=== PATIENT | male | born 1960 | race Caucasian/White ===

== ENCOUNTER 2024-09-26 12:11 | Inpatient (IN) | payer MEDICARE, MEDICAID ==
--- NOTE | 2024-09-26 12:29 | ED.PDOC ---
SOB-HPI HPI Comments 64 y.o male with PMH of HTN, hyperlipidemia, CVA, COPD, and enlarged prostate, presents to the ED for a chief complaint of ongoing SOB, intermittent chest pain and diarrhea for about 4-6 months. Patient was seen by his PCP Dr. Jose garcia for a general check up, was diagnosed with newly AFIB and CHF and was sent to the ED for further evaluation. Patient reports SOB worsens when laying flat and/or when getting up from sitting position. He denies any chest pain at this time, but when he comes onset, it is localized across his chest and is described as an aching sensation. He denies any nausea, vomiting, diarrhea, fever or chills. Time Seen by MD: 12:17 Reviewed notes: Nurses Notes, Medications, Allergies Information Source: Patient, Friend Mode of Arrival: Wheelchair Severity: Moderate Timing: Months (6) Duration: Since onset Context: At Rest PE Risk Factors: None History of: COPD Modifying Factors: Nothing Associated Signs and Symptoms: Chest Pain, Leg Swelling Quality: Aching Radiation: No Radiation Location: Substernal Past Medical History PAST MEDICAL HISTORY: COPD, CVA, High Lipids, HTN Past Medical History (Other): enlarged prostate Surgical History: Denies all surgeries Family History Family History: Family hx of DM Social History Smoker: Non-Smoker Alcohol: Denies ETOH Use Drugs: Denies Drug Use Lives In: Home Constitutional: denies: chills, diaphoresis, fatigue, fever, malaise, sweats, weakness, others EENTM: denies: blurred vision, double vision, ear bleeding, ear discharge, ear drainage, ear pain, ear ringing, eye pain, eye redness, hearing loss, mouth pain, mouth swelling, nasal discharge, nose bleeding, nose congestion, nose pain, photophobia, tearing, throat pain, throat swelling, voice changes, others Respiratory: reports: SOB at rest, shortness of breath, SOB with excertion; denies: cough, hemoptysis, orthopnea, stridor, wheezing, others Cardiovascular: reports: chest pain; denies: dizzy spells, diaphoresis, Dyspnea on exertion, edema, irregular heart beat, left arm pain, lightheadedness, palpitations, PND, syncope, others Gastrointestinal: reports: diarrhea; denies: abdomen distended, abdominal pain, blood streaked bowels, constipated, dysphagia, difficulty swallowing, hematemesis, melena, nausea, poor appetite, poor fluid intake, rectal bleeding, rectal pain, vomiting, others Genitourinary: denies: burning, dysuria, flank pain, frequency, hematuria, incontinence, penile discharge, penile sore, pain, testicle pain, testicle swelling, urgency, others Neurological: denies: dizziness, fainting, headache, left sided numbness, left sided weakness, numbness, paresthesia, pre-existing deficit, right sided numbness, right sided weakness, seizure, speech problems, tingling, tremors, weakness, others Musculoskeletal: reports: others (leg swelling ); denies: back pain, gout, shauna nt pain, joint swelling, muscle pain, muscle stiffness, neck pain Integumetry: denies: bruises, change in color, change in hair/nails, dryness, laceration, lesions, lumps, rash, wounds, others Allergic/Immunocompromised: denies: Difficulty Healing, Frequent Infections, Hives, Itching, others Hematologic/Lymphatic: denies: anemia, blood clots, easy bleeding, easy bruising, swollen glands, others Endocrine: denies: excessive hunger, excessive sweating, excessive thirst, excessive urination, flushing, intolerance to cold, intolerance to heat, unexpl ained weight gain, unexplained weight loss, others Psychiatric: denies: anxiety, bipolar disorder, depression, hopeless, panic disorder, schizophrenia, sleepless, suicidal, others All Other Systems: Reviewed and Negative Physical Exam General Appearance: Moderate Distress HEENT: Normal ENT Inspection, Pharynx Normal, TMs Normal Neck: Full Range of Motion, Non-Tender, Normal, Normal Inspection Respiratory: Chest Non-Tender, Rales, Respiratory Distress Cardiovascular: No Edema, No JVD, No Murmur, No Gallop, Normal Peripheral Pulses, Regular Rate/Rhythm Breast Exam: Deferred Gastrointestinal: No Organomegaly, Non Tender, No Pulsatile Mass, Normal Bowel Sounds, Soft Genitalia: Deferred Pelvic: Deferred Rectal: Deferred Extremities: No calf tenderness, Normal capillary refill, Normal inspection, Normal range of motion, Non-tender, No pedal edema Musculoskeletal : Apperance: Normal Neurologic: Alert, roast master II-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 Was a procedure done?: No Differential Dx Differential Diagnosis: Asthma, Bronchitis, CHF, COPD, Pneumonia, Pulmonary Embolism, Respiratory Distress, URI X-Ray, Labs, Meds, VS Vital Signs Date Time Temp Pulse Resp B/P (MAP) Pulse Ox O2 Delivery O2 Flow Rate FiO2 09/26/24 13:44 115/76 09/26/24 13:04 97.6 67 18 132/71 (91) 92 97.6 09/26/24 13:04 67 18 92 Room Air 09/26/24 12:23 97.6 88 20 133/101 (112) 93 Lab Test 09/26/24 13:39 09/26/24 12:49 Range/Units Troponin I High Sensitivity Pending 9 </=54 ng/L White Blood Count 12.7 H 4.4-10.8 10^3/uL Red Blood Count 4.36 L 4.5-5.90 10^6/uL Hemoglobin 14.0 13.5-17.5 g/dL Hematocrit 41.2 41.0-53.0 % Mean Corpuscular Volume 94.4 80.0-100.0 fL Mean Corpuscular Hemoglobin 32.2 H 28.0-32.0 pg Mean Corpuscular Hemoglobin Concent 34.1 32.0-36.0 g/dL Red Cell Distribution Width 13.6 11.8-14.3 % Platelet Count 257 140-450 10^3/uL Mean Platelet Volume 8.1 6.9-10.8 fL Neutrophils (%) (Auto) 78.1 37.0-80.0 % Lymphocytes (%) (Auto) 5.3 L 10.0-50.0 % Monocytes (%) (Auto) 16.1 H 0.0-12.0 % Eosinophils (%) (Auto) 0.2 0.0-7.0 % Basophils (%) (Auto) 0.3 0.0-2.0 % Neutrophils # (Auto) 9.9 H 1.6-8.6 10 ^3/uL Lymphocytes # (Auto) 0.7 0.4-5.4 10 ^3/uL Monocytes # (Auto) 2.0 H 0-1.3 10 ^3/uL Eosinophils # (Auto) 0 0-0.8 10 ^3/uL Basophils # (Auto) 0 0-0.2 10 ^3/uL Nucleated Red Blood Cells 0.1 % Sodium Level 134 L 136-145 mmol/L Potassium Level 4.2 3.5-5.1 mmol/L Chloride Level 97 L 98-107 mmol/L Carbon Dioxide Level 31 20-31 mmol/L Anion Gap 6 5-15 Blood Urea Nitrogen 9 9-23 mg/dL Creatinine 0.71 0.700-1.30 mg/dL Glomerular Filtration Rate Calc 102 >90 mL/min BUN/Creatinine Ratio 12.7 10.0-20.0 Serum Glucose 120 H 74-106 mg/dL Calcium Level 9.2 8.7-10.4 mg/dL B-Type Natriuretic Peptide 498.43 0-100 pg/mL Current Medications Medications (Trade) Dose Ordered Sig/Audrey Route Start Time Stop Time Status Last Admin Furosemide (Lasix Injection) 40 mg ONCE ONCE IV 09/26/24 12:30 09/26/24 12:31 DC 09/26/24 13:44 IV Hep-Lock was established The patient was given Lasix 40 mg IV push The patient's white blood cell count is elevated at 12.7 The rest of the CBC is within normal limits. The chemistry panel is within normal limits The patient has a BNP of 498.43 The patient was slightly hyperglycemic at 120 At this time, the patient is being admitted to the hospitalist. Images Reviewed?: Images reviewed and evaluated by me Time of 1ST Reevaluation: 12:21 Reevaluation 1ST: Unchanged Patient Education/Counseling: Diagnosis, Treatment, Prognosis Family Education/Counseling: Diagnosis, Treatment, Prognosis Departure 1 Departure Time of Disposition: 14:05 Impression: Primary Impression: Acute on chronic diastolic heart failure Disposition: ADMITTED INPATIENT Admit to: Tele Condition: Fair Critical Care Note Critical Care Time?: Yes (35 min-critical care time only) Stability Stability form required: Yes Unstable for transfer: Telemetry monitoring (Telemetry monitoring required), ED Physician Assesment (Clinical assesment) Heart Score Heart Score: Heart Score Response (Comments) Value History Slightly Suspicious 0 EKG Normal 0 Age >65 2 Risk Factors 1 or 2 risk factors 1 Troponin Normal limit 0 Total 3 I personally scribed for MARQUES OVERTON MD ([email or web address]) on 09/26/24 at 12:29. Electronically submitted by Jaqui Manuel ([facility]). MARQUES OVERTON MD Sep 26, 2024 12:29
--- NOTE | 2024-09-26 12:53 | DVH ---
EXAM: XY CHEST PORTABLE Indication:sob Technique: Single frontal view of the chest was obtained Comparison: None FINDINGS: Lines and Tubes: None Lungs: No focal consolidation. Pleura: No effusion. No pneumothorax. Cardiomediastinal contours: Cardiomegaly. Atherosclerotic vascular calcifications of the thoracic ao rta are noted. Bones: No acute osseous abnormality. IMPRESSION: No acute cardiopulmonary disease.
[2024-09-26 13:04] VITALS: BP 132/71; PULSE 67; RESP 18; TEMP 97.6; O2SAT 92
[2024-09-26 13:14] LABS: Chloride 97 mmol/L (98-107); Potassium 4.2 mmol/L (3.5-5.1); Sodium 134 mmol/L (136-145)
[2024-09-26 13:15] LABS: Anion Gap 6 (5-15); Carbon Dioxide 31 mmol/L (20-31)
[2024-09-26 13:16] LABS: Basophils # (auto) 0 10 ^3/uL (0-0.2); Basophils % (auto) 0.3 % (0.0-2.0); Calcium 9.2 mg/dL (8.7-10.4); Eosinophils # (auto) 0 10 ^3/uL (0-0.8); Eosinophils % (auto) 0.2 % (0.0-7.0); Hematocrit 41.2 % (41.0-53.0); Lymphocytes # (auto) 0.7 10 ^3/uL (0.4-5.4); Lymphocytes % (auto) 5.3 % (10.0-50.0); Mean Corpuscular Hemoglobin 32.2 pg (28.0-32.0); Mean Corpuscular Hgb Conc. 34.1 g/dL (32.0-36.0); Mean Corpuscular Volume 94.4 fL (80.0-100.0); Monocytes % (auto) 16.1 % (0.0-12.0); Neutrophils # (auto) 9.9 10 ^3/uL (1.6-8.6); Neutrophils % (auto) 78.1 % (37.0-80.0); Nucleated Red Blood Cells % 0.1 %; Platelet Count (auto) 257 10^3/uL (140-450); Red Blood Cells 4.36 10^6/uL (4.5-5.90); Red Cell Distribution Width 13.6 % (11.8-14.3); White Blood Cell 12.7 10^3/uL (4.4-10.8)
[2024-09-26 13:20] LABS: BUN/Creatinine Ratio 12.7 (10.0-20.0); Blood Urea Nitrogen 9 mg/dL (9-23); Glucose 120 mg/dL (74-106)
[2024-09-26] MEDS: FUROSEMIDE 40 MG/4 ML VIAL IV ONE (13:44)
[2024-09-26] MEDS ORDERED: MAALOX PLUS or MAALOX 30 ML PO ONE (17:45)
[2024-09-26] MEDS ORDERED: LORazepam 0.5 MG TAB PO PRN (17:45)
[2024-09-26] MEDS ORDERED: ACETAMINOPHEN 325 MG TAB PO PRN (17:45)
[2024-09-26] MEDS ORDERED: ZOLPIDEM TARTRATE 5 MG TAB PO PRN (17:45)
[2024-09-26] MEDS ORDERED: MORPHINE SULFATE INJ 2 MG/ml SYRG IV PRN (17:45)
[2024-09-26] MEDS ORDERED: DEXTROSE (50%) 50ML SYRG IV PRN (17:45)
[2024-09-26] MEDS ORDERED: ONDANSETRON HCL 4 MG/2 ML VIAL IV PRN (17:45)
[2024-09-26] MEDS ORDERED: NITROGLYCERIN 0.4 MG SL TAB SL PRN (17:45)
[2024-09-26] MEDS ORDERED: IPRATROPIUM BROM 0.5 MG/2.5ML INH SOL NEB PRN ×2 (18:00→22:00)
[2024-09-26] MEDS ORDERED: ALBUTEROL SULF 2.5 MG/0.5ML(0.5%) NEB SOLN NEB PRN ×2 (18:00→22:00)
--- NOTE | 2024-09-26 18:35 | DVHHP2 ---
History of Present Illness Reason for Visit: Shortness of Breath History of Present Illness 64 yo with a PMH HTN CVA HLD COPD and stated by PCP to have a suspected new onset of CHF and Possible Afib was recommended to come to the ed for admission and evaluation for management of suspected worsening CHF vs acute COPD exacerbation Cardiovascular: HTN, hyperipidemia Pulmonary: COPD MEDICAL OBSERVER: CVA Review of Systems Constitutional: Yes: Weakness; No: Fever, Chills, Sweats, Malaise, Other Eyes: No: Pain, Vision change, Conjunctivae inflammation, Eyelid inflammation, Other, Redness ENT: No: Ear pain, Ear discharge, Nose pain, Nose discharge, Nose congestion, Mouth pain, Mouth swelling, Throat pain, Throat swelling, Other Respiratory: Shortness of breath, SOB with excertion; No: Cough, Dry, Wheezing, Hemoptysis, Pleuritic Pain, Sputum, Wheezing, Other Cardiovascular: Chest Pain; No: Palpitations, Orthopnea, Paroxysmal Noc. Dyspnea, Edema, Lt Headedness, Other Gastrointestinal: No: Nausea, Vomiting, Abdominal Pain, Diarrhea, Constipation, Melena, Hematochezia, Other Genitourinary: No Dysuria, No Frequency, No Incontinence, No Hematuria, No Retention, No Other Musculoskeletal: No: other, neck pain, shoulder pain, arm pain, back pain, hand pain, leg pain, foot pain Skin: No: Rash, Lesions, Jaundice, Bruising, Other Neurological: No: Weakness, Numbness, Incoordination, Change in speech, Conf usion, Seizures, Other Allergies: Coded Allergies: NO KNOWN ALLERGIES (Unverified , 09/26/24) Medications Current Medications Medications Dose Ordered Sig/Audrey Route Start Time Stop Time Status Last Admin Dose Admin Diagnostic Test (Pha) 1 strip ACHS 09/26/24 22:00 Insulin Human Regular ACHS SC 09/26/24 22:00 Dextrose 50 ml UD PRN IV 09/26/24 17:45 Aspirin 81 mg DAILY PO 09/27/24 10:00 Clopidogrel Bisulfate 75 mg DAILY PO 09/27/24 10:00 Atorvastatin Calcium 40 mg HS PO 09/26/24 22:00 Carvedilol 6.25 mg Q12HR PO 09/26/24 22:00 Acetaminophen 650 mg Q6HP PRN PO 09/26/24 17:45 Zolpidem Tartrate 5 mg QHSP PRN PO 09/26/24 17:45 Lorazepam 0.5 mg Q6HP PRN PO 09/26/24 17:45 Docusate Sodium 100 mg DAILY PO 09/27/24 10:00 Ondansetron HCl 4 mg Q4HP PRN IV 09/26/24 17:45 Lisinopril 10 mg DAILY PO 09/27/24 10:00 Nitroglycerin 0.4 mg Q5MINP PRN SL 09/26/24 17:45 Morphine Sulfate 2 mg Q30M PRN IV 09/26/24 17:45 Furosemide 40 mg BID IV 09/26/24 22:00 Azithromycin 500 mg DAILY PO 09/27/24 10:00 Albuterol 2.5 mg Q4HPRN PRN NEB 09/26/24 22:00 Ipratropium [place] 0.5 mg Q4HPRN PRN NEB 09/26/24 22:00 Exam Vital Signs Vital Signs Date Time Temp Pulse Resp B/P (MAP) Pulse Ox O2 Delivery O2 Flow Rate FiO2 09/26/24 13:44 115/76 09/26/24 13:04 97.6 67 18 92 97.6 09/26/24 13:04 Room Air General Appearance: Alert, Oriented X3 HEENT: Atraumatic, PERRLA Respiratory: Clear to auscultation, Normal air movement Cardiovascular: Regular rate, Normal S1, Normal S2 Abdominal: Normal bowel sounds, Soft Extremities: No clubbing, No cyanosis, No edema Skin: No rashes, No breakdown, No significant lesion Neuro: Normal gait, Normal speech Psych/Mental Status: Mood NL Labs/Xrays Labs Test 09/26/24 13:39 09/26/24 12:49 Range/Units Troponin I High Sensitivity 8 </=54 ng/L White Blood Count 12.7 H 4.4-10.8 10^3/uL Red Blood Count 4.36 L 4.5-5.90 10^6/uL Hemoglobin 14.0 13.5-17.5 g/dL Hematocrit 41.2 41.0-53.0 % Mean Corpuscular Volume 94.4 80.0-100.0 fL Mean Corpuscular Hemoglobin 32.2 H 28.0-32.0 pg Mean Corpuscular Hemoglobin Concent 34.1 32.0-36.0 g/dL Red Cell Distribution Width 13.6 11.8-14.3 % Platelet Count 257 140-450 10^3/uL Mean Platelet Volume 8.1 6.9-10.8 fL Neutrophils (%) (Auto) 78.1 37.0-80.0 % Lymphocytes (%) (Auto) 5.3 L 10.0-50.0 % Monocytes (%) (Auto) 16.1 H 0.0-12.0 % Eosinophils (%) (Auto) 0.2 0.0-7.0 % Basophils (%) (Auto) 0.3 0.0-2.0 % Neutrophils # (Auto) 9.9 H 1.6-8.6 10 ^3/uL Lymphocytes # (Auto) 0.7 0.4-5.4 10 ^3/uL Monocytes # (Auto) 2.0 H 0-1.3 10 ^3/uL Eosinophils # (Auto) 0 0-0.8 10 ^3/uL Basophils # (Auto) 0 0-0.2 10 ^3/uL Nucleated Red Blood Cells 0.1 % Sodium Level 134 L 136-145 mmol/L Potassium Level 4.2 3.5-5.1 mmol/L Chloride Level 97 L 98-107 mmol/L Carbon Dioxide Level 31 20-31 mmol/L Anion Gap 6 5-15 Blood Urea Nitrogen 9 9-23 mg/dL Creatinine 0.71 0.700-1.30 mg/dL Glomerular Filtration Rate Calc 102 >90 mL/min BUN/Creatinine Ratio 12.7 10.0-20.0 Serum Glucose 120 H 74-106 mg/dL Calcium Level 9.2 8.7-10.4 mg/dL B-Type Natriuretic Peptide 498.43 0-100 pg/mL Assessment/Plan Assessment/Plan Admit to Med/Surg Shortness of Breath Suspected acute on chronic COPD exacerbation Possible CHF exacerbation chest pain protocol as stated chest pain BNP elevated possible fluid overload IV lasix bid COPD Exacerbation Prn Breathing treatments Azithromycin for coverage covid and flu evaluation CXR negative for severe disease elevated white count Plan discussed with: Patient My Orders Orders - JAKE POSEY MD Procedure Category Date Status Time Glucose Blood PHA 09/26/24 In Process (Accu-Chek Comfort 22:00 Insulin R (Human) PHA 09/26/24 In Process (Insulin R) 22:00 Dextrose 50% Syringe PHA 09/26/24 In Process 17:45 Admit ADMIT 09/26/24 Transmitted 17:39 Code Status CODE 09/26/24 Transmitted 17:39 Vital Signs TAPAN 09/26/24 In Process 17:39 Aspirin Tablet PHA 09/27/24 In Process 10:00 Clopidogrel Bisulfate PHA 09/27/24 In Process (Plavix) 10:00 Atorvastatin (Lipitor) PHA 09/26/24 In Process 22:00 Carvedilol Tablet PHA 09/26/24 In Process (Coreg Tablet) 22:00 Acetaminophen Tablet PHA 09/26/24 In Process (Tylenol Tablet) 17:45 Zolpidem Tartrate PHA 09/26/24 In Process (Ambien) 17:45 Lorazepam Tablet PHA 09/26/24 In Process (Ativan Tablet) 17:45 Docusate Sodium PHA 09/27/24 In Process Capsule (Colace 10:00 Complete Blood Count LAB 09/27/24 Verified 04:00 Basic Metabolic Panel LAB 09/27/24 Verified 04:00 Ondansetron Hcl PHA 09/26/24 In Process (Zofran) 17:45 Electrocardigram EKG 09/26/24 Logged 17:39 Lisinopril Tablet PHA 09/27/24 In Process (Zestril Tablet) 10:00 Cardiac TAPAN 09/26/24 In Process Rehabilitation - Outpa Nitroglycerin PHA 09/26/24 In Process Sublingual (Ntrostat 17:45 Morphine Sulfate PHA 09/26/24 In Process Injection 17:45 Stat Ekg For Chest TAPAN 09/26/24 In Process Pain 17:39 Notify Of Changes TAPAN 09/26/24 In Process From Base 17:39 Breakfast Manager For TAPAN 09/26/24 In Process 24 Hours 17:39 Emergency Dysrhythmia TAPAN 09/26/24 In Process Protocol 17:39 Rhythm Strips Once TAPAN 09/26/24 In Process Every Shift 17:39 Oxygen By Nasal RT 09/26/24 Transmitted Cannula 17:39 Furosemide Injection PHA 09/26/24 In Process (Lasix Injection) 22:00 Med Neb Initial RT 09/26/24 Logged Treatment 17:47 Azithromycin Tablet PHA 09/27/24 In Process (Zithromax Tablet) 10:00 Albuterol Medneb PHA 09/26/24 In Process (Ventolin Medneb) 22:00 Ipratropium Medneb PHA 09/26/24 In Process (Atrovent Medneb) 22:00 Covid19 Antigen Miriam LAB 09/26/24 Logged Rapid Influenza A&B LAB 09/26/24 Logged 18:15 Problem List: (1) COPD (chronic obstructive pulmonary disease) with acute bronchitis (2) Acute on chronic diastolic heart failure Date of Service: Sep 26, 2024 Billing Provider: JAKE POSEY MD Common Visit Codes: 44953-[id number] INP/OBS CARE (HIGH) JAKE POSEY MD Sep 26, 2024 18:35
[2024-09-26] MEDS ORDERED: FUROSEMIDE 40 MG/4 ML VIAL IV SCH (22:00)
[2024-09-26] MEDS ORDERED: ACCU-CHEK COMFORT CURVE STRIP VI SCH (22:00)
[2024-09-26] MEDS ORDERED: CARVEDILOL 3.125 MG TAB PO SCH (22:00)
[2024-09-26] MEDS ORDERED: ATORVASTATIN 20 MG TAB PO SCH (22:00)
[2024-09-26] MEDS ORDERED: InsuLIN REG 1unit/0.01ml Soln (100units/ml) SC SCH (22:00)
[2024-09-27] MEDS ORDERED: ASPirin 81 mg TAB PO SCH (10:00)
[2024-09-27] MEDS ORDERED: CLOPIDOGREL BISULFATE 75 MG TAB PO SCH (10:00)
[2024-09-27] MEDS ORDERED: LISINOPRIL 5 MG TAB PO SCH (10:00)
[2024-09-27] MEDS ORDERED: DOCUSATE SOD 100 MG CAP PO SCH (10:00)
[2024-09-27] MEDS ORDERED: AZITHROMYCIN 250 MG TAB PO SCH (10:00)
== END 2024-09-26 19:08 | disposition left against medical advice (07) | DRG 291 ==
LOC: ER 12:11 → OVERFLOW 17:39
PROVIDERS: ADMIT Hospitalist; ATTEND Hospitalist
DX: I11.0 Hypertensive heart disease with heart failure (principal); I50.33 Acute on chronic diastolic (congestive) heart failure; J44.1 Chronic obstructive pulmonary disease with (acute) exacerbation; E78.5 Hyperlipidemia, unspecified; N40.0 Benign prostatic hyperplasia without lower urinary tract symptoms; Z86.73 Personal history of transient ischemic attack (TIA), and cerebral infarction without residual deficits; Z83.3 Family history of diabetes mellitus
CPT/HCPCS: 36415; 71045; 80048; 83880; 84484; 85025; 96374; 99291; G0378

== ENCOUNTER 2024-10-27 15:45 | Inpatient (IN) | payer MEDICARE, MEDICAID ==
[~2024-10-27] VITALS: Ht 177.8 cm; Wt 81.0 kg
[2024-10-27] MEDS: cefTRIAXone 1GM/50ML D5W 50 ML IV SCH
[~2024-10-27 15:45] MED LIST: AMLO1TAB23 PO; LISI-283 PO; UMEC1AER IN
--- NOTE | 2024-10-27 15:55 | ED.PDOC ---
SOB-HPI HPI Comments 64 y.o male with PMH of AFIB, COPD, asthma, HTN, HDL, DM, and CVA, presents to the ED via EMS for a chief complaint of SOB that started last night but progressively worsened x 2-3 hours ago. EMS reports administrating 0.5 albuterol and 250-300cc NS in route. Patient reports similar symptoms last month, was seen by PCP on 09/25/24 who referred him to the ED. Patient went to the ED the following day but ended up leaving against medical advice due to wait time. He denies any chest pain, fever, chills, nausea, vomiting, diarrhea, abdominal pain, recent illness or contact exposure. He admits to the use of tobacco, alcohol and marijuana. Chief Complaint: Shortness of Breath Time Seen by MD: 15:43 Reviewed notes: Nurses Notes, Steel Shot Header Operator Notes, Medications, Allergies Information Source: Patient, Emergency Med Personnel Mode of Arrival: EMS Severity: Moderate Timing: Hours Duration: Since onset Context: At Rest History of: Asthma, COPD Prehospital treatment: 12 Lead EKG, Breathing Tx, Cable Television Technician, IVF Modifying Factors: Nothing Associated Signs and Symptoms: None Past Medical History PAST MEDICAL HISTORY: COPD, CVA, High Lipids, HTN Surgical History: Denies all surgeries Family History Family History: Family hx of DM Social History Smoker: Cigarettes Alcohol: Occasionally Drugs: Marijuana Lives In: Home Constitutional: denies: chills, diaphoresis, fatigue, fever, malaise, sweats, weakness, others EENTM: denies: blurred vision, double vision, ear bleeding, ear discharge, ear drainage, ear pain, ear ringing, eye pain, eye redness, hearing loss, mouth pain, mouth swelling, nasal discharge, nose bleeding, nose congestion, nose pain, photophobia, tearing, throat pain, throat swelling, voice changes, others Respiratory: reports: SOB at rest, shortness of breath, SOB with excertion; denies: cough, hemoptysis, orthopnea, stridor, wheezing, others Cardiovascular: denies: chest pain, dizzy spells, diaphoresis, Dyspnea on exertion, edema, irregular heart beat, left arm pain, lightheadedness, palpitations, PND, syncope, others Gastrointestinal: denies: abdomen distended, abdominal pain, blood streaked bowels, constipated, diarrhea, dysphagia, difficulty swallowing, hematemesis, melena, nausea, poor appetite, poor fluid intake, rectal bleeding, rectal pain, vomiting, others Genitourinary: denies: burning, dysuria, flank pain, frequency, hematuria, incontinence, penile discharge, penile sore, pain, testicle pain, testicle swelling, urgency, others Neurological: denies: dizziness, fainting, headache, left sided numbness, left sided weakness, numbness, paresthesia, pre-existing deficit, right sided numbness, right sided weakness, seizure, speech problems, tingling, tremors, weakness, others Musculoskeletal: denies: back pain, gout, joint pain, joint swelling, muscle pain, muscle stiffness, neck pain, others Integumetry: denies: bruises, change in color, change in hair/nails, dryness, laceration, lesions, lumps, rash, wounds, others Allergic/Immunocompromised: denies: Difficulty Healing, Frequent Infections, Hives, Itching, others Hematologic/Lymphatic: denies: anemia, blood clots, easy bleeding, easy bruising, swollen glands, others Endocrine: denies: excessive hunger, excessive sweating, excessive thirst, excessive urination, flushing, intolerance to cold, intolerance to heat, unexplained weight gain, unexplained weight loss, others Psychiatric: denies: anxiety, bipolar disorder, depression, hopeless, panic disorder, schizophrenia, sleepless, suicidal, others All Other Systems: Reviewed and Negative Physical Exam General Appearance: Moderate Distress HEENT: Normal ENT Inspection, Pharynx Normal, TMs Normal Neck: Full Range of Motion, Non-Tender, Normal, Normal Inspection Respiratory: Chest Non-Tender, No Accessory Muscle Use, Rales, Respiratory Distress Cardiovascular: No Edema, No JVD, No Murmur, No Gallop, Normal Peripheral Pulses, Tachycardia Breast Exam: Deferred Gastrointestinal: No Organomegaly, Non Tender, No Pulsatile Mass, Normal Bowel Sounds, Soft Genitalia: Deferred Pelvic: Deferred Rectal: Deferred Extremities: No calf tenderness, Normal capillary refill, Normal inspection, Normal range of motion, Non-tender, No pedal edema Musculoskeletal : Apperance: Normal Neurologic: Alert, 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 Was a procedure done?: No Differential Dx Differential Diagnosis: Asthma, Bronchitis, CHF, COPD, Pneumonia, Respiratory Distress, URI X-Ray, Labs, Meds, VS Vital Signs Date Time Temp Pulse Resp B/P (MAP) Pulse Ox O2 Delivery O2 Flow Rate FiO2 10/27/24 15:55 133 10/27/24 15:51 133 10/27/24 15:47 98.9 129 16 159/88 (111) 98 Lab Test 10/27/24 18:24 10/27/24 16:55 10/27/24 16:35 Range/Units Troponin I High Sensitivity Pending White Blood Count 8.9 4.4-10.8 10^3/uL Red Blood Count 4.71 4.5-5.90 10^6/uL Hemoglobin 14.7 13.5-17.5 g/dL Hematocrit 45.2 41.0-53.0 % Mean Corpuscular Volume 96.1 80.0-100.0 fL Mean Corpuscular Hemoglobin 31.2 28.0-32.0 pg Mean Corpuscular Hemoglobin Concent 32.4 32.0-36.0 g/dL Red Cell Distribution Width 15.7 H 11.8-14.3 % Platelet Count 234 140-450 10^3/uL Mean Platelet Volume 8.8 6.9-10.8 fL Neutrophils (%) (Auto) 78.1 37.0-80.0 % Lymphocytes (%) (Auto) 6.2 L 10.0-50.0 % Monocytes (%) (Auto) 15.2 H 0.0-12.0 % Eosinophils (%) (Auto) 0.2 0.0-7.0 % Basophils (%) (Auto) 0.3 0.0-2.0 % Neutrophils # (Auto) 6.9 1.6-8.6 10 ^3/uL Lymphocytes # (Auto) 0.6 0.4-5.4 10 ^3/uL Monocytes # (Auto) 1.4 H 0-1.3 10 ^3/uL Eosinophils # (Auto) 0 0-0.8 10 ^3/uL Basophils # (Auto) 0 0-0.2 10 ^3/uL Nucleated Red Blood Cells 0.2 % Sodium Level 129 L 136-145 mmol/L Potassium Level 3.6 3.5-5.1 mmol/L Chloride Level 97 L 98-107 mmol/L Carbon Dioxide Level 23 20-31 mmol/L Anion Gap 9 5-15 Blood Urea Nitrogen 7 L 9-23 mg/dL Creatinine 0.71 0.700-1.30 mg/dL Glomerular Filtration Rate Calc 102 >90 mL/min BUN/Creatinine Ratio 9.9 L 10.0-20.0 Serum Glucose 120 H 74-106 mg/dL Calcium Level 9.3 8.7-10.4 mg/dL B-Type Natriuretic Peptide 297.59 0-100 pg/mL Lactic Acid Level Pending Current Medications Medications (Trade) Dose Ordered Sig/Audrey Route Start Time Stop Time Status Last Admin Methylprednisolone Sodium Succinate (Solu Medrol) 125 mg ONCE ONCE IV 10/27/24 16:00 10/27/24 16:01 DC 10/27/24 16:39 CHEST RADIOGRAPH IMPRESSION: 1. Cardiomegaly with probable pulmonary vascular congestion. IIV heplock The patient was given Lasix 40 mg IV push The lactic acid level is pending The CBC and chemistry panel is within normal limits. The troponin level is pending At this time, the patient was being admitted to the hospitalist with a diagnosis of acute on chronic diastolic heart failure Images Reviewed?: Images reviewed and evaluated by me Time of 1ST Reevaluation: 15:54 Reevaluation 1ST: Unchanged Patient Education/Counseling: Diagnosis, Treatment, Prognosis Family Education/Counseling: No Family Present Departure 1 Departure Time of Disposition: 18:45 Impression: Primary Impression: Acute on chronic diastolic heart failure Disposition: 09 ADMITTED INPATIENT Admit to: Tele Condition: Fair Critical Care Note Critical Care Time?: Yes (35 min-critical care time only) Stability Stability form required: Yes Unstable for transfer: Telemetry monitoring (Telemetry monitoring required), ED Physician Assesment (Clinical assesment) I personally scribed for MARQUES OVERTON MD ([email or web address]) on 10/27/24 at 15:54. Electronically submitted by Jaqui Manuel ([facility] [facility]). I personally scribed for MARQUES OVERTON MD ([email or web address]) on 10/27/24 at 18:33. Electronically submitted by Jaqui Manuel ([facility] MARQUES OVERTON MD Oct 27, 2024 15:54
[2024-10-27] MEDS: dilTIAZem 25 MG/5 ML VIAL IV ONE ×2 (16:00→23:45)
--- NOTE | 2024-10-27 16:00 | ECG ---
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
[2024-10-27] MEDS: methylPREDNISolone SOD SUCC 125 MG/2 ML VL IV ONE (16:39)
--- NOTE | 2024-10-27 16:59 | DVH ---
CHEST RADIOGRAPH Indication: Palpitations and shortness a breath Technique: Single frontal view of the chest was obtained Comparison: XY CHEST PORTABLE on DOS: 09/26/24 FINDINGS: Lines and Tubes: None Lungs: Bilateral lower lung zone hazy opacities. Diffuse bilateral interstitial prominence. Pleura: Blunted right costophrenic angle. No pneumothorax. Cardiomediastinal contours: Cardiomegaly. Bones: No acute osseous abnormality. IMPRESSION: 1. Cardiomegaly with probable pulmonary vascular congestion. HS:Y
[2024-10-27 17:24] LABS: Basophils # (auto) 0 10 ^3/uL (0-0.2); Basophils % (auto) 0.3 % (0.0-2.0); Eosinophils # (auto) 0 10 ^3/uL (0-0.8); Eosinophils % (auto) 0.2 % (0.0-7.0); Hematocrit 45.2 % (41.0-53.0); Hemoglobin 14.7 g/dL (13.5-17.5); Lymphocytes # (auto) 0.6 10 ^3/uL (0.4-5.4); Lymphocytes % (auto) 6.2 % (10.0-50.0); Mean Corpuscular Hemoglobin 31.2 pg (28.0-32.0); Mean Corpuscular Hgb Conc. 32.4 g/dL (32.0-36.0); Mean Corpuscular Volume 96.1 fL (80.0-100.0); Monocytes # (auto) 1.4 10 ^3/uL (0-1.3); Monocytes % (auto) 15.2 % (0.0-12.0); Neutrophils # (auto) 6.9 10 ^3/uL (1.6-8.6); Neutrophils % (auto) 78.1 % (37.0-80.0); Nucleated Red Blood Cells % 0.2 %; Platelet Count (auto) 234 10^3/uL (140-450); Red Blood Cells 4.71 10^6/uL (4.5-5.90); Red Cell Distribution Width 15.7 % (11.8-14.3); White Blood Cell 8.9 10^3/uL (4.4-10.8)
[2024-10-27 17:43] LABS: Calcium 9.3 mg/dL (8.7-10.4); Carbon Dioxide 23 mmol/L (20-31)
[2024-10-27 17:44] LABS: Potassium 3.6 mmol/L (3.5-5.1)
[2024-10-27] MEDS: FUROSEMIDE 40 MG/4 ML VIAL IV ONE (17:45)
[2024-10-27 17:48] LABS: BUN/Creatinine Ratio 9.9 (10.0-20.0)
[2024-10-27 18:25] LABS: Anion Gap 9 (5-15); Blood Urea Nitrogen 7 mg/dL (9-23); Chloride 97 mmol/L (98-107); Glucose 120 mg/dL (74-106); Sodium 129 mmol/L (136-145)
[2024-10-27] MEDS ORDERED: TEMAZEPAM 15 MG CAP PO PRN (20:15)
[2024-10-27] MEDS ORDERED: AZITHROMYCIN 500MG/ 250ML 250 ML IV ONE (20:15)
[2024-10-27] MEDS ORDERED: NITROGLYCERIN 0.4 MG SL TAB SL PRN (20:15)
[2024-10-27] MEDS ORDERED: ONDANSETRON HCL 4 MG/2 ML VIAL IV PRN (20:15)
[2024-10-27] MEDS ORDERED: MORPHINE SULFATE INJ 2 MG/ml SYRG IV PRN (20:15)
[2024-10-27] MEDS ORDERED: cefTRIAXone 1GM/50ML D5W 50 ML IV SCH (20:35)
[2024-10-27 22:00] VITALS: BP 159/88; PULSE 133; RESP 16; TEMP 98.9; O2SAT 98
[2024-10-27] MEDS ORDERED: DOXYCYCLINE 100MG/250ML 250 ML IV SCH (22:00)
[2024-10-27 22:45] VITALS: PULSE 103; RESP 20; O2SAT 99
[2024-10-27] MEDS: ATORVASTATIN 20 MG TAB PO SCH (23:43)
[2024-10-27 23:50] LABS: COVID19 ANTIGEN SOFIA FIA NEGATIVE (NEGATIVE); Rapid Influenza A Negative (Negative); Rapid Influenza B Negative (Negative)
[2024-10-28] VITALS (20 sets, daily range): BP systolic 101–128; BP diastolic 67–90; PULSE 70–114; RESP 18–26; TEMP 97.6–98.6; O2SAT 93–100
[2024-10-28] MEDS: DOXYCYCLINE 100MG/250ML 250 ML IV SCH (00:13)
[2024-10-28] MEDS ORDERED: CITA-77 PO (02:32)
[2024-10-28] MEDS ORDERED: TAMS0.4C39 PO (02:32)
[2024-10-28] MEDS ORDERED: SIMV20TA20 PO (02:32)
[2024-10-28] MEDS ORDERED: DUTA1CAP29 PO (02:32)
--- NOTE | 2024-10-28 02:47 | ECG ---
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
--- NOTE | 2024-10-28 05:05 | DVHHP2 ---
History of Present Illness Reason for Visit: Shortness for breath History of Present Illness 64-year-old male presents for evaluation of shortness for breath. Patient reports a two day history of worsening shortness for breath. Patient reports using his albuterol without relief of the symptoms. Reports wheezing and a nonproductive cough. Patient reports smoking one pack of cigarettes a day. Denies chest pain at the moment. No other acute complaints reported. Past Medical History COPD, dyslipidemia, CVA, hypertension and? CHF Past Surgical History Denies Family History Diabetes mellitus Smoke: <1 pack per day ALCOHOL: occassional Drugs: Marijuana Review of Systems Review of Systems Review of systems are currently negative otherwise addressed in HPI. Allergies: Coded Allergies: NO KNOWN ALLERGIES (Unverified , 09/26/24) Medications Current Medications Medications Dose Ordered Sig/Audrey Route Start Time Stop Time Status Last Admin Dose Admin Atorvastatin Calcium 20 mg HS PO 10/27/24 22:00 10/27/24 23:43 20 MG Lisinopril 20 mg DAILY PO 10/28/24 10:00 Hydrochlorothiazide 25 mg DAILY PO 10/28/24 10:00 Tamsulosin HCl 0.4 mg QPM PO 10/28/24 18:00 Metoprolol Succinate 25 mg DAILY PO 10/28/24 10:00 Furosemide 40 mg DAILY PO 10/28/24 10:00 Azithromycin 250 ml @ 125 mls/hr DAILY IV 10/28/24 10:00 UNV Albuterol 2.5 mg Q6HPRN PRN NEB 10/27/24 20:15 Temazepam 15 mg QHSP PRN PO 10/27/24 20:15 Ondansetron HCl 4 mg Q4HP PRN IV 10/27/24 20:15 Enoxaparin Sodium 40 mg DAILY SC 10/28/24 10:00 Acetaminophen 650 mg Q6HP PRN PO 10/27/24 20:15 Nitroglycerin 0.4 mg Q5MINP PRN SL 10/27/24 20:15 Morphine Sulfate 2 mg Q30M PRN IV 10/27/24 20:15 Ceftriaxone Sodium 50 ml @ 100 mls/hr Q24H IV 10/27/24 00:00 10/27/24 23:30 100 MLS/HR Doxycycline Hyclate 250 ml @ 125 mls/hr Q12H IV 10/28/24 00:30 10/28/24 00:13 125 MLS/HR Exam Vital Signs Vital Signs Date Time Temp Pulse Resp B/P (MAP) Pulse Ox O2 Delivery O2 Flow Rate FiO2 10/28/24 02:26 98.1 105 20 128/80 (96) 93 98.1 10/28/24 02:19 Nasal Cannula* 2 28 Exam Gen: 64-year-old male Skin: Warm, dry, normal color and texture, no rash. HEENT: Normocephalic atraumatic, mucous membranes moist and pink. Neck: Cervical and supraclavicular nodes normal without enlargement, trachea is midline, thyroid gland is normal without masses. Pulmonary: Diminished breath sounds bilaterally Cardiac: Regular rate and rhythm. No murmur Abdomen: Soft, nontender, nondistended, bowel sounds present all 4 quadrants, no guarding, no rigidity, no organomegaly. Extremities: No cyanosis, clubbing, no edema Neuro: Cranial nerves II through XII grossly intact, normal affect and speech, no focal motor deficits. Labs/Xrays ORDERING PHYSICIAN: MARQUES OVERTON MD PROCEDURE(s): CXRP - CHEST PORTABLE REASON: Palpitations and shortness a breath ORDER NUMBER(s): [id number], ACCESSION NUMBER(s): [id number] CHEST RADIOGRAPH Indication: Palpitations and shortness a breath Technique: Single frontal view of the chest was obtained Comparison: XY CHEST PORTABLE on DOS: 09/26/24 FINDINGS: Lines and Tubes: None Lungs: Bilateral lower lung zone hazy opacities. Diffuse bilateral interstitial prominence. Pleura: Blunted right costophrenic angle. No pneumothorax. Cardiomediastinal contours: Cardiomegaly. Bones: No acute osseous abnormality. IMPRESSION: 1. Cardiomegaly with probable pulmonary vascular congestion. HS:Y Labs Test 10/27/24 23:00 10/27/24 19:55 10/27/24 16:55 10/27/24 16:35 Range/Units Influenza Type A Antigen Negative Negative Influenza Type B Antigen Negative Negative SARS-CoV-2 Antigen (Rapid) Negative NEGATIVE Troponin I High Sensitivity 14 </=54 ng/L White Blood Count 8.9 4.4-10.8 10^3/uL Red Blood Count 4.71 4.5-5.90 10^6/uL Hemoglobin 14.7 13.5-17.5 g/dL Hematocrit 45.2 41.0-53.0 % Mean Corpuscular Volume 96.1 80.0-100.0 fL Mean Corpuscular Hemoglobin 31.2 28.0-32.0 pg Mean Corpuscular Hemoglobin Concent 32.4 32.0-36.0 g/dL Red Cell Distribution Width 15.7 H 11.8-14.3 % Platelet Count 234 140-450 10^3/uL Mean Platelet Volume 8.8 6.9-10.8 fL Neutrophils (%) (Auto) 78.1 37.0-80.0 % Lymphocytes (%) (Auto) 6.2 L 10.0-50.0 % Monocytes (%) (Auto) 15.2 H 0.0-12.0 % Eosinophils (%) (Auto) 0.2 0.0-7.0 % Basophils (%) (Auto) 0.3 0.0-2.0 % Neutrophils # (Auto) 6.9 1.6-8.6 10 ^3/uL Lymphocytes # (Auto) 0.6 0.4-5.4 10 ^3/uL Monocytes # (Auto) 1.4 H 0-1.3 10 ^3/uL Eosinophils # (Auto) 0 0-0.8 10 ^3/uL Basophils # (Auto) 0 0-0.2 10 ^3/uL Nucleated Red Blood Cells 0.2 % Sodium Level 129 L 136-145 mmol/L Potassium Level 3.6 3.5-5.1 mmol/L Chloride Level 97 L 98-107 mmol/L Carbon Dioxide Level 23 20-31 mmol/L Anion Gap 9 5-15 Blood Urea Nitrogen 7 L 9-23 mg/dL Creatinine 0.71 0.700-1.30 mg/dL Glomerular Filtration Rate Calc 102 >90 mL/min BUN/Creatinine Ratio 9.9 L 10.0-20.0 Serum Glucose 120 H 74-106 mg/dL Calcium Level 9.3 8.7-10.4 mg/dL B-Type Natriuretic Peptide 297.59 0-100 pg/mL Lactic Acid Level 1.9 0.4-2.0 mmol/L Assessment/Plan Assessment/Plan Assessment Acute on chronic respiratory failure COPD exacerbation Possible CHF exacerbation ? Pneumonia Hypertension Noncompliant Plan Admit the patient to telemetry to the hospitalist Rocephin/azithromycin Resume home medications Continue treatment per orders. Plan discussed with: Patient My Orders Orders - NEGRA ASHBY Procedure Category Date Status Time Atorvastatin (Lipitor) PHA 10/27/24 In Process 22:00 Lisinopril Tablet PHA 10/28/24 In Process (Zestril Tablet) 10:00 Hydrochlorothiazide PHA 10/28/24 In Process Tablet (Hydrochlorot 10:00 Tamsulosin PHA 10/28/24 In Process Hydrochloride (Flomax) 18:00 Metoprolol Xl PHA 10/28/24 In Process Succinate (Toprol Xl) 10:00 Furosemide Tablet PHA 10/28/24 In Process (Lasix Tablet) 10:00 Albuterol Medneb PHA 10/27/24 In Process (Ventolin Medneb) 20:15 Basic Metabolic Panel LAB 10/28/24 Logged 04:00 Admit ADMIT 10/27/24 Transmitted 20:02 Temazepam (Restoril) PHA 10/27/24 In Process 20:15 Ondansetron Hcl PHA 10/27/24 In Process (Zofran) 20:15 Enoxaparin Sodium PHA 10/28/24 In Process (Lovenox) 10:00 Complete Blood Count LAB 10/28/24 Logged 04:00 Cardiac DIET 10/28/24 Transmitted Diet-2gna,Lofat,Lochol Breakfast Echo 2d Mode Cardiac US 10/27/24 Logged DOP 20:02 Condition: Stable TAPAN 10/27/24 In Process 20:02 Acetaminophen Tablet PHA 10/27/24 In Process (Tylenol Tablet) 20:15 Bedrest With Bathroom TAPAN 10/27/24 In Process Privileg 20:02 Nitroglycerin PHA 10/27/24 In Process Sublingual (Ntrostat 20:15 Morphine Sulfate PHA 10/27/24 In Process Injection 20:15 Stat Ekg For Chest TAPAN 10/27/24 In Process Pain 20:02 Notify Of Changes TAPAN 10/27/24 In Process From Base 20:02 Heading And Priming Operator For [facility] 10/27/24 In Process 24 Hours 20:02 Emergency Dysrhythmia TAPAN 10/27/24 In Process Protocol 20:02 Rhythm Strips Once TAPAN 10/27/24 In Process Every Shift 20:02 Oxygen By Nasal RT 10/27/24 Transmitted Cannula 20:02 Clarification Of ORDERS 10/27/24 Transmitted Order: 20:40 Pharmacy [facility] 10/27/24 In Process Clarification: 21:07 Ceftriaxone 1gm/50ml PHA 10/27/24 In Process D5w (Rocephin) 00:00 Doxycycline PHA 10/28/24 In Process 100mg/250ml 00:30 Education - Smoking TAPAN 10/28/24 In Process Cessation 03:27 Date of Service: Oct 27, 2024 Billing Provider: NEGRA ASHBY Common Visit Codes: [id number] INP/OBS CARE (HIGH) NEGRA ASHBY Oct 28, 2024 05:05
[2024-10-28 06:59] LABS: Anion Gap 7 (5-15); Carbon Dioxide 28 mmol/L (20-31)
[2024-10-28 07:00] LABS: Calcium 9.1 mg/dL (8.7-10.4)
[2024-10-28 07:01] LABS: Chloride 95 mmol/L (98-107); Sodium 130 mmol/L (136-145)
[2024-10-28 07:05] LABS: BUN/Creatinine Ratio 12.3 (10.0-20.0); Basophils # (auto) 0 10 ^3/uL (0-0.2); Basophils % (auto) 0.1 % (0.0-2.0); Blood Urea Nitrogen 10 mg/dL (9-23); Eosinophils # (auto) 0 10 ^3/uL (0-0.8); Hematocrit 45.5 % (41.0-53.0); Lymphocytes # (auto) 0.3 10 ^3/uL (0.4-5.4); Lymphocytes % (auto) 4.1 % (10.0-50.0); Mean Corpuscular Hgb Conc. 33.1 g/dL (32.0-36.0); Mean Corpuscular Volume 93.7 fL (80.0-100.0); Monocytes # (auto) 0.6 10 ^3/uL (0-1.3); Monocytes % (auto) 8.8 % (0.0-12.0); Neutrophils # (auto) 5.8 10 ^3/uL (1.6-8.6); Platelet Count (auto) 188 10^3/uL (140-450); Red Blood Cells 4.85 10^6/uL (4.5-5.90); Red Cell Distribution Width 15.1 % (11.8-14.3); White Blood Cell 6.7 10^3/uL (4.4-10.8)
[2024-10-28 07:07] LABS: Glucose 187 mg/dL (74-106)
[2024-10-28] MEDS: ALBUTEROL SULF 2.5 MG/0.5ML(0.5%) NEB SOLN NEB PRN ×2 (08:00→11:08)
[2024-10-28] MEDS: LISINOPRIL 20 MG TAB PO SCH (09:18)
[2024-10-28] MEDS: hydroCHLOROthiazide 25 MG TAB PO SCH (09:19)
[2024-10-28] MEDS: FUROSEMIDE 40 MG TAB PO SCH (09:19)
[2024-10-28] MEDS: METOPROLOL SUCCINATE XL 50 MG TAB PO SCH (09:20)
[2024-10-28] MEDS: ENOXAPARIN SOD 40 MG/0.4 ML SYRINGE SC SCH (09:24)
[2024-10-28] MEDS ORDERED: AZITHROMYCIN 500MG/ 250ML 250 ML IV SCH (10:00)
[2024-10-28] MEDS: ALBUTEROL SULF 2.5 MG/0.5ML(0.5%) NEB SOLN NEB SCH (12:00)
--- NOTE | 2024-10-28 12:51 | CONS ---
Pharmacy Clinical Information: Patient from [facility] HF report (antihyperglycemic drug). There is no Hemoglobin A1c level available at this time to make a proper guideline-based recommendation for an antihyperglycemic drug. ROSITA BAKER PHARMACIST Oct 28, 2024 12:51
[2024-10-28] MEDS ORDERED: IPRATROPIUM BROM 0.5 MG/2.5ML INH SOL NEB PRN (13:15)
[2024-10-28] MEDS ORDERED: ALBUTEROL SULF 2.5 MG/0.5ML(0.5%) NEB SOLN NEB PRN (13:15)
[2024-10-28] MEDS: predniSONE 20 MG TAB PO ONE (13:44)
[2024-10-28] MEDS: NICOTINE 14 MG/24HR TOPICAL PATCH TD ONE (13:47)
[2024-10-28] MEDS: IPRATROPIUM BROM 0.5 MG/2.5ML INH SOL NEB SCH (14:01)
[2024-10-28] MEDS ORDERED: AMLO1TAB22 PO (16:12)
[2024-10-28] MEDS ORDERED: MULTCHW OR (16:17)
[2024-10-28] MEDS ORDERED: NICO1LOZ5 MT (16:17)
[2024-10-28] MEDS ORDERED: ASPI81CH74 PO (16:17)
[2024-10-28] MEDS ORDERED: ERGO1CAP23 PO (16:17)
[2024-10-28] MEDS: TAMSULOSIN HYDROCHLORIDE 0.4 MG CAP PO SCH (17:21)
[2024-10-28 20:13] LABS: Potassium 3.7 mmol/L (3.5-5.1)
--- NOTE | 2024-10-28 20:14 | DVHPNRES ---
Progress Note Date Seen: Oct 28, 2024 Resident Creating Document: YAZMIN FONSECA RESIDENT Medical Necessity Reason Pt with a Central, PICC or Fol: No Subjective Review of Systems 64-year-old male and past medical history of COPD, hyperlipidemia, CVA, hypertension, AFib, CHF here with complaints of shortness of breath associated wheezing and cough last two days. Patient was admitted last time in September possible CHF exacerbation and atrial fibrillation but he left AMA. Patient is mentioning of chest pain that is associated with cough and deep inspiration. ROS Constitutional: No: Fever, Chills, Sweats, Weakness, Malaise, Other Eyes: No: Pain, Vision change, Conjunctivae inflammation, Eyelid inflammation, Other, Redness ENT: No: Ear pain, Ear discharge, Nose pain, Nose discharge, Nose congestion, Mouth pain, Mouth swelling, Throat pain, Throat swelling, Other Respiratory: Cough, sputum, wheezing Cardiovascular: Chest pain, no: Palpitations, Orthopnea, Paroxysmal Noc. Dyspnea, Edema, Lt Headedness, Other Gastrointestinal: No: Nausea, Vomiting, Abdominal Pain, Diarrhea, Constipation, Melena, Hematochezia, Other Musculoskeletal: No: other, neck pain, shoulder pain, arm pain, back pain, hand pain, leg pain, foot pain Neurological:; No: Weakness, Numbness, Incoordination, Change in speech, Confusion, Seizures Objective vital signs Vital Sign Date Time Temp Pulse Resp B/P (MAP) Pulse Ox O2 Delivery O2 Flow Rate FiO2 10/28/24 18:10 111 22 100 10/28/24 17:05 97.6 127/67 (87) 97.6 10/28/24 10:00 Nasal Cannula* 3 32 Total Intake and Output 10/27/24 10/27/24 10/28/24 14:59 22:59 06:59 Intake Total 665 ml Output Total 1 ml Balance 664 ml medications Current Medications Medications Dose Ordered Sig/Audrey Route Start Time Stop Time Status Last Admin Dose Admin Atorvastatin Calcium 20 mg HS PO 10/27/24 22:00 10/27/24 23:43 20 MG Lisinopril 20 mg DAILY PO 10/28/24 10:00 10/28/24 09:18 20 MG Hydrochlorothiazide 25 mg DAILY PO 10/28/24 10:00 10/28/24 09:19 25 MG Tamsulosin HCl 0.4 mg QPM PO 10/28/24 18:00 10/28/24 17:21 0.4 MG Metoprolol Succinate 25 mg DAILY PO 10/28/24 10:00 10/28/24 09:20 25 MG Furosemide 40 mg DAILY PO 10/28/24 10:00 10/28/24 09:19 40 MG Azithromycin 250 ml @ 125 mls/hr DAILY IV 10/28/24 10:00 UNV Enoxaparin Sodium 40 mg DAILY SC 10/28/24 10:00 10/28/24 09:24 40 MG Acetaminophen 650 mg Q6HP PRN PO 10/27/24 20:15 Ceftriaxone Sodium 50 ml @ 100 mls/hr Q24H IV 10/27/24 00:00 10/27/24 23:30 100 MLS/HR Doxycycline Hyclate 250 ml @ 125 mls/hr Q12H IV 10/28/24 00:30 10/28/24 12:42 125 MLS/HR Prednisone 40 mg DAILY PO 10/29/24 10:00 Ipratropium [place] 0.5 mg Q4HR NEB 10/28/24 14:00 10/28/24 18:26 0.5 MG Ipratropium [place] 0.5 mg Q2HPRN PRN NEB 10/28/24 13:15 Nicotine 1 patch DAILY TD 10/29/24 10:00 Levalbuterol HCl 1.25 mg Q4HR NEB 10/28/24 22:00 UNV Ipratropium [place] 0.5 mg Q4HR NEB 10/28/24 22:00 UNV Examination Examination General Appearance: Alert, Oriented X3, Cooperative, No acute distress HEENT: EOMI Respiratory: Bilateral Scattered wheezing Cardiovascular: Regular rate, Normal S1, Normal S2 Abdominal: Normal bowel sounds Extremities: No cyanosis, No edema, Normal pulses, No tenderness/swelling Skin: No rashes, No breakdown Neuro: Speech and tone laboratory and microbiology Laboratory Tests 10/28/24 06:14 Test 10/28/24 06:14 Range/Units Serum Glucose 187 H 74-106 mg/dL Microbiology Date/Time Source Procedure Growth Status 10/27/24 17:04 Blood Blood Culture - Preliminary NO GROWTH AFTER 24 HOURS OF INCUBATION. Resulted Labs and/or images reviewed: Labs reviewed by me, Image(s) reviewed by me Problem List/Assessment/Plan Problem List/Assessment/Plan Assessment/Plan #Acute hypoxic Resp failure due to COPD exacerbation/?CHF exacerbation/?Pneumonia -currently on 3L o2 through nasal canula -Chest Xray revealed Cardiomegaly with probable pulmonary vascular congestion. #COPD exacerbation -neb with ipratropium/levalbuterol -Doxy considering prolonged QTc #?CHF exacerbation -IV Lasix switched to oral Lasix -BNP -echo #?Community acquired pneumonia -IV ceftriaxone plus IV doxycycline -MRSA screen -CT chest without contrast #A-fib, ?persistent ?paroxysmal -pt does not take any medications -echo -mg>2 and potassium>4 -therapeutic Lovenox -metoprolol succinate 25mg daily -CHADS-VASc score 5, HAS-BLED score of 1 #Asymptomatic V-tach prolonged Qtc -echo -avoid amiodarone considering prolonged Qtc -mag ,and potassium ordered -repeat EKG -patient already on metoprolol #history of stroke -currently on therapeutic Lovenox -atorvastatin #HLD -atorvastatin #Hypertension -continue lisinopril -discontinued hydrochlorothiazide #Tobacco use disorder -nicotine patch -counselling for cessation >12 min #Marijuana use disorder -counselling for cessation >12 min Case discussion with Dr Herber Hopkins discussed with: Patient, Other My Orders My Orders Orders - YAZMIN FONSECA RESIDENT Procedure Category Date Status Time Prednisone Tablet PHA 10/29/24 In Process 10:00 Ipratropium Medneb PHA 10/28/24 In Process (Atrovent Medneb) 14:00 Ipratropium Medneb PHA 10/28/24 In Process (Atrovent Medneb) 13:15 Nicotine 14mg/24hr PHA 10/29/24 In Process (Nicoderm 14mg/24hr) 10:00 Date of Service: Oct 28, 2024 Billing Provider: ANNE MARIE CALLES MD Common Visit Codes: [id number] INP/OBS CARE(HIGH) Coding Comment Comment Attending Attestation I saw and evaluated the patient. I reviewed the residents note and agree with findings and plan as documented in the residents note except as documented below. POCUS done today, TDS, poor cardiac window, no diffuse b lines, no PLEF, hepatization RLL acute on chronic hypoxic respiratory failure COPDgroup E with exacerbation chronic systolic heart failure pafib prolonged QT old CVA HTN HLD active smoker cannabis use maintain spo2 >88 empiric ceft and doxy albuterol ipatropium nebs prednisone therapeutic lovenox resume home meds rate control with metop succinate asa lipitor smoking cessation NRT lasix to euvolemia YAZMIN FONSECA RESIDENT Oct 28, 2024 20:14 ANNE MARIE CALLES MD Oct 28, 2024 21:49
[2024-10-28 20:20] LABS: Magnesium 1.6 mg/dL (1.6-2.6)
[2024-10-28] MEDS: ENOXAPARIN SOD 100 MG/1 ML SYRINGE SC SCH (21:52)
[2024-10-28] MEDS: LEVALBUTEROL HCL 1.25 MG/3 ML NEB NEB SCH (22:09)
[2024-10-28] MEDS: POTASSIUM EFFERVESENT TAB 25 MEQ PO ONE (22:44)
[2024-10-28] MEDS: MAGNESIUM SULFATE 1GM/100ML 100 ML IV SCH (22:47)
[2024-10-28 22:56] LABS: INR 1.24 (0.9-1.15); Partial Thromboplastin Time 29.3 SEC (24.5-34.5); Prothrombin Time 12.9 sec (9.3-11.8)
[2024-10-29] VITALS (19 sets, daily range): BP systolic 119–136; BP diastolic 75–95; PULSE 60–111; RESP 16–24; TEMP 96.5–98.3; O2SAT 93–100
[2024-10-29] MEDS: IPRATROPIUM BROM 0.5 MG/2.5ML INH SOL NEB SCH (02:10)
[2024-10-29 04:34] LABS: Urine Bacteria None Seen /hpf (None Seen)
[2024-10-29 04:59] LABS: Urine Blood Negative /uL (Negative); Urine Clarity Clear (Clear); Urine Color Yellow (Yellow); Urine Protein, UAD Negative (Negative); Urine Urobilinogen 4 mg/dL (Negative); Urine WBC 1 /hpf (0 - 3); Urine pH 5.5 (5.0-9.0)
[2024-10-29 05:02] LABS: Amphetamine Screen, Urine Neg (NEGATIVE); Barbiturate Scree,Urine Neg (NEGATIVE); Benzodiazephine Screen, Urine Neg (NEGATIVE); Cannabinoid Screen, Urine Pos (NEGATIVE); Cocaine Screen, Urine Neg (NEGATIVE); Opiate Scree,Urine Neg (NEGATIVE); Phencyclidine Screen, Urine Neg (NEGATIVE)
[2024-10-29 07:01] LABS: Anion Gap 6 (5-15); Carbon Dioxide 31 mmol/L (20-31); Potassium 4.1 mmol/L (3.5-5.1)
[2024-10-29 07:02] LABS: Calcium 9.7 mg/dL (8.7-10.4)
[2024-10-29 07:05] LABS: Basophils # (auto) 0 10 ^3/uL (0-0.2); Chloride 94 mmol/L (98-107); Eosinophils # (auto) 0 10 ^3/uL (0-0.8); Hematocrit 42.9 % (41.0-53.0); Hemoglobin 14.5 g/dL (13.5-17.5); Lymphocytes # (auto) 0.3 10 ^3/uL (0.4-5.4); Lymphocytes % (auto) 3.7 % (10.0-50.0); Mean Corpuscular Hemoglobin 31.5 pg (28.0-32.0); Mean Corpuscular Hgb Conc. 33.7 g/dL (32.0-36.0); Mean Corpuscular Volume 93.5 fL (80.0-100.0); Monocytes # (auto) 1.1 10 ^3/uL (0-1.3); Monocytes % (auto) 11.8 % (0.0-12.0); Neutrophils # (auto) 7.7 10 ^3/uL (1.6-8.6); Neutrophils % (auto) 84.5 % (37.0-80.0); Platelet Count (auto) 174 10^3/uL (140-450); Red Blood Cells 4.59 10^6/uL (4.5-5.90); Sodium 131 mmol/L (136-145); White Blood Cell 9.1 10^3/uL (4.4-10.8)
[2024-10-29 07:07] LABS: Magnesium 2.1 mg/dL (1.6-2.6)
[2024-10-29 07:18] LABS: Glucose 146 mg/dL (74-106)
[2024-10-29 07:32] LABS: BUN/Creatinine Ratio 20.8 (10.0-20.0); Blood Urea Nitrogen 15 mg/dL (9-23)
--- NOTE | 2024-10-29 09:16 | DVH ---
Procedure: CT CHEST WITHOUT CONTRAST Reason for study/Clinical History: SOB Comparison Study: None available at time of dictation. Exam Date: 10/29/2024 08:43 AM TECHNIQUE: Multidetector CT of the chest was performed from the lung apices to the upper abdomen with out the use of intravenous contract. Axial, coronal and sagittal multiplanar reformats were performed . Radiation Dose Information: CT Dose: CTDI volume is 9.83 mGy. Dose-length product is 382.94 mGy*cm The dose indicators for CT are the volume Computed Tomography (CT) Dose Index (CTDIvol) and the Dose Length Product (DLP), and are measured in units of mGy and mGy-cm, respectively. These indicators are not patient dose, but values generated from the CT scanner acquisition factors. The report includes radiation exposure data for exposures received during this examination. FINDINGS: Lower neck: Normal thyroid. Lungs: Bilateral lower lobe subsegmental atelectasis / consolidation. Mild centrilobular emphysema. Heart/Vascular Structures: Cardiomegaly. Coronary artery calcifications. Vascular calcifications of t he aorta. Lymph Nodes: No adenopathy Pleura: Small bilateral pleural effusions, iipkc-wepcbyh-vynn-left. Musculoskeletal: Degenerative changes of the spine. Soft tissues: Normal. Upper abdomen: Limited portions of the upper abdomen are unremarkable. IMPRESSION: Findings are suggestive of CHF. Radiation optimization: All CT scans at this facility use at least one of these dose optimization remigio hniques: automated exposure control mA and/or kV adjustment per patient size (includes targeted exam s where dose is matched to clinical indication) or iterative reconstruction.
[2024-10-29] MEDS: predniSONE 20 MG TAB PO SCH (09:17)
[2024-10-29] MEDS: NICOTINE 14 MG/24HR TOPICAL PATCH TD SCH (09:18)
--- NOTE | 2024-10-29 14:14 | DVHSR ---
APPROVED REPORT EXAM: Two-dimensional and M-mode echocardiogram with Doppler and color Doppler. INDICATION Chest Pain RISK FACTORS Height: 6', Weight: 190 DIMENSIONS LVDd4.4 (3.8-5.7cm)LA (2D)4.8 (1.9-4.0cm)Aortic Root3.0 (2.0-3.7cm) LVDs2.8 (2.5-4.0cm)LA (MM) (1.9-4.0cm)Aortic Cusp Exc1.6 (1.5-2.0cm) EF (%) 65.6 (55-70%)Rt. Atrium5.4 (1.9-4.0cm)Asc. Aorta3.2 cm IVSd1.2 (0.7-1.1cm)RV (D) (1.8-2.4cm) PWd1.0 (0.7-1.1cm) Mitral Valve MitralMitral Stenosis E wave0.94m/sMV Mean GR.mmHg E/A ratio0.02D MVAcm2 Aortic Valve Aortic ValveAortic Stenosis V10.74m/Andre Mean GR.3mmHg V21.12m/Andre Peak GR.5mmHg LVOT Diameter2.2 (1.8-2.4cm)Doppler AVA2.51cm2 Tricuspid Valve TR Velocity2.28m/s [id number] Conclusion Severely reduced left ventricular systolic function estimated ejection fraction of 30%. There is bita bal wall hypokinesia. Could not assess diastolic function due to atrial fibrillation. Severely dilated right ventricle. Severely reduced right ventricular systolic function. Moderately dilated right and left atria. There is mild mitral regurgitation. The aortic valve is mildly thickened and sclerotic there is mild aortic valve regurgitation. There is moderate to severe tricuspid valve regurgitation. The pulmonary valve is grossly normal. No pericardial effusion.
[2024-10-29] MEDS: FUROSEMIDE 40 MG/4 ML VIAL IV SCH (17:32)
--- NOTE | 2024-10-29 18:52 | DVHPNRES ---
Progress Note Date Seen: Oct 29, 2024 Resident Creating Document: YAZMIN FONSECA RESIDENT Medical Necessity Reason Pt with a Central, PICC or Fol: No Subjective Review of Systems Patient seen and examined at bedside. Patient is currently mentioning of no improvement in his symptoms. Patient is currently on 3 L oxygen through nasal cannula, which was later titrated to 2 L. ROS Constitutional: No: Fever, Chills, Sweats, Weakness, Malaise, Other Eyes: No: Pain, Vision change, Conjunctivae inflammation, Eyelid inflammation, Other, Redness ENT: No: Ear pain, Ear discharge, Nose pain, Nose discharge, Nose congestion, Mouth pain, Mouth swelling, Throat pain, Throat swelling, Other Respiratory: Cough, sputum, wheezing Cardiovascular: Chest pain, no: Palpitations, Orthopnea, Paroxysmal Noc. Dyspnea, Edema, Lt Headedness, Other Gastrointestinal: No: Nausea, Vomiting, Abdominal Pain, Diarrhea, Constipation, Melena, Hematochezia, Other Musculoskeletal: No: other, neck pain, shoulder pain, arm pain, back pain, hand pain, leg pain, foot pain Neurological:; No: Weakness, Numbness, Incoordination, Change in speech, Confusion, Seizures Objective vital signs Vital Sign Date Time Temp Pulse Resp B/P (MAP) Pulse Ox O2 Delivery O2 Flow Rate FiO2 10/29/24 17:32 136/94 10/29/24 17:00 98.0 108 18 96 98.0 10/29/24 10:09 Nasal Cannula 2.0 10/29/24 10:09 28 Total Intake and Output 10/28/24 10/28/24 10/29/24 15:00 23:00 07:00 Intake Total 250 ml 975 ml Balance 250 ml 975 ml medications Current Medications Medications Dose Ordered Sig/Audrey Route Start Time Stop Time Status Last Admin Dose Admin Atorvastatin Calcium 20 mg HS PO 10/27/24 22:00 10/28/24 20:43 20 MG Lisinopril 20 mg DAILY PO 10/28/24 10:00 10/29/24 09:17 20 MG Tamsulosin HCl 0.4 mg QPM PO 10/28/24 18:00 10/29/24 17:31 0.4 MG Metoprolol Succinate 25 mg DAILY PO 10/28/24 10:00 10/29/24 09:19 25 MG Azithromycin 250 ml @ 125 mls/hr DAILY IV 10/28/24 10:00 UNV Acetaminophen 650 mg Q6HP PRN PO 10/27/24 20:15 Ceftriaxone Sodium 50 ml @ 100 mls/hr Q24H IV 10/27/24 00:00 10/29/24 00:42 100 MLS/HR Doxycycline Hyclate 250 ml @ 125 mls/hr Q12H IV 10/28/24 00:30 10/29/24 13:03 125 MLS/HR Prednisone 40 mg DAILY PO 10/29/24 10:00 10/29/24 09:17 40 MG Ipratropium [place] 0.5 mg Q2HPRN PRN NEB 10/28/24 13:15 Nicotine 1 patch DAILY TD 10/29/24 10:00 10/29/24 09:18 1 PATCH Levalbuterol HCl 1.25 mg Q4HR NEB 10/28/24 22:00 10/29/24 14:06 1.25 MG Ipratropium [place] 0.5 mg Q4HR NEB 10/28/24 22:00 10/29/24 14:06 0.5 MG Enoxaparin Sodium 90 mg Q12HR SC 10/28/24 22:00 10/29/24 09:19 90 MG Furosemide 40 mg BIDD IV 10/29/24 18:00 10/29/24 17:32 40 MG Examination Examination General Appearance: Alert, Oriented X3, Cooperative, No acute distress HEENT: EOMI Respiratory: Bilateral Scattered wheezing Cardiovascular: Regular rate, Normal S1, Normal S2 Abdominal: Normal bowel sounds Extremities: No cyanosis, No edema, Normal pulses, No tenderness/swelling Skin: No rashes, No breakdown Neuro: Speech and tone laboratory and microbiology Laboratory Tests 10/29/24 05:31 Test 10/29/24 05:31 Range/Units Serum Glucose 146 H 74-106 mg/dL Microbiology Date/Time Source Procedure Growth Status 10/27/24 17:04 Blood Blood Culture - Preliminary NO GROWTH AFTER 48 HOURS OF INCUBATION. Resulted Labs and/or images reviewed: Labs reviewed by me, Image(s) reviewed by me Problem List/Assessment/Plan Problem List/Assessment/Plan Assessment/Plan #Acute hypoxic Resp failure due to COPD exacerbation/?CHF exacerbation/?Pneumonia -currently on 3L o2 through nasal canula -Chest Xray revealed Cardiomegaly with probable pulmonary vascular congestion. #COPD exacerbation -neb with ipratropium/levalbuterol -Doxy considering prolonged QTc -prednisone 40mg daily #Acute exacerbation of HFrEF -IV Lasix 40 mg b.i.d. -BNP -echo reveals Severely reduced left ventricular systolic function estimated ejection fraction of 30%. There is global wall hypokinesia. Could not assess diastolic function due to atrial fibrillation. Severely dilated right ventricle. Severely reduced right ventricular systolic function. Moderately dilated right and left atria. There is mild mitral regurgitation. -Cardiology consulted for need for ischemic workup #?Community acquired pneumonia -IV ceftriaxone plus IV doxycycline -MRSA screen -CT chest without contrast #A-fib, ?persistent ?paroxysmal -pt does not take any medications -echo -mg>2 and potassium>4 -therapeutic Lovenox -metoprolol succinate 25mg daily -CHADS-VASc score 5, HAS-BLED score of 1 -Cardiology consulted #Asymptomatic V-tach non-sustained -echo -avoid amiodarone considering prolonged Qtc -mag ,and potassium ordered -repeat EKG -patient already on metoprolol -cardiology consulted #Small bilateral pleural effusions, [id number]-left likely due to Heart failure -IV Lasix -monitor #prolonged Qtc -avoid amiodarone considering prolonged Qtc #history of stroke -currently on therapeutic Lovenox -atorvastatin #Hyperlipidemia -atorvastatin #Hypertension -continue lisinopril -discontinued hydrochlorothiazide #Tobacco use disorder -nicotine patch -counselling for cessation >12 min #Marijuana use disorder -counselling for cessation >12 min Case discussion with Dr Calles Plan discussed with: Patient, Other My Orders My Orders Orders - YAZMIN FONSECA RESIDENT Procedure Category Date Status Time Enoxaparin Sodium PHA 10/28/24 In Process (Lovenox) 22:00 Electrocardigram EKG 10/28/24 Logged 20:15 Communication Order ORDERS 10/29/24 Transmitted 05:[address] 10/29/24 Resulted 07:00 * Cardiology Consult CONS 10/29/24 Transmitted 16:24 Strict I & O TAPAN 10/29/24 In Process 16:28 Furosemide Injection PHA 10/29/24 In Process (Lasix Injection) 18:00 Date of Service: Oct 29, 2024 Billing Provider: ANNE MARIE CALLES MD Common Visit Codes: [id number] INP/OBS CARE(HIGH) Coding Comment Comment acute on chronic hypoxic respiratory failure COPDgroup E with exacerbation chronic systolic heart failure heart failure with reduced EF pafib prolonged QT old CVA HTN HLD active smoker cannabis use maintain spo2 >88 empiric ceft and doxy albuterol ipatropium nebs prednisone therapeutic lovenox resume home meds rate control with metop succinate asa lipitor smoking cessation NRT lasix to euvolemia cardio for ischemic w/u YAZMIN FONSECA RESIDENT Oct 29, 2024 18:52 ANNE MARIE CALLES MD Oct 30, 2024 08:12
--- NOTE | 2024-10-29 19:19 | DVHCONRES ---
Date Seen: Oct 29, 2024 Resident Creating Document: ROSA MARIA MCDONALD RESIDENT Referring Physician Dr. Rooney History of Present Illness This is a 64-year-old male with a past medical history significant for CVA ( 2013), COPD, hyperlipidemia, hypertension, AFib, newly diagnosed CHF presented to the ED after having experienced chest pain for a week that became worse and associated with shortness of breath in the last couple of days. Pain was centrally located with not radiation. He has 50 pack years and drinks whisky 3-4 shots each day. Currently he denies any chest pain. He is on 1L of oxygen and receives breathing treatment q4hrs. Of note, patient was seen in the ED in September and managed,but left AMA. Cardiology was consulted because patient's equipment monitor phototypesetting showed an non- sustained V-tach yesterday ( 10/28/2024). Initial 12 lead EKG showed Afib with PVCs and minimal ST depression to lateral leads and prolong QTc. Vitals today: HR: 108 RR: 18, BP: SpO2:96. Lab values include: Troponin :15, M.1, : K:4.1,Cr: 0.72, BNP: 297 Heart score: 6 point ( moderate score) CIWA score: 6 Past Medical History Stroke, AFib, COPD, hypertension, newly diagnosed CHF Past Surgical History None Family History: Diabetes mellitus G8 MOTHER G8 BROTHER G8 BROTHER FH: heart disease G8 BROTHER G8 SISTER Prostate problems G8 FATHER Family History Heart attack mother, at the age of 80 Hypertension, prostate cancer in father 95 years old still alive Social History At home with roommates History of stroke since 2013 Disabled Allergies: Coded Allergies: NO KNOWN ALLERGIES (Unverified , 09/26/24) Home Meds Reported Medications Umeclidinium-Vilanterol (Anoro Ellipta 62.5-25 Mcg/INH) 1 Aer Aer, 1 PUFF IN DAILY for 30 Days, #60 10/28/24 Amlodipine Besylate (Amlodipine Besylate) 10 Mg Tab, 1 TAB PO DAILY for 90 Days, #90 10/28/24 Multiple Vitamins W/ Minerals (Centrum Silver) Silver Chw, 1 OR, TAB.CHEW 10/28/24 Nicotine Polacrilex (Nicotine Mini Lozenge) 4 Mg Christi, 4 MG MT, CHRISTI 10/28/24 Ergocalciferol (VITAMIN D 49553 UNIT) 50,000 [place], [address] UNIT PO Weekly, CAP 10/28/24 Aspirin (Aspirin 81 Low Dose) 81 Mg Chw, 81 MG PO 2XW, TAB.CHEW 10/28/24 Citalopram Hydrobromide (Citalopram Hydrobromide) 20 Mg Tab, 1 TAB PO DAILY 10/28/24 Tamsulosin Hcl (Tamsulosin Hcl) 0.4 Mg Cap, 1 CAP PO DAILY 10/28/24 Dutasteride (Dutasteride) 0.5 Mg Cap, 1 CAP PO DAILY 10/28/24 Simvastatin (Simvastatin) 20 Mg Tab, 1 TAB PO DAILY 10/28/24 Lisinopril & Hydrochlorothiazi (Lisinopril/Hydrochlorothi) 1 Tab Tab, 1 TAB PO DAILY for 90 Days [LISINOPRIL/HCTZ 20/25 MG] 10/28/24 Discontinued Reported Medications Amlodipine Besylate (Amlodipine Besylate) 5 Mg Tab, 5 MG PO DAILY for 30 Days, #2 10/28/24 Current Medications Current Medications Medications (Trade) Dose Ordered Sig/Audrey Route PRN Reason Start Time Stop Time Status Last Admin Tamsulosin HCl (Flomax) 0.4 mg QPM PO 10/28/24 18:00 10/29/24 17:31 Prednisone 40 mg DAILY PO 10/29/24 10:00 10/29/24 09:17 Nicotine (Nicoderm 14MG/ 24HR) 1 patch DAILY TD 10/29/24 10:00 10/29/24 09:18 Levalbuterol HCl (Xopenex Medneb) 1.25 mg Q4HR NEB 10/28/24 22:00 10/29/24 14:06 Ipratropium [place] (Atrovent Medneb) 0.5 mg Q4HR NEB 10/28/24 22:00 10/29/24 14:06 Enoxaparin Sodium (Lovenox) 90 mg Q12HR SC 10/28/24 22:00 10/29/24 09:19 Magnesium Sulfate/ Dextrose 100 ml @ 100 mls/hr Q1HR IV 10/28/24 22:00 10/28/24 23:59 DC 10/29/24 01:51 Furosemide (Lasix Injection) 40 mg BIDD IV 10/29/24 18:00 10/29/24 17:32 Review of Systems Constitutional: Denies fever no chills no feeling of malaise HEENT: Denies headache, ear pain, ear discharges, conjunctivitis, nasal discharge throat pain Cardiovascular: chest pain today, but had it yesterday; palpitation, orthopnea, PND, or pedal edema Respiratory: Shortness of breath, cough; No sputum production or hemoptysis, GI: Denies abdominal pain, nausea, vomiting, diarrhea, hematemesis, hematochezia, : No frequency , urgency, hematuria, Endocrine: Denies unintentional weight gain or weight loss, feeling of hot flashes, Dami: bruising; Denies any bleeding disorders, epistaxis Musculoskeletal: Denies joint pains, muscle aches Psych: No evidence of depression, jon, suicidal ideation Vital Signs Vital Signs Date Time Temp Pulse Resp B/P (MAP) Pulse Ox O2 Delivery O2 Flow Rate FiO2 10/29/24 17:32 136/94 10/29/24 17:00 98.0 108 18 96 98.0 10/29/24 10:09 Nasal Cannula 2.0 10/29/24 10:09 28 Physical Exam General examination- In mid respiratory distresss on 1L of oxygen, ? delayed speech or pauses in speech HEENT: Left eye, does not turn fully medial when looking tothe right, PEERLA, no acute nasal discharge Chest: S1-S2 audible, rate and rhythm regular, no murmur Lung: Loud wheezing heard without auscultation Abdomen: distended and tensed, BS+, nontender, ??organomegaly Musculoskeletal: tremors noted all 4 limbs, no acute joint swelling or tenderness Lower extremity: evidence of resolved edema on Left lower extremity, skin scaling, right lower extremity is fine Neurological: cranial nerves intact, no acute dysarthria or dysphagia Psychiatry-- Normal mood and affect Skin- bruising noted in the at the sites on iv lines, Labs/Diagnostic Data Labs Test 10/29/24 05:31 10/29/24 04:20 10/28/24 22:13 10/28/24 19:35 Range/Units White Blood Count 9.1 # 4.4-10.8 10^3/uL Red Blood Count 4.59 4.5-5.90 10^6/uL Hemoglobin 14.5 13.5-17.5 g/dL Hematocrit 42.9 41.0-53.0 % Mean Corpuscular Volume 93.5 80.0-100.0 fL Mean Corpuscular Hemoglobin 31.5 28.0-32.0 pg Mean Corpuscular Hemoglobin Concent 33.7 32.0-36.0 g/dL Red Cell Distribution Width 15.0 H 11.8-14.3 % Platelet Count 174 140-450 10^3/uL Mean Platelet Volume 8.6 6.9-10.8 fL Neutrophils (%) (Auto) 84.5 H 37.0-80.0 % Lymphocytes (%) (Auto) 3.7 L 10.0-50.0 % Monocytes (%) (Auto) 11.8 0.0-12.0 % Eosinophils (%) (Auto) 0.0 0.0-7.0 % Basophils (%) (Auto) 0.0 0.0-2.0 % Neutrophils # (Auto) 7.7 1.6-8.6 10 ^3/uL Lymphocytes # (Auto) 0.3 L 0.4-5.4 10 ^3/uL Monocytes # (Auto) 1.1 0-1.3 10 ^3/uL Eosinophils # (Auto) 0 0-0.8 10 ^3/uL Basophils # (Auto) 0 0-0.2 10 ^3/uL Nucleated Red Blood Cells 0.0 % Sodium Level 131 L 136-145 mmol/L Potassium Level 4.1 3.5-5.1 mmol/L Chloride Level 94 L 98-107 mmol/L Carbon Dioxide Level 31 20-31 mmol/L Anion Gap 6 5-15 Blood Urea Nitrogen 15 9-23 mg/dL Creatinine 0.72 0.700-1.30 mg/dL Glomerular Filtration Rate Calc 101 >90 mL/min BUN/Creatinine Ratio 20.8 H 10.0-20.0 Serum Glucose 146 H 74-106 mg/dL Calcium Level 9.7 8.7-10.4 mg/dL Magnesium Level 2.1 1.6-2.6 mg/dL Urine Color Yellow Yellow Urine Clarity Clear Clear Urine pH 5.5 5.0-9.0 Urine Specific [place] 1.020 1.001-1.035 Urine Protein Negative Negative Urine Ketones Negative Negative Urine Blood Negative Negative /uL Urine Nitrite Negative Negative Urine Bilirubin Negative Negative Urine Urobilinogen 4 H Negative mg/dL Urine Leukocyte Esterase Negative Negative /uL Urine RBC 1 0 - 3 /hpf Urine WBC 1 0 - 3 /hpf Urine Squamous Epithelial Cells Few <5 /hpf Urine Bacteria None seen None Seen /hpf Urine Glucose Normal Normal mg/dL Urine Opiates Screen Neg NEGATIVE Urine Fentanyl Screen Neg NEGATIVE Urine Barbiturates Screen Neg NEGATIVE Urine Phencyclidine Screen Neg NEGATIVE Urine Amphetamines Screen Neg NEGATIVE Urine Benzodiazepines Screen Neg NEGATIVE Urine Cocaine Screen Neg NEGATIVE Urine Cannabinoids Screen Pos NEGATIVE Prothrombin Time 12.9 H 9.3-11.8 sec Prothrombin Time INR 1.24 H 0.9-1.15 Activated Partial Thromboplast Time 29.3 24.5-34.5 SEC Troponin I High Sensitivity 10 </=54 ng/L Test 10/27/24 23:00 10/27/24 16:55 10/27/24 16:35 Range/Units Influenza Type A Antigen Negative Negative Influenza Type B Antigen Negative Negative SARS-CoV-2 Antigen (Rapid) Negative NEGATIVE B-Type Natriuretic Peptide 297.59 0-100 pg/mL Lactic Acid Level 1.9 0.4-2.0 mmol/L Microbiology Date/Time Source Procedure Growth Status 10/27/24 17:04 Blood Blood Culture - Preliminary NO GROWTH AFTER 48 HOURS OF INCUBATION. Resulted Assessment Non-sustained V-tach --> Prolong QTc interval --> Monitor and replete electrolyte ( K: >4, MG> 2) --> Rule out coronary artery disease --> Ischemic workup, plan for [facility] tomorrow Atrial fibrillation, likely persistent --> [id number] Score: 6 --> Continue beta sangeeta for rate control --> Hold anti-arrhythmic agent given unknown time of afib --> lovenox therapeutic, transition to Noac when appropriate Acute on Chronic HFrEF, NYHA class 3 --> Echo EF 30% --> start GDMT --> if fluid overloaded, strict I&O, --> diuresis as tolerated --> add spironolactone tomorrow with stable potassium COPD exacerbation ---> Doxycycline --> Breathing treatment ( neb with ipratropium/levalbuterol) Acute hypoxic Resp failure due to COPD exacerbation --> currently on 1L o2 through nasal canula -Chest Xray: probable pulmonary vascular congestion. history of CVA ( 2013) with left sided hemiparesis --> currently on therapeutic Lovenox ---> atorvastatin Hyperlipidemia --> Continue atorvastatin Hypertension -continue lisinopril -discontinued hydrochlorothiazide Tobacco use disorder --> 50 pack years --> nicotine patch Marijuana use disorder --> positive on UDS Alcohol abuse --> 3-4 shots of whisky daily --> CIWA score: 6 Critical time spent with this patient was more than 40 minutes Thank you for allowing us to participate in the care of this patient. Please call if you have any questions or concerns. Plan discussed with: Patient NYHA Physical activity limitations: Class3(Marked) ordinary Visit Coding Cardiology RES Date of Service: Oct 29, 2024 Billing Provider: RADHA ELAINE MD Cardiology Common Codes: [id number] INP/OBS CARE (High) Cardiology Consultation Codes: [id number] CONSULT <45MIN ROSA MARIA MCDONALD RESIDENT Oct 29, 2024 19:19
[2024-10-30] VITALS (23 sets, daily range): BP systolic 123–144; BP diastolic 79–101; PULSE 86–106; RESP 12–22; TEMP 97.6–99.9; O2SAT 92–100
[2024-10-30 07:18] LABS: BUN/Creatinine Ratio 19.1 (10.0-20.0); Blood Urea Nitrogen 13 mg/dL (9-23); Glucose 94 mg/dL (74-106)
[2024-10-30 07:19] LABS: Magnesium 1.9 mg/dL (1.6-2.6)
[2024-10-30 07:22] LABS: Carbon Dioxide 35 mmol/L (20-31)
[2024-10-30 07:24] LABS: Anion Gap 3 (5-15); Basophils # (auto) 0 10 ^3/uL (0-0.2); Basophils % (auto) 0.1 % (0.0-2.0); Chloride 96 mmol/L (98-107); Eosinophils # (auto) 0 10 ^3/uL (0-0.8); Eosinophils % (auto) 0.1 % (0.0-7.0); Hematocrit 42.7 % (41.0-53.0); Hemoglobin 14.4 g/dL (13.5-17.5); Lymphocytes # (auto) 0.7 10 ^3/uL (0.4-5.4); Lymphocytes % (auto) 8.8 % (10.0-50.0); Mean Corpuscular Hemoglobin 31.7 pg (28.0-32.0); Mean Corpuscular Hgb Conc. 33.8 g/dL (32.0-36.0); Mean Corpuscular Volume 93.9 fL (80.0-100.0); Monocytes % (auto) 13.7 % (0.0-12.0); Neutrophils # (auto) 5.8 10 ^3/uL (1.6-8.6); Neutrophils % (auto) 77.3 % (37.0-80.0); Platelet Count (auto) 174 10^3/uL (140-450); Potassium 3.3 mmol/L (3.5-5.1); Red Blood Cells 4.55 10^6/uL (4.5-5.90); Red Cell Distribution Width 15.1 % (11.8-14.3); Sodium 134 mmol/L (136-145); White Blood Cell 7.6 10^3/uL (4.4-10.8)
[2024-10-30] MEDS ORDERED: POTASSIUM CHL 20MEQ/100ML 100 ML IV ONE (07:30)
[2024-10-30] MEDS: EMPAGLIFLOZIN 10 MG TAB PO SCH (10:00)
[2024-10-30] MEDS: POTASSIUM CHL 20MEQ/100ML 100 ML IV ONE (11:05)
[2024-10-30] MEDS: HEPARIN IN NS 1000Units/500mL 1,500 ML ONE (14:44)
[2024-10-30] MEDS: IODIXANOL 320MG/ML 100ML BTL IV ONE (14:44)
[2024-10-30] MEDS: HEPARIN SODIUM (PORCINE) 5000 UNITS/ML 1ML VIAL ONE (15:28)
[2024-10-30] MEDS: VERAPAMIL 2.5MG/ML INJ 2ML VIAL IV ONE (15:28)
[2024-10-30] MEDS: fentaNYL CITRATE 100 MCG/2 ML VL ONE (15:28)
[2024-10-30] MEDS: ANGIOMAX 250 MG VIAL IV ONE (15:28)
[2024-10-30] MEDS: SODIUM CHL 0.9% 0 ML ONE (15:29)
[2024-10-30] MEDS: MIDAZOLAM HCL 2MG/2ML 2ml VIAL (1mg/ml) ONE (15:29)
[2024-10-30] MEDS: LIDOCAINE 2%HCL (LOCAL ANESTH.) INJ 20ML MDV ONE (15:29)
--- NOTE | 2024-10-30 15:46 | DVHOP2 ---
Operative Report -Cardiology Report Details Date: 10/30/24 Preop Diagnosis: Nonsustained ventricular tachycardia as well as reduced left ventricular systolic function and shortness of breath. To rule out underlying ischemic heart disease. Postop Diagnosis: Nonobstructive mild coronary artery disease Surgeon: Mo Good MD Building Equipment Inspector: Teressa Andujar Anesthesiologist: Conscious sedation using 25 mcg of fentanyl as well as a mg of midazolam. Was given under direct supervision of myself with the proximal attending nurses. Patient was monitored for total of 35 minutes without obvious complication. Anesthesia: Local Consent: The patient was informed of the risks and benefits of the procedure. These include but are not limited to complications of anesthesia, postoperative infection, incomplete relief of symptoms, recurrence of symptoms, damage to blood vessels, nerves and tendons, deep venous thrombosis, pulmonary embolism and possible need for repeat surgery in the future. Indications for Surgery: This is a 64-year-old male with a past medical history significant for CVA ( 2013), COPD, hyperlipidemia, hypertension, AFib, newly diagnosed CHF presented to the ED after having experienced chest pain for a week that became worse and associated with shortness of breath in the last couple of days. Pain was centrally located with not radiation. He has 50 pack years and drinks whisky 3-4 shots each day. Currently he denies any chest pain. He is on 1L of oxygen and receives breathing treatment q4hrs.Of note, patient was seen in the ED in [place] and managed,but left AMA. Cardiology was consulted because patient's certified alcohol and drug counselor showed an non-sustained V-tach yesterday ( 10/28/2024). Initial 12 lead EKG showed Afib with PVCs and minimal ST depression to lateral leads and prolong QTc. Name of Procedure Performed 1. Left heart catheterization with left ventricular end-diastolic pressure measurement. 2. Selective right and left coronary angiography utilizing right transradial approach. 3. Conscious sedation using 25 mcg of fentanyl as well as a mg midazolam. Procedure Details Procedure Details: Procedure note and vascular access: After informed consent was obtained, risks, benefits, complications, and alternatives were discussed in details with the patient who agrees to have the procedure done. At the beginning of the procedure, the right wrist and the right frontal area were prepped and draped in the regular sterile fashion. Patient received conscious sedation using 25 mcg of fentanyl as well as a mg midazolam. Thereafter total of 2 cc of 1% xylocaine were given to the right wrist area before a six Lao sheath was placed using modified Seldinger technique. Valve of five Lao catheter as well as a J-tip wire we used to engage the right and left coronary system, a cocktail of 2.5 mg of verapamil as well as 100 mcg of nitroglycerin were given intra-arterial to prevent vasospasm findings were as follows: 1. Left heart catheterization with left ventricular end-diastolic pressure measurement: With the help of his other valve tricuspid as well as a J-tip wire we were able to cross the aortic valve and measured left ventricular end-diastolic pressure which was elevated at 17 mm of mercury, there was no gradient across the aortic valve on the pullback. 2. Selective right and right coronary angiography utilizing right transradial a pproach: The left main comes off the left coronary cusp it is widely patent bifurcates into large left anterior descending artery as well as a large posterolateral branch, it has no significant disease. 2. The left anterior descending artery is large with transapical course it has moderate calcification gives rise to large 1st diagonal branch, has mild irregularity of the proximal to mid single but no significant stenosis was noted. 3. The circumflex vessel is a codominant system it gives rise to three large obtuse marginal branches, it has mild irregularity but no significant stenosis was noted. 4. The right coronary artery is small in caliber it has mild irregularity of the proximal to mid segment gives rise to small posterior descending artery as well as a small posterolateral branch. Impression and plan: 1. Mild nonobstructive coronary artery disease as noted above. 2. Patient presentation likely due to possible microvascular disease, or myocarditis as a cause of cardiomyopathy. Other possible etiology including alcohol intoxication. 3. Patient would need aggressive medical therapy including goal-directed therapy for reduced ejection fraction, selective beta-blockade given history of COPD, in addition to possible need of ICD, Condition Fair [facility] Clinical Frailty Scale [facility] Clinical Frailty Scale: Moderately Frail Stress Test Stress Test Performed: No Dominance Dominance: Co-dominant Disposition MO GOOD MD Oct 30, 2024 15:46
[2024-10-30] MEDS: ACETAMINOPHEN 325 MG TAB PO PRN (17:58)
--- NOTE | 2024-10-30 18:46 | DVHPNRES ---
Progress Note Date Seen: Oct 30, 2024 Resident Creating Document: YAZMIN FONSECA RESIDENT Medical Necessity Reason Pt with a Central, PICC or Fol: No Subjective Review of Systems Patient seen and examined at bedside. He is mentioning of improvement in his symptoms, NPO after midnight. Patient is scheduled for cardiac catheterization. ROS Constitutional: No: Fever, Chills, Sweats, Weakness, Malaise, Other Eyes: No: Pain, Vision change, Conjunctivae inflammation, Eyelid inflammation, Other, Redness ENT: No: Ear pain, Ear discharge, Nose pain, Nose discharge, Nose congestion, Mouth pain, Mouth swelling, Throat pain, Throat swelling, Other Respiratory: Cough, sputum, wheezing Cardiovascular: Chest pain, no: Palpitations, Orthopnea, Paroxysmal Noc. Dyspnea, Edema, Lt Headedness, Other Gastrointestinal: No: Nausea, Vomiting, Abdominal Pain, Diarrhea, Constipation, Melena, Hematochezia, Other Musculoskeletal: No: other, neck pain, shoulder pain, arm pain, back pain, hand pain, leg pain, foot pain Neurological:; No: Weakness, Numbness, Incoordination, Change in speech, Confusion, Seizures Objective vital signs Vital Sign Date Time Temp Pulse Resp B/P (MAP) Pulse Ox O2 Delivery O2 Flow Rate FiO2 10/30/24 17:26 140/89 10/30/24 17:00 97.6 106 16 93 97.6 10/30/24 10:00 Nasal Cannula* 2 28 Total Intake and Output 10/29/24 10/29/24 10/30/24 15:00 23:00 07:00 Intake Total 950 ml 1125 ml Output Total 600 ml Balance 950 ml 525 ml medications Current Medications Medications Dose Ordered Sig/Audrey Route Start Time Stop Time Status Last Admin Dose Admin Atorvastatin Calcium 20 mg HS PO 10/27/24 22:00 10/29/24 21:07 20 MG Lisinopril 20 mg DAILY PO 10/28/24 10:00 10/29/24 09:17 20 MG Tamsulosin HCl 0.4 mg QPM PO 10/28/24 18:00 10/30/24 17:24 0.4 MG Metoprolol Succinate 25 mg DAILY PO 10/28/24 10:00 10/29/24 09:19 25 MG Azithromycin 250 ml @ 125 mls/hr DAILY IV 10/28/24 10:00 UNV Acetaminophen 650 mg Q6HP PRN PO 10/27/24 20:15 10/30/24 17:58 650 MG Ceftriaxone Sodium 50 ml @ 100 mls/hr Q24H IV 10/27/24 00:00 10/29/24 23:53 100 MLS/HR Doxycycline Hyclate 250 ml @ 125 mls/hr Q12H IV 10/28/24 00:30 10/30/24 01:05 125 MLS/HR Prednisone 40 mg DAILY PO 10/29/24 10:00 10/29/24 09:17 40 MG Ipratropium [place] 0.5 mg Q2HPRN PRN NEB 10/28/24 13:15 Nicotine 1 patch DAILY TD 10/29/24 10:00 10/29/24 09:18 1 PATCH Levalbuterol HCl 1.25 mg Q4HR NEB 10/28/24 22:00 10/30/24 18:28 1.25 MG Ipratropium [place] 0.5 mg Q4HR NEB 10/28/24 22:00 10/30/24 18:28 0.5 MG Enoxaparin Sodium 90 mg Q12HR SC 10/28/24 22:00 10/29/24 21:08 90 MG Furosemide 40 mg BIDD IV 10/29/24 18:00 10/30/24 17:26 40 MG Empaglifozin 10 mg DAILY PO 10/30/24 10:00 Examination Examination General Appearance: Alert, Oriented X3, Cooperative, No acute distress HEENT: EOMI Respiratory: Bilateral Scattered wheezing Cardiovascular: Regular rate, Normal S1, Normal S2 Abdominal: Normal bowel sounds Extremities: No cyanosis, No edema, Normal pulses, No tenderness/swelling Skin: No rashes, No breakdown Neuro: Speech and tone laboratory and microbiology Laboratory Tests 10/30/24 05:55 Test 10/30/24 05:55 Range/Units Serum Glucose 94 74-106 mg/dL Microbiology Date/Time Source Procedure Growth Status 10/27/24 17:04 Blood Blood Culture - Preliminary NO GROWTH AFTER 72 HOURS OF INCUBATION. Resulted Problem List/Assessment/Plan Problem List/Assessment/Plan Assessment/Plan #Acute hypoxic Resp failure due to COPD exacerbation/?CHF exacerbation/?Pneumonia -currently on 3L o2 through nasal canula -Chest Xray revealed Cardiomegaly with probable pulmonary vascular congestion. #COPD exacerbation -neb with ipratropium/levalbuterol -Doxy considering prolonged QTc -prednisone 40mg daily #Acute exacerbation of HFrEF -IV Lasix 40 mg b.i.d. -BNP -echo reveals Severely reduced left ventricular systolic function estimated ejection fraction of 30%. There is global wall hypokinesia. Could not assess diastolic function due to atrial fibrillation. Severely dilated right ventricle. Severely reduced right ventricular systolic function. Moderately dilated right and left atria. There is mild mitral regurgitation. -Cardiology consulted for need for ischemic workup -patient is scheduled for cardiac catheterization today #?Community acquired pneumonia -IV ceftriaxone plus IV doxycycline -MRSA screen -CT chest without contrast #A-fib, ?persistent ?paroxysmal -pt does not take any medications -echo -mg>2 and potassium>4 -therapeutic Lovenox -metoprolol succinate 25mg daily -CHADS-VASc score 5, HAS-BLED score of 1 -Cardiology consulted #Asymptomatic V-tach non-sustained -echo -avoid amiodarone considering prolonged Qtc -mag ,and potassium ordered -repeat EKG -patient already on metoprolol -cardiology consulted #Small bilateral pleural effusions, [id number]-left likely due to Heart failure -IV Lasix -monitor #prolonged Qtc -avoid amiodarone considering prolonged Qtc #history of stroke -currently on therapeutic Lovenox -atorvastatin #Hyperlipidemia -atorvastatin #Hypertension -continue lisinopril -discontinued hydrochlorothiazide #Tobacco use disorder -nicotine patch -counselling for cessation >12 min #Marijuana use disorder -counselling for cessation >12 min Patient is scheduled for cardiac catheterization today Code status discussed with the patient present 21 minutes, full code Case discussion with Dr Calles Plan discussed with: Patient, Other Date of Service: Oct 30, 2024 Billing Provider: ANNE MARIE CALLES MD Common Visit Codes: [id number] INP/OBS CARE(HIGH) Coding Comment Comment Attending Attestation I saw and evaluated the patient. I reviewed the residents note and agree with findings and plan as documented in the residents note except as documented below. acute on chronic hypoxic respiratory failure COPDgroup E with exacerbation chronic systolic heart failure heart failure with reduced EF CAD pafib prolonged QT old CVA HTN HLD active smoker cannabis use maintain spo2 >88 empiric ceft and doxy albuterol ipatropium nebs prednisone therapeutic lovenox resume home meds rate control with metop succinate asa lipitor smoking cessation NRT lasix to euvolemia cardio consult appreciated s/p LHC mild nonobs dz aggressive medical management YAZMIN FONSECA RESIDENT Oct 30, 2024 18:46 ANNE MARIE CALLES MD Oct 31, 2024 08:13
[2024-10-31] VITALS (20 sets, daily range): BP systolic 120–148; BP diastolic 92–98; PULSE 90–146; RESP 16–19; TEMP 97.5–98.9; O2SAT 93–100
[2024-10-31 08:36] LABS: Basophils # (auto) 0 10 ^3/uL (0-0.2); Basophils % (auto) 0.3 % (0.0-2.0); Eosinophils # (auto) 0 10 ^3/uL (0-0.8); Eosinophils % (auto) 0.7 % (0.0-7.0); Hematocrit 43.8 % (41.0-53.0); Hemoglobin 14.4 g/dL (13.5-17.5); Lymphocytes # (auto) 0.6 10 ^3/uL (0.4-5.4); Lymphocytes % (auto) 10.6 % (10.0-50.0); Mean Corpuscular Hgb Conc. 32.8 g/dL (32.0-36.0); Mean Corpuscular Volume 94.4 fL (80.0-100.0); Monocytes # (auto) 0.8 10 ^3/uL (0-1.3); Monocytes % (auto) 12.3 % (0.0-12.0); Neutrophils # (auto) 4.7 10 ^3/uL (1.6-8.6); Neutrophils % (auto) 76.1 % (37.0-80.0); Nucleated Red Blood Cells % 0.1 %; Platelet Count (auto) 189 10^3/uL (140-450); Red Blood Cells 4.64 10^6/uL (4.5-5.90); Red Cell Distribution Width 15.2 % (11.8-14.3); White Blood Cell 6.2 10^3/uL (4.4-10.8)
[2024-10-31 09:31] LABS: Alanine Aminotransferase 21 U/L (7-40); Albumin 3.3 g/dL (3.2-4.8); Alkaline Phosphatase 86 U/L (46-116); Anion Gap 5 (5-15); Aspartate Aminotransferase 20 U/L (13-40); Bilirubin, Total 0.6 mg/dL (0.2-1.0); Blood Urea Nitrogen 12 mg/dL (9-23); Calcium 9.1 mg/dL (8.7-10.4); Potassium 3.8 mmol/L (3.5-5.1); Total Protein 6.1 g/dL (5.7-8.2)
[2024-10-31 09:40] LABS: Carbon Dioxide 33 mmol/L (20-31); Chloride 96 mmol/L (98-107); Glucose 119 mg/dL (74-106); Sodium 134 mmol/L (136-145)
--- NOTE | 2024-10-31 16:31 | DVHPN2 ---
Consult Progress Note Date Seen: Oct 31, 2024 Subjective Other Systems: Patient seen and examined with the nurses present. He has no new compliants. Denies any chest pain shortness of breath palpitation or generalized of malaise. He is s/p LH. The report revealed nonobstructive mild coronary artery disease. Patient has 50 pack years history and many years of cannabinoids and alcohol abuse. I spoke extensively to the patient about the possibility of getting a life vest; however, patient would have to make serious lifestyle modifications such as stopping alcohol and cannabinoids use. Patient responded that he is not sure he could make such promises as he has been doing this for so many years. Objective vital signs Vital Sign Date Time Temp Pulse Resp B/P (MAP) Pulse Ox O2 Delivery O2 Flow Rate FiO2 10/31/24 13:52 103 16 99 10/31/24 13:46 Nasal Cannula 2.0 10/31/24 13:46 28 10/31/24 12:49 97.8 143/95 (111) 97.8 Total Intake and Output 10/30/24 10/30/24 10/31/24 15:00 23:00 07:00 Intake Total 100 ml 0 ml 1400 ml Output Total 1605 ml 900 ml Balance 100 ml -1605 ml 500 ml medications Current Medications Medications Dose Ordered Sig/Audrey Route Start Time Stop Time Status Last Admin Dose Admin Atorvastatin Calcium 20 mg HS PO 10/27/24 22:00 10/30/24 23:10 20 MG Lisinopril 20 mg DAILY PO 10/28/24 10:00 10/31/24 09:28 20 MG Tamsulosin HCl 0.4 mg QPM PO 10/28/24 18:00 10/30/24 17:24 0.4 MG Metoprolol Succinate 25 mg DAILY PO 10/28/24 10:00 10/31/24 09:28 25 MG Azithromycin 250 ml @ 125 mls/hr DAILY IV 10/28/24 10:00 UNV Acetaminophen 650 mg Q6HP PRN PO 10/27/24 20:15 10/30/24 17:58 650 MG Ceftriaxone Sodium 50 ml @ 100 mls/hr Q24H IV 10/27/24 00:00 10/30/24 23:10 100 MLS/HR Doxycycline Hyclate 250 ml @ 125 mls/hr Q12H IV 10/28/24 00:30 10/31/24 11:56 125 MLS/HR Prednisone 40 mg DAILY PO 10/29/24 10:00 10/31/24 09:29 40 MG Ipratropium [place] 0.5 mg Q2HPRN PRN NEB 10/28/24 13:15 Nicotine 1 patch DAILY TD 10/29/24 10:00 10/31/24 09:23 1 PATCH Levalbuterol HCl 1.25 mg Q4HR NEB 10/28/24 22:00 10/31/24 13:46 1.25 MG Ipratropium [place] 0.5 mg Q4HR NEB 10/28/24 22:00 10/31/24 13:46 0.5 MG Enoxaparin Sodium 90 mg Q12HR SC 10/28/24 22:00 10/31/24 09:29 90 MG Furosemide 40 mg BIDD IV 10/29/24 18:00 10/31/24 06:04 40 MG Empaglifozin 10 mg DAILY PO 10/30/24 10:00 10/31/24 09:28 10 MG laboratory and microbiology Laboratory Tests 10/31/24 07:55 Test 10/31/24 07:55 Range/Units Serum Glucose 119 H 74-106 mg/dL Problem List/Assessment/Plan Problem List/Assessment/Plan Non-sustained V-tach --> Prolong QTc interval --> Monitor and replete electrolyte ( K: >4, MG> 2) Alcohol-induced cardiomyopathy -->[facility] report 10/31/2024: Nonobstructive mild coronary artery disease --> Patient not a candidate at this time for a life vest( patient admits that he will be unable to stay away from drugs or alcohol) Atrial fibrillation, likely persistent --> [id number] Score: 6 --> Continue beta sangeeta for rate control --> Hold anti-arrhythmic agent given unknown time of afib --> lovenox therapeutic, transition to Noac when appropriate Acute on Chronic HFrEF, NYHA class 3 --> Echo EF 30% --> start GDMT --> if fluid overloaded, strict I&O, --> diuresis as tolerated --> add spironolactone COPD exacerbation ---> Doxycycline --> Breathing treatment ( neb with ipratropium/levalbuterol) Acute hypoxic Resp failure due to COPD exacerbation --> currently on 1L o2 through nasal canula -Chest Xray: probable pulmonary vascular congestion. history of CVA ( 2013) with left sided hemiparesis --> currently on therapeutic Lovenox ---> atorvastatin Hyperlipidemia --> Continue atorvastatin Hypertension -continue lisinopril -discontinued hydrochlorothiazide Tobacco use disorder --> 50 pack years --> nicotine patch Marijuana use disorder --> positive on UDS Alcohol abuse --> 3-4 shots of whisky daily --> CIWA score: 6 Patient should follow up at the cardiology clinic after 1 or 2 weeks post discharge The patient may be a candidate for ICD placement after 3 months of GDMT therapy if no improvement in EF. Thank you for allowing us to participate in the care of this patient. Will sign off now. Please call if you have any questions or concerns. Plan discussed with: Patient Date of Service: Oct 31, 2024 Billing Provider: ROSA MARIA MCDONALD Cardiology Common Codes: [id number] CARE-EACH +30MIN ROSA MARIA MCDONALD Oct 31, 2024 16:31
--- NOTE | 2024-10-31 16:43 | DVHPNRES ---
Progress Note Date Seen: Oct 31, 2024 Resident Creating Document: YAZMIN FONSECA RESIDENT Medical Necessity Reason Pt with a Central, PICC or Fol: No Subjective Review of Systems Patient seen and examined at bedside. He is mentioning of improvement in his symptoms. pt underwent cardiac cath yesterday. pt is on 2L through nasal canula. ROS Constitutional: No: Fever, Chills, Sweats, Weakness, Malaise, Other Eyes: No: Pain, Vision change, Conjunctivae inflammation, Eyelid inflammation, Other, Redness ENT: No: Ear pain, Ear discharge, Nose pain, Nose discharge, Nose congestion, Mouth pain, Mouth swelling, Throat pain, Throat swelling, Other Respiratory: Cough, sputum, wheezing Cardiovascular: Chest pain, no: Palpitations, Orthopnea, Paroxysmal Noc. Dyspnea, Edema, Lt Headedness, Other Gastrointestinal: No: Nausea, Vomiting, Abdominal Pain, Diarrhea, Constipation, Melena, Hematochezia, Other Musculoskeletal: No: other, neck pain, shoulder pain, arm pain, back pain, hand pain, leg pain, foot pain Neurological:; No: Weakness, Numbness, Incoordination, Change in speech, Confusion, Seizures Objective vital signs Vital Sign Date Time Temp Pulse Resp B/P (MAP) Pulse Ox O2 Delivery O2 Flow Rate FiO2 10/31/24 13:52 103 16 99 10/31/24 13:46 Nasal Cannula 2.0 10/31/24 13:46 28 10/31/24 12:49 97.8 143/95 (111) 97.8 Total Intake and Output 10/30/24 10/30/24 10/31/24 15:00 23:00 07:00 Intake Total 100 ml 0 ml 1400 ml Output Total 1605 ml 900 ml Balance 100 ml -1605 ml 500 ml medications Current Medications Medications Dose Ordered Sig/Audrey Route Start Time Stop Time Status Last Admin Dose Admin Atorvastatin Calcium 20 mg HS PO 10/27/24 22:00 10/30/24 23:10 20 MG Lisinopril 20 mg DAILY PO 10/28/24 10:00 10/31/24 09:28 20 MG Tamsulosin HCl 0.4 mg QPM PO 10/28/24 18:00 10/30/24 17:24 0.4 MG Metoprolol Succinate 25 mg DAILY PO 10/28/24 10:00 10/31/24 09:28 25 MG Azithromycin 250 ml @ 125 mls/hr DAILY IV 10/28/24 10:00 UNV Acetaminophen 650 mg Q6HP PRN PO 10/27/24 20:15 10/30/24 17:58 650 MG Ceftriaxone Sodium 50 ml @ 100 mls/hr Q24H IV 10/27/24 00:00 10/30/24 23:10 100 MLS/HR Doxycycline Hyclate 250 ml @ 125 mls/hr Q12H IV 10/28/24 00:30 10/31/24 11:56 125 MLS/HR Prednisone 40 mg DAILY PO 10/29/24 10:00 10/31/24 09:29 40 MG Ipratropium [place] 0.5 mg Q2HPRN PRN NEB 10/28/24 13:15 Nicotine 1 patch DAILY TD 10/29/24 10:00 10/31/24 09:23 1 PATCH Levalbuterol HCl 1.25 mg Q4HR NEB 10/28/24 22:00 10/31/24 13:46 1.25 MG Ipratropium [place] 0.5 mg Q4HR NEB 10/28/24 22:00 10/31/24 13:46 0.5 MG Enoxaparin Sodium 90 mg Q12HR SC 10/28/24 22:00 10/31/24 09:29 90 MG Furosemide 40 mg BIDD IV 10/29/24 18:00 10/31/24 06:04 40 MG Empaglifozin 10 mg DAILY PO 10/30/24 10:00 10/31/24 09:28 10 MG Examination Examination General Appearance: Alert, Oriented X3, Cooperative, No acute distress HEENT: EOMI Respiratory: Bilateral Scattered wheezing Cardiovascular: Regular rate, Normal S1, Normal S2 Abdominal: Normal bowel sounds Extremities: No cyanosis, No edema, Normal pulses, No tenderness/swelling Skin: No rashes, No breakdown Neuro: Speech and tone laboratory and microbiology Laboratory Tests 10/31/24 07:55 Test 10/31/24 07:55 Range/Units Serum Glucose 119 H 74-106 mg/dL Microbiology Date/Time Source Procedure Growth Status 10/27/24 17:04 Blood Blood Culture - Preliminary NO GROWTH AFTER 72 HOURS OF INCUBATION. Resulted Labs and/or images reviewed: Labs reviewed by me, Image(s) reviewed by me Problem List/Assessment/Plan Problem List/Assessment/Plan Assessment/Plan #Acute hypoxic Resp failure due to COPD exacerbation/?CHF exacerbation/?Pneumonia -currently on 3L o2 through nasal canula -Chest Xray revealed Cardiomegaly with probable pulmonary vascular congestion. #COPD exacerbation -neb with ipratropium/levalbuterol -Doxy considering prolonged QTc -prednisone 40mg daily #Acute exacerbation of HFrEF -IV Lasix 40 mg b.i.d. -BNP -echo reveals Severely reduced left ventricular systolic function estimated ejection fraction of 30%. There is global wall hypokinesia. Could not assess diastolic function due to atrial fibrillation. Severely dilated right ventricle. Severely reduced right ventricular systolic function. Moderately dilated right and left atria. There is mild mitral regurgitation. -Cardiology consulted for need for ischemic workup -patient underwent cardiac cath yesterday with impression/plan: Impression and plan: 1. Mild nonobstructive coronary artery disease as noted above. 2. Patient presentation likely due to possible microvascular disease, or myocarditis as a cause of cardiomyopathy. Other possible etiology including alcohol intoxication. 3. Patient would need aggressive medical therapy including goal-directed therapy for reduced ejection fraction, selective beta-blockade given history of COPD, in addition to possible need of ICD -GDMT : currently on jardiance, metoprolol, and lisinopril. #?Community acquired pneumonia -IV ceftriaxone plus IV doxycycline -MRSA screen -CT chest without contrast #A-fib, ?persistent ?paroxysmal -pt does not take any medications -echo -mg>2 and potassium>4 -therapeutic Lovenox -metoprolol succinate 25mg daily -CHADS-VASc score 5, HAS-BLED score of 1 -Cardiology consulted #Asymptomatic V-tach non-sustained -echo -avoid amiodarone considering prolonged Qtc -mag ,and potassium ordered -repeat EKG -patient already on metoprolol -cardiology consulted #Small bilateral pleural effusions, [id number]-left likely due to Heart failure -IV Lasix -monitor #prolonged Qtc -avoid amiodarone considering prolonged Qtc #history of stroke -currently on therapeutic Lovenox -atorvastatin #Hyperlipidemia -atorvastatin #Hypertension -continue lisinopril -discontinued hydrochlorothiazide #Tobacco use disorder -nicotine patch -counselling for cessation >12 min #Marijuana use disorder -counselling for cessation >12 min Discharge planning within 24-48 hrs Code status discussed with the patient present 21 minutes, full code Case discussion with Dr Calles Plan discussed with: Patient, Other Date of Service: Oct 31, 2024 Billing Provider: ANNE MARIE CALLES MD Common Visit Codes: [id number] INP/OBS CARE(LOW) YAZMIN FONSECA RESIDENT Oct 31, 2024 16:43 ANNE MARIE CALLES MD Nov 01, 2024 17:28
[2024-10-31] MEDS: DOXYCYCLINE 100 MG TAB/CAP PO SCH (21:44)
[2024-11-01] VITALS (22 sets, daily range): BP systolic 101–144; BP diastolic 79–112; PULSE 92–116; RESP 16–20; TEMP 36.7; O2SAT 89–100
[2024-11-01] MEDS: SPIRONOLACTONE 25 MG TAB PO SCH (09:49)
[2024-11-01 11:25] LABS: Sodium 137 mmol/L (136-145)
[2024-11-01 11:26] LABS: Anion Gap 2 (5-15)
[2024-11-01 11:27] LABS: Calcium 9.2 mg/dL (8.7-10.4)
[2024-11-01 11:32] LABS: BUN/Creatinine Ratio 15.3 (10.0-20.0); Blood Urea Nitrogen 11 mg/dL (9-23)
[2024-11-01 11:35] LABS: Carbon Dioxide 38 mmol/L (20-31); Chloride 97 mmol/L (98-107); Glucose 113 mg/dL (74-106); Potassium 3.4 mmol/L (3.5-5.1)
[2024-11-01] MEDS: POTASSIUM EFFERVESENT TAB 25 MEQ PO ONE (15:44)
[2024-11-01] MEDS ORDERED: EMPA1TAB PO (16:16)
[2024-11-01] MEDS ORDERED: LISI20TA56 PO (16:16)
[2024-11-01] MEDS ORDERED: ATOR40TA52 PO (16:16)
[2024-11-01] MEDS ORDERED: PRED20TA2 PO (16:16)
[2024-11-01] MEDS ORDERED: SPIR25TA PO (16:16)
[2024-11-01] MEDS ORDERED: METO-6 PO (16:16)
[2024-11-01] MEDS ORDERED: DOX100T PO (16:16)
[2024-11-01] MEDS ORDERED: FURO20TA3 PO (16:16)
[2024-11-01] MEDS ORDERED: APIX5TAB PO (16:17)
--- NOTE | 2024-11-01 16:20 | DVHDSRES ---
Discharge Summary Date of Admission Resident Creating Document: YAZMIN FONSECA Oct 27, 2024 at 20:02 Date of Discharge: Nov 01, 2024 Labs/Diagnostic Data: Laboratory Results Test 11/01/24 10:42 10/31/24 07:55 10/30/24 05:55 10/29/24 04:20 Sodium Level 137 mmol/L (136-145) Potassium Level 3.4 mmol/L (3.5-5.1) Chloride Level 97 mmol/L (98-107) Carbon Dioxide Level 38 mmol/L (20-31) Anion Gap 2 (5-15) Blood Urea Nitrogen 11 mg/dL (9-23) Creatinine 0.72 mg/dL (0.700-1.30) Glomerular Filtration Rate Calc 101 mL/min (>90) BUN/Creatinine Ratio 15.3 (10.0-20.0) Serum Glucose 113 mg/dL (74-106) Calcium Level 9.2 mg/dL (8.7-10.4) White Blood Count 6.2 10^3/uL (4.4-10.8) Red Blood Count 4.64 10^6/uL (4.5-5.90) Hemoglobin 14.4 g/dL (13.5-17.5) Hematocrit 43.8 % (41.0-53.0) Mean Corpuscular Volume 94.4 fL (80.0-100.0) Mean Corpuscular Hemoglobin 31.0 pg (28.0-32.0) Mean Corpuscular Hemoglobin Concent 32.8 g/dL (32.0-36.0) Red Cell Distribution Width 15.2 % (11.8-14.3) Platelet Count 189 10^3/uL (140-450) Mean Platelet Volume 7.7 fL (6.9-10.8) Neutrophils (%) (Auto) 76.1 % (37.0-80.0) Lymphocytes (%) (Auto) 10.6 % (10.0-50.0) Monocytes (%) (Auto) 12.3 % (0.0-12.0) Eosinophils (%) (Auto) 0.7 % (0.0-7.0) Basophils (%) (Auto) 0.3 % (0.0-2.0) Neutrophils # (Auto) 4.7 10 ^3/uL (1.6-8.6) Lymphocytes # (Auto) 0.6 10 ^3/uL (0.4-5.4) Monocytes # (Auto) 0.8 10 ^3/uL (0-1.3) Eosinophils # (Auto) 0 10 ^3/uL (0-0.8) Basophils # (Auto) 0 10 ^3/uL (0-0.2) Nucleated Red Blood Cells 0.1 % Total Bilirubin 0.6 mg/dL (0.2-1.0) Aspartate Amino Transferase (AST) 20 U/L (13-40) Alanine Aminotransferase (ALT) 21 U/L (7-40) Alkaline Phosphatase 86 U/L (46-116) Total Protein 6.1 g/dL (5.7-8.2) Albumin 3.3 g/dL (3.2-4.8) Magnesium Level 1.9 mg/dL (1.6-2.6) Urine Color Yellow (Yellow) Urine Clarity Clear (Clear) Urine pH 5.5 (5.0-9.0) Urine Specific [place] 1.020 (1.001-1.035) Urine Protein Negative (Negative) Urine Ketones Negative (Negative) Urine Blood Negative /uL (Negative) Urine Nitrite Negative (Negative) Urine Bilirubin Negative (Negative) Urine Urobilinogen 4 mg/dL (Negative) Urine Leukocyte Esterase Negative /uL (Negative) Urine RBC 1 /hpf (0 - 3) Urine WBC 1 /hpf (0 - 3) Urine Squamous Epithelial Cells Few /hpf (<5) Urine Bacteria None seen /hpf (None Seen) Urine Glucose Normal mg/dL (Normal) Urine Opiates Screen Neg (NEGATIVE) Urine Fentanyl Screen Neg (NEGATIVE) Urine Barbiturates Screen Neg (NEGATIVE) Urine Phencyclidine Screen Neg (NEGATIVE) Urine Amphetamines Screen Neg (NEGATIVE) Urine Benzodiazepines Screen Neg (NEGATIVE) Urine Cocaine Screen Neg (NEGATIVE) Urine Cannabinoids Screen Pos (NEGATIVE) Test 10/28/24 22:13 10/28/24 19:35 10/27/24 23:00 10/27/24 16:55 Prothrombin Time 12.9 sec (9.3-11.8) Prothrombin Time INR 1.24 (0.9-1.15) Activated Partial Thromboplast Time 29.3 SEC (24.5-34.5) Troponin I High Sensitivity 10 ng/L (</=54) Influenza Type A Antigen Negative (Negative) Influenza Type B Antigen Negative (Negative) SARS-CoV-2 Antigen (Rapid) Negative (NEGATIVE) B-Type Natriuretic Peptide 297.59 pg/mL (0-100) Test 10/27/24 16:35 Lactic Acid Level 1.9 mmol/L (0.4-2.0) Other Laboratory Tests 11/01/24 10:42 10/31/24 07:55 Condition at Discharge: Fair Final Diagnosis/Problems List Nonobstructive mild coronary artery disease HFrEF exacerbation COPD exacerbation Afib pneumonia Discharge Disposition: Home Discharge Instruct/Medications Diet: Cardiac 2g Na,low cholest Activity: See Comment Follow Up/Referral: f/u with PCP/DC clinic within 1 week 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 Patient was counseled about treatment plan, medications, possible side effects, patientverbalized understanding. All questions were answered to the best of my ability. This discharge took greater then 30 minutes in planning, reviewing documentation, counseling the patient, and discussing with other team members." ASSESSMENT ASSESSMENT Assessment Nonobstructive mild coronary artery disease HFrEF exacerbation COPD exacerbation Afib pneumonia YAZMIN FONSECA RESIDENT Nov 01, 2024 16:20
--- NOTE | 2024-11-01 17:04 | DVHPNRES ---
Progress Note Date Seen: Nov 01, 2024 Resident Creating Document: YAZMIN FONSECA RESIDENT Medical Necessity Reason Pt with a Central, PICC or Fol: No Subjective Review of Systems Patient seen and examined at bedside. Patient was initially not complaining of shortness of breadth, was on 2 L of oxygen. Later in the evening patient had shortness of breaths, was maintaining 88 89% on room air, had had a three second run of nonsustained V-tach, was again started on 1 L of oxygen. Objective vital signs Vital Sign Date Time Temp Pulse Resp B/P (MAP) Pulse Ox O2 Delivery O2 Flow Rate FiO2 11/01/24 16:38 36.7 93 11/01/24 14:07 16 98 11/01/24 13:59 Nasal Cannula* 2 28 11/01/24 13:00 131/95 (107) Total Intake and Output 10/31/24 10/31/24 11/01/24 15:00 23:00 07:00 Intake Total 490 ml 940 ml 1480 ml Output Total 500 ml 2450 ml Balance 490 ml 440 ml -970 ml medications Current Medications Medications Dose Ordered Sig/Audrey Route Start Time Stop Time Status Last Admin Dose Admin Atorvastatin Calcium 20 mg HS PO 10/27/24 22:00 10/31/24 21:45 20 MG Lisinopril 20 mg DAILY PO 10/28/24 10:00 11/01/24 09:49 20 MG Tamsulosin HCl 0.4 mg QPM PO 10/28/24 18:00 10/31/24 18:20 0.4 MG Metoprolol Succinate 25 mg DAILY PO 10/28/24 10:00 11/01/24 09:49 25 MG Azithromycin 250 ml @ 125 mls/hr DAILY IV 10/28/24 10:00 UNV Acetaminophen 650 mg Q6HP PRN PO 10/27/24 20:15 11/01/24 08:41 650 MG Ceftriaxone Sodium 50 ml @ 100 mls/hr Q24H IV 10/27/24 00:00 10/31/24 23:53 100 MLS/HR Prednisone 40 mg DAILY PO 10/29/24 10:00 11/01/24 09:49 40 MG Ipratropium [place] 0.5 mg Q2HPRN PRN NEB 10/28/24 13:15 Nicotine 1 patch DAILY TD 10/29/24 10:00 11/01/24 09:48 1 PATCH Levalbuterol HCl 1.25 mg Q4HR NEB 10/28/24 22:00 11/01/24 13:59 1.25 MG Ipratropium [place] 0.5 mg Q4HR NEB 10/28/24 22:00 11/01/24 13:59 0.5 MG Enoxaparin Sodium 90 mg Q12HR SC 10/28/24 22:00 11/01/24 09:48 90 MG Furosemide 40 mg BIDD IV 10/29/24 18:00 11/01/24 06:02 40 MG Empaglifozin 10 mg DAILY PO 10/30/24 10:00 11/01/24 09:49 10 MG Spironolactone 25 mg DAILY PO 11/01/24 10:00 11/01/24 09:49 25 MG Doxycycline Monohydrate 100 mg Q12HR PO 10/31/24 22:00 11/01/24 09:49 100 MG Examination General Appearance: Alert, Oriented X3, Cooperative, No acute distress HEENT: EOMI Respiratory: Bilateral Scattered wheezing Cardiovascular: Regular rate, Normal S1, Normal S2 Abdominal: Normal bowel sounds Extremities: No cyanosis, No edema, Normal pulses, No tenderness/swelling Skin: No rashes, No breakdown Neuro: Speech and tone laboratory and microbiology Laboratory Tests 11/01/24 10:42 10/31/24 07:55 Test 11/01/24 10:42 Range/Units Serum Glucose 113 H 74-106 mg/dL Microbiology Date/Time Source Procedure Growth Status 10/27/24 17:04 Blood Blood Culture - Preliminary NO GROWTH AFTER 72 HOURS OF INCUBATION. Resulted Problem List/Assessment/Plan Problem List/Assessment/Plan Assessment/Plan #Acute hypoxic Resp failure due to COPD exacerbation/?CHF exacerbation/?Pneumonia -currently on 3L o2 through nasal canula -Chest Xray revealed Cardiomegaly with probable pulmonary vascular congestion. #COPD exacerbation -neb with ipratropium/levalbuterol -Doxy considering prolonged QTc -prednisone 40mg daily #Acute exacerbation of HFrEF -IV Lasix 40 mg b.i.d. -BNP -echo reveals Severely reduced left ventricular systolic function estimated ejection fraction of 30%. There is global wall hypokinesia. Could not assess diastolic function due to atrial fibrillation. Severely dilated right ventricle. Severely reduced right ventricular systolic function. Moderately dilated right and left atria. There is mild mitral regurgitation. -Cardiology consulted for need for ischemic workup -patient underwent cardiac cath yesterday with impression/plan: Impression and plan: 1. Mild nonobstructive coronary artery disease as noted above. 2. Patient presentation likely due to possible microvascular disease, or myocarditis as a cause of cardiomyopathy. Other possible etiology including alcohol intoxication. 3. Patient would need aggressive medical therapy including goal-directed therapy for reduced ejection fraction, selective beta-blockade given history of COPD, in addition to possible need of ICD -GDMT : currently on jardiance, metoprolol, and lisinopril. #?Community acquired pneumonia -IV ceftriaxone plus IV doxycycline -MRSA screen -CT chest without contrast #A-fib, ?persistent ?paroxysmal -pt does not take any medications -echo -mg>2 and potassium>4 -therapeutic Lovenox -metoprolol succinate 25mg daily -CHADS-VASc score 5, HAS-BLED score of 1 -Cardiology consulted #Asymptomatic V-tach non-sustained -echo -avoid amiodarone considering prolonged Qtc -mag ,and potassium ordered -repeat EKG -patient already on metoprolol -cardiology consulted #Small bilateral pleural effusions, [id number]-left likely due to Heart failure -IV Lasix -monitor #prolonged Qtc -avoid amiodarone considering prolonged Qtc #history of stroke -currently on therapeutic Lovenox -atorvastatin #Hyperlipidemia -atorvastatin #Hypertension -continue lisinopril -discontinued hydrochlorothiazide #Tobacco use disorder -nicotine patch -counselling for cessation >12 min #Marijuana use disorder -counselling for cessation >12 min Discharge planning within 24-48 hrs Code status discussed with the patient present 21 minutes, full code Case discussion with Dr Dent Plan discussed with: Patient, Other My Orders My Orders Orders - YAZMIN FONSECA RESIDENT Procedure Category Date Status Time Pt Request For Service PT 11/01/24 Logged 14:53 Discharge DISCHARGE 11/01/24 Transmitted 16:18 Schedule For Dc [facility] 11/01/24 In Process Clinic F/U 16:18 Date of Service: Nov 01, 2024 Billing Provider: JUAN C DENT MD Common Visit Codes: [id number] INP/OBS CARE(HIGH) YAZMIN FONSECA RESIDENT Nov 01, 2024 17:04 JUAN C DENT MD Nov 01, 2024 22:04
[2024-11-02] VITALS (20 sets, daily range): BP systolic 110–132; BP diastolic 67–93; PULSE 90–112; RESP 12–20; TEMP 97.3–98.4; O2SAT 91–100
[2024-11-02 06:51] LABS: Basophils # (auto) 0 10 ^3/uL (0-0.2); Basophils % (auto) 0.4 % (0.0-2.0); Eosinophils # (auto) 0 10 ^3/uL (0-0.8); Eosinophils % (auto) 0.5 % (0.0-7.0); Hematocrit 46.3 % (41.0-53.0); Hemoglobin 15.2 g/dL (13.5-17.5); Lymphocytes # (auto) 0.8 10 ^3/uL (0.4-5.4); Lymphocytes % (auto) 9.6 % (10.0-50.0); Mean Corpuscular Hgb Conc. 32.9 g/dL (32.0-36.0); Mean Corpuscular Volume 94.3 fL (80.0-100.0); Monocytes # (auto) 1.1 10 ^3/uL (0-1.3); Neutrophils # (auto) 6.6 10 ^3/uL (1.6-8.6); Neutrophils % (auto) 76.5 % (37.0-80.0); Platelet Count (auto) 192 10^3/uL (140-450); Red Blood Cells 4.91 10^6/uL (4.5-5.90); White Blood Cell 8.6 10^3/uL (4.4-10.8)
[2024-11-02 07:06] LABS: Potassium 3.8 mmol/L (3.5-5.1); Sodium 138 mmol/L (136-145)
[2024-11-02 07:07] LABS: Anion Gap 5 (5-15); Chloride 96 mmol/L (98-107)
[2024-11-02 07:08] LABS: Calcium 9.3 mg/dL (8.7-10.4); Carbon Dioxide 37 mmol/L (20-31)
[2024-11-02 07:12] LABS: Glucose 104 mg/dL (74-106)
[2024-11-02 07:13] LABS: BUN/Creatinine Ratio 18.6 (10.0-20.0); Blood Urea Nitrogen 11 mg/dL (9-23); Magnesium 2.3 mg/dL (1.6-2.6)
--- NOTE | 2024-11-02 12:41 | DVHPNRES ---
Progress Note Date Seen: Nov 02, 2024 Resident Creating Document: BRANDON HERNANDEZ RESIDENT Medical Necessity Reason Pt with a Central, PICC or Fol: No Subjective Review of Systems 64-year-old male and past medical history of COPD, hyperlipidemia, CVA, hypertension, AFib, CHF here with complaints of shortness of breath associated wheezing and cough last two days. Patient was admitted last time in September possible CHF exacerbation and atrial fibrillation but he left AMA. Patient is mentioning of chest pain that is associated with cough and deep inspiration. Today patient complains of continued but reduced dyspnea, notes that he keeps nodding off despite having slept adequately in the night. Patient was on 2 L, he was weaned off of oxygen and brought down to 0.5 L. ROS Constitutional: No: Fever, Chills, Sweats, Weakness, Malaise, Other Eyes: No: Pain, Vision change, Conjunctivae inflammation, Eyelid inflammation, Other, Redness ENT: No: Ear pain, Ear discharge, Nose pain, Nose discharge, Nose congestion, Mouth pain, Mouth swelling, Throat pain, Throat swelling, Other Respiratory: Cough, wheezing Cardiovascular: Chest pain, no: Palpitations, Orthopnea, Paroxysmal Noc. Dyspnea, Edema, Lt Headedness, Other Gastrointestinal: No: Nausea, Vomiting, Abdominal Pain, Diarrhea, Constipation, Melena, Hematochezia, Other Musculoskeletal: No: other, neck pain, shoulder pain, arm pain, back pain, hand pain, leg pain, foot pain Objective vital signs Vital Sign Date Time Temp Pulse Resp B/P (MAP) Pulse Ox O2 Delivery O2 Flow Rate FiO2 11/02/24 10:56 97.9 103 12 124/80 (95) 91 97.9 11/02/24 10:17 Nasal Cannula 0.5 11/02/24 10:17 40 Total Intake and Output 11/01/24 11/01/24 11/02/24 14:59 22:59 06:59 Intake Total 660 ml 150 ml 800 ml Output Total 500 ml 1375 ml Balance 660 ml -350 ml -575 ml medications Current Medications Medications Dose Ordered Sig/Audrey Route Start Time Stop Time Status Last Admin Dose Admin Atorvastatin Calcium 20 mg HS PO 10/27/24 22:00 11/01/24 21:39 20 MG Lisinopril 20 mg DAILY PO 10/28/24 10:00 11/02/24 10:14 20 MG Tamsulosin HCl 0.4 mg QPM PO 10/28/24 18:00 11/01/24 17:49 0.4 MG Metoprolol Succinate 25 mg DAILY PO 10/28/24 10:00 11/02/24 10:14 25 MG Azithromycin 250 ml @ 125 mls/hr DAILY IV 10/28/24 10:00 UNV Acetaminophen 650 mg Q6HP PRN PO 10/27/24 20:15 11/02/24 10:13 650 MG Ceftriaxone Sodium 50 ml @ 100 mls/hr Q24H IV 10/27/24 00:00 11/01/24 23:49 100 MLS/HR Prednisone 40 mg DAILY PO 10/29/24 10:00 11/02/24 10:14 40 MG Ipratropium [place] 0.5 mg Q2HPRN PRN NEB 10/28/24 13:15 Nicotine 1 patch DAILY TD 10/29/24 10:00 11/02/24 10:15 1 PATCH Levalbuterol HCl 1.25 mg Q4HR NEB 10/28/24 22:00 11/02/24 10:17 1.25 MG Ipratropium [place] 0.5 mg Q4HR NEB 10/28/24 22:00 11/02/24 10:17 0.5 MG Enoxaparin Sodium 90 mg Q12HR SC 10/28/24 22:00 11/02/24 10:13 90 MG Furosemide 40 mg BIDD IV 10/29/24 18:00 11/02/24 05:29 40 MG Empaglifozin 10 mg DAILY PO 10/30/24 10:00 11/02/24 10:14 10 MG Spironolactone 25 mg DAILY PO 11/01/24 10:00 11/02/24 10:14 25 MG Doxycycline Monohydrate 100 mg Q12HR PO 10/31/24 22:00 11/02/24 10:13 100 MG Examination General Appearance: Cooperative. Well developed. Well nourished. NAD Head Exam: Normal inspection Neck Exam: Normal inspection. Non-tender. Normal alignment Pulmonary/Respiratory: Chest non-tender. Clear bilateral breath sounds, no crackles, wheezing L>R Cardiovascular/Chest: Regular rate and rhythm. No murmurs. No JVD. Peripheral Pulses: 2+ Radial (R). 2+ Radial (L). Absent pedal pulses Abdominal Exam: Normal bowel sounds. Soft. normal abdomen, no visible veins, Nontender. No hepatospenomegaly. No masses Ankle Exam: Negative ankle edema Lower extremities: Negative lower extremity edema Neuro/Mental Status: A&O x4. Coherent. Thoughts/Psych: Normal thought pattern. Appropriate mood and affect. Good judgement and insight Skin Exam: Normal inspection. Normal color. Warm. Dry laboratory and microbiology Laboratory Tests 11/02/24 06:02 Test 11/02/24 06:02 Range/Units Serum Glucose 104 74-106 mg/dL Microbiology Date/Time Source Procedure Growth Status 10/27/24 17:04 Blood Blood Culture - Final NO GROWTH AFTER 5 DAYS OF INCUBATION. Complete Labs and/or images reviewed: Labs reviewed by me, Image(s) reviewed by me Problem List/Assessment/Plan Problem List/Assessment/Plan #Acute hypoxic Resp failure due to COPD exacerbation/?CHF exacerbation/?Pneumonia -weaned to 0.5 L O2 via NC -Chest Xray revealed Cardiomegaly with probable pulmonary vascular congestion. #COPD exacerbation -neb with ipratropium/levalbuterol -Doxy considering prolonged QTc -prednisone 40mg daily #Acute exacerbation of HFrEF -IV Lasix 40 mg b.i.d. -BNP -echo reveals Severely reduced left ventricular systolic function estimated ejection fraction of 30%. There is global wall hypokinesia. Could not assess diastolic function due to atrial fibrillation. Severely dilated right ventricle. Severely reduced right ventricular systolic function. Moderately dilated right and left atria. There is mild mitral regurgitation. -Cardiology consulted for need for ischemic workup -patient underwent cardiac cath yesterday with impression/plan: Impression and plan: 1. Mild nonobstructive coronary artery disease as noted above. 2. Patient presentation likely due to possible microvascular disease, or myocarditis as a cause of cardiomyopathy. Other possible etiology including alcohol intoxication. 3. Patient would need aggressive medical therapy including goal-directed therapy for reduced ejection fraction, selective beta-blockade given history of COPD, in addition to possible need of ICD -GDMT : currently on jardiance, metoprolol, and lisinopril. #?Community acquired pneumonia -IV ceftriaxone plus IV doxycycline -MRSA screen -CT chest without contrast #A-fib, ?persistent ?paroxysmal -pt does not take any medications -echo -mg>2 and potassium>4 -therapeutic Lovenox -metoprolol succinate 25mg daily -CHADS-VASc score 5, HAS-BLED score of 1 -Cardiology consulted #Asymptomatic V-tach non-sustained -echo -avoid amiodarone considering prolonged Qtc -mag ,and potassium ordered -repeat EKG -patient already on metoprolol -cardiology consulted #Small bilateral pleural effusions, vagfk-gefkesk-hmil-left likely due to Heart failure -IV Lasix -monitor #prolonged Qtc -avoid amiodarone considering prolonged Qtc #history of stroke -currently on therapeutic Lovenox -atorvastatin #Hyperlipidemia -atorvastatin #Hypertension -continue lisinopril -discontinued hydrochlorothiazide #Tobacco use disorder -nicotine patch -counselling for cessation >12 min #Marijuana use disorder -counselling for cessation >12 min Discharge planning within 24-48 hrs Code status discussed with the patient present 21 minutes, full code Case discussion with Dr Dent Plan discussed with: Patient, Other (RN) Date of Service: Nov 02, 2024 Billing Provider: JUAN C DENT MD Common Visit Codes: [id number] INP/OBS CARE(HIGH) BRANDON HERNANDEZ RESIDENT Nov 02, 2024 12:41 JUAN C DENT MD Nov 02, 2024 21:35
[2024-11-02] MEDS ORDERED: guaiFENesin 200 MG/10 ML UD PO PRN (17:45)
--- NOTE | 2024-11-02 18:51 | DVH ---
EXAM: US BILAT LOW EXT ART DUPLEX HISTORY: cool lower extremities, R>L, weak pulses COMPARISON: None TECHNIQUE: Real-time grayscale and color Doppler images of the bilateral lower extremities were obta ined with spectral waveform analysis. Findings: Arterial peak systolic velocities reported in units of centimeters per second (cm/sec): Right side: Common femoral - not visualized Profunda - 21.5 Proximal SFA - 28.6 Mid SFA - 25.8 Distal SFA - 28.6 Popliteal - 25.8 Posterior tibial - 13.6 Dorsalis pedis - 4.8 Diffuse monophasic waveforms. Left side: Common femoral - 84.0 Profunda - 23.6 Proximal SFA - 56.8 Mid SFA - 44.6 Distal SFA - 42.5 Popliteal - 40.4 Posterior tibial - 45.3 Dorsalis pedis - 53.8 Diffuse biphasic and triphasic waveforms. IMPRESSION: 1. Occlusion of the right common femoral artery. 2. No evidence of hemodynamically significant stenosis throughout the left lower extremity arterial s ystem. Critical Result: Vascular occlusion Findings discussed with Kristine LI at 11/02/2024 06:48 PM, and acknowledged receipt and understanding o f the findings.
[2024-11-03] VITALS (14 sets, daily range): BP systolic 121–147; BP diastolic 58–93; PULSE 83–107; RESP 16–20; TEMP 97.7–98; O2SAT 94–98
[2024-11-03 07:00] LABS: Basophils # (auto) 0 10 ^3/uL (0-0.2); Basophils % (auto) 0.3 % (0.0-2.0); Eosinophils # (auto) 0 10 ^3/uL (0-0.8); Eosinophils % (auto) 0.3 % (0.0-7.0); Hematocrit 46.5 % (41.0-53.0); Hemoglobin 15.2 g/dL (13.5-17.5); Lymphocytes # (auto) 0.8 10 ^3/uL (0.4-5.4); Lymphocytes % (auto) 8.1 % (10.0-50.0); Mean Corpuscular Hemoglobin 30.9 pg (28.0-32.0); Mean Corpuscular Hgb Conc. 32.6 g/dL (32.0-36.0); Mean Corpuscular Volume 94.8 fL (80.0-100.0); Monocytes # (auto) 1.1 10 ^3/uL (0-1.3); Monocytes % (auto) 11.3 % (0.0-12.0); Neutrophils # (auto) 7.6 10 ^3/uL (1.6-8.6); Platelet Count (auto) 206 10^3/uL (140-450); Red Blood Cells 4.91 10^6/uL (4.5-5.90); Red Cell Distribution Width 14.9 % (11.8-14.3); White Blood Cell 9.5 10^3/uL (4.4-10.8)
[2024-11-03 07:10] LABS: Potassium 3.9 mmol/L (3.5-5.1); Sodium 136 mmol/L (136-145)
[2024-11-03 07:11] LABS: Anion Gap 7 (5-15)
[2024-11-03 07:12] LABS: Calcium 9.5 mg/dL (8.7-10.4)
[2024-11-03 07:17] LABS: Blood Urea Nitrogen 17 mg/dL (9-23)
[2024-11-03 07:18] LABS: Carbon Dioxide 32 mmol/L (20-31); Chloride 97 mmol/L (98-107); Glucose 139 mg/dL (74-106)
[2024-11-03 07:27] LABS: BUN/Creatinine Ratio 20.5 (10.0-20.0)
[2024-11-03] MEDS: APIXABAN 5 MG TAB PO SCH (09:41)
[2024-11-03] MEDS: DOXYCYCLINE 100 MG TAB/CAP PO SCH (09:55)
[2024-11-03] MEDS ORDERED: LORazepam 2MG/ML-1ML VIAL IV ONE (14:15)
[2024-11-03] MEDS: LORazepam 2MG/ML-1ML VIAL IV PRN (14:56)
--- NOTE | 2024-11-03 15:04 | DVHPN2 ---
Consult Progress Note Date Seen: Nov 03, 2024 Subjective Other Systems: Cardiology was called today to re-evaluate patient for possible peripheral vascular disesease. Patient seen and examine. He is not in any acute distress, patient denied any pain associated with mobility. Patient mentioned that he walks in the hallway of the hospital without any pains. Maybe some tingling sensation He has no active wounds noted on his feet. Objective vital signs Vital Sign Date Time Temp Pulse Resp B/P (MAP) Pulse Ox O2 Delivery O2 Flow Rate FiO2 11/03/24 14:09 98 16 97 11/03/24 14:03 Nasal Cannula 1.0 11/03/24 14:03 24 11/03/24 12:30 98.0 121/73 (89) 98.0 Total Intake and Output 11/02/24 11/02/24 11/03/24 14:59 22:59 06:59 Intake Total 150 ml 1400 ml Output Total 500 ml 925 ml Balance -350 ml 475 ml medications Current Medications Medications Dose Ordered Sig/Audrey Route Start Time Stop Time Status Last Admin Dose Admin Atorvastatin Calcium 20 mg HS PO 10/27/24 22:00 11/02/24 22:24 20 MG Lisinopril 20 mg DAILY PO 10/28/24 10:00 11/03/24 09:42 20 MG Tamsulosin HCl 0.4 mg QPM PO 10/28/24 18:00 11/02/24 17:54 0.4 MG Metoprolol Succinate 25 mg DAILY PO 10/28/24 10:00 11/03/24 09:41 25 MG Azithromycin 250 ml @ 125 mls/hr DAILY IV 10/28/24 10:00 UNV Acetaminophen 650 mg Q6HP PRN PO 10/27/24 20:15 11/03/24 09:42 650 MG Ipratropium [place] 0.5 mg Q2HPRN PRN NEB 10/28/24 13:15 Nicotine 1 patch DAILY TD 10/29/24 10:00 11/02/24 10:15 1 PATCH Levalbuterol HCl 1.25 mg Q4HR NEB 10/28/24 22:00 11/03/24 14:03 1.25 MG Ipratropium [place] 0.5 mg Q4HR NEB 10/28/24 22:00 11/03/24 14:03 0.5 MG Empaglifozin 10 mg DAILY PO 10/30/24 10:00 11/03/24 09:40 10 MG Spironolactone 25 mg DAILY PO 11/01/24 10:00 11/03/24 09:41 25 MG Doxycycline Monohydrate 100 mg Q12HR PO 10/31/24 22:00 11/03/24 09:41 100 MG Guaifenesin 200 mg Q6HP PRN PO 11/02/24 17:45 Furosemide 20 mg BIDD PO 11/03/24 18:00 Doxycycline Monohydrate 100 mg Q12HR PO 11/03/24 10:00 Lorazepam 0.5 mg ONCE PRN IV 11/03/24 14:15 11/04/24 14:14 Examination: HEENT:Normal, LUNGS:Abnormal (mild wheezing, on Oxygen), SKIN:Abnormal (Right foot cold to touch, blanched on palpation, and no pulse felt Right foot. Left foot is warm, pulse present.) laboratory and microbiology Laboratory Tests 11/03/24 05:40 Test 11/03/24 05:40 Range/Units Serum Glucose 139 H 74-106 mg/dL Problem List/Assessment/Plan Problem List/Assessment/Plan Non-sustained V-tach --> Prolong QTc interval --> Monitor and replete electrolyte ( K: >4, MG> 2) Alcohol-induced cardiomyopathy -->[facility] report 10/31/2024: Nonobstructive mild coronary artery disease --> Patient not a candidate at this time for a life vest( patient admits that he will be unable to stay away from drugs or alcohol) Atrial fibrillation, likely persistent --> [id number] Score: 6 --> Continue beta sangeeta for rate control --> Hold anti-arrhythmic agent given unknown time of afib --> lovenox therapeutic, transition to Noac when appropriate Acute on Chronic HFrEF, NYHA class 3 --> Echo EF 30% --> start GDMT --> if fluid overloaded, strict I&O, --> diuresis as tolerated --> add spironolactone COPD exacerbation ---> Doxycycline --> Breathing treatment ( neb with ipratropium/levalbuterol) Acute hypoxic Resp failure due to COPD exacerbation --> currently on 1L o2 through nasal canula -Chest Xray: probable pulmonary vascular congestion. history of CVA ( 2013) with left sided hemiparesis --> currently on therapeutic Lovenox ---> atorvastatin Hyperlipidemia --> Continue atorvastatin Hypertension -continue lisinopril -discontinued hydrochlorothiazide Tobacco use disorder --> 50 pack years --> nicotine patch Marijuana use disorder --> positive on UDS Alcohol abuse --> 3-4 shots of whisky daily --> CIWA score: 6 Peripheral Artery disease ( New 11/03/2024) --> Negative claudication --> some paresthesia --> Recommend outpatient follow --> outpatient peripheral angiogram Patient should follow up at the cardiology clinic on 11/07/2024 The patient may be a candidate for ICD placement after 3 months of GDMT therapy if no improvement in EF. Thank you for allowing us to participate in the care of this patient. Will sign off now. Please call if you have any questions or concerns. Plan discussed with: Patient Date of Service: Nov 03, 2024 Billing Provider: RADHA ELAINE MD Cardiology Common Codes: [id number] [facility](ROSA MARIA Alcantara RESIDENT Nov 03, 2024 15:03
--- NOTE | 2024-11-03 15:13 | DVHDSRES ---
Discharge Summary Date of Admission Resident Creating Document: YAZMIN FONSECA Oct 27, 2024 at 20:02 Date of Discharge: Nov 03, 2024 Labs/Diagnostic Data: Laboratory Results Test 11/03/24 05:40 11/02/24 06:02 10/31/24 07:55 10/29/24 04:20 White Blood Count 9.5 10^3/uL (4.4-10.8) Red Blood Count 4.91 10^6/uL (4.5-5.90) Hemoglobin 15.2 g/dL (13.5-17.5) Hematocrit 46.5 % (41.0-53.0) Mean Corpuscular Volume 94.8 fL (80.0-100.0) Mean Corpuscular Hemoglobin 30.9 pg (28.0-32.0) Mean Corpuscular Hemoglobin Concent 32.6 g/dL (32.0-36.0) Red Cell Distribution Width 14.9 % (11.8-14.3) Platelet Count 206 10^3/uL (140-450) Mean Platelet Volume 8.0 fL (6.9-10.8) Neutrophils (%) (Auto) 80.0 % (37.0-80.0) Lymphocytes (%) (Auto) 8.1 % (10.0-50.0) Monocytes (%) (Auto) 11.3 % (0.0-12.0) Eosinophils (%) (Auto) 0.3 % (0.0-7.0) Basophils (%) (Auto) 0.3 % (0.0-2.0) Neutrophils # (Auto) 7.6 10 ^3/uL (1.6-8.6) Lymphocytes # (Auto) 0.8 10 ^3/uL (0.4-5.4) Monocytes # (Auto) 1.1 10 ^3/uL (0-1.3) Eosinophils # (Auto) 0 10 ^3/uL (0-0.8) Basophils # (Auto) 0 10 ^3/uL (0-0.2) Nucleated Red Blood Cells 0.0 % Sodium Level 136 mmol/L (136-145) Potassium Level 3.9 mmol/L (3.5-5.1) Chloride Level 97 mmol/L (98-107) Carbon Dioxide Level 32 mmol/L (20-31) Anion Gap 7 (5-15) Blood Urea Nitrogen 17 mg/dL (9-23) Creatinine 0.83 mg/dL (0.700-1.30) Glomerular Filtration Rate Calc 97 mL/min (>90) BUN/Creatinine Ratio 20.5 (10.0-20.0) Serum Glucose 139 mg/dL (74-106) Calcium Level 9.5 mg/dL (8.7-10.4) Magnesium Level 2.3 mg/dL (1.6-2.6) Total Bilirubin 0.6 mg/dL (0.2-1.0) Aspartate Amino Transferase (AST) 20 U/L (13-40) Alanine Aminotransferase (ALT) 21 U/L (7-40) Alkaline Phosphatase 86 U/L (46-116) Total Protein 6.1 g/dL (5.7-8.2) Albumin 3.3 g/dL (3.2-4.8) Urine Color Yellow (Yellow) Urine Clarity Clear (Clear) Urine pH 5.5 (5.0-9.0) Urine Specific [place] 1.020 (1.001-1.035) Urine Protein Negative (Negative) Urine Ketones Negative (Negative) Urine Blood Negative /uL (Negative) Urine Nitrite Negative (Negative) Urine Bilirubin Negative (Negative) Urine Urobilinogen 4 mg/dL (Negative) Urine Leukocyte Esterase Negative /uL (Negative) Urine RBC 1 /hpf (0 - 3) Urine WBC 1 /hpf (0 - 3) Urine Squamous Epithelial Cells Few /hpf (<5) Urine Bacteria None seen /hpf (None Seen) Urine Glucose Normal mg/dL (Normal) Urine Opiates Screen Neg (NEGATIVE) Urine Fentanyl Screen Neg (NEGATIVE) Urine Barbiturates Screen Neg (NEGATIVE) Urine Phencyclidine Screen Neg (NEGATIVE) Urine Amphetamines Screen Neg (NEGATIVE) Urine Benzodiazepines Screen Neg (NEGATIVE) Urine Cocaine Screen Neg (NEGATIVE) Urine Cannabinoids Screen Pos (NEGATIVE) Test 10/28/24 22:13 10/28/24 19:35 10/27/24 23:00 10/27/24 16:55 Prothrombin Time 12.9 sec (9.3-11.8) Prothrombin Time INR 1.24 (0.9-1.15) Activated Partial Thromboplast Time 29.3 SEC (24.5-34.5) Troponin I High Sensitivity 10 ng/L (</=54) Influenza Type A Antigen Negative (Negative) Influenza Type B Antigen Negative (Negative) SARS-CoV-2 Antigen (Rapid) Negative (NEGATIVE) B-Type Natriuretic Peptide 297.59 pg/mL (0-100) Test 10/27/24 16:35 Lactic Acid Level 1.9 mmol/L (0.4-2.0) Other Laboratory Tests 11/03/24 05:40 Brief Hx & Hospital Course: 64-year-old male patient with past medical history of COPD, hyperlipidemia, stroke, hypertension, AFib, CHF presented complaints of shortness of breath associated with wheezing and cough for last two days. Patient was started on oxygen, nebulization with ipratropium and levalbuterol. Patient was started on ceftriaxone plus doxycycline considering possible pneumonia. Patient was also started on prednisone 40 mg daily for COPD exacerbation. Echocardiogram revealed Severely reduced left ventricular systolic function estimated ejection fraction of 30%. There is global wall hypokinesia. Could not assess diastolic function due to atrial fibrillation. Severely dilated right ventricle. Severely reduced right ventricular systolic function. Moderately dilated right and left atria. There is mild mitral regurgitation. For patient's atrial fibrillation, patient was started on therapeutic Lovenox nine metoprolol 25 mg daily. Cardiology was consulted. Patient had episode of nonsustained asymptomatic V- tach. Patient underwent cardiac catheterization which revealed 1. Mild nonobstructive coronary artery disease as noted above. 2. Patient presentation likely due to possible microvascular disease, or myocarditis as a cause of cardiomyopathy. Other possible etiology including alcohol intoxication. 3. Patient would need aggressive medical therapy including goal-directed therapy for reduced ejection fraction, selective beta-blockade given history of COPD, in addition to possible need of ICD Patient was started on medical management for coronary artery disease and GDMT for heart failure. Patient mentioned improvement in his symptoms. patient was on 2 L of oxygen which was later titrated down to room air. He also had complaints of cold right feet and mild bleeding sensation in the right foot. Arterial duplex revealed Occlusion of the right common femoral artery. Breast Surgeon recommended outpatient follow up for outpatient peripheral angiogram. At The time of discharge, patient had stable vitals, no new complaints. Discharge plan was discussed with the patient and patient was advised to follow up with PCP/DC clinic within one week and senior financial analyst within 1-2 weeks. Patient was started on Eliquis, metoprolol, atorvastatin, doxycycline, Jardiance, lisinopril, prednisolone, spironolactone. And was continued on the rest home medications. Operations or Procedures Operative Report -Cardiology Report Details Date: 10/30/24 Preop Diagnosis: Nonsustained ventricular tachycardia as well as reduced left ventricular systolic function and shortness of breath. To rule out underlying ischemic heart disease. Postop Diagnosis: Nonobstructive mild coronary artery disease Surgeon: Mo Good MD Dashboard Developer: Teressa Andujar Anesthesiologist: Conscious sedation using 25 mcg of fentanyl as well as a mg of midazolam. Was given under direct supervision of myself with the proximal attending nurses. Patient was monitored for total of 35 minutes without obvious complication. Anesthesia: Local Consent: The patient was informed of the risks and benefits of the procedure. These include but are not limited to complications of anesthesia, postoperative infection, incomplete relief of symptoms, recurrence of symptoms, damage to blood vessels, nerves and tendons, deep venous thrombosis, pulmonary embolism and possible need for repeat surgery in the future. Indications for Surgery: This is a 64-year-old male with a past medical history significant for CVA ( 2013), COPD, hyperlipidemia, hypertension, AFib, newly diagnosed CHF presented to the ED after having experienced chest pain for a week that became worse and associated with shortness of breath in the last couple of days. Pain was centrally located with not radiation. He has 50 pack years and drinks whisky 3-4 shots each day. Currently he denies any chest pain. He is on 1L of oxygen and receives breathing treatment q4hrs.Of note, patient was seen in the ED in September and managed,but left AMA. Cardiology was consulted because patient's school lunch monitor showed an non-sustained V-tach yesterday ( 10/28/2024). Initial 12 lead EKG showed Afib with PVCs and minimal ST depression to lateral leads and prolong QTc. Name of Procedure Performed 1. Left heart catheterization with left ventricular end-diastolic pressure measurement. 2. Selective right and left coronary angiography utilizing right transradial approach. 3. Conscious sedation using 25 mcg of fentanyl as well as a mg midazolam. Procedure Details Procedure Details: Procedure note and vascular access: After informed consent was obtained, risks, benefits, complications, and alternatives were discussed in details with the patient who agrees to have the procedure done. At the beginning of the procedure, the right wrist and the right frontal area were prepped and draped in the regular sterile fashion. Patient received conscious sedation using 25 mcg of fentanyl as well as a mg midazolam. Thereafter total of 2 cc of 1% xylocaine were given to the right wrist area before a six Turkmen sheath was placed using modified Seldinger technique. Valve of five Turkmen catheter as well as a J-tip wire we used to engage the right and left coronary system, a cocktail of 2.5 mg of verapamil as well as 100 mcg of nitroglycerin were given intra-arterial to prevent vasospasm findings were as follows: 1. Left heart catheterization with left ventricular end-diastolic pressure measurement: With the help of his other valve tricuspid as well as a J-tip wire we were able to cross the aortic valve and measured left ventricular end-diastolic pressure which was elevated at 17 mm of mercury, there was no gradient across the aortic valve on the pullback. 2. Selective right and right coronary angiography utilizing right transradial approach: The left main comes off the left coronary cusp it is widely patent bifurcates into large left anterior descending artery as well as a large posterolateral branch, it has no significant disease. 2. The left anterior descending artery is large with transapical course it has moderate calcification gives rise to large 1st diagonal branch, has mild irregularity of the proximal to mid single but no significant stenosis was noted. 3. The circumflex vessel is a codominant system it gives rise to three large obtuse marginal branches, it has mild irregularity but no significant stenosis was noted. 4. The right coronary artery is small in caliber it has mild irregularity of the proximal to mid segment gives rise to small posterior descending artery as well as a small posterolateral branch. Impression and plan: 1. Mild nonobstructive coronary artery disease as noted above. 2. Patient presentation likely due to possible microvascular disease, or myocarditis as a cause of cardiomyopathy. Other possible etiology including alcohol intoxication. 3. Patient would need aggressive medical therapy including goal-directed therapy for reduced ejection fraction, selective beta-blockade given history of COPD, in addition to possible need of ICD, Condition Fair [facility] Clinical Frailty Scale [facility] Clinical Frailty Scale: Moderately Frail Stress Test Stress Test Performed: No Dominance Dominance: Co-dominant Disposition 2 Condition at Discharge: Stable Final Diagnosis/Problems List Nonobstructive mild coronary artery disease HFrEF exacerbation 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 disease COPD exacerbation Afib pneumonia Discharge Disposition: Home Discharge Instruct/Medications Diet: Cardiac 2g Na,low cholest Activity: See Comment Follow Up/Referral: f/u with PCP/DC clinic within 1 week f/u [facility] senior financial analyst within 1-2 weeks Medications: script sent to pharmacy. Discharge Statement: "Patient was advised to return to the ER or call 911 if any headaches, dizziness, shortness of breath, chest pain, abdominal pain, bleeding, fevers, or worsening of medical condition. Patient was counseled about treatment plan, medications, possible side effects, patientverbalized understanding. All questions were answered to the best of my ability. This discharge took greater then 30 minutes in planning, reviewing documentation, counseling the patient, and discussing with other team members." ASSESSMENT ASSESSMENT Assessment Nonobstructive mild coronary artery disease HFrEF exacerbation COPD exacerbation Afib pneumonia Date of Service: Nov 03, 2024 Billing Provider: ANNE MARIE CALLES MD Common Visit Codes: 63104-HVN/OBS DISCH DAY >30min YAZMIN FONSECA RESIDENT Nov 03, 2024 15:13 ANNE MARIE CALLES MD Nov 04, 2024 12:58
[2024-11-03] MEDS: FUROSEMIDE 20 MG TAB PO SCH (18:00)
== END 2024-11-03 20:05 | disposition home or self-care (01) | DRG 286 ==
LOC: ER 15:45 → EDBD 15:45 → TELE 20:02 → TELE-WESTW 10-28 02:12
PROVIDERS: ADMIT Student in an Organized Health Care Education/Training Program; ATTEND Emergency Medicine
PROC: 4A023N7 Measurement of Cardiac Sampling and Pressure, Left Heart, Percutaneous Approach (ICD-10-PCS; principal; 2024-10-30)
PROC: B211YZZ Fluoroscopy of Multiple Coronary Arteries using Other Contrast (ICD-10-PCS; 2024-10-30)
DX: I25.10 Atherosclerotic heart disease of native coronary artery without angina pectoris (principal); I50.43 Acute on chronic combined systolic (congestive) and diastolic (congestive) heart failure; J96.21 Acute and chronic respiratory failure with hypoxia; J18.9 Pneumonia, unspecified organism; J44.1 Chronic obstructive pulmonary disease with (acute) exacerbation; J44.0 Chronic obstructive pulmonary disease with (acute) lower respiratory infection; I69.354 Hemiplegia and hemiparesis following cerebral infarction affecting left non-dominant side; I47.20 Ventricular tachycardia, unspecified; I11.0 Hypertensive heart disease with heart failure; F17.210 Nicotine dependence, cigarettes, uncomplicated; Z20.822 Contact with and (suspected) exposure to COVID-19; F12.90 Cannabis use, unspecified, uncomplicated; E78.5 Hyperlipidemia, unspecified; F10.10 Alcohol abuse, uncomplicated; I48.0 Paroxysmal atrial fibrillation; Y90.9 Presence of alcohol in blood, level not specified; I73.9 Peripheral vascular disease, unspecified; I42.7 Cardiomyopathy due to drug and external agent; Z83.3 Family history of diabetes mellitus; Z91.199 Patient's noncompliance with other medical treatment and regimen due to unspecified reason; Z79.01 Long term (current) use of anticoagulants
CPT/HCPCS: 36415; 71045; 71250; 80048; 80053; 80307; 81001; 83605; 83735; 83880; 84132; 84484; 85025; 85610; 85730; 87040; 87426; 87804; 93005; 93306; 93458; 93925; 94640; 99152; 99291; G0378; J2250; J3480; J3490; Q9967

== ENCOUNTER 2024-11-10 15:18 | Inpatient (IN) | payer MEDICARE, MEDICAID ==
[~2024-11-10] VITALS: Ht 177.8 cm; Wt 77.5 kg
[~2024-11-10 15:18] MED LIST changes: +APIX5TAB PO; +ASPI81CH74 PO; +ATOR-507 PO; +ATOR40TA52 PO; +CITA-77 PO; +DOX100T PO; +DUTA1CAP29 PO; +EMPA1TAB PO; +ERGO1CAP23 PO; +FURO20TA3 PO; +LISI20TA56 PO; +METO-6 PO; +MULTCHW OR; +NICO1LOZ5 MT; +PRED20TA2 PO; +SIMV20TA20 PO; +SPIR25TA PO; +TAMS0.4C39 PO
--- NOTE | 2024-11-10 17:24 | DVH ---
CHEST RADIOGRAPH Indication: sob Technique: Single frontal view of the chest was obtained COMPARISON: XY CHEST PORTABLE on DOS: 10/27/24, XY CHEST PORTABLE on DOS: 09/26/24 FINDINGS: Lines and Tubes: None Lungs: Nearly resolved CHF. Pleura: No effusion. No pneumothorax. Cardiomediastinal contours: Mild cardiomegaly Bones: Unremarkable IMPRESSION: 1. Nearly resolved CHF.
--- NOTE | 2024-11-10 17:35 | ED.PDOC ---
History of Present Illness HPI Comments This is a 64 y/o M that is a poor historian and returns to [facility] ED for hospital admission after being instructed to by his PCP following RLE DVT Dx, earlier, s/p leaving AMA from hospital admission. He informs on still having shortness of breath that he was admitted for and leaving AMA during previous admission, due to "staff not feeding him" then. He denies any shortness of breath, nausea, vomiting, fever, chills, or other associated symptoms or modifiers at this time. Chief Complaint: Lower Extremity Time Seen by MD: 17:00 Primary Care Provider: NONE Reviewed Notes: Nurses Notes, Medications, Allergies Allergies: Coded Allergies: NO KNOWN ALLERGIES (Unverified , 09/26/24) Home Meds Active Scripts Apixaban Base (ELIQUIS) 5 Mg Tab, 5 MG PO BID for 30 Days, #60 TAB Prov:[facility] 11/01/24 Atorvastatin Calcium (ATORVASTATIN CALCIUM) 40 Mg Tab, 1 TAB PO DAILY, #30 TAB 5 Refills Prov:[facility] 11/01/24 Furosemide (Furosemide) 20 Mg Tab, 1 TAB PO DAILY, #30 TAB 5 Refills Prov:[facility] 11/01/24 Spironolactone (Aldactone) 25 Mg Tab, 25 MG PO DAILY for 30 Days, #30 TAB Prov:[facility] 11/01/24 Prednisone (Prednisone) 20 Mg Tab, 40 MG PO DAILY for 3 Days, #6 TAB Prov:[facility] 11/01/24 Metoprolol Succinate (Toprol Xl) 50 Mg Tab, 25 MG PO DAILY for 30 Days, #15 TAB Prov:[facility] 11/01/24 Lisinopril (Lisinopril) 20 Mg Tab, 20 MG PO DAILY for 30 Days, #30 TAB Prov:[facility] 11/01/24 Empagliflozin (Jardiance) 10 Mg Tab, 10 MG PO DAILY for 30 Days, #30 TAB Prov:[facility] 11/01/24 Doxycycline Monohydrate (Doxycycline Monohydrate) 100 Mg Tab, 100 MG PO Q12HR for 3 Days, #6 TAB Prov:[facility] 11/01/24 Reported Medications Umeclidinium-Vilanterol (Anoro Ellipta 62.5-25 Mcg/INH) 1 Aer Aer, 1 PUFF IN DAILY for 30 Days, #60 10/28/24 Amlodipine Besylate (Amlodipine Besylate) 10 Mg Tab, 1 TAB PO DAILY for 90 Days, #90 10/28/24 Multiple Vitamins W/ Minerals (Centrum Silver) Silver Chw, 1 OR, TAB.CHEW 10/28/24 Nicotine Polacrilex (Nicotine Mini Lozenge) 4 Mg Christi, 4 MG MT, CHRISTI 10/28/24 Ergocalciferol (VITAMIN D 54780 UNIT) 50,000 [place], 10096 UNIT PO Weekly, CAP 10/28/24 Aspirin (Aspirin 81 Low Dose) 81 Mg Chw, 81 MG PO 2XW, TAB.CHEW 10/28/24 Citalopram Hydrobromide (Citalopram Hydrobromide) 20 Mg Tab, 1 TAB PO DAILY 10/28/24 Tamsulosin Hcl (Tamsulosin Hcl) 0.4 Mg Cap, 1 CAP PO DAILY 10/28/24 Dutasteride (Dutasteride) 0.5 Mg Cap, 1 CAP PO DAILY 10/28/24 Simvastatin (Simvastatin) 20 Mg Tab, 1 TAB PO DAILY 10/28/24 Lisinopril & Hydrochlorothiazi (Lisinopril/Hydrochlorothi) 1 Tab Tab, 1 TAB PO DAILY for 90 Days [LISINOPRIL/HCTZ 20/25 MG] 10/28/24 Information Source: Patient Mode of Arrival: Wheelchair Severity: Moderate Timing: Hours Duration: Since onset Prehospital treatment: None Past Medical History PAST MEDICAL HISTORY: COPD, CVA, High Lipids, HTN Past Medical History (Other): RLE DVT Surgical History: Denies all surgeries Family History Family History: Family hx of DM Social History Smoker: Cigarettes Alcohol: Occasionally Drugs: Marijuana Lives In: Home Respiratory: reports: shortness of breath All Other Systems: Reviewed and Negative (negative unless otherwise stated above or in HPI) Physical Exam General Appearance: Moderate Distress HEENT: Normal ENT Inspection, Pharynx Normal, TMs Normal Neck: Full Range of Motion, Non-Tender, Normal, Normal Inspection Respiratory: Respiratory Distress, Other (Coarse breath sounds) Cardiovascular: Irregular Breast Exam: Deferred Gastrointestinal: No Organomegaly, Non Tender, No Pulsatile Mass, Normal Bowel Sounds, Soft Genitalia: Deferred Pelvic: Deferred Rectal: Deferred Extremities: No calf tenderness, Normal capillary refill, Normal inspection, Normal range of motion, Non-tender, No pedal edema Musculoskeletal : Apperance: Normal Neurologic: Alert, office manager II-XII nml as Tested, No Motor Deficits, Normal Affect, Normal Mood, No Sensory Deficits Cerebellar Function: NOT DONE Reflexes: NOT DONE Skin: Dry, Normal Color, Warm Peripheral Pulses: 3+ Radial (R), 3+ Radial (L) Lymphatic: No Adenopathy Was a procedure done? Was a procedure done?: No EKG EKG : Pulse Rate (adult): 102 [place]: Normal Cardiac Rhythm: Afib Block: None Hypertrophy: None ST: Normal Differential Dx Considerations may include: RLE DVT, PE, PNA X-Ray, Labs, Meds, VS Vital Signs Date Time Temp Pulse Resp B/P (MAP) Pulse Ox O2 Delivery O2 Flow Rate FiO2 11/10/24 17:35 102 11/10/24 16:21 98.0 111 18 133/85 (101) 90 11/10/24 16:12 [address] [address] Ph: [phone] DIAGNOSTIC IMAGING Diagnostic Imaging Report : [id number] Signed PATIENT: THAIS BRAVO ACCT: [id number] UNIT: [id number] : 1960 LOC: ER ROOM / BED: / AGE / SEX: 64 / M ADM STATUS: REG ER SERVICE 1702 ORDERING PHYSICIAN: DYLAN NEAL MD PROCEDURE(s): CXRP - CHEST PORTABLE REASON: sob ORDER NUMBER(s): [id number], ACCESSION NUMBER(s): [id number] CHEST RADIOGRAPH Indication: sob Technique: Single frontal view of the chest was obtained COMPARISON: XY CHEST PORTABLE on DOS: 10/27/24, XY CHEST PORTABLE on DOS: 09/26/24 FINDINGS: Lines and Tubes: None Lungs: Nearly resolved CHF. Pleura: No effusion. No pneumothorax. Cardiomediastinal contours: Mild cardiomegaly Bones: Unremarkable IMPRESSION: 1. Nearly resolved CHF. ATED BY: WALLACE MILLER MD DICTATED DATE/TIME: 11/10/241720 SIGNED BY: WALLACE MILLER MD SIGNED DATE/TIME: 11/10/241720 CC: Patient alert. Complaining of shortness a breath. History of blood clot. Vitals stable. Answering all questions. Unable to get a good history from the patient. Recently discharged from this hospital. Reviewed his previous visit. Was given Lasix. Ultrasound. He is not taking blood thinner. Possibly will need placement. Chest x-ray reviewed does show CHF. Explained to the patient. Continue cardiac monitoring. Time of 1ST Reevaluation: 17:30 Reevaluation 1ST: Unchanged Patient Education/Counseling: Diagnosis, Treatment Family Education/Counseling: No Family Present Departure 1 Departure Time of Disposition: 17:40 Impression: Primary Impression: Acute on chronic diastolic heart failure Additional Impressions: COPD (chronic obstructive pulmonary disease) with acute bronchitis Atrial fibrillation Qualified Codes: I48.0 - Paroxysmal atrial fibrillation Disposition: ADMITTED INPATIENT Admit to: Med Surg Condition: Guarded Critical Care Note Critical Care Time?: Yes (45 min-critical care time only) Stability Stability form required: No Heart Score Heart Score: Heart Score Response (Comments) Value History Highly Suspicious 2 EKG Repolarization Disturb 1 Age >65 2 Risk Factors >3 or Hx ASHD 2 Troponin N/A 0 Total 7 I personally scribed for DYLAN NEAL MD ([email or web address]) on 11/10/24 at 17:35. Electronically submitted by William Rivera [email or web address]). DYLAN NEAL MD Nov 10, 2024 17:35
--- NOTE | 2024-11-10 17:46 | DVH ---
Bilateral lower extremity venous duplex Clinical History: dvt Comparison: None Technique: Duplex Doppler evaluation of the deep venous systems of both lower extremities from the common femora l veins to the popliteal veins including color Doppler and spectral/pulsed waveform analysis was perf ormed. Findings: RIGHT SIDE: The common femoral vein demonstrates appropriate compressibility and waveform variability. There is compressibility/patency of the great saphenous vein at the proximal thigh. The femoral vein demonstrates appropriate compressibility and waveform variability. The deep femoral vein demonstrates appropriate compressibility and waveform variability. The popliteal vein demonstrates appropriate compressibility and waveform variability. There is normal compressibility at the tibioperoneal trunk. LEFT SIDE: The common femoral vein demonstrates appropriate compressibility and waveform variability. There is compressibility/patency of the great saphenous vein at the proximal thigh. The femoral vein demonstrates appropriate compressibility and waveform variability. The deep femoral vein demonstrates appropriate compressibility and waveform variability. The popliteal vein demonstrates appropriate compressibility and waveform variability. There is normal compressibility at the tibioperoneal trunk. Impression: 1. No right or left femoropopliteal venous thrombosis.
[2024-11-10 18:33] LABS: Basophils # (auto) 0 10 ^3/uL (0-0.2); Basophils % (auto) 0.6 % (0.0-2.0); Eosinophils # (auto) 0 10 ^3/uL (0-0.8); Eosinophils % (auto) 0.2 % (0.0-7.0); Hematocrit 46.2 % (41.0-53.0); Hemoglobin 15.1 g/dL (13.5-17.5); Lymphocytes # (auto) 0.5 10 ^3/uL (0.4-5.4); Lymphocytes % (auto) 10.9 % (10.0-50.0); Mean Corpuscular Hemoglobin 30.8 pg (28.0-32.0); Mean Corpuscular Hgb Conc. 32.7 g/dL (32.0-36.0); Mean Corpuscular Volume 94.5 fL (80.0-100.0); Monocytes # (auto) 0.8 10 ^3/uL (0-1.3); Monocytes % (auto) 15.4 % (0.0-12.0); Neutrophils # (auto) 3.6 10 ^3/uL (1.6-8.6); Neutrophils % (auto) 72.9 % (37.0-80.0); Nucleated Red Blood Cells % 0.2 %; Platelet Count (auto) 183 10^3/uL (140-450); Red Blood Cells 4.89 10^6/uL (4.5-5.90); Red Cell Distribution Width 15.2 % (11.8-14.3)
[2024-11-10 18:42] LABS: Chloride 102 mmol/L (98-107); Sodium 138 mmol/L (136-145)
[2024-11-10 18:43] LABS: Calcium 9.1 mg/dL (8.7-10.4)
[2024-11-10 18:48] LABS: BUN/Creatinine Ratio 16.1 (10.0-20.0); Blood Urea Nitrogen 10 mg/dL (9-23); Glucose 93 mg/dL (74-106)
[2024-11-10 18:59] LABS: Anion Gap 6 (5-15); Carbon Dioxide 30 mmol/L (20-31)
[2024-11-10] MEDS ORDERED: IPRATROPIUM BROM 0.5 MG/2.5ML INH SOL NEB PRN (22:45)
--- NOTE | 2024-11-10 22:54 | DVHHPRES ---
History of Present Illness Resident Creating Document: ANGELITO JIMENEZ RESIDENT History of Present Illness This is a 64-year-old male with past medical history hypertension, hyperlipidemia, COPD on home oxygen 1-2 L, AFib, CHF, CVA presented to the ED with a chief complaint of shortness of breath and bilateral leg swelling for 2 days prior to this admission. The patient states that shortness of breath started 2 days ago, aggravated with exertion and associated with bilateral leg swelling and occasional chest pain. The patient denies dizziness, diaphoresis, abdominal pain, nausea vomiting, dysuria hematuria, sick contact any change in bowel and bladder movement. Past Medical History Hypertension, hyperlipidemia, COPD on home oxygen, AFib, CHF, CVA Past Surgical History None Family History Hypertension and type 2 diabetes mellitus runs in the family Smoke: Quit Lives: Friends Past Social History Lives with friends Quit Smoking and drinking few months ago, never tried any drugs before. Review of Systems Constitutional: No: Fever, Chills, Sweats, Weakness, Malaise, Other Eyes: No: Pain, Vision change, Conjunctivae inflammation, Eyelid inflammation, Other, Redness ENT: No: Ear pain, Ear discharge, Nose pain, Nose discharge, Nose congestion, Mouth pain, Mouth swelling, Throat pain, Throat swelling, Other Respiratory: Shortness of breath, SOB with excertion; No: Cough, Dry, Wheezing, Hemoptysis, Pleuritic Pain, Sputum, Wheezing, Other Cardiovascular: Chest Pain; No: Palpitations, Orthopnea, Paroxysmal Noc. Dyspnea, Edema, Lt Headedness, Other Gastrointestinal: No: Nausea, Vomiting, Abdominal Pain, Diarrhea, Constipation, Melena, Hematochezia, Other Genitourinary: No Dysuria, No Frequency, No Incontinence, No Hematuria, No Retention, No Other Musculoskeletal: No: other, neck pain, shoulder pain, arm pain, back pain, hand pain, leg pain, foot pain Skin: No: Rash, Lesions, Jaundice, Bruising, Other Neurological: No: Weakness, Numbness, Incoordination, Change in speech, Confusion, Seizures, Other Allergies: Coded Allergies: NO KNOWN ALLERGIES (Unverified , 09/26/24) Medications Current Medications Medications Dose Ordered Sig/Audrey Route Start Time Stop Time Status Last Admin Dose Admin Albuterol 2.5 mg Q4HPRN PRN NEB 11/10/24 22:45 Ipratropium [place] 0.5 mg Q4HPRN PRN NEB 11/10/24 22:45 Ipratropium [place] 0.5 mg Q6HPRN NEB 11/11/24 00:00 UNV Levalbuterol HCl 1.25 mg Q6HPRN NEB 11/11/24 00:00 UNV Furosemide 40 mg BIDD IV 11/11/24 06:00 UNV Aspirin 81 mg DAILY PO 11/11/24 10:00 UNV Atorvastatin Calcium 40 mg HS PO 11/11/24 22:00 UNV Exam Vital Signs Vital Signs Date Time Temp Pulse Resp B/P (MAP) Pulse Ox O2 Delivery O2 Flow Rate FiO2 11/10/24 17:35 102 11/10/24 16:21 98.0 18 133/85 (101) 90 Exam Physical examination: General Appearance: Alert, Oriented X3, Cooperative, mild distress HEENT: Atraumatic, PERRLA, EOMI, Mucous membrane moist/pink Respiratory: Vesicular Breath sounds, scattered crackles in bilateral basal lung field Cardiovascular: Regular rate, Normal S1, Normal S2, No murmurs, no chest wall tenderness Abdominal: Normal bowel sounds, Soft, No tenderness, No hepatospenomegaly, No masses Extremities: Edema +, No clubbing, No cyanosis, Normal pulses, No tenderness/swelling Skin: No rashes, No breakdown, No significant lesion Neuro: Normal speech, Strength at 5/5 X4 ext, Normal tone, Sensation intact, grossly intact cranial nerves. Psych/Mental Status: Mental status NL, Mood NL Labs/Xrays Labs Test 11/10/24 18:01 Range/Units White Blood Count 5.0 4.4-10.8 10^3/uL Red Blood Count 4.89 4.5-5.90 10^6/uL Hemoglobin 15.1 13.5-17.5 g/dL Hematocrit 46.2 41.0-53.0 % Mean Corpuscular Volume 94.5 80.0-100.0 fL Mean Corpuscular Hemoglobin 30.8 28.0-32.0 pg Mean Corpuscular Hemoglobin Concent 32.7 32.0-36.0 g/dL Red Cell Distribution Width 15.2 H 11.8-14.3 % Platelet Count 183 140-450 10^3/uL Mean Platelet Volume 7.9 6.9-10.8 fL Neutrophils (%) (Auto) 72.9 37.0-80.0 % Lymphocytes (%) (Auto) 10.9 10.0-50.0 % Monocytes (%) (Auto) 15.4 H 0.0-12.0 % Eosinophils (%) (Auto) 0.2 0.0-7.0 % Basophils (%) (Auto) 0.6 0.0-2.0 % Neutrophils # (Auto) 3.6 1.6-8.6 10 ^3/uL Lymphocytes # (Auto) 0.5 0.4-5.4 10 ^3/uL Monocytes # (Auto) 0.8 0-1.3 10 ^3/uL Eosinophils # (Auto) 0 0-0.8 10 ^3/uL Basophils # (Auto) 0 0-0.2 10 ^3/uL Nucleated Red Blood Cells 0.2 % Sodium Level 138 136-145 mmol/L Potassium Level 4.0 3.5-5.1 mmol/L Chloride Level 102 98-107 mmol/L Carbon Dioxide Level 30 20-31 mmol/L Anion Gap 6 5-15 Blood Urea Nitrogen 10 9-23 mg/dL Creatinine 0.62 L 0.700-1.30 mg/dL Glomerular Filtration Rate Calc 106 >90 mL/min BUN/Creatinine Ratio 16.1 10.0-20.0 Serum Glucose 93 74-106 mg/dL Calcium Level 9.1 8.7-10.4 mg/dL Troponin I High Sensitivity 10 </=54 ng/L B-Type Natriuretic Peptide 329.86 0-100 pg/mL Assessment/Plan Assessment/Plan Assessment and plan: # Acute on chronic respiratory failure likely secondary to acute exacerbation of CHF - Patient is on 3L oxygen with saturation 98% # Acute exacerbation of chronic systolic heart failure due to cardiomyopathy - Chest xray revealed nearly resolved CHF - Echo on 10/28/24 EF 30% with severely reduced right ventricular systolic function - Coronary angiogram on 10/30/2024 revealed mild nonobstructive coronary artery disease. - Elevated BNP - Lasix 40 mg b.i.d. - Continue metoprolol succinate 25 mg p.o. daily, lisinopril 40 mg daily and spironolactone 25 mg daily. # Chronic COPD on home oxygen 1-2 L - Duoneb with levalbuterol and ipratropium q.6 p.r.n. # History of peripheral arterial disease - Duplex scan of the lower extremity artery on 11/02/24 revealed Occlusion of the right common femoral artery. - Atorvastatin 40 mg at HS - Outpatient follow up with vascular surgery # Chronic Atrial fibrillation with secondary hypercoagulable state [id number] score is 6 - Continue Eliquis 5 mg b.i.d. # Prediabetic, hemoglobin A1c 6.1 - Counseled patient regarding follows low carb diet, lifestyle modification and physical exercise # PUD prophylaxis - Pepcid 20 mg p.o. daily # DVT prophylaxis - Patient is on Eliquis Goal of Care discussed with the patient for more than 20 minutes full code Discussed with Dr. Nick Plan discussed with: Patient, Other My Orders Orders - ANGELITO JIMENEZ Procedure Category Date Status Time Admit ADMIT 11/10/24 Transmitted 21:42 Ipratropium Med[place] PHA 11/11/24 Logged (Atrovent Medneb) 00:00 Levalbuterol Hcl PHA 11/11/24 Logged (Xopenex Medneb) 00:00 Furosemide Injection PHA 11/11/24 Logged (Lasix Injection) 06:00 Aspirin Enteric PHA 11/11/24 Logged Coated Tablet 10:00 Atorvastatin (Lipitor) PHA 11/11/24 Logged 22:00 Apixaban (Eliquis) PHA 11/11/24 Verified 10:00 Citalopram Tablet PHA 11/11/24 Verified (Celexa Tablet) 10:00 Lisinopril Tablet PHA 11/11/24 Verified (Zestril Tablet) 10:00 Metoprolol Xl PHA 11/11/24 Verified Succinate (Toprol Xl) 10:00 Tamsulosin PHA 11/11/24 Verified Hydrochloride (Flomax) 10:00 Date of Service: Nov 10, 2024 Billing Provider: BERT NICK MD Common Visit Codes: [id number] INP/OBS CARE (HIGH) Secondary Visit Codes: [id number] CARE PLAN 30 MINUTES ANGELITO JIMENEZ Nov 10, 2024 22:53 BERT NICK MD Nov 11, 2024 11:20
[2024-11-10 23:10] VITALS: O2SAT 96
[2024-11-10] MEDS: ALBUTEROL SULF 2.5 MG/0.5ML(0.5%) NEB SOLN NEB ONE (23:10)
[2024-11-10] MEDS: IPRATROPIUM BROM 0.5 MG/2.5ML INH SOL NEB ONE (23:10)
[2024-11-10 23:21] VITALS: BP 133/85; PULSE 102; RESP 18; TEMP 98; O2SAT 96
[2024-11-11] MEDS: FUROSEMIDE 40 MG/4 ML VIAL IV SCH (05:35)
[2024-11-11 09:38] VITALS: PULSE 112; RESP 18; O2SAT 98
[2024-11-11] MEDS: IPRATROPIUM BROM 0.5 MG/2.5ML INH SOL NEB PRN (09:38)
[2024-11-11] MEDS: LEVALBUTEROL HCL 1.25 MG/3 ML NEB NEB PRN (09:38)
[2024-11-11 09:44] VITALS: PULSE 107; RESP 20; O2SAT 100
[2024-11-11] MEDS: ASPirin-EC 81 mg tab PO SCH (10:05)
[2024-11-11] MEDS: APIXABAN 5 MG TAB PO SCH (10:05)
[2024-11-11] MEDS: SPIRONOLACTONE 25 MG TAB PO SCH (10:05)
[2024-11-11] MEDS: METOPROLOL SUCCINATE XL 50 MG TAB PO SCH (10:10)
[2024-11-11] MEDS: CITALOPRAM HYDROBR 20 MG TAB PO SCH (10:11)
[2024-11-11] MEDS: LISINOPRIL 20 MG TAB PO SCH (10:11)
[2024-11-11 11:28] LABS: COVID19 ANTIGEN SOFIA FIA NEGATIVE (NEGATIVE); Rapid Influenza A Positive (Negative); Rapid Influenza B Negative (Negative)
--- NOTE | 2024-11-11 13:09 | DVHPN2 ---
Subjective Patient reports that his breathing has improved. Reviewed: Care Plan, H&P, Labs, Medications Changes from previous H/P or p: No Changes General: Per HPI Eyes: No Pain, No Vision change, No Conjunctivae inflammation, No Eyelid inflammation, No Other, No Redness ENT: No Ear pain, No Ear discharge, No Nose pain, No Nose discharge, No Nose congestion, No Mouth pain, No Mouth swelling, No Throat pain, No Throat swelling, No Other Cardiovascular: Chest Pain; No Palpitations, No Orthopnea, No Paroxysmal Noc. Dyspnea, No Edema, No Lt Headedness, No Other Respiratory: No Cough, No Dry; Shortness of breath, SOB with excertion; No Wheezing, No Hemoptysis, No Pleuritic Pain, No Sputum, No Other Gastrointestinal: No Nausea, No Vomiting, No Abdominal Pain, No Diarrhea, No Constipation, No Melena, No Hematochezia, No Other Genitourinary: No Dysuria, No Frequency, No Incontinence, No Hematuria, No Retention, No Other Musculoskeletal: No other, No neck pain, No shoulder pain, No arm pain, No back pain, No hand pain, No leg pain, No foot pain Skin: No Rash, No Lesions, No Jaundice, No Bruising, No Other Objective Vitals Vital Signs Date Time Temp Pulse Resp B/P (MAP) Pulse Ox O2 Delivery O2 Flow Rate FiO2 11/11/24 10:11 128/74 11/11/24 10:10 100 11/11/24 09:44 20 100 11/11/24 09:38 Nasal Cannula* 2 28 11/11/24 06:42 98.5 98.5 General Appearance: Alert, Oriented X3, Cooperative, No acute distress HEENT: Atraumatic, PERRLA Cardiovascular: Normal S1, Normal S2 Musculoskeletal: Normal motor function Psych/Mental Status: Mental status NL, Mood NL Medications Current Medications Medications Dose Ordered Sig/Audrey Route Start Time Stop Time Status Last Admin Dose Admin Albuterol 2.5 mg Q4HPRN PRN NEB 11/10/24 22:45 Ipratropium [place] 0.5 mg Q6HPRN PRN NEB 11/11/24 00:00 11/11/24 09:38 0.5 MG Levalbuterol HCl 1.25 mg Q6HPRN PRN NEB 11/11/24 00:00 11/11/24 09:38 1.25 MG Furosemide 40 mg BIDD IV 11/11/24 06:00 11/11/24 07:11 40 MG Aspirin 81 mg DAILY PO 11/11/24 10:00 11/11/24 10:05 81 MG Atorvastatin Calcium 40 mg HS PO 11/11/24 22:00 Apixaban 5 mg BID PO 11/11/24 10:00 11/11/24 10:05 5 MG Citalopram Hydrobromide 20 mg DAILY PO 11/11/24 10:00 11/11/24 10:11 20 MG Lisinopril 20 mg DAILY PO 11/11/24 10:00 11/11/24 10:11 20 MG Metoprolol Succinate 25 mg DAILY PO 11/11/24 10:00 11/11/24 10:10 25 MG Tamsulosin HCl 0.4 mg DAILY@2200 PO 11/11/24 22:00 Spironolactone 25 mg DAILY PO 11/11/24 10:00 11/11/24 10:05 25 MG Alprazolam 0.25 mg Q8HP PRN PO 11/11/24 12:45 UNV Oseltamivir Phosphate 75 mg Q12HR PO 11/11/24 22:00 11/16/24 21:59 UNV Laboratory Results Laboratory Tests 11/10/24 18:01 Chemistry Test 11/10/24 18:01 Calcium Level 9.1 mg/dL (8.7-10.4) Cardiac Markers Test 11/10/24 18:01 B-Type Natriuretic Peptide 329.86 pg/mL (0-100) HgA1c, TSH Test 11/10/24 18:01 Hemoglobin A1c 6.2 % A1C (<5.7) H Thyroid Stimulating Hormone (TSH) 2.00 uIU/mL (0.55-4.78) Labs and/or images reviewed: Labs reviewed by me, Image(s) reviewed by me Assessment/Plan Assessment/Plan Impression: -Acute hypoxic respiratory failure secondary to CHF and influenza -acute on chronic decompensated systolic heart failure -influenza A -peripheral arterial disease -anxiety disorder -history of CVA -atrial fibrillation Plan: -O2 supplementation to keep saturation greater 92% -continue IV diuresis -anticoagulation with Eliquis -consultation with Dr. Meier for peripheral arterial disease -continue home antianxiety medications -start Xanax -start Tamiflu -repeat labs in a.m. Total time spent with patient discussing and formulating plan of care: 35 minutes. This medical document was created using an electronic medical record system with [employer] dictation system. Although this document has been carefully reviewed, there may still be some phonetic and typographical errors. These areas are purely typographical due to imperfections of the software programs, and do not reflect any compromise in the patient's medical care. Plan discussed with: Patient, Other (RN) My Orders Orders - BELKIS ANTONY NP Procedure Category Date Status Time Alprazolam Tablet PHA 11/11/24 Logged (Xanax Tablet) 12:45 Oseltamivir 75mg PHA 11/11/24 Logged Capsule (Tamiflu 75mg 22:00 * Cardiology Consult CONS 11/11/24 Transmitted 12:56 Date of Service: Nov 11, 2024 Billing Provider: BELKIS ANTONY NP Common Visit Codes: [id number] INP/OBS CARE(HIGH) BELKIS ANTONY NP Nov 11, 2024 13:09
[2024-11-11 14:00] VITALS: PULSE 102; RESP 16; O2SAT 97
[2024-11-11] MEDS: ALPRAZolam 0.25 MG TAB PO PRN (15:38)
[2024-11-11 18:32] VITALS: BP 144/104; PULSE 70; RESP 20; TEMP 98; O2SAT 99
[2024-11-11 18:40] LABS: Urine Bacteria None Seen /hpf (None Seen)
[2024-11-11 18:53] LABS: Urine Blood Negative /uL (Negative); Urine Clarity Clear (Clear); Urine Color Yellow (Yellow); Urine Hyaline Cast FEW /lpf (0 - 2); Urine Mucus FEW (None Seen); Urine Protein, UAD 1+ (Negative); Urine Specific Gravity 1.022 (1.001-1.035); Urine Squamous Epithelial Cell FEW /hpf (<5); Urine Urobilinogen 6 mg/dL (Negative); Urine WBC 5 /hpf (0 - 3)
[2024-11-11 20:11] VITALS: O2SAT 95
[2024-11-11 21:00] VITALS: BP 108/50; PULSE 106; RESP 20; TEMP 98.4; O2SAT 96
[2024-11-11] MEDS: ATORVASTATIN 20 MG TAB PO SCH (21:16)
[2024-11-11] MEDS: OSELTAMIVIR 75 MG CAP PO SCH (21:17)
[2024-11-11] MEDS: TAMSULOSIN HYDROCHLORIDE 0.4 MG CAP PO SCH (21:17)
[2024-11-12] VITALS (12 sets, daily range): BP systolic 123–151; BP diastolic 80–100; PULSE 94–104; RESP 16–20; TEMP 97–98; O2SAT 95–99
[2024-11-12] MEDS: ACETAMINOPHEN 325 MG TAB PO ONE (00:53)
[2024-11-12] MEDS: ALBUTEROL SULF 2.5 MG/0.5ML(0.5%) NEB SOLN NEB PRN (07:28)
--- NOTE | 2024-11-12 14:57 | DVHPN2 ---
Subjective Patient is somewhat delusional today. Denies any new symptoms other than increase urination. Reviewed: Care Plan, H&P, Labs, Medications Changes from previous H/P or p: Changes General: Per HPI Eyes: No Pain, No Vision change, No Conjunctivae inflammation, No Eyelid inflammation, No Other, No Redness ENT: No Ear pain, No Ear discharge, No Nose pain, No Nose discharge, No Nose congestion, No Mouth pain, No Mouth swelling, No Throat pain, No Throat swelling, No Other Cardiovascular: Chest Pain; No Palpitations, No Orthopnea, No Paroxysmal Noc. Dyspnea, No Edema, No Lt Headedness, No Other Respiratory: No Cough, No Dry; Shortness of breath, SOB with excertion; No Wheezing, No Hemoptysis, No Pleuritic Pain, No Sputum, No Other Gastrointestinal: No Nausea, No Vomiting, No Abdominal Pain, No Diarrhea, No Constipation, No Melena, No Hematochezia, No Other Genitourinary: No Dysuria, No Frequency, No Incontinence, No Hematuria, No Retention, No Other Musculoskeletal: No other, No neck pain, No shoulder pain, No arm pain, No back pain, No hand pain, No leg pain, No foot pain Skin: No Rash, No Lesions, No Jaundice, No Bruising, No Other Objective Vitals Vital Signs Date Time Temp Pulse Resp B/P (MAP) Pulse Ox O2 Delivery O2 Flow Rate FiO2 11/12/24 10:30 Nasal Cannula 3.0 11/12/24 10:30 32 11/12/24 10:00 104 134/92 11/12/24 09:00 97.9 20 95 97.9 Intake/Output Intake and Output 11/12/24 07:00 Intake Total 800 ml Output Total 2 ml Balance 798 ml Intake Oral 800 ml Output Stool Total 2 ml # Voids 20 General Appearance: Alert, Oriented X3, Cooperative, No acute distress HEENT: Atraumatic, PERRLA Cardiovascular: Normal S1, Normal S2 Musculoskeletal: Normal motor function Psych/Mental Status: Mental status NL, Mood NL Medications Current Medications Medications Dose Ordered Sig/Audrey Route Start Time Stop Time Status Last Admin Dose Admin Albuterol 2.5 mg Q4HPRN PRN NEB 11/10/24 22:45 11/12/24 07:28 2.5 MG Ipratropium [place] 0.5 mg Q6HPRN PRN NEB 11/11/24 00:00 11/12/24 07:28 0.5 MG Levalbuterol HCl 1.25 mg Q6HPRN PRN NEB 11/11/24 00:00 11/11/24 09:38 1.25 MG Furosemide 40 mg BIDD IV 11/11/24 06:00 11/12/24 05:43 40 MG Aspirin 81 mg DAILY PO 11/11/24 10:00 11/11/24 10:05 81 MG Atorvastatin Calcium 40 mg HS PO 11/11/24 22:00 11/11/24 21:16 40 MG Apixaban 5 mg BID PO 11/11/24 10:00 11/11/24 21:17 5 MG Citalopram Hydrobromide 20 mg DAILY PO 11/11/24 10:00 11/11/24 10:11 20 MG Lisinopril 20 mg DAILY PO 11/11/24 10:00 11/11/24 10:11 20 MG Metoprolol Succinate 25 mg DAILY PO 11/11/24 10:00 11/11/24 10:10 25 MG Tamsulosin HCl 0.4 mg DAILY@2200 PO 11/11/24 22:00 11/11/24 21:17 0.4 MG Spironolactone 25 mg DAILY PO 11/11/24 10:00 11/11/24 10:05 25 MG Alprazolam 0.25 mg Q8HP PRN PO 11/11/24 12:45 11/12/24 12:36 0.25 MG Oseltamivir Phosphate 75 mg Q12HR PO 11/11/24 22:00 11/16/24 21:59 11/11/24 21:17 75 MG Laboratory Results Laboratory Tests 11/10/24 18:01 Urinalysis Test 11/11/24 18:34 Urine Color Yellow (Yellow) Urine Clarity Clear (Clear) Urine pH 6.0 (5.0-9.0) Urine Specific [place] 1.022 (1.001-1.035) Urine Protein 1+ (Negative) H Urine Ketones Negative (Negative) Urine Blood Negative /uL (Negative) Urine Nitrite Negative (Negative) Urine Bilirubin Negative (Negative) Urine Urobilinogen 6 mg/dL (Negative) Urine Leukocyte Esterase Negative /uL (Negative) Urine RBC 8 /hpf (0 - 3) Urine WBC 5 /hpf (0 - 3) Urine Squamous Epithelial Cells Few /hpf (<5) Urine Bacteria None seen /hpf (None Seen) Urine Hyaline Casts Few /lpf (0 - 2) Urine Mucus Few (None Seen) Urine Glucose 2+ mg/dL (Normal) H Microbiology Microbiology Date/Time Source Procedure Growth Status 11/11/24 23:35 Nose MRSA Screen - Final Complete Labs and/or images reviewed: Labs reviewed by me, Image(s) reviewed by me Assessment/Plan Assessment/Plan Impression: -Acute hypoxic respiratory failure secondary to CHF and influenza -acute on chronic decompensated systolic heart failure -influenza A -peripheral arterial disease -anxiety disorder -history of CVA -atrial fibrillation -acute delirium, rule out CVA Plan: Events: Acute confusion. Discussed case with patient's son. We will order CT scan to rule out CVA. Discontinue all hypnotics. -O2 supplementation to keep saturation greater 92% -start Jardiance, p.o. Lasix. -stop Eliquis, Lovenox 40 mg subQ daily until patient was seen by Dr. Mayorga today for possible peripheral angiogram -consultation with Dr. Meier for peripheral arterial disease -continue home antianxiety medications -start Tamiflu -repeat labs in a.m. Total time spent with patient discussing and formulating plan of care: 35 minutes. This medical document was created using an electronic medical record system with [employer] dictation system. Although this document has been carefully reviewed, there may still be some phonetic and typographical errors. These areas are purely typographical due to imperfections of the software programs, and do not reflect any compromise in the patient's medical care. Plan discussed with: Patient, Son, Other (RN) My Orders Orders - BELKIS ANTONY NP Procedure Category Date Status Time * Wound Consult CONS 11/11/24 Transmitted Mrsa Screen SWETHA 11/11/24 Logged 23:[address] 11/12/24 Verified 14:51 Enoxaparin Sodium PHA 11/13/24 Verified (Lovenox) 10:00 Chest Xray 1 View XY 11/12/24 Verified 14:51 Empagliflozin PHA 11/13/24 Verified (Jardiance) 10:00 Date of Service: Nov 12, 2024 Billing Provider: SALBINO,TAMAYO [employer] INSPECTOR Common Visit Codes: [id number] INP/OBS CARE(HIGH) BELKIS ANTONY [employer] INSPECTOR Nov 12, 2024 14:57
--- NOTE | 2024-11-12 15:33 | DVH ---
EXAM: XY CHEST XRAY 1 VIEW TECHNIQUE: Single frontal chest radiograph CLINICAL HISTORY: chf COMPARISON: XY CHEST PORTABLE on DOS: 11/10/24, XY CHEST PORTABLE on DOS: 10/27/24, XY CHEST PORTABLE on DOS: 09/26/24 Findings/Impression: Frontal chest radiograph demonstrates no acute osseous or superficial soft tissue abnormalities. The trachea is midline. Cardiomegaly with pulmonary vascular congestion, slightly worse from prior. No pneumothorax, pleural effusions, or consolidations.
--- NOTE | 2024-11-12 15:41 | DVH ---
Exam: CT HEAD WITHOUT CONTRAST History: altered mental status, cva Technique: [address] images through the posterior fossa and the supratentorial compart ment were acquired without contrast and imaged using soft tissue and bone algorithms. RADIATION DOSE: DLP 1192.76 mGy.cm; CTDI vol 54.06 mGy. Comparison: CT CHEST WITHOUT CONTRAST on DOS: 10/29/24 Findings: There is no evidence of an intracranial hemorrhage, acute large vessel infarct, mass effect, or midli ne shift. Hypodense foci in the bilateral basal ganglia. There is mild cerebral atrophy. Moderate calcification of the carotid siphons. Partial opacification of the right maxillary sinus. The calvarium, orbits, remaining paranasal sinuse s, sella, middle ears, and mastoids are unremarkable. The superficial soft tissues are within normal limits. Impression: 1. No acute intracranial abnormality. 2. Hypodense foci in the bilateral basal ganglia may reflect infarcts versus prominent CSF spaces. Co nsider MRI for further evaluation if an acute stroke is suspected.
[2024-11-13] VITALS (11 sets, daily range): BP systolic 130–156; BP diastolic 93–120; PULSE 71–107; RESP 19–20; TEMP 97.3–98.3; O2SAT 96–99
[2024-11-13] MEDS: ENOXAPARIN SOD 40 MG/0.4 ML SYRINGE SC SCH (10:09)
[2024-11-13] MEDS: EMPAGLIFLOZIN 10 MG TAB PO SCH (10:13)
--- NOTE | 2024-11-13 14:16 | DVHINCON2 ---
Date Seen: Nov 13, 2024 Referring Physician Maria Guadalupe Dave Reason for Consultation Peripheral vascular disease evaluation History of Present Illness 64-year-old gentleman with a history of hypertension hyperlipidemia COPD and peripheral vascular disease concurrent atrial fibrillation with congestive heart failure and previous cerebrovascular disorder had an ultrasound of the lower extremities that revealed an occlusion of the right superficial femoral artery/ femoral artery. Patient states he has been seeing another physician and was told that a procedure was going to be required but he did not elaborate. He has not followed up with that physician but is pending further evaluation and treatment. He does get claudication but he states he is stable and can walk around without any significant problems. He has a certain degree of what appears to be cognitive dysfunction. It appears he may be historically unreliable in his clinical interrogation. Past Medical History Based on the information obtained from the chart he does have history of COPD hypertension peripheral vascular disease. Atrial fibrillation. Congestive heart failure previous history of strokes. Past Surgical History No past surgical history of significance. Family History: Diabetes mellitus G8 MOTHER G8 BROTHER G8 BROTHER FH: heart disease G8 BROTHER G8 SISTER Prostate problems G8 FATHER Allergies: Coded Allergies: NO KNOWN ALLERGIES (Unverified , 09/26/24) Home Meds Active Scripts Apixaban Base (ELIQUIS) 5 Mg Tab, 5 MG PO BID for 30 Days, #60 TAB Prov:YAZMIN FONSECA [facility] 11/01/24 Furosemide (Furosemide) 20 Mg Tab, 1 TAB PO DAILY, #30 TAB 5 [facility] 11/01/24 Spironolactone (Aldactone) 25 Mg Tab, 25 MG PO DAILY for 30 Days, #30 TAB [facility] 11/01/24 Prednisone (Prednisone) 20 Mg Tab, 40 MG PO DAILY for 3 Days, #6 TAB [facility] 11/01/24 Metoprolol Succinate (Toprol Xl) 50 Mg Tab, 25 MG PO DAILY for 30 Days, #15 TAB Prov:[facility] 11/01/24 Lisinopril (Lisinopril) 20 Mg Tab, 20 MG PO DAILY for 30 Days, #30 TAB Prov:RAYMUNDOYAZMIN [facility] 11/01/24 Empagliflozin (Jardiance) 10 Mg Tab, 10 MG PO DAILY for 30 Days, #30 TAB Prov:YAZMIN FONSECA [facility] 11/01/24 Doxycycline Monohydrate (Doxycycline Monohydrate) 100 Mg Tab, 100 MG PO Q12HR for 3 Days, #6 TAB Prov:YAZMIN FONSECA [facility] 11/01/24 Reported Medications Atorvastatin Calcium (Lipitor) 40 Mg Tab, 1 TAB PO DAILY for 30 Days, #30 11/11/24 Umeclidinium-Vilanterol (Anoro Ellipta 62.5-25 Mcg/INH) 1 Aer Aer, 1 PUFF IN DAILY for 30 Days, #60 10/28/24 Amlodipine Besylate (Amlodipine Besylate) 10 Mg Tab, 1 TAB PO DAILY for 90 Days, #90 10/28/24 Multiple Vitamins W/ Minerals (Centrum Silver) Silver Chw, 1 OR, TAB.CHEW 10/28/24 Nicotine Polacrilex (Nicotine Mini Lozenge) 4 Mg Christi, 4 MG MT, CHRISTI 10/28/24 Ergocalciferol (VITAMIN D 80576 UNIT) 50,000 [place], [address] UNIT PO Weekly, CAP 10/28/24 Aspirin (Aspirin 81 Low Dose) 81 Mg Chw, 81 MG PO 2XW, TAB.CHEW 10/28/24 Citalopram Hydrobromide (Citalopram Hydrobromide) 20 Mg Tab, 1 TAB PO DAILY 10/28/24 Tamsulosin Hcl (Tamsulosin Hcl) 0.4 Mg Cap, 1 CAP PO DAILY 10/28/24 Dutasteride (Dutasteride) 0.5 Mg Cap, 1 CAP PO DAILY for 90 Days, #90 10/28/24 Simvastatin (Simvastatin) 20 Mg Tab, 1 TAB PO DAILY for 90 Days, #90 10/28/24 Current Medications Current Medications Medications (Trade) Dose Ordered Sig/Audrey Route PRN Reason Start Time Stop Time Status Last Admin Enoxaparin Sodium (Lovenox) 40 mg DAILY SC 11/13/24 10:00 11/13/24 10:09 Empaglifozin (Jardiance) 10 mg DAILY PO 11/13/24 10:00 11/13/24 10:13 Review of Systems Not reliably obtainable at this time Vital Signs Vital Signs Date Time Temp Pulse Resp B/P (MAP) Pulse Ox O2 Delivery O2 Flow Rate FiO2 1/2/25 10:12 150/93 11/13/24 10:11 80 11/13/24 10:00 97 Nasal Cannula 3.0 11/13/24 10:00 32 11/13/24 09:00 97.9 20 97.9 Physical Exam He is alert but does not appear to be oriented. HEENT examination is otherwise unremarkable orally well hydrated. No jugular distention no bruits. Lungs reveal good air entry. Heart exam reveals regular S1-S2 soft S4. abdominal examination is unremarkable. Extremities reveal adequate perfusion without clubbing or cyanosis no edema. Neurologically intact. Integumentary is normal. Mild hyperemia and evidence of resolving edema in the left lower extremity. Diminished pulses in the pedals and popliteals bilaterally more on the right Labs/Diagnostic Data Labs Test 11/11/24 18:34 11/11/24 09:40 11/10/24 18:01 Range/Units Urine Color Yellow Yellow Urine Clarity Clear Clear Urine pH 6.0 5.0-9.0 Urine Specific [place] 1.022 1.001-1.035 Urine Protein 1+ H Negative Urine Ketones Negative Negative Urine Blood Negative Negative /uL Urine Nitrite Negative Negative Urine Bilirubin Negative Negative Urine Urobilinogen 6 Negative mg/dL Urine Leukocyte Esterase Negative Negative /uL Urine RBC 8 0 - 3 /hpf Urine WBC 5 0 - 3 /hpf Urine Squamous Epithelial Cells Few <5 /hpf Urine Bacteria None seen None Seen /hpf Urine Hyaline Casts Few 0 - 2 /lpf Urine Mucus Few None Seen Urine Glucose 2+ H Normal mg/dL Influenza Type A Antigen Positive Negative Influenza Type B Antigen Negative Negative SARS-CoV-2 Antigen (Rapid) Negative NEGATIVE White Blood Count 5.0 4.4-10.8 10^3/uL Red Blood Count 4.89 4.5-5.90 10^6/uL Hemoglobin 15.1 13.5-17.5 g/dL Hematocrit 46.2 41.0-53.0 % Mean Corpuscular Volume 94.5 80.0-100.0 fL Mean Corpuscular Hemoglobin 30.8 28.0-32.0 pg Mean Corpuscular Hemoglobin Concent 32.7 32.0-36.0 g/dL Red Cell Distribution Width 15.2 H 11.8-14.3 % Platelet Count 183 140-450 10^3/uL Mean Platelet Volume 7.9 6.9-10.8 fL Neutrophils (%) (Auto) 72.9 37.0-80.0 % Lymphocytes (%) (Auto) 10.9 10.0-50.0 % Monocytes (%) (Auto) 15.4 H 0.0-12.0 % Eosinophils (%) (Auto) 0.2 0.0-7.0 % Basophils (%) (Auto) 0.6 0.0-2.0 % Neutrophils # (Auto) 3.6 1.6-8.6 10 ^3/uL Lymphocytes # (Auto) 0.5 0.4-5.4 10 ^3/uL Monocytes # (Auto) 0.8 0-1.3 10 ^3/uL Eosinophils # (Auto) 0 0-0.8 10 ^3/uL Basophils # (Auto) 0 0-0.2 10 ^3/uL Nucleated Red Blood Cells 0.2 % Sodium Level 138 136-145 mmol/L Potassium Level 4.0 3.5-5.1 mmol/L Chloride Level 102 98-107 mmol/L Carbon Dioxide Level 30 20-31 mmol/L Anion Gap 6 5-15 Blood Urea Nitrogen 10 9-23 mg/dL Creatinine 0.62 L 0.700-1.30 mg/dL Glomerular Filtration Rate Calc 106 >90 mL/min BUN/Creatinine Ratio 16.1 10.0-20.0 Serum Glucose 93 74-106 mg/dL Hemoglobin A1c 6.2 H <5.7 % A1C Calcium Level 9.1 8.7-10.4 mg/dL Troponin I High Sensitivity 10 </=54 ng/L B-Type Natriuretic Peptide 329.86 0-100 pg/mL Thyroid Stimulating Hormone (TSH) 2.00 0.55-4.78 uIU/mL Plasma/Serum Blood Alcohol < 3.0 <10 mg/dL Microbiology Date/Time Source Procedure Growth Status 11/11/24 23:35 Nose MRSA Screen - Final Complete Assessment Peripheral vascular disease. Diminished circulation based on previous ultrasound to the right lower extremity showing an occlusion of the right femoral artery. Likely with adequate collateralization preventing severe limb ischemia. COPD. Congestive heart failure. CVA. Atrial fibrillation. Plan/Recommendation as previously discussed the patient states he has an outpatient follow up however we will schedule him for follow up in our clinic as an outpatient. We will offer him an angiographic evaluation and possible percutaneous procedure to address right femoral arterial occlusion. Plan discussed with: Patient Date of Service: Nov 13, 2024 Billing Provider: SCOOBY AMARAL Sr., MD Cardiology Common Codes: [id number] INP/OBS CARE (High) SCOOBY AMARAL Sr., MD Nov 13, 2024 14:16
--- NOTE | 2024-11-13 16:39 | DVHPN2 ---
Subjective Patient is somewhat delusional today. Denies any new symptoms other than increase urination. Reviewed: Care Plan, H&P, Labs, Medications Changes from previous H/P or p: No Changes General: Per HPI Eyes: No Pain, No Vision change, No Conjunctivae inflammation, No Eyelid inflammation, No Other, No Redness ENT: No Ear pain, No Ear discharge, No Nose pain, No Nose discharge, No Nose congestion, No Mouth pain, No Mouth swelling, No Throat pain, No Throat swelling, No Other Cardiovascular: Chest Pain; No Palpitations, No Orthopnea, No Paroxysmal Noc. Dyspnea, No Edema, No Lt Headedness, No Other Respiratory: No Cough, No Dry; Shortness of breath, SOB with excertion; No Wheezing, No Hemoptysis, No Pleuritic Pain, No Sputum, No Other Gastrointestinal: No Nausea, No Vomiting, No Abdominal Pain, No Diarrhea, No Constipation, No Melena, No Hematochezia, No Other Genitourinary: No Dysuria, No Frequency, No Incontinence, No Hematuria, No Retention, No Other Musculoskeletal: No other, No neck pain, No shoulder pain, No arm pain, No back pain, No hand pain, No leg pain, No foot pain Skin: No Rash, No Lesions, No Jaundice, No Bruising, No Other Objective Vitals Vital Signs Date Time Temp Pulse Resp B/P (MAP) Pulse Ox O2 Delivery O2 Flow Rate FiO2 11/13/24 10:12 150/93 11/13/24 10:11 80 11/13/24 10:00 97 Nasal Cannula 3.0 11/13/24 10:00 32 11/13/24 09:00 97.9 20 97.9 Intake/Output Intake and Output 11/13/24 07:00 Intake Total 1487 ml Output Total 2000 ml Balance -513 ml Intake Oral 1487 ml Output Urine Total 2000 ml # Voids 1 General Appearance: Alert, Oriented X3, Cooperative, No acute distress HEENT: Atraumatic, PERRLA Cardiovascular: Normal S1, Normal S2 Musculoskeletal: Normal motor function Psych/Mental Status: Mental status NL, Mood NL Medications Current Medications Medications Dose Ordered Sig/Audrey Route Start Time Stop Time Status Last Admin Dose Admin Albuterol 2.5 mg Q4HPRN PRN NEB 11/10/24 22:45 11/12/24 07:28 2.5 MG Ipratropium [place] 0.5 mg Q6HPRN PRN NEB 11/11/24 00:00 11/12/24 07:28 0.5 MG Levalbuterol HCl 1.25 mg Q6HPRN PRN NEB 11/11/24 00:00 11/11/24 09:38 1.25 MG Aspirin 81 mg DAILY PO 11/11/24 10:00 11/13/24 10:09 81 MG Atorvastatin Calcium 40 mg HS PO 11/11/24 22:00 11/12/24 22:08 40 MG Citalopram Hydrobromide 20 mg DAILY PO 11/11/24 10:00 11/13/24 10:12 20 MG Lisinopril 20 mg DAILY PO 11/11/24 10:00 11/13/24 10:12 20 MG Metoprolol Succinate 25 mg DAILY PO 11/11/24 10:00 11/13/24 10:11 25 MG Tamsulosin HCl 0.4 mg DAILY@2200 PO 11/11/24 22:00 11/12/24 22:08 0.4 MG Spironolactone 25 mg DAILY PO 11/11/24 10:00 11/13/24 10:12 25 MG Oseltamivir Phosphate 75 mg Q12HR PO 11/11/24 22:00 11/16/24 21:59 11/13/24 10:12 75 MG Enoxaparin Sodium 40 mg DAILY SC 11/13/24 10:00 11/13/24 10:09 40 MG Empaglifozin 10 mg DAILY PO 11/13/24 10:00 11/13/24 10:13 10 MG Chlordiazepoxide HCl 10 mg QID PO 11/13/24 18:00 Thiamine HCl 100 mg DAILY IV 11/13/24 14:15 Multivitamins 1 tab DAILY PO 11/13/24 14:15 Laboratory Results Laboratory Tests 11/10/24 18:01 Urinalysis Test 11/11/24 18:34 Urine Color Yellow (Yellow) Urine Clarity Clear (Clear) Urine pH 6.0 (5.0-9.0) Urine Specific [place] 1.022 (1.001-1.035) Urine Protein 1+ (Negative) H Urine Ketones Negative (Negative) Urine Blood Negative /uL (Negative) Urine Nitrite Negative (Negative) Urine Bilirubin Negative (Negative) Urine Urobilinogen 6 mg/dL (Negative) Urine Leukocyte Esterase Negative /uL (Negative) Urine RBC 8 /hpf (0 - 3) Urine WBC 5 /hpf (0 - 3) Urine Squamous Epithelial Cells Few /hpf (<5) Urine Bacteria None seen /hpf (None Seen) Urine Hyaline Casts Few /lpf (0 - 2) Urine Mucus Few (None Seen) Urine Glucose 2+ mg/dL (Normal) H Microbiology Microbiology Date/Time Source Procedure Growth Status 11/11/24 23:35 Nose MRSA Screen - Final Complete Labs and/or images reviewed: Labs reviewed by me, Image(s) reviewed by me Assessment/Plan Assessment/Plan Impression: -Acute hypoxic respiratory failure secondary to CHF and influenza -acute on chronic decompensated systolic heart failure -influenza A -peripheral arterial disease -anxiety disorder -history of CVA -atrial fibrillation -acute delirium, rule out CVA -acute alcohol withdrawal Plan: Events: CT scan of the head negative for any acute pathology. Further discussion with the patient reveals that the patient does have a significant ETOH history. -start Librium, thiamine, MVI -check vitamin-D, B12, thiamine level -O2 supplementation to keep saturation greater 92% -start Jardiance, p.o. Lasix. -restart Eliquis -consultation with Dr. Meier for peripheral arterial disease angiogram at this time. Given patient's neurological status, we will hold peripheral -continue -repeat labs in a.m. Total time spent with patient discussing and formulating plan of care: 35 minutes. This medical document was created using an electronic medical record system with [employer] dictation system. Although this document has been carefully reviewed, there may still be some phonetic and typographical errors. These areas are purely typographical due to imperfections of the software programs, and do not reflect any compromise in the patient's medical care. Plan discussed with: Patient, Other (RN) My Orders Orders - BELKIS ANTONY NP Procedure Category Date Status Time Chlordiazepoxide Hcl PHA 11/13/24 In Process Capsule (Librium Ca 18:00 Thiamine Inj PHA 11/13/24 In Process 14:15 Multiple Vitamin PHA 11/13/24 In Process Tablet (Mvi Tab) 14:15 Comprehensive LAB 11/14/24 Verified Metabolic Panel 04:00 Vitamin B1 (Thiamine) LAB 11/14/24 Verified 04:00 Vitamin B12 LAB 11/14/24 Verified 04:00 Vitamin D 25-Hydroxy LAB 11/14/24 Verified D2 + D3 04:00 Ammonia LAB 11/14/24 Verified 04:00 Drug Screen LAB 11/13/24 Transmitted 16:37 Date of Service: Nov 13, 2024 Billing Provider: BELKIS ANTONY NP Common Visit Codes: [id number] INP/OBS CARE(HIGH) BELKIS ANTONY NP Nov 13, 2024 16:39
[2024-11-13] MEDS: chlordiazePOXIDE HCL 5 MG CAP PO SCH (17:28)
[2024-11-13] MEDS: MULTIPLE VITAMIN TAB PO SCH (17:28)
[2024-11-13] MEDS: THIAMINE 100mg/ml INJ (200mg/2ml VIAL) IV SCH (17:29)
[2024-11-13] MEDS: LORazepam 2MG/ML-1ML VIAL IV PRN (20:56)
[2024-11-13] MEDS: APIXABAN 5 MG TAB PO SCH (21:03)
[2024-11-14] VITALS (10 sets, daily range): BP systolic 113–145; BP diastolic 87–116; PULSE 72–103; RESP 17–19; TEMP 97.5–98.6; O2SAT 94–98
[2024-11-14 07:50] LABS: Alanine Aminotransferase 23 U/L (7-40); Albumin 3.3 g/dL (3.2-4.8); Alkaline Phosphatase 101 U/L (46-116); Anion Gap 3 (5-15); Aspartate Aminotransferase 17 U/L (13-40); BUN/Creatinine Ratio 18.8 (10.0-20.0); Bilirubin, Total 0.9 mg/dL (0.2-1.0); Blood Urea Nitrogen 12 mg/dL (9-23); Calcium 9.1 mg/dL (8.7-10.4); Chloride 98 mmol/L (98-107); Potassium 4.3 mmol/L (3.5-5.1)
[2024-11-14 07:55] LABS: Carbon Dioxide 35 mmol/L (20-31); Glucose 111 mg/dL (74-106); Sodium 136 mmol/L (136-145); Total Protein 5.7 g/dL (5.7-8.2)
--- NOTE | 2024-11-14 09:47 | DVHPN2 ---
Subjective Patient less agitated today. Able to follow some commands. Reviewed: Care Plan, H&P, Labs, Medications Changes from previous H/P or p: Changes General: Per HPI Eyes: No Pain, No Vision change, No Conjunctivae inflammation, No Eyelid inflammation, No Other, No Redness ENT: No Ear pain, No Ear discharge, No Nose pain, No Nose discharge, No Nose congestion, No Mouth pain, No Mouth swelling, No Throat pain, No Throat swelling, No Other Cardiovascular: Chest Pain; No Palpitations, No Orthopnea, No Paroxysmal Noc. Dyspnea, No Edema, No Lt Headedness, No Other Respiratory: No Cough, No Dry; Shortness of breath, SOB with excertion; No Wheezing, No Hemoptysis, No Pleuritic Pain, No Sputum, No Other Gastrointestinal: No Nausea, No Vomiting, No Abdominal Pain, No Diarrhea, No Constipation, No Melena, No Hematochezia, No Other Genitourinary: No Dysuria, No Frequency, No Incontinence, No Hematuria, No Retention, No Other Musculoskeletal: No other, No neck pain, No shoulder pain, No arm pain, No back pain, No hand pain, No leg pain, No foot pain Skin: No Rash, No Lesions, No Jaundice, No Bruising, No Other Objective Vitals Vital Signs Date Time Temp Pulse Resp B/P (MAP) Pulse Ox O2 Delivery O2 Flow Rate FiO2 11/14/24 05:00 98.6 103 18 145/108 (120) 96 98.6 11/13/24 23:20 3.0 32 11/13/24 20:00 Nasal Cannula* Intake/Output Intake and Output 11/14/24 07:00 Intake Total 890 ml Output Total 500 ml Balance 390 ml Intake Oral 890 ml Output Urine Total 500 ml # Voids 1 General Appearance: Alert, Oriented X3, Cooperative, No acute distress HEENT: Atraumatic, PERRLA Cardiovascular: Normal S1, Normal S2 Musculoskeletal: Normal motor function Psych/Mental Status: Mental status NL, Mood NL Medications Current Medications Medications Dose Ordered Sig/Audrey Route Start Time Stop Time Status Last Admin Dose Admin Albuterol 2.5 mg Q4HPRN PRN NEB 11/10/24 22:45 11/12/24 07:28 2.5 MG Ipratropium [place] 0.5 mg Q6HPRN PRN NEB 11/11/24 00:00 11/12/24 07:28 0.5 MG Levalbuterol HCl 1.25 mg Q6HPRN PRN NEB 11/11/24 00:00 11/11/24 09:38 1.25 MG Aspirin 81 mg DAILY PO 11/11/24 10:00 11/13/24 10:09 81 MG Atorvastatin Calcium 40 mg HS PO 11/11/24 22:00 11/13/24 21:00 40 MG Citalopram Hydrobromide 20 mg DAILY PO 11/11/24 10:00 11/13/24 10:12 20 MG Lisinopril 20 mg DAILY PO 11/11/24 10:00 11/13/24 10:12 20 MG Metoprolol Succinate 25 mg DAILY PO 11/11/24 10:00 11/13/24 10:11 25 MG Tamsulosin HCl 0.4 mg DAILY@2200 PO 11/11/24 22:00 11/13/24 21:03 0.4 MG Spironolactone 25 mg DAILY PO 11/11/24 10:00 11/13/24 10:12 25 MG Oseltamivir Phosphate 75 mg Q12HR PO 11/11/24 22:00 11/16/24 21:59 11/13/24 21:03 75 MG Empaglifozin 10 mg DAILY PO 11/13/24 10:00 11/13/24 10:13 10 MG Chlordiazepoxide HCl 10 mg QID PO 11/13/24 18:00 11/14/24 05:11 10 MG Thiamine HCl 100 mg DAILY IV 11/13/24 14:15 11/13/24 17:29 100 MG Multivitamins 1 tab DAILY PO 11/13/24 14:15 11/13/24 17:28 1 TAB Apixaban 5 mg BID PO 11/13/24 22:00 11/13/24 21:03 5 MG Lorazepam 1 mg Q4HPRN PRN IV 11/13/24 20:45 11/13/24 20:56 1 MG Laboratory Results Laboratory Tests 11/10/24 18:01 11/14/24 07:07 Chemistry Test 11/14/24 07:07 Albumin 3.3 g/dL (3.2-4.8) Calcium Level 9.1 mg/dL (8.7-10.4) Total Protein 5.7 g/dL (5.7-8.2) LFT Test 11/14/24 07:07 Alanine Aminotransferase (ALT) 23 U/L (7-40) Alkaline Phosphatase 101 U/L (46-116) Aspartate Amino Transferase (AST) 17 U/L (13-40) Total Bilirubin 0.9 mg/dL (0.2-1.0) Urinalysis Test 11/11/24 18:34 Urine Color Yellow (Yellow) Urine Clarity Clear (Clear) Urine pH 6.0 (5.0-9.0) Urine Specific [place] 1.022 (1.001-1.035) Urine Protein 1+ (Negative) H Urine Ketones Negative (Negative) Urine Blood Negative /uL (Negative) Urine Nitrite Negative (Negative) Urine Bilirubin Negative (Negative) Urine Urobilinogen 6 mg/dL (Negative) Urine Leukocyte Esterase Negative /uL (Negative) Urine RBC 8 /hpf (0 - 3) Urine WBC 5 /hpf (0 - 3) Urine Squamous Epithelial Cells Few /hpf (<5) Urine Bacteria None seen /hpf (None Seen) Urine Hyaline Casts Few /lpf (0 - 2) Urine Mucus Few (None Seen) Urine Glucose 2+ mg/dL (Normal) H Microbiology Microbiology Date/Time Source Procedure Growth Status 11/11/24 23:35 Nose MRSA Screen - Final Complete Labs and/or images reviewed: Labs reviewed by me, Image(s) reviewed by me Assessment/Plan Assessment/Plan Impression: -Acute hypoxic respiratory failure secondary to CHF and influenza -acute on chronic decompensated systolic heart failure -influenza A -peripheral arterial disease -anxiety disorder -history of CVA -atrial fibrillation -acute delirium, rule out CVA -acute alcohol withdrawal Plan: Events: Patient had worsening agitation yesterday despite being on p.o. Librium. Patient was assessed today and is more appropriate, continues to be confused, less agitated. -start Librium, thiamine, MVI -check vitamin-D, B12, thiamine level -O2 supplementation to keep saturation greater 92% -start Jardiance, p.o. Lasix. -continue Eliquis -consultation with Dr. Meier for peripheral arterial disease angiogram at this time. Given patient's neurological status, we will hold peripheral Total time spent with patient discussing and formulating plan of care: 35 minutes. This medical document was created using an electronic medical record system with [employer] dictation system. Although this document has been carefully reviewed, there may still be some phonetic and typographical errors. These areas are purely typographical due to imperfections of the software programs, and do not reflect any compromise in the patient's medical care. Plan discussed with: Patient, Other (RN) My Orders Orders - BELKIS ANTONY NP Procedure Category Date Status Time Chlordiazepoxide Hcl PHA 11/13/24 In Process Capsule (Librium Ca 18:00 Thiamine Inj PHA 11/13/24 In Process 14:15 Multiple Vitamin PHA 11/13/24 In Process Tablet (Mvi Tab) 14:15 Vitamin B1 (Thiamine) LAB 11/14/24 In Process 04:00 Vitamin D 25-Hydroxy LAB 11/14/24 In Process D2 + D3 04:00 Drug Screen LAB 11/13/24 Logged 16:37 Apixaban (Eliquis) PHA 11/13/24 In Process 22:00 Date of Service: Nov 14, 2024 Billing Provider: BELKIS ANTONY NP Common Visit Codes: [id number] INP/OBS CARE(HIGH) BELKIS ANTONY NP Nov 14, 2024 09:47
[2024-11-14] MEDS: chlordiazePOXIDE HCL 25 MG CAP PO SCH (12:02)
[2024-11-14] MEDS: ACETAMINOPHEN 325 MG TAB PO PRN (22:11)
[2024-11-15] VITALS (12 sets, daily range): BP systolic 99–156; BP diastolic 79–100; PULSE 71–102; RESP 16–20; TEMP 97.3–98.6; O2SAT 93–98
[2024-11-15] MEDS: NICOTINE 21MG/24 HR TOPICAL PATCH TD SCH (16:40)
--- NOTE | 2024-11-15 18:35 | DVHPN2 ---
Subjective Feels okay. No change Reviewed: Care Plan, H&P, Labs, Medications, Previous Orders, Radiology Changes from previous H/P or p: No Changes General: Per HPI Objective Vitals Vital Signs Date Time Temp Pulse Resp B/P (MAP) Pulse Ox O2 Delivery O2 Flow Rate FiO2 11/15/24 16:58 98.6 96 16 99/79 (86) 95 98.6 11/15/24 07:15 Nasal Cannula 2.0 11/15/24 07:15 28 Intake/Output Intake and Output 11/15/24 07:00 Intake Total 2738 ml Balance 2738 ml Intake Oral 2738 ml # Voids 8 # Bowel Movements 3 General Appearance: Alert, Oriented X3, Cooperative, No acute distress HEENT: Atraumatic Lungs: Other (Few crackles bilateral lungs with good air entry) Cardiovascular: Other (Irregular borderline tachycardia) Abdomen: Normal bowel sounds, Soft, No tenderness Psych/Mental Status: Mental status NL, Mood NL Medications Current Medications Medications Dose Ordered Sig/Audrey Route Start Time Stop Time Status Last Admin Dose Admin Albuterol 2.5 mg Q4HPRN PRN NEB 11/10/24 22:45 11/12/24 07:28 2.5 MG Ipratropium [place] 0.5 mg Q6HPRN PRN NEB 11/11/24 00:00 11/12/24 07:28 0.5 MG Levalbuterol HCl 1.25 mg Q6HPRN PRN NEB 11/11/24 00:00 11/11/24 09:38 1.25 MG Aspirin 81 mg DAILY PO 11/11/24 10:00 11/15/24 09:57 81 MG Atorvastatin Calcium 40 mg HS PO 11/11/24 22:00 11/14/24 21:09 40 MG Citalopram Hydrobromide 20 mg DAILY PO 11/11/24 10:00 11/15/24 09:57 20 MG Lisinopril 20 mg DAILY PO 11/11/24 10:00 11/15/24 10:07 20 MG Metoprolol Succinate 25 mg DAILY PO 11/11/24 10:00 11/15/24 10:07 25 MG Tamsulosin HCl 0.4 mg DAILY@2200 PO 11/11/24 22:00 11/14/24 21:10 0.4 MG Spironolactone 25 mg DAILY PO 11/11/24 10:00 11/15/24 09:58 25 MG Oseltamivir Phosphate 75 mg Q12HR PO 11/11/24 22:00 11/16/24 21:59 11/15/24 09:57 75 MG Empaglifozin 10 mg DAILY PO 11/13/24 10:00 11/15/24 10:15 10 MG Thiamine HCl 100 mg DAILY IV 11/13/24 14:15 11/15/24 09:57 100 MG Multivitamins 1 tab DAILY PO 11/13/24 14:15 11/15/24 09:57 1 TAB Apixaban 5 mg BID PO 11/13/24 22:00 11/15/24 09:57 5 MG Lorazepam 1 mg Q4HPRN PRN IV 11/13/24 20:45 11/13/24 20:56 1 MG Acetaminophen 650 mg Q6HP PRN PO 11/14/24 21:30 11/15/24 09:47 650 MG Nicotine 1 patch DAILY TD 11/15/24 15:15 11/15/24 16:40 1 PATCH Laboratory Results Laboratory Tests 11/10/24 18:01 11/14/24 07:07 Urinalysis Test 11/11/24 18:34 Urine Color Yellow (Yellow) Urine Clarity Clear (Clear) Urine pH 6.0 (5.0-9.0) Urine Specific [place] 1.022 (1.001-1.035) Urine Protein 1+ (Negative) H Urine Ketones Negative (Negative) Urine Blood Negative /uL (Negative) Urine Nitrite Negative (Negative) Urine Bilirubin Negative (Negative) Urine Urobilinogen 6 mg/dL (Negative) Urine Leukocyte Esterase Negative /uL (Negative) Urine RBC 8 /hpf (0 - 3) Urine WBC 5 /hpf (0 - 3) Urine Squamous Epithelial Cells Few /hpf (<5) Urine Bacteria None seen /hpf (None Seen) Urine Hyaline Casts Few /lpf (0 - 2) Urine Mucus Few (None Seen) Urine Glucose 2+ mg/dL (Normal) H Microbiology Microbiology Date/Time Source Procedure Growth Status 11/11/24 23:35 Nose MRSA Screen - Final Complete Assessment/Plan Assessment/Plan Influenza A Acute on chronic heart failure AFib with RVR Peripheral artery disease History of CVA Alcohol withdrawal Anxiety COPD Hypertension Dyslipidemia Plan: Continue current plan of care Plan discussed with: Patient My Orders Orders - SANA OLIVAS MD Procedure Category Date Status Time Nicotine 21mg/24hr PHA 11/15/24 In Process (Nicoderm 21mg/24hr) 15:15 Date of Service: Nov 15, 2024 Billing Provider: SANA OLIVAS MD Common Visit Codes: [id number] INP/OBS CARE(HIGH) SANA OLIVAS MD Nov 15, 2024 18:35
[2024-11-16] VITALS (12 sets, daily range): BP systolic 116–150; BP diastolic 75–102; PULSE 86–116; RESP 17–20; TEMP 97.5–97.8; O2SAT 94–100
[2024-11-16] MEDS ORDERED: NICOTINE 21MG/24 HR TOPICAL PATCH TD SCH (10:00)
--- NOTE | 2024-11-16 15:38 | DVHPN2 ---
Subjective Same Reviewed: Care Plan, H&P, Labs, Medications, Previous Orders, Radiology Changes from previous H/P or p: No Changes General: Per HPI Objective Vitals Vital Signs Date Time Temp Pulse Resp B/P (MAP) Pulse Ox O2 Delivery O2 Flow Rate FiO2 11/16/24 13:00 97.6 86 17 135/90 (105) 100 97.6 11/15/24 22:23 Nasal Cannula* 6 44 Intake/Output Intake and Output 11/16/24 07:00 Intake Total 2516 ml Output Total 800 ml Balance 1716 ml Intake Oral 2516 ml Output Urine Total 800 ml # Voids 3 # Bowel Movements 1 General Appearance: Alert, Oriented X3, Cooperative, No acute distress HEENT: Atraumatic Lungs: Other (Increase crackles in the left lung with few rhonchi) Cardiovascular: Other (Irregular borderline tachycardia) Abdomen: Normal bowel sounds, Soft, No tenderness Extremities: Other (Trace edema of the left lower extremity. No edema right lower extremity) Psych/Mental Status: Mental status NL, Mood NL Medications Current Medications Medications Dose Ordered Sig/Audrey Route Start Time Stop Time Status Last Admin Dose Admin Albuterol 2.5 mg Q4HPRN PRN NEB 11/10/24 22:45 11/16/24 01:51 2.5 MG Ipratropium [place] 0.5 mg Q6HPRN PRN NEB 11/11/24 00:00 11/16/24 01:51 0.5 MG Levalbuterol HCl 1.25 mg Q6HPRN PRN NEB 11/11/24 00:00 11/11/24 09:38 1.25 MG Aspirin 81 mg DAILY PO 11/11/24 10:00 11/16/24 09:39 81 MG Atorvastatin Calcium 40 mg HS PO 11/11/24 22:00 11/15/24 23:19 40 MG Citalopram Hydrobromide 20 mg DAILY PO 11/11/24 10:00 11/16/24 09:38 20 MG Lisinopril 20 mg DAILY PO 11/11/24 10:00 11/16/24 09:51 20 MG Metoprolol Succinate 25 mg DAILY PO 11/11/24 10:00 11/16/24 09:50 25 MG Tamsulosin HCl 0.4 mg DAILY@2200 PO 11/11/24 22:00 11/15/24 23:20 0.4 MG Spironolactone 25 mg DAILY PO 11/11/24 10:00 11/16/24 09:38 25 MG Oseltamivir Phosphate 75 mg Q12HR PO 11/11/24 22:00 11/16/24 21:59 11/16/24 09:38 75 MG Empaglifozin 10 mg DAILY PO 11/13/24 10:00 11/16/24 09:39 10 MG Thiamine HCl 100 mg DAILY IV 11/13/24 14:15 11/16/24 09:40 100 MG Multivitamins 1 tab DAILY PO 11/13/24 14:15 11/16/24 09:37 1 TAB Apixaban 5 mg BID PO 11/13/24 22:00 11/16/24 09:39 5 MG Lorazepam 1 mg Q4HPRN PRN IV 11/13/24 20:45 11/13/24 20:56 1 MG Acetaminophen 650 mg Q6HP PRN PO 11/14/24 21:30 11/16/24 09:47 650 MG Nicotine 1 patch DAILY TD 11/15/24 15:15 11/15/24 16:40 1 PATCH Laboratory Results Laboratory Tests 11/10/24 18:01 11/14/24 07:07 Urinalysis Test 11/11/24 18:34 Urine Color Yellow (Yellow) Urine Clarity Clear (Clear) Urine pH 6.0 (5.0-9.0) Urine Specific [place] 1.022 (1.001-1.035) Urine Protein 1+ (Negative) H Urine Ketones Negative (Negative) Urine Blood Negative /uL (Negative) Urine Nitrite Negative (Negative) Urine Bilirubin Negative (Negative) Urine Urobilinogen 6 mg/dL (Negative) Urine Leukocyte Esterase Negative /uL (Negative) Urine RBC 8 /hpf (0 - 3) Urine WBC 5 /hpf (0 - 3) Urine Squamous Epithelial Cells Few /hpf (<5) Urine Bacteria None seen /hpf (None Seen) Urine Hyaline Casts Few /lpf (0 - 2) Urine Mucus Few (None Seen) Urine Glucose 2+ mg/dL (Normal) H Microbiology Microbiology Date/Time Source Procedure Growth Status 11/11/24 23:35 Nose MRSA Screen - Final Complete Assessment/Plan Assessment/Plan Influenza A Acute on chronic heart failure AFib with RVR Peripheral artery disease History of CVA Alcohol withdrawal Anxiety COPD Hypertension Dyslipidemia Plan: Chest x-ray. BNP. Plan discussed with: Patient Date of Service: Nov 16, 2024 Billing Provider: SANA OLIVAS MD Common Visit Codes: [id number] INP/OBS CARE(HIGH) SANA OLIVAS MD Nov 16, 2024 15:38
[2024-11-17] VITALS (12 sets, daily range): BP systolic 123–155; BP diastolic 77–111; PULSE 60–101; RESP 17–21; TEMP 97.6–98.8; O2SAT 92–99
--- NOTE | 2024-11-17 07:04 | DVH ---
CLINICAL INFORMATION: 64 years old, Male; follow-up. No other clinical information provided. Indicat ion on prior chest radiograph was congestive heart failure. TECHNIQUE: Single AP portable chest radiograph was obtained. COMPARISON: XY CHEST XRAY 1 VIEW on DOS: 11/12/24, XY CHEST PORTABLE on DOS: 11/10/24, XY CHEST PORTABL E on DOS: 10/27/24 FINDINGS: Unchanged cardiomegaly. Prominence of the pulmonary vasculature, increased compared to the prior exa m. Atelectasis in the lung bases. No focal consolidation. No pneumothorax or pleural effusion visuali zed. No other significant interval change. IMPRESSION: Cardiomegaly and prominence of the pulmonary vasculature suggesting a degree of pulmonary vascular co ngestion, with increased prominence of the pulmonary vasculature compared to the prior exam.
[2024-11-17] MEDS: FUROSEMIDE 40 MG/4 ML VIAL IV ONE (13:51)
--- NOTE | 2024-11-17 14:33 | DVHPN2 ---
Subjective Patient less agitated today. Able to follow some commands. Reviewed: Care Plan, H&P, Labs, Medications, Previous Orders, Radiology Changes from previous H/P or p: No Changes General: Per HPI Objective Vitals Vital Signs Date Time Temp Pulse Resp B/P (MAP) Pulse Ox O2 Delivery O2 Flow Rate FiO2 11/17/24 13:51 144/98 11/17/24 12:53 98.0 79 19 99 98.0 11/17/24 08:40 Nasal Cannula 5.0 11/17/24 08:40 40 Intake/Output Intake and Output 11/17/24 07:00 Intake Total 1020 ml Output Total 500 ml Balance 520 ml Intake Oral 1020 ml Output Urine Total 500 ml # Voids 4 # Bowel Movements 1 General Appearance: Alert, Oriented X3, Cooperative, No acute distress HEENT: Atraumatic Lungs: Other (Increase crackles in the left lung with few rhonchi) Cardiovascular: Other (Irregular borderline tachycardia) Abdomen: Normal bowel sounds, Soft, No tenderness Extremities: Other (Trace edema of the left lower extremity. No edema right lower extremity) Psych/Mental Status: Mental status NL, Mood NL Medications Current Medications Medications Dose Ordered Sig/Audrey Route Start Time Stop Time Status Last Admin Dose Admin Albuterol 2.5 mg Q4HPRN PRN NEB 11/10/24 22:45 11/16/24 01:51 2.5 MG Ipratropium [place] 0.5 mg Q6HPRN PRN NEB 11/11/24 00:00 11/16/24 01:51 0.5 MG Levalbuterol HCl 1.25 mg Q6HPRN PRN NEB 11/11/24 00:00 11/11/24 09:38 1.25 MG Aspirin 81 mg DAILY PO 11/11/24 10:00 11/17/24 10:07 81 MG Atorvastatin Calcium 40 mg HS PO 11/11/24 22:00 11/16/24 22:29 40 MG Citalopram Hydrobromide 20 mg DAILY PO 11/11/24 10:00 11/17/24 10:00 20 MG Lisinopril 20 mg DAILY PO 11/11/24 10:00 11/17/24 10:09 20 MG Metoprolol Succinate 25 mg DAILY PO 11/11/24 10:00 11/17/24 10:08 25 MG Tamsulosin HCl 0.4 mg DAILY@2200 PO 11/11/24 22:00 11/16/24 22:29 0.4 MG Spironolactone 25 mg DAILY PO 11/11/24 10:00 11/17/24 10:07 25 MG Empaglifozin 10 mg DAILY PO 11/13/24 10:00 11/17/24 10:06 10 MG Thiamine HCl 100 mg DAILY IV 11/13/24 14:15 11/17/24 10:09 100 MG Multivitamins 1 tab DAILY PO 11/13/24 14:15 11/17/24 10:06 1 TAB Apixaban 5 mg BID PO 11/13/24 22:00 11/17/24 10:08 5 MG Lorazepam 1 mg Q4HPRN PRN IV 11/13/24 20:45 11/17/24 03:09 1 MG Acetaminophen 650 mg Q6HP PRN PO 11/14/24 21:30 11/16/24 17:32 650 MG Nicotine 1 patch DAILY TD 11/15/24 15:15 11/17/24 10:16 1 PATCH Laboratory Results Laboratory Tests 11/10/24 18:01 11/14/24 07:07 Cardiac Markers Test 11/17/24 09:36 B-Type Natriuretic Peptide 422.33 pg/mL (0-100) Urinalysis Test 11/11/24 18:34 Urine Color Yellow (Yellow) Urine Clarity Clear (Clear) Urine pH 6.0 (5.0-9.0) Urine Specific [place] 1.022 (1.001-1.035) Urine Protein 1+ (Negative) H Urine Ketones Negative (Negative) Urine Blood Negative /uL (Negative) Urine Nitrite Negative (Negative) Urine Bilirubin Negative (Negative) Urine Urobilinogen 6 mg/dL (Negative) Urine Leukocyte Esterase Negative /uL (Negative) Urine RBC 8 /hpf (0 - 3) Urine WBC 5 /hpf (0 - 3) Urine Squamous Epithelial Cells Few /hpf (<5) Urine Bacteria None seen /hpf (None Seen) Urine Hyaline Casts Few /lpf (0 - 2) Urine Mucus Few (None Seen) Urine Glucose 2+ mg/dL (Normal) H Microbiology Microbiology Date/Time Source Procedure Growth Status 11/11/24 23:35 Nose MRSA Screen - Final Complete Labs and/or images reviewed: Labs reviewed by me, Image(s) reviewed by me Assessment/Plan Assessment/Plan Impression: -Acute hypoxic respiratory failure secondary to CHF and influenza -acute on chronic decompensated systolic heart failure -influenza A -peripheral arterial disease -anxiety disorder -history of CVA -atrial fibrillation -acute delirium, rule out CVA -acute alcohol withdrawal Plan: Events: Patient was alert and oriented x4. Continues to be slow to respond. Reports that he does want to be re-evaluated for possible angiogram of his leg. Reconsult Dr. Meier -continue thiamine and MVI. Stop Ativan. -O2 supplementation to keep saturation greater 92% -continue Jardiance and Lasix -continue Eliquis -repeat labs in a.m. Total time spent with patient discussing and formulating plan of care: 35 minutes. This medical document was created using an electronic medical record system with [employer] dictation system. Although this document has been carefully reviewed, there may still be some phonetic and typographical errors. These areas are purely typographical due to imperfections of the software programs, and do not reflect any compromise in the patient's medical care. Plan discussed with: Patient, Other (RN) My Orders Orders - BELKIS ANTONY NP Procedure Category Date Status Time Basic Metabolic Panel LAB 11/18/24 Verified 04:00 Date of Service: Nov 17, 2024 Billing Provider: BELKIS ANTONY NP Common Visit Codes: [id number] INP/OBS CARE(HIGH) BELKIS ANTONY NP Nov 17, 2024 14:33
[2024-11-18] VITALS (10 sets, daily range): BP systolic 127–145; BP diastolic 83–101; PULSE 59–98; RESP 17–20; TEMP 97.4–98.3; O2SAT 95–98
[2024-11-18 07:06] LABS: Vitamin B1, Whole Blood 206.1 nmol/L (66.5-200.0)
[2024-11-18 08:21] LABS: Anion Gap 6 (5-15); Potassium 4.7 mmol/L (3.5-5.1); Sodium 136 mmol/L (136-145)
[2024-11-18 08:22] LABS: Calcium 9.5 mg/dL (8.7-10.4)
[2024-11-18 08:27] LABS: BUN/Creatinine Ratio 17.6 (10.0-20.0); Blood Urea Nitrogen 13 mg/dL (9-23); Glucose 105 mg/dL (74-106)
[2024-11-18 08:32] LABS: Carbon Dioxide 32 mmol/L (20-31); Chloride 98 mmol/L (98-107)
--- NOTE | 2024-11-18 09:54 | DVHPN2 ---
Subjective Patient was alert and oriented x4. Reviewed: Care Plan, H&P, Labs, Medications, Previous Orders, Radiology Changes from previous H/P or p: No Changes General: Per HPI Objective Vitals Vital Signs Date Time Temp Pulse Resp B/P (MAP) Pulse Ox O2 Delivery O2 Flow Rate FiO2 11/18/24 07:59 98 Nasal Cannula 5.0 11/18/24 07:59 40 11/18/24 05:00 98.0 84 18 145/101 (116) 98.0 Intake/Output Intake and Output 11/18/24 07:00 Intake Total 650 ml Output Total 900 ml Balance -250 ml Intake Oral 650 ml Output Urine Total 900 ml # Voids 5 # Bowel Movements 1 General Appearance: Alert, Oriented X3, Cooperative, No acute distress HEENT: Atraumatic Lungs: Other (Increase crackles in the left lung with few rhonchi) Cardiovascular: Other (Irregular borderline tachycardia) Abdomen: Normal bowel sounds, Soft, No tenderness Extremities: Other (Trace edema of the left lower extremity. No edema right lower extremity) Skin: Dry, Intact Psych/Mental Status: Mental status NL, Mood NL Medications Current Medications Medications Dose Ordered Sig/Audrey Route Start Time Stop Time Status Last Admin Dose Admin Albuterol 2.5 mg Q4HPRN PRN NEB 11/10/24 22:45 11/16/24 01:51 2.5 MG Ipratropium [place] 0.5 mg Q6HPRN PRN NEB 11/11/24 00:00 11/16/24 01:51 0.5 MG Levalbuterol HCl 1.25 mg Q6HPRN PRN NEB 11/11/24 00:00 11/11/24 09:38 1.25 MG Aspirin 81 mg DAILY PO 11/11/24 10:00 11/18/24 09:08 81 MG Atorvastatin Calcium 40 mg HS PO 11/11/24 22:00 11/17/24 21:10 40 MG Citalopram Hydrobromide 20 mg DAILY PO 11/11/24 10:00 11/18/24 09:07 20 MG Lisinopril 20 mg DAILY PO 11/11/24 10:00 11/17/24 10:09 20 MG Metoprolol Succinate 25 mg DAILY PO 11/11/24 10:00 11/17/24 10:08 25 MG Tamsulosin HCl 0.4 mg DAILY@2200 PO 11/11/24 22:00 11/17/24 21:10 0.4 MG Spironolactone 25 mg DAILY PO 11/11/24 10:00 11/18/24 09:07 25 MG Empaglifozin 10 mg DAILY PO 11/13/24 10:00 11/18/24 09:08 10 MG Thiamine HCl 100 mg DAILY IV 11/13/24 14:15 11/18/24 09:07 100 MG Multivitamins 1 tab DAILY PO 11/13/24 14:15 11/18/24 09:07 1 TAB Apixaban 5 mg BID PO 11/13/24 22:00 11/18/24 09:07 5 MG Acetaminophen 650 mg Q6HP PRN PO 11/14/24 21:30 11/16/24 17:32 650 MG Nicotine 1 patch DAILY TD 11/15/24 15:15 11/18/24 09:08 1 PATCH Laboratory Results Laboratory Tests 11/10/24 18:01 11/18/24 07:37 Chemistry Test 11/18/24 07:37 Calcium Level 9.5 mg/dL (8.7-10.4) Urinalysis Test 11/11/24 18:34 Urine Color Yellow (Yellow) Urine Clarity Clear (Clear) Urine pH 6.0 (5.0-9.0) Urine Specific [place] 1.022 (1.001-1.035) Urine Protein 1+ (Negative) H Urine Ketones Negative (Negative) Urine Blood Negative /uL (Negative) Urine Nitrite Negative (Negative) Urine Bilirubin Negative (Negative) Urine Urobilinogen 6 mg/dL (Negative) Urine Leukocyte Esterase Negative /uL (Negative) Urine RBC 8 /hpf (0 - 3) Urine WBC 5 /hpf (0 - 3) Urine Squamous Epithelial Cells Few /hpf (<5) Urine Bacteria None seen /hpf (None Seen) Urine Hyaline Casts Few /lpf (0 - 2) Urine Mucus Few (None Seen) Urine Glucose 2+ mg/dL (Normal) H Microbiology Microbiology Date/Time Source Procedure Growth Status 11/11/24 23:35 Nose MRSA Screen - Final Complete Labs and/or images reviewed: Labs reviewed by me, Image(s) reviewed by me Assessment/Plan Assessment/Plan Impression: -Acute hypoxic respiratory failure secondary to CHF and influenza -acute on chronic decompensated systolic heart failure -influenza A -peripheral arterial disease -anxiety disorder -history of CVA -atrial fibrillation -acute delirium, rule out CVA -acute alcohol withdrawal Plan: Events: Continues to be alert and oriented x4. No deficits noted. Patient states that he does feel extremely anxious. -continue thiamine and MVI. -O2 supplementation to keep saturation greater 92% -continue Jardiance and Lasix -continue Eliquis -psychiatry consultation -repeat labs in a.m. Total time spent with patient discussing and formulating plan of care: 35 minutes. This medical document was created using an electronic medical record system with [employer] dictation system. Although this document has been carefully reviewed, there may still be some phonetic and typographical errors. These areas are purely typographical due to imperfections of the software programs, and do not reflect any compromise in the patient's medical care. Plan discussed with: Patient, Other (RN) My Orders Orders - BELKIS ANTONY NP Procedure Category Date Status Time Pt Request For Service PT 11/18/24 Logged 07:55 Date of Service: Nov 18, 2024 Billing Provider: BELKIS ANTONY NP Common Visit Codes: [id number] INP/OBS CARE(HIGH) BELKIS ANTONY NP Nov 18, 2024 09:54
--- NOTE | 2024-11-18 15:55 | DVH ---
CHEST RADIOGRAPH Indication: chf Technique: Single frontal view of the chest was obtained Comparison: XY CHEST PORTABLE on DOS: 11/17/24, XY CHEST XRAY 1 VIEW on DOS: 11/12/24, XY CHEST PORTABLE on DOS: 11/10/24 FINDINGS: Lines and Tubes: None Lungs: No focal consolidation. Minimal interstitial prominence. Pleura: No effusion. No pneumothorax. Cardiomediastinal contours: Moderate cardiomegaly with mild atherosclerotic calcification and uncoili ng of the aorta. Bones: No acute osseous abnormality. IMPRESSION: Moderate cardiomegaly with possible mild pulmonary vascular congestion.
--- NOTE | 2024-11-18 20:15 | DVHINCON2 ---
Date of Service if different f: Nov 18, 2024 Time of Service: 19:45 Consultation ([facility]) Consulting Physician: VERO COTTO MD Labs Laboratory Tests Test 11/10/24 18:01 11/11/24 09:40 11/11/24 18:34 11/14/24 07:07 White Blood Count 5.0 10^3/uL (4.4-10.8) Red Blood Count 4.89 10^6/uL (4.5-5.90) Hemoglobin 15.1 g/dL (13.5-17.5) Hematocrit 46.2 % (41.0-53.0) Mean Corpuscular Volume 94.5 fL (80.0-100.0) Mean Corpuscular Hemoglobin 30.8 pg (28.0-32.0) Mean Corpuscular Hemoglobin Concent 32.7 g/dL (32.0-36.0) Red Cell Distribution Width 15.2 % (11.8-14.3) Platelet Count 183 10^3/uL (140-450) Mean Platelet Volume 7.9 fL (6.9-10.8) Neutrophils (%) (Auto) 72.9 % (37.0-80.0) Lymphocytes (%) (Auto) 10.9 % (10.0-50.0) Monocytes (%) (Auto) 15.4 % (0.0-12.0) Eosinophils (%) (Auto) 0.2 % (0.0-7.0) Basophils (%) (Auto) 0.6 % (0.0-2.0) Neutrophils # (Auto) 3.6 10 ^3/uL (1.6-8.6) Lymphocytes # (Auto) 0.5 10 ^3/uL (0.4-5.4) Monocytes # (Auto) 0.8 10 ^3/uL (0-1.3) Eosinophils # (Auto) 0 10 ^3/uL (0-0.8) Basophils # (Auto) 0 10 ^3/uL (0-0.2) Nucleated Red Blood Cells 0.2 % Hemoglobin A1c 6.2 % A1C (<5.7) Troponin I High Sensitivity 10 ng/L (</=54) Thyroid Stimulating Hormone (TSH) 2.00 uIU/mL (0.55-4.78) Plasma/Serum Blood Alcohol < 3.0 mg/dL (<10) Influenza Type A Antigen Positive (Negative) Influenza Type B Antigen Negative (Negative) SARS-CoV-2 Antigen (Rapid) Negative (NEGATIVE) Urine Color Yellow (Yellow) Urine Clarity Clear (Clear) Urine pH 6.0 (5.0-9.0) Urine Specific [place] 1.022 (1.001-1.035) Urine Protein 1+ (Negative) Urine Ketones Negative (Negative) Urine Blood Negative /uL (Negative) Urine Nitrite Negative (Negative) Urine Bilirubin Negative (Negative) Urine Urobilinogen 6 mg/dL (Negative) Urine Leukocyte Esterase Negative /uL (Negative) Urine RBC 8 /hpf (0 - 3) Urine WBC 5 /hpf (0 - 3) Urine Squamous Epithelial Cells Few /hpf (<5) Urine Bacteria None seen /hpf (None Seen) Urine Hyaline Casts Few /lpf (0 - 2) Urine Mucus Few (None Seen) Urine Glucose 2+ mg/dL (Normal) Total Bilirubin 0.9 mg/dL (0.2-1.0) Aspartate Amino Transf (AST/SGOT) 17 U/L (13-40) Alanine Aminotransferase (ALT/SGPT) 23 U/L (7-40) Alkaline Phosphatase 101 U/L (46-116) Ammonia < 10 umol/L (11-32) Total Protein 5.7 g/dL (5.7-8.2) Albumin 3.3 g/dL (3.2-4.8) Vitamin B1 Level 206.1 nmol/L (66.5-200.0) Vitamin B12 Level 665 pg/mL (211-911) Test 11/17/24 09:36 11/18/24 07:37 B-Type Natriuretic Peptide 422.33 pg/mL (0-100) Sodium Level 136 mmol/L (136-145) Potassium Level 4.7 mmol/L (3.5-5.1) Chloride Level 98 mmol/L (98-107) Carbon Dioxide Level 32 mmol/L (20-31) Anion Gap 6 (5-15) Blood Urea Nitrogen 13 mg/dL (9-23) Creatinine 0.74 mg/dL (0.700-1.30) Glomerular Filtration Rate Calc 101 mL/min (>90) BUN/Creatinine Ratio 17.6 (10.0-20.0) Serum Glucose 105 mg/dL (74-106) Calcium Level 9.5 mg/dL (8.7-10.4) Microbiology Date/Time Source Procedure Growth Status 11/11/24 23:35 Nose MRSA Screen - Final Complete Appearance: Stated age Psychomotor activity: WNL, Calm Behavioral: Cooperative Eye contact: Appropriate Speech: Slowed, Clear Affect: Appropriate, Mood Congruent Mood: Anxious Thought processes: Linear/Goal-directed Thought content: WNL Suicidal ideations: Absent Homicidal ideations: Absent Orientation: Person, Place, Time, Situation Memory intact: Recent Intellect: Average Abstractability: WNL Concentration: Adequate Attention: Adequate Insight: Good Vitals Vital Signs Date Time Temp Pulse Resp B/P (MAP) Pulse Ox O2 Delivery O2 Flow Rate FiO2 11/18/24 17:00 97.4 94 20 127/83 (98) 98 97.4 11/18/24 10:00 Nasal Cannula 5.0 11/18/24 10:00 40 Current medications Current Medications Medications Dose Ordered Sig/Audrey Route Start Time Stop Time Status Last Admin Dose Admin Albuterol 2.5 mg Q4HPRN PRN NEB 11/10/24 22:45 11/16/24 01:51 2.5 MG Ipratropium [place] 0.5 mg Q6HPRN PRN NEB 11/11/24 00:00 11/16/24 01:51 0.5 MG Levalbuterol HCl 1.25 mg Q6HPRN PRN NEB 11/11/24 00:00 11/11/24 09:38 1.25 MG Aspirin 81 mg DAILY PO 11/11/24 10:00 11/18/24 09:08 81 MG Atorvastatin Calcium 40 mg HS PO 11/11/24 22:00 11/17/24 21:10 40 MG Citalopram Hydrobromide 20 mg DAILY PO 11/11/24 10:00 11/18/24 09:07 20 MG Lisinopril 20 mg DAILY PO 11/11/24 10:00 11/18/24 10:39 20 MG Metoprolol Succinate 25 mg DAILY PO 11/11/24 10:00 11/18/24 10:39 25 MG Tamsulosin HCl 0.4 mg DAILY@2200 PO 11/11/24 22:00 11/17/24 21:10 0.4 MG Spironolactone 25 mg DAILY PO 11/11/24 10:00 11/18/24 09:07 25 MG Empaglifozin 10 mg DAILY PO 11/13/24 10:00 11/18/24 09:08 10 MG Thiamine HCl 100 mg DAILY IV 11/13/24 14:15 11/18/24 09:07 100 MG Multivitamins 1 tab DAILY PO 11/13/24 14:15 11/18/24 09:07 1 TAB Apixaban 5 mg BID PO 11/13/24 22:00 11/18/24 09:07 5 MG Acetaminophen 650 mg Q6HP PRN PO 11/14/24 21:30 11/16/24 17:32 650 MG Nicotine 1 patch DAILY TD 11/15/24 15:15 11/18/24 09:08 1 PATCH Treatment plan discussed: With staff Medication adjusted: Yes Labs ordered: No Psychotherapy provided: No Type: Voluntary History of Present Illness Reason for Consult :psychiatric evaluation for anxiety PER H&P:This is a 64-year-old male with past medical history hypertension, hyperlipidemia, COPD on home oxygen 1-2 L, AFib, CHF, CVA presented to the ED with a chief complaint of shortness of breath and bilateral leg swelling for 2 days prior to this admission. The patient states that shortness of breath started 2 days ago, aggravated with exertion and associated with bilateral leg swelling and occasional chest pain. The patient denies dizziness, diaphoresis, abdominal pain, nausea vomiting, dysuria hematuria, sick contact any change in bowel and bladder movement. PSYCHIATRIST HPI: The patient was seen and evaluated at [facility] ED via telepsychiatry platform. 64yr old male was admitted 11/10 for bilateral leg swelling and shortness of breath. He had a stroke ten years ago which left him with left sided weakness and he also stated that his anxiety was first treated after he had the stroke. He reported he has had anxiety all his life. He said his anxiety is higher at the hospital. He stated he wakes up at night frequently and sometimes has difficulty falling asleep. He noted he worries about his health and that he wants to get back more strength in his left leg. He denied having SI/HI/AVH. Past Psychiatric History : No past hospitalizations or suicide attempts. Diagnosed with anxiety. Had been on Xanax and prozac in the past. Current Psychotropic medications: celexa 20mg qam Past Medical History : cardiac, Stroke in 2013 with left sided paralysis. Substance Use: Reported infrequent alcohol use. MJ-infrequent use. Denied other drug use. He reported past abuse of benadryl Social History : Lives in [place] with two roommates who live in his home. His roommates care for him and cook. for 38 yrs. lives in the [place]. He has 2 children who live locally. 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 DIAGNOSIS: UNSPECIFIED ANXIETY DISORDER Formulation: This 64 yr old male appears to suffer from anxiety and poor sleep. He may benefit from starting a hypnotic such as trazodone 50mg qhs for sleep and increasing his celexa to further help reduce anxiety. Plan: 1. Safety. The patient is a low risk for suicide and may be managed as an outpatient. 2. Legal-voluntary. 3. Medications: Recommend starting Trazodone 50mg qhs for sleep and increase celexa to 30mg qam for anxiety. 4. Case discussed with GUILLERMO Amaya. 5. Please recontact psychiatry for further follow up or reevaluation. Assessment/Diagnosis/Plan Reviewed: Labs, Medications, Previous Orders VERO COTTO MD Nov 18, 2024 20:06
[2024-11-19] VITALS (11 sets, daily range): BP systolic 108–150; BP diastolic 54–85; PULSE 73–98; RESP 16–20; TEMP 97.2–97.8; O2SAT 90–99
--- NOTE | 2024-11-19 09:17 | ECG ---
[facility] Test Date: 2024-11-10 Test Time: 16:11:54 Pat Name: THAIS BRAVO Department: ER Room: 0202 A Gender: M Jury Consultant: SUZAN : 1960 Requested By: DYLAN NEAL Order Number: [id number] Reading MD: Viraj Meier Measurements Intervals Noti Rate: 111 P: 0 SC: 0 QRS: 152 QRSD: 94 T: 102 QT: 403 QTc: 548 Interpretive Statements Right and left arm electrode reversal, interpretation assumes no reversal Atrial fibrillation Left posterior fascicular block Low voltage, precordial leads Consider anterior infarct Borderline repolarization abnormality Prolonged QT interval Electronically Signed On 11-20-2024 9:35:02 PST by Viraj Meier Please click the below link to view image of tracing.
--- NOTE | 2024-11-19 10:17 | DVHPN2 ---
Subjective Patient is alert and oriented x4. Reviewed: Care Plan, H&P, Labs, Medications, Previous Orders, Radiology Changes from previous H/P or p: No Changes General: Per HPI Objective Vitals Vital Signs Date Time Temp Pulse Resp B/P (MAP) Pulse Ox O2 Delivery O2 Flow Rate FiO2 11/19/24 09:46 90 114/82 11/19/24 09:00 97.6 18 90 97.6 11/19/24 07:52 Nasal Cannula* 5 40 Intake/Output Intake and Output 11/19/24 07:00 Intake Total 1950 ml Output Total 775 ml Balance 1175 ml Intake Oral 1950 ml Output Urine Total 775 ml # Voids 4 General Appearance: Alert, Oriented X3, Cooperative, No acute distress HEENT: Atraumatic, PERRLA Lungs: Other (Increase crackles in the left lung with few rhonchi) Cardiovascular: Other (Irregular borderline tachycardia) Abdomen: Normal bowel sounds, Soft, No tenderness Musculoskeletal: Normal sensory function, Normal motor function Extremities: Other (Trace edema of the left lower extremity. No edema right lower extremity) Skin: Dry, Intact Psych/Mental Status: Mental status NL, Mood NL Medications Current Medications Medications Dose Ordered Sig/Audrey Route Start Time Stop Time Status Last Admin Dose Admin Albuterol 2.5 mg Q4HPRN PRN NEB 11/10/24 22:45 11/16/24 01:51 2.5 MG Ipratropium [place] 0.5 mg Q6HPRN PRN NEB 11/11/24 00:00 11/16/24 01:51 0.5 MG Levalbuterol HCl 1.25 mg Q6HPRN PRN NEB 11/11/24 00:00 11/11/24 09:38 1.25 MG Aspirin 81 mg DAILY PO 11/11/24 10:00 11/19/24 09:45 81 MG Atorvastatin Calcium 40 mg HS PO 11/11/24 22:00 11/18/24 22:31 40 MG Citalopram Hydrobromide 20 mg DAILY PO 11/11/24 10:00 11/19/24 09:45 20 MG Lisinopril 20 mg DAILY PO 11/11/24 10:00 11/19/24 09:46 20 MG Metoprolol Succinate 25 mg DAILY PO 11/11/24 10:00 11/19/24 09:46 25 MG Tamsulosin HCl 0.4 mg DAILY@2200 PO 11/11/24 22:00 11/18/24 22:30 0.4 MG Spironolactone 25 mg DAILY PO 11/11/24 10:00 11/19/24 09:45 25 MG Empaglifozin 10 mg DAILY PO 11/13/24 10:00 11/19/24 09:45 10 MG Thiamine HCl 100 mg DAILY IV 11/13/24 14:15 11/19/24 09:43 100 MG Multivitamins 1 tab DAILY PO 11/13/24 14:15 11/19/24 09:45 1 TAB Apixaban 5 mg BID PO 11/13/24 22:00 11/19/24 09:45 5 MG Acetaminophen 650 mg Q6HP PRN PO 11/14/24 21:30 11/16/24 17:32 650 MG Nicotine 1 patch DAILY TD 11/15/24 15:15 11/19/24 09:47 1 PATCH Laboratory Results Laboratory Tests 11/10/24 18:01 11/18/24 07:37 Urinalysis Test 11/11/24 18:34 Urine Color Yellow (Yellow) Urine Clarity Clear (Clear) Urine pH 6.0 (5.0-9.0) Urine Specific [place] 1.022 (1.001-1.035) Urine Protein 1+ (Negative) H Urine Ketones Negative (Negative) Urine Blood Negative /uL (Negative) Urine Nitrite Negative (Negative) Urine Bilirubin Negative (Negative) Urine Urobilinogen 6 mg/dL (Negative) Urine Leukocyte Esterase Negative /uL (Negative) Urine RBC 8 /hpf (0 - 3) Urine WBC 5 /hpf (0 - 3) Urine Squamous Epithelial Cells Few /hpf (<5) Urine Bacteria None seen /hpf (None Seen) Urine Hyaline Casts Few /lpf (0 - 2) Urine Mucus Few (None Seen) Urine Glucose 2+ mg/dL (Normal) H Microbiology Microbiology Date/Time Source Procedure Growth Status 11/11/24 23:35 Nose MRSA Screen - Final Complete Labs and/or images reviewed: Labs reviewed by me, Image(s) reviewed by me Assessment/Plan Assessment/Plan Impression: -Acute hypoxic respiratory failure secondary to CHF and influenza -acute on chronic decompensated systolic heart failure -influenza A -peripheral arterial disease -anxiety disorder -history of CVA -atrial fibrillation -acute delirium, rule out CVA -acute alcohol withdrawal Plan: Events: Psychiatry consultation obtained. Long discussion made with the patient regarding plan of care for right PAD. He continues to complain of pain. Discussed patient's concerns with Dr. Meier. Patient will undergo right lower extremity angiogram this afternoon. Verbal consent was witnessed by myself with Dr. Mayorga in the room. -continue thiamine and MVI. -O2 supplementation to keep saturation greater 92% -continue Jardiance and Lasix -stop Eliquis -psychiatry consultation: Recommendations appreciated -repeat labs in a.m. Total time spent with patient discussing and formulating plan of care: 35 minutes. This medical document was created using an electronic medical record system with [employer] dictation system. Although this document has been carefully reviewed, there may still be some phonetic and typographical errors. These areas are purely typographical due to imperfections of the software programs, and do not reflect any compromise in the patient's medical care. Plan discussed with: Patient, Other (RN) Date of Service: Nov 19, 2024 Billing Provider: BELKIS ANTONY NP Common Visit Codes: [id number] INP/OBS CARE(HIGH) BELKIS ANTONY NP Nov 19, 2024 10:17
[2024-11-19 11:12] LABS: Basophils # (auto) 0 10 ^3/uL (0-0.2); Basophils % (auto) 0.6 % (0.0-2.0); Eosinophils # (auto) 0.1 10 ^3/uL (0-0.8); Eosinophils % (auto) 1.4 % (0.0-7.0); Hemoglobin 14.4 g/dL (13.5-17.5); Lymphocytes # (auto) 0.6 10 ^3/uL (0.4-5.4); Lymphocytes % (auto) 8.8 % (10.0-50.0); Mean Corpuscular Hgb Conc. 33.4 g/dL (32.0-36.0); Mean Corpuscular Volume 92.8 fL (80.0-100.0); Monocytes % (auto) 14.9 % (0.0-12.0); Neutrophils # (auto) 4.9 10 ^3/uL (1.6-8.6); Neutrophils % (auto) 74.3 % (37.0-80.0); Nucleated Red Blood Cells % 0.1 %; Platelet Count (auto) 217 10^3/uL (140-450); Red Blood Cells 4.64 10^6/uL (4.5-5.90); White Blood Cell 6.6 10^3/uL (4.4-10.8)
[2024-11-19] MEDS: traZODone HCL 50 MG TAB PO SCH (21:49)
[2024-11-20] VITALS (9 sets, daily range): BP systolic 97–132; BP diastolic 68–79; PULSE 72–95; RESP 17–19; TEMP 97.3–97.8; O2SAT 89–100
[2024-11-20 08:07] LABS: Anion Gap 3 (5-15); Chloride 100 mmol/L (98-107); Potassium 4.8 mmol/L (3.5-5.1)
[2024-11-20 08:09] LABS: Calcium 9.4 mg/dL (8.7-10.4)
[2024-11-20 08:12] LABS: Carbon Dioxide 32 mmol/L (20-31); Sodium 135 mmol/L (136-145)
[2024-11-20 08:13] LABS: Glucose 91 mg/dL (74-106)
[2024-11-20 08:14] LABS: BUN/Creatinine Ratio 13.7 (10.0-20.0); Blood Urea Nitrogen 10 mg/dL (9-23)
[2024-11-20 09:06] LABS: Vitamin D-2 25-Hydroxy 5.3 ng/mL (.); Vitamin D-3 25-Hydroxy 7.9 ng/mL (.)
[2024-11-20] MEDS: CITALOPRAM HYDROBR 20 MG TAB PO SCH (11:08)
--- NOTE | 2024-11-20 11:59 | DVHPN2 ---
Subjective Patient is alert and oriented x4. Reviewed: Care Plan, H&P, Labs, Medications, Previous Orders, Radiology Changes from previous H/P or p: No Changes General: Per HPI Objective Vitals Vital Signs Date Time Temp Pulse Resp B/P (MAP) Pulse Ox O2 Delivery O2 Flow Rate FiO2 11/20/24 11:08 92 116/79 11/20/24 09:00 97.5 17 99 97.5 11/20/24 07:45 Nasal Cannula* 2 28 Intake/Output Intake and Output 11/20/24 07:00 Intake Total 580 ml Output Total 900 ml Balance -320 ml Intake Oral 580 ml Output Urine Total 900 ml # Voids 4 # Bowel Movements 1 General Appearance: Alert, Oriented X3, Cooperative, No acute distress HEENT: Atraumatic, PERRLA Lungs: Other (Increase crackles in the left lung with few rhonchi) Cardiovascular: Normal S1, Normal S2, Other (Irregular borderline tachycardia) Abdomen: Normal bowel sounds, Soft, No tenderness Musculoskeletal: Normal sensory function, Normal motor function Extremities: Other (Trace edema of the left lower extremity. No edema right lower extremity) Skin: Dry, Intact Psych/Mental Status: Mental status NL, Mood NL Medications Current Medications Medications Dose Ordered Sig/Audrey Route Start Time Stop Time Status Last Admin Dose Admin Aspirin 81 mg DAILY PO 11/11/24 10:00 11/20/24 11:07 81 MG Atorvastatin Calcium 40 mg HS PO 11/11/24 22:00 11/19/24 21:49 40 MG Lisinopril 20 mg DAILY PO 11/11/24 10:00 11/20/24 11:07 20 MG Metoprolol Succinate 25 mg DAILY PO 11/11/24 10:00 11/20/24 11:08 25 MG Tamsulosin HCl 0.4 mg DAILY@2200 PO 11/11/24 22:00 11/19/24 21:49 0.4 MG Spironolactone 25 mg DAILY PO 11/11/24 10:00 11/20/24 11:07 25 MG Empaglifozin 10 mg DAILY PO 11/13/24 10:00 11/20/24 11:07 10 MG Thiamine HCl 100 mg DAILY IV 11/13/24 14:15 11/20/24 11:06 100 MG Multivitamins 1 tab DAILY PO 11/13/24 14:15 11/20/24 11:06 1 TAB Acetaminophen 650 mg Q6HP PRN PO 11/14/24 21:30 11/16/24 17:32 650 MG Nicotine 1 patch DAILY TD 11/15/24 15:15 11/20/24 11:19 1 PATCH Citalopram Hydrobromide 30 mg DAILY PO 11/20/24 10:00 11/20/24 11:08 30 MG Trazodone HCl 50 mg HS PO 11/19/24 22:00 11/19/24 21:49 50 MG Laboratory Results Laboratory Tests 11/19/24 10:44 11/20/24 07:02 Chemistry Test 11/20/24 07:02 Calcium Level 9.4 mg/dL (8.7-10.4) Urinalysis Test 11/11/24 18:34 Urine Color Yellow (Yellow) Urine Clarity Clear (Clear) Urine pH 6.0 (5.0-9.0) Urine Specific [place] 1.022 (1.001-1.035) Urine Protein 1+ (Negative) H Urine Ketones Negative (Negative) Urine Blood Negative /uL (Negative) Urine Nitrite Negative (Negative) Urine Bilirubin Negative (Negative) Urine Urobilinogen 6 mg/dL (Negative) Urine Leukocyte Esterase Negative /uL (Negative) Urine RBC 8 /hpf (0 - 3) Urine WBC 5 /hpf (0 - 3) Urine Squamous Epithelial Cells Few /hpf (<5) Urine Bacteria None seen /hpf (None Seen) Urine Hyaline Casts Few /lpf (0 - 2) Urine Mucus Few (None Seen) Urine Glucose 2+ mg/dL (Normal) H Microbiology Microbiology Date/Time Source Procedure Growth Status 11/11/24 23:35 Nose MRSA Screen - Final Complete Labs and/or images reviewed: Labs reviewed by me Assessment/Plan Assessment/Plan Impression: -Acute hypoxic respiratory failure secondary to CHF and influenza -acute on chronic decompensated systolic heart failure -influenza A -peripheral arterial disease -anxiety disorder -history of CVA -atrial fibrillation -acute delirium, rule out CVA -acute alcohol withdrawal Plan: Events: Neurologically more alert and oriented. Agitation has resolved. Plans for peripheral arterial angiogram tomorrow. 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 Eliquis has been held. NPO after midnight. -continue thiamine and MVI. -O2 supplementation to keep saturation greater 92% -continue Jardiance and Lasix -psychiatry consultation: Recommendations reviewed. Celexa increased as well as initiation of trazodone -repeat labs in a.m. Total time spent with patient discussing and formulating plan of care: 35 minutes. This medical document was created using an electronic medical record system with [employer] dictation system. Although this document has been carefully reviewed, there may still be some phonetic and typographical errors. These areas are purely typographical due to imperfections of the software programs, and do not reflect any compromise in the patient's medical care. Plan discussed with: Patient, Other (RN) Date of Service: Nov 20, 2024 Billing Provider: BELKIS ANTONY NP Common Visit Codes: [id number] INP/OBS CARE(HIGH) BELKIS ANTONY NP Nov 20, 2024 11:59
[2024-11-20] MEDS: CARBAMIDE PEROXIDE 6.5% OTIC(EAR) SOLN 15ML EACH EAR SCH (22:00)
[2024-11-21] VITALS (12 sets, daily range): BP systolic 115–162; BP diastolic 82–102; PULSE 49–108; RESP 16–20; TEMP 97.6–98.9; O2SAT 92–96
[2024-11-21 07:43] LABS: Anion Gap 5 (5-15); Carbon Dioxide 30 mmol/L (20-31); Chloride 100 mmol/L (98-107); Potassium 4.5 mmol/L (3.5-5.1)
[2024-11-21 07:44] LABS: Calcium 9.3 mg/dL (8.7-10.4)
[2024-11-21 07:49] LABS: BUN/Creatinine Ratio 16.4 (10.0-20.0); Blood Urea Nitrogen 11 mg/dL (9-23); Glucose 89 mg/dL (74-106); Sodium 135 mmol/L (136-145)
[2024-11-21] MEDS: HEPARIN IN NS 1000Units/500mL 1,500 ML ONE ×2 (07:56→13:00)
[2024-11-21] MEDS: IODIXANOL 320MG/ML 100ML BTL IV ONE (07:57)
[2024-11-21 08:03] LABS: Basophils # (auto) 0 10 ^3/uL (0-0.2); Basophils % (auto) 0.5 % (0.0-2.0); Eosinophils # (auto) 0.1 10 ^3/uL (0-0.8); Hematocrit 42.2 % (41.0-53.0); Lymphocytes # (auto) 0.6 10 ^3/uL (0.4-5.4); Mean Corpuscular Hemoglobin 30.6 pg (28.0-32.0); Mean Corpuscular Hgb Conc. 33.1 g/dL (32.0-36.0); Mean Corpuscular Volume 92.3 fL (80.0-100.0); Monocytes # (auto) 1.1 10 ^3/uL (0-1.3); Monocytes % (auto) 14.1 % (0.0-12.0); Neutrophils # (auto) 6.2 10 ^3/uL (1.6-8.6); Neutrophils % (auto) 76.4 % (37.0-80.0); Platelet Count (auto) 227 10^3/uL (140-450); Red Blood Cells 4.57 10^6/uL (4.5-5.90); Red Cell Distribution Width 15.2 % (11.8-14.3); White Blood Cell 8.1 10^3/uL (4.4-10.8)
[2024-11-21] MEDS: fentaNYL CITRATE 100 MCG/2 ML VL ONE (13:30)
[2024-11-21] MEDS: ANGIOMAX 250 MG VIAL IV ONE (13:30)
[2024-11-21] MEDS: LIDOCAINE 2%HCL (LOCAL ANESTH.) INJ 20ML MDV ONE (13:30)
[2024-11-21] MEDS: MIDAZOLAM HCL 2MG/2ML 2ml VIAL (1mg/ml) ONE (13:30)
[2024-11-21] MEDS: SODIUM CHL 0.9% 50 ML ONE (13:31)
[2024-11-21] MEDS: CLOPIDOGREL BISULFATE 75 MG TAB ONE (14:42)
--- NOTE | 2024-11-21 15:18 | DVHPN2 ---
Subjective Patient is alert and oriented x4. Reviewed: Care Plan, H&P, Labs, Medications, Previous Orders, Radiology Changes from previous H/P or p: No Changes General: Per HPI Objective Vitals Vital Signs Date Time Temp Pulse Resp B/P (MAP) Pulse Ox O2 Delivery O2 Flow Rate FiO2 11/21/24 13:00 98.0 74 16 125/82 (96) 92 98.0 11/21/24 10:00 Nasal Cannula 2.0 11/21/24 10:00 28 Intake/Output Intake and Output 11/21/24 07:00 Intake Total 300 ml Output Total 950 ml Balance -650 ml Intake Oral 300 ml Output Urine Total 950 ml General Appearance: Alert, Oriented X3, Cooperative, No acute distress HEENT: Atraumatic, PERRLA Lungs: Other (Increase crackles in the left lung with few rhonchi) Cardiovascular: Normal S1, Normal S2, Other (Irregular borderline tachycardia) Abdomen: Normal bowel sounds, Soft, No tenderness Musculoskeletal: Normal sensory function, Normal motor function Extremities: Other (Trace edema of the left lower extremity. No edema right lower extremity) Skin: Dry, Intact Psych/Mental Status: Mental status NL, Mood NL Medications Current Medications Medications Dose Ordered Sig/Audrey Route Start Time Stop Time Status Last Admin Dose Admin Aspirin 81 mg DAILY PO 11/11/24 10:00 11/21/24 09:58 81 MG Atorvastatin Calcium 40 mg HS PO 11/11/24 22:00 11/21/24 00:14 40 MG Lisinopril 20 mg DAILY PO 11/11/24 10:00 11/21/24 09:58 20 MG Metoprolol Succinate 25 mg DAILY PO 11/11/24 10:00 11/21/24 09:59 25 MG Tamsulosin HCl 0.4 mg DAILY@2200 PO 11/11/24 22:00 11/21/24 00:14 0.4 MG Spironolactone 25 mg DAILY PO 11/11/24 10:00 11/21/24 09:59 25 MG Empaglifozin 10 mg DAILY PO 11/13/24 10:00 11/21/24 09:58 10 MG Thiamine HCl 100 mg DAILY IV 11/13/24 14:15 11/21/24 09:58 100 MG Multivitamins 1 tab DAILY PO 11/13/24 14:15 11/21/24 09:58 1 TAB Acetaminophen 650 mg Q6HP PRN PO 11/14/24 21:30 11/16/24 17:32 650 MG Nicotine 1 patch DAILY TD 11/15/24 15:15 11/21/24 09:57 1 PATCH Citalopram Hydrobromide 30 mg DAILY PO 11/20/24 10:00 11/21/24 09:57 30 MG Trazodone HCl 50 mg HS PO 11/19/24 22:00 11/21/24 00:14 50 MG Carbamide Peroxide 5 drop Q12HR EACH EAR 11/20/24 22:00 Laboratory Results Laboratory Tests 11/21/24 05:50 Chemistry Test 11/21/24 05:50 Calcium Level 9.3 mg/dL (8.7-10.4) Urinalysis Test 11/11/24 18:34 Urine Color Yellow (Yellow) Urine Clarity Clear (Clear) Urine pH 6.0 (5.0-9.0) Urine Specific [place] 1.022 (1.001-1.035) Urine Protein 1+ (Negative) H Urine Ketones Negative (Negative) Urine Blood Negative /uL (Negative) Urine Nitrite Negative (Negative) Urine Bilirubin Negative (Negative) Urine Urobilinogen 6 mg/dL (Negative) Urine Leukocyte Esterase Negative /uL (Negative) Urine RBC 8 /hpf (0 - 3) Urine WBC 5 /hpf (0 - 3) Urine Squamous Epithelial Cells Few /hpf (<5) Urine Bacteria None seen /hpf (None Seen) Urine Hyaline Casts Few /lpf (0 - 2) Urine Mucus Few (None Seen) Urine Glucose 2+ mg/dL (Normal) H Microbiology Microbiology Date/Time Source Procedure Growth Status 11/11/24 23:35 Nose MRSA Screen - Final Complete Labs and/or images reviewed: Labs reviewed by me, Image(s) reviewed by me Assessment/Plan Assessment/Plan Impression: -Acute hypoxic respiratory failure secondary to CHF and influenza -acute on chronic decompensated systolic heart failure -influenza A -peripheral arterial disease -anxiety disorder -history of CVA -atrial fibrillation -acute delirium, rule out CVA -acute alcohol withdrawal Plan: Events: 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 Patient had stent placed to common femoral artery. Patient's right leg benign. -restart Eliquis -continue thiamine and MVI. -O2 supplementation to keep saturation greater 92% -continue Jardiance and Lasix -psychiatry consultation: Recommendations reviewed. Celexa increased as well as initiation of trazodone -repeat labs in a.m. -reassess for discharge in a.m. Total time spent with patient discussing and formulating plan of care: 35 minutes. This medical document was created using an electronic medical record system with [employer] dictation system. Although this document has been carefully reviewed, there may still be some phonetic and typographical errors. These areas are purely typographical due to imperfections of the software programs, and do not reflect any compromise in the patient's medical care. Plan discussed with: Patient, Other (RN) Date of Service: Nov 21, 2024 Billing Provider: BELKIS ANTONY NP Common Visit Codes: [id number] INP/OBS CARE(HIGH) BELKIS ANTONY NP Nov 21, 2024 15:18
--- NOTE | 2024-11-21 16:11 | DVHOP2 ---
Operative Report - 2 Report Details Date: 11/21/24 Preop Diagnosis: PVD Postop Diagnosis: DVD Surgeon: Scooby Meier MD Anesthesiologist: conscious sedation Anesthesia: Local Consent: The patient was informed of the risks and benefits of the procedure. These include but are not limited to complications of anesthesia, postoperative infection, incomplete relief of symptoms, recurrence of symptoms, damage to blood vessels, nerves and tendons, deep venous thrombosis, pulmonary embolism and possible need for repeat surgery in the future. Complications: none Estimated Blood Loss: 5 cc Findings: RT. Femoral artery occlusion. Indications for Surgery: Claudication Name of Procedure Performed Peripheral angiographic evaluation, CHIEF PROGRAM OFFICER and stenting of Right femoral artery Procedure Details Procedure Details: Prior full informed consent obtained, Patient was prepped and draped in the usual fashion and conscious sedation given. A 6 Fr sheath placed in the Lt femoral artery and a runnoff perfored of Lt lower extremity. We then placed a Rim catheter to the right Iliac and femoral arteries contralaterally. A runoff was then performed of Rt. lower extremity. CHIEF PROGRAM OFFICER done as delineated below. Anatomy: Lt Iliac and left femoral, SFA, Profunda, Popliteal, TB trunk, Anterior and Posterior tibial arteries patent to the ankle. Right Iliac is normal. Right Femoral artery is occluded at the acetabulum. SFA is normal as is the popliteal, TB trunk and 3 vessel runoff to right ankle A Destination catheter 7 fr. placed over the horn. An 0.35 Terumo, Alexx-cross catheter used to cross the ENDBAND SIZER, in the femoral artery followed by a 6X40 mm balloon used to predilate. We then placed a 8 mm X 37 mm Balloon expandible stent into the Femoral artery with excellent antegrade flow . No complications 'Will continue with antiplatelet therapy Condition Guarded Disposition Still a Patient Date of Service: Nov 21, 2024 Billing Provider: SCOOBY MEIER Sr., MD Cardiology Common Codes: [id number] INP/OBS CARE (High) Peripheral Procedures Codes: [id number] W/TRANS ANGPLASTY, [id number] PLACMNT W/ANGIOPLASTY, [id number] RAD SUP/INTERP SCOOBY MEIER Sr., MD Nov 21, 2024 16:11
[2024-11-21] MEDS: APIXABAN 5 MG TAB PO SCH (22:57)
[2024-11-22] VITALS (7 sets, daily range): BP systolic 118–154; BP diastolic 76–91; PULSE 83–109; RESP 16–23; TEMP 97.5–98.1; O2SAT 93–98
[2024-11-22 07:44] LABS: Hematocrit 41.7 % (41.0-53.0)
[2024-11-22] MEDS: CLOPIDOGREL BISULFATE 75 MG TAB PO SCH (11:01)
[2024-11-22] MEDS ORDERED: CLOP75TA28 PO (16:00)
[2024-11-22] MEDS ORDERED: TRAZ-227 PO (16:00)
[2024-11-22] MEDS ORDERED: CITA10TA8 PO (16:00)
--- NOTE | 2024-11-22 17:00 | DVHDS2 ---
Discharge Summary Date of Admission Nov 10, 2024 at 21:42 Date of Discharge: Nov 22, 2024 Admitting Diagnosis Acute on chronic hypoxic respiratory failure Labs/Diagnostic Data: Laboratory Results Test 11/22/24 06:52 11/21/24 05:50 11/17/24 09:36 11/14/24 10:55 Hemoglobin 14.0 g/dL (13.5-17.5) Hematocrit 41.7 % (41.0-53.0) White Blood Count 8.1 10^3/uL (4.4-10.8) Red Blood Count 4.57 10^6/uL (4.5-5.90) Mean Corpuscular Volume 92.3 fL (80.0-100.0) Mean Corpuscular Hemoglobin 30.6 pg (28.0-32.0) Mean Corpuscular Hemoglobin Concent 33.1 g/dL (32.0-36.0) Red Cell Distribution Width 15.2 % (11.8-14.3) Platelet Count 227 10^3/uL (140-450) Mean Platelet Volume 8.0 fL (6.9-10.8) Neutrophils (%) (Auto) 76.4 % (37.0-80.0) Lymphocytes (%) (Auto) 8.0 % (10.0-50.0) Monocytes (%) (Auto) 14.1 % (0.0-12.0) Eosinophils (%) (Auto) 1.0 % (0.0-7.0) Basophils (%) (Auto) 0.5 % (0.0-2.0) Neutrophils # (Auto) 6.2 10 ^3/uL (1.6-8.6) Lymphocytes # (Auto) 0.6 10 ^3/uL (0.4-5.4) Monocytes # (Auto) 1.1 10 ^3/uL (0-1.3) Eosinophils # (Auto) 0.1 10 ^3/uL (0-0.8) Basophils # (Auto) 0 10 ^3/uL (0-0.2) Nucleated Red Blood Cells 0.0 % Sodium Level 135 mmol/L (136-145) Potassium Level 4.5 mmol/L (3.5-5.1) Chloride Level 100 mmol/L (98-107) Carbon Dioxide Level 30 mmol/L (20-31) Anion Gap 5 (5-15) Blood Urea Nitrogen 11 mg/dL (9-23) Creatinine 0.67 mg/dL (0.700-1.30) Glomerular Filtration Rate Calc 104 mL/min (>90) BUN/Creatinine Ratio 16.4 (10.0-20.0) Serum Glucose 89 mg/dL (74-106) Calcium Level 9.3 mg/dL (8.7-10.4) B-Type Natriuretic Peptide 422.33 pg/mL (0-100) POC Glucose 141 mg/dl (70-106) Test 11/14/24 07:07 11/11/24 18:34 11/11/24 09:40 11/10/24 18:01 Total Bilirubin 0.9 mg/dL (0.2-1.0) Aspartate Amino Transferase (AST) 17 U/L (13-40) Alanine Aminotransferase (ALT) 23 U/L (7-40) Alkaline Phosphatase 101 U/L (46-116) Ammonia < 10 umol/L (11-32) Total Protein 5.7 g/dL (5.7-8.2) Albumin 3.3 g/dL (3.2-4.8) Vitamin B1 Level 206.1 nmol/L (66.5-200.0) Vitamin B12 Level 665 pg/mL (211-911) Vitamin D 25-Hydroxy 13 ng/mL (.) 25-Hydroxy Vitamin D2 5.3 ng/mL (.) 25-Hydroxy Vitamin D3 7.9 ng/mL (.) Urine Color Yellow (Yellow) Urine Clarity Clear (Clear) Urine pH 6.0 (5.0-9.0) Urine Specific [place] 1.022 (1.001-1.035) Urine Protein 1+ (Negative) Urine Ketones Negative (Negative) Urine Blood Negative /uL (Negative) Urine Nitrite Negative (Negative) Urine Bilirubin Negative (Negative) Urine Urobilinogen 6 mg/dL (Negative) Urine Leukocyte Esterase Negative /uL (Negative) Urine RBC 8 /hpf (0 - 3) Urine WBC 5 /hpf (0 - 3) Urine Squamous Epithelial Cells Few /hpf (<5) Urine Bacteria None seen /hpf (None Seen) Urine Hyaline Casts Few /lpf (0 - 2) Urine Mucus Few (None Seen) Urine Glucose 2+ mg/dL (Normal) Influenza Type A Antigen Positive (Negative) Influenza Type B Antigen Negative (Negative) SARS-CoV-2 Antigen (Rapid) Negative (NEGATIVE) Hemoglobin A1c 6.2 % A1C (<5.7) Troponin I High Sensitivity 10 ng/L (</=54) Thyroid Stimulating Hormone (TSH) 2.00 uIU/mL (0.55-4.78) Plasma/Serum Blood Alcohol < 3.0 mg/dL (<10) Other Laboratory Tests 11/22/24 06:52 11/21/24 05:50 Brief Hx & Hospital Course: History of Present Illness This is a 64-year-old male with past medical history hypertension, hyperlipidemia, COPD on home oxygen 1-2 L, AFib, CHF, CVA presented to the ED with a chief complaint of shortness of breath and bilateral leg swelling for 2 days prior to this admission. The patient states that shortness of breath started 2 days ago, aggravated with exertion and associated with bilateral leg swelling and occasional chest pain. The patient denies dizziness, diaphoresis, abdominal pain, nausea vomiting, dysuria hematuria, sick contact any change in bowel and bladder movement. Course of hospitalization: Patient was found to have positive influenza A. Patient was treated with full course of Tamiflu. While in the hospital the patient went into acute alcohol withdrawals. Patient was treated with thiamine, folic acid, Librium. Patient's DTs improved, with the patient continued to have anxiety, that may be baseline. Patient had psychiatry consultation who increased his Celexa to 30 mg p.o. daily as well as initiating trazodone 50 mg q.h.s.. Patient's mentation improved. He became more open to clinical treatment as he stated he will not leave the hospital until his occluded artery to his right lower extremity has been addressed, despite the fact that he refused angiogram several days after being admitted in the hospital. Re-consultation was placed with Dr. Meier, who took the patient to the catheterization lab and placed a stent to his right femoral artery. Patient was restarted on Eliquis as well as being placed on Plavix. The patient has been ambulating. He states that both lower extremities have improvement with pain and neuropathy. Patient was agreeable to be discharged home and continue current plan of care including antianxiety medications as previously described, antidepressants, as well as anticoagulation with Eliquis and Plavix. He will continue all medications for goal-directed medical therapy for CHF. Patient has oxygen at home. All questions answered. Physical examination General: Alert and Oriented x3. No acute distress. Well-nourished. Eyes: EOMI. Anicteric. HENT: Moist mucous membranes. Lungs: Clear to auscultation bilaterally. No accessory muscle use. Cardiovascular: Regular rate and rhythm. No murmur. No JVD. Abdomen: Soft, non-tender and non-distended. No palpable masses. Extremities: No edema. Non-tender. Skin: No rashes or lesions. Warm. Neurologic: No focal neurological deficits. CN II-XII grossly intact, but not individually tested. Psychiatric: Cooperative. Appropriate mood and affect. Total time spent with patient discussing and formulating plan of care: 35 minutes. This medical document was created using an electronic medical record system with [employer] dictation system. Although this document has been carefully reviewed, there may still be some phonetic and typographical errors. These areas are purely typographical due to imperfections of the software programs, and do not reflect any compromise in the patient's medical care. Consults/Reason for consult Psychiatry: Agitation, anxiety Cardiology: 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 disease Operations or Procedures 11/21/2024: Peripheral angiogram with stent placement to right femoral artery Condition at Discharge: Guarded Final Diagnosis/Problems List PAD with occluded RCFA Acute on Chronic hypoxic respiratory failure Secondary Diagnosis: -Acute hypoxic respiratory failure secondary to CHF and influenza -acute on chronic decompensated systolic heart failure -influenza A -peripheral arterial disease -anxiety disorder -history of CVA -atrial fibrillation -acute delirium, rule out CVA -acute alcohol withdrawal Discharge Disposition: Home Discharge Instruct/Medications Diet: Cardiac 2g Na,low cholest Activity: No Restrictions, As Tolerated Follow Up/Referral: Dr. Meier in 2-3 weeks [place] [facility] in 1-2 weeks Medications: Continue eliquis 5mg po bid Plavix 75mg po daily Celexa 30mg po daily Trazadone 50mg po QHS 36 Discharge Statement: "Patient was advised to return to the ER or call 911 if any headaches, dizziness, shortness of breath, chest pain, abdominal pain, bleeding, fevers, or worsening of medical condition. Patient was counseled about treatment plan, medications, possible side effects, patientverbalized understanding. All questions were answered to the best of my ability. This discharge took greater then 30 minutes in planning, reviewing documentation, counseling the patient, and discussing with other team members." ASSESSMENT ASSESSMENT Assessment PAD with occluded RCFA Acute on Chronic hypoxic respiratory failure Date of Service: Nov 22, 2024 Billing Provider: BELKIS ANTONY NP Common Visit Codes: [id number]-GMQ/OBS DISCH DAY >30min BELKIS ANTONY NP Nov 22, 2024 17:00
== END 2024-11-22 18:50 | disposition home or self-care (01) | DRG 252 ==
LOC: ER 15:18 → OVERFLOW 21:42 → EAST 11-11 18:24 → CENTRAL 11-17 17:46 → WEST WING 11-20 21:19 → TELE-CENTR 11-20 21:22 → WEST WING 11-20 21:23
PROVIDERS: ADMIT Nurse Practitioner Acute Care; ATTEND Nurse Practitioner Acute Care
PROC: 047K3DZ Dilation of Right Femoral Artery with Intraluminal Device, Percutaneous Approach (ICD-10-PCS; principal; 2024-11-21)
PROC: B41G1ZZ Fluoroscopy of Left Lower Extremity Arteries using Low Osmolar Contrast (ICD-10-PCS; 2024-11-21)
PROC: B41F1ZZ Fluoroscopy of Right Lower Extremity Arteries using Low Osmolar Contrast (ICD-10-PCS; 2024-11-21)
DX: I70.291 Other atherosclerosis of native arteries of extremities, right leg (principal); I50.23 Acute on chronic systolic (congestive) heart failure; J96.21 Acute and chronic respiratory failure with hypoxia; F10.939 Alcohol use, unspecified with withdrawal, unspecified; I69.354 Hemiplegia and hemiparesis following cerebral infarction affecting left non-dominant side; J44.0 Chronic obstructive pulmonary disease with (acute) lower respiratory infection; J10.1 Influenza due to other identified influenza virus with other respiratory manifestations; I11.0 Hypertensive heart disease with heart failure; J20.9 Acute bronchitis, unspecified; F17.210 Nicotine dependence, cigarettes, uncomplicated; I48.0 Paroxysmal atrial fibrillation; F41.9 Anxiety disorder, unspecified; E78.5 Hyperlipidemia, unspecified; G62.9 Polyneuropathy, unspecified; Z79.899 Other long term (current) drug therapy; Z83.3 Family history of diabetes mellitus; Z99.81 Dependence on supplemental oxygen; Y90.0 Blood alcohol level of less than 20 mg/100 ml
CPT/HCPCS: 36415; 37226; 70450; 71045; 75716; 80048; 80053; 80320; 81001; 82140; 82306; 82607; 82962; 83036; 83880; 84425; 84443; 84484; 85014; 85018; 85025; 87081; 87426; 87804; 93005; 93970; 94640; 97110; 97116; 97163; 97530; 99152; 99291; C1769; G0378; J2250; Q9967

== ENCOUNTER 2024-11-24 15:37 | Inpatient (IN) | payer MEDICAID, MEDICARE ==
[~2024-11-24] VITALS: Ht 175.3 cm; Wt 69.5 kg
[~2024-11-24 15:37] MED LIST changes: -ASPI81CH74 PO; -ATOR40TA52 PO; -CITA-77 PO; +CITA10TA8 PO; +CLOP75TA28 PO; -DOX100T PO; -DUTA1CAP29 PO; -LISI-283 PO; -PRED20TA2 PO; -SIMV20TA20 PO; +TRAZ-227 PO
--- NOTE | 2024-11-24 18:34 | ED.PDOC ---
Altered Mental Status HPI Comments 64Y M with PMHx COPD, CHF, HTN, HLD, and CVA presents to ED via EMS for chief complaint ALOC. Per EMS, pt's son states the pt has become more confused and has dark, foul-smelling urine. Pt is alert but confused per EMS. No other symptoms reported. Chief Complaint: ALOC Time Seen by MD: 18:24 Primary Care Provider: NONE Reviewed Notes: Nurses Notes, Real Estate Analyst Notes, Medications, Allergies Allergies: Coded Allergies: NO KNOWN ALLERGIES (Unverified , 09/26/24) Home Meds Active Scripts Trazodone Hcl (Trazodone Hcl) 50 Mg Tab, 50 MG PO HS for 30 Days, #30 TAB 1 Refill Prov:BELKIS ANTONY SCREEN MAKING SUPERVISOR 11/22/24 Citalopram Hydrobromide (Celexa) 10 Mg Tab, 3 TAB PO DAILY for 60 Days, #180 TAB 2 Refills Prov:BELKIS ANTONY SCREEN MAKING SUPERVISOR 11/22/24 Clopidogrel Bisulfate (Plavix) 75 Mg Tab, 1 TAB PO DAILY for 30 Days, #30 TAB 1 Refill Prov:BELKIS ANTONY SCREEN MAKING SUPERVISOR 11/22/24 Apixaban Base (ELIQUIS) 5 Mg Tab, 5 MG PO BID for 30 Days, #60 TAB Prov[facility]/24 Furosemide (Furosemide) 20 Mg Tab, 1 TAB PO DAILY, #30 TAB 5 Refills Prov[facility] 11/01/24 Spironolactone (Aldactone) 25 Mg Tab, 25 MG PO DAILY for 30 Days, #30 TAB Prov[facility] 11/01/24 Metoprolol Succinate (Toprol Xl) 50 Mg Tab, 25 MG PO DAILY for 30 Days, #15 TAB Prov[facility] 11/01/24 Lisinopril (Lisinopril) 20 Mg Tab, 20 MG PO DAILY for 30 Days, #30 TAB Prov[facility] 11/01/24 Empagliflozin (Jardiance) 10 Mg Tab, 10 MG PO DAILY for 30 Days, #30 TAB Prov[facility] 11/01/24 Reported Medications Atorvastatin Calcium (Lipitor) 40 Mg Tab, 1 TAB PO DAILY for 30 Days, #30 11/11/24 Umeclidinium-Vilanterol (Anoro Ellipta 62.5-25 Mcg/INH) 1 Aer Aer, 1 PUFF IN DAILY for 30 Days, #60 10/28/24 Amlodipine Besylate (Amlodipine Besylate) 10 Mg Tab, 1 TAB PO DAILY for 90 Days, #90 10/28/24 Multiple Vitamins W/ Minerals (Centrum Silver) Silver Chw, 1 OR, TAB.CHEW 10/28/24 Nicotine Polacrilex (Nicotine Mini Lozenge) 4 Mg Laurie, 4 MG MT, LAURIE 10/28/24 Ergocalciferol (VITAMIN D 20568 UNIT) 50,000 [place], [address] UNIT PO Weekly, CAP 10/28/24 Tamsulosin Hcl (Tamsulosin Hcl) 0.4 Mg Cap, 1 CAP PO DAILY 10/28/24 Discontinued Reported Medications Aspirin (Aspirin 81 Low Dose) 81 Mg Chw, 81 MG PO 2XW, TAB.CHEW 10/28/24 Citalopram Hydrobromide (Citalopram Hydrobromide) 20 Mg Tab, 1 TAB PO DAILY 10/28/24 Dutasteride (Dutasteride) 0.5 Mg Cap, 1 CAP PO DAILY for 90 Days, #90 10/28/24 Simvastatin (Simvastatin) 20 Mg Tab, 1 TAB PO DAILY for 90 Days, #90 10/28/24 Discontinued Scripts Prednisone (Prednisone) 20 Mg Tab, 40 MG PO DAILY for 3 Days, #6 TAB Prov:YAZMIN FONSECA RESIDENT 11/01/24 Doxycycline Monohydrate (Doxycycline Monohydrate) 100 Mg Tab, 100 MG PO Q12HR for 3 Days, #6 TAB Prov:YAZMIN FONSECA RESIDENT 11/01/24 Information Source: Patient, Emergency Med Personnel Mode of Arrival: EMS Brought in by: EMS Severity: Moderate Timing: Hours Duration: Since onset Prehospital treatment: Accucheck Quality: Confusion Recent: Urinary Symptoms History of: CVA Associated Signs and Symptoms: None Past Medical History PAST MEDICAL HISTORY: CHF (30% ejection fraction), COPD, CVA, High Lipids, HTN Past Medical History (Other): AFib Surgical History (Other): Right lower extremity vascular stent Family History Family History: Family hx of DM Social History Smoker: Cigarettes Alcohol: Occasionally Drugs: Marijuana Lives In: Home Unable to Obtain due to: Altered Mental Status Physical Exam General Appearance: No Apparent Distress HEENT: Other (Dry mucous membranes. Pupils symmetric. No facial asymmetry.) Neck: Full Range of Motion, Normal Inspection Respiratory: Lungs Clear, No Accessory Muscle Use, No Respiratory Distress, Normal Breath Sounds Cardiovascular: No Edema, No JVD, Regular Rate/Rhythm Breast Exam: Deferred Gastrointestinal: Non Tender, Soft Genitalia: Deferred Pelvic: Deferred Rectal: Deferred Extremities: Normal inspection, Normal range of motion, Non-tender, No pedal edema Musculoskeletal : Apperance: Normal Neurologic: Alert (Oriented x3), Normal Affect, Normal Mood, Other (Moves all extremities. No gross focal deficit.) Cerebellar Function: Normal Reflexes: Normal Skin: Dry, Normal Color, Warm Lymphatic: No Adenopathy EKG EKG : Comments AFib, rate 121, normal QRS interval, QTC 480, right axis deviation, nonspecific T changes. Was a procedure done? Was a procedure done?: No Differential Diagnosis (ALOC) Differential Diagnosis: Dehydration, Hypoglycemia, Encephalopathy, Sepsis, CVA, Mass Lesion, SAH, Drug Overdose, ETOH Intoxication, Other (UTI) Other Differential Diagnosis TIA, among others X-Ray, Labs, Meds, VS Vital Signs Date Time Temp Pulse Resp B/P (MAP) Pulse Ox O2 Delivery O2 Flow Rate FiO2 11/24/24 16:18 98.1 122 14 120/79 (93) 92 11/24/24 15:48 121 Lab Test 11/24/24 19:58 11/24/24 18:46 Range/Units Magnesium Level 1.8 1.6-2.6 mg/dL Troponin I High Sensitivity 8 8 </=54 ng/L White Blood Count 7.7 4.4-10.8 10^3/uL Red Blood Count 4.73 4.5-5.90 10^6/uL Hemoglobin 14.6 13.5-17.5 g/dL Hematocrit 43.4 41.0-53.0 % Mean Corpuscular Volume 91.7 80.0-100.0 fL Mean Corpuscular Hemoglobin 30.9 28.0-32.0 pg Mean Corpuscular Hemoglobin Concent 33.7 32.0-36.0 g/dL Red Cell Distribution Width 15.3 H 11.8-14.3 % Platelet Count 251 140-450 10^3/uL Mean Platelet Volume 7.6 6.9-10.8 fL Neutrophils (%) (Auto) 69.6 37.0-80.0 % Lymphocytes (%) (Auto) 12.1 10.0-50.0 % Monocytes (%) (Auto) 15.3 H 0.0-12.0 % Eosinophils (%) (Auto) 2.3 0.0-7.0 % Basophils (%) (Auto) 0.7 0.0-2.0 % Neutrophils # (Auto) 5.4 1.6-8.6 10 ^3/uL Lymphocytes # (Auto) 0.9 0.4-5.4 10 ^3/uL Monocytes # (Auto) 1.2 0-1.3 10 ^3/uL Eosinophils # (Auto) 0.2 0-0.8 10 ^3/uL Basophils # (Auto) 0.1 0-0.2 10 ^3/uL Nucleated Red Blood Cells 0.1 % Sodium Level 138 136-145 mmol/L Potassium Level 4.6 3.5-5.1 mmol/L Chloride Level 103 98-107 mmol/L Carbon Dioxide Level 29 20-31 mmol/L Anion Gap 6 5-15 Blood Urea Nitrogen 17 9-23 mg/dL Creatinine 0.66 L 0.700-1.30 mg/dL Glomerular Filtration Rate Calc 104 >90 mL/min BUN/Creatinine Ratio 25.8 H 10.0-20.0 Serum Glucose 115 H 74-106 mg/dL Lactic Acid Level 0.8 0.4-2.0 mmol/L Calcium Level 8.9 8.7-10.4 mg/dL Total Bilirubin 0.6 0.2-1.0 mg/dL Aspartate Amino Transferase (AST) 21 13-40 U/L Alanine Aminotransferase (ALT) 19 7-40 U/L Alkaline Phosphatase 139 H 46-116 U/L Ammonia 13 11-32 umol/L B-Type Natriuretic Peptide 307.24 0-100 pg/mL Total Protein 6.2 5.7-8.2 g/dL Albumin 3.5 3.2-4.8 g/dL Plasma/Serum Blood Alcohol 5.7 <10 mg/dL PROCEDURE(s): HWOCT - HEAD WITHOUT CONTRAST REASON: al ORDER NUMBER(s): [id number], ACCESSION NUMBER(s): [id number] EXAM: CT HEAD WITHOUT CONTRAST INDICATION: aloc TECHNIQUE: CT of the head without intravenous contrast. Radiation Dose : 1. Head: CT Dose: CTDI volume is 53.99 mGy. Dose-length product is 2051.75 mGy*cm The dose indicators for CT are the volume Computed Tomography (CT) Dose Index (CTDIvol) and the Dose Length Product (DLP), and are measured in units of mGy and mGy-cm, respectively. These indicators are not patient dose, but values generated from the CT scanner acquisition factors. The report includes radiation exposure data for exposures received during this examination. COMPARISON: CT HEAD WITHOUT CONTRAST on DOS: 11/12/24, CT CHEST WITHOUT CONTRAST on DOS: 10/29/24 FINDINGS: There is no evidence of acute intracranial hemorrhage, extra-axial collection, mass effect, midline shift, herniation or hydrocephalus. The ventricles, sulci and cisterns are age appropriate. The diaz-white differentiation is intact. Patchy periventricular and subcortical white matter hypoattenuation is nonspecific but may be related to small vessel ischemic disease. Moderate mucosal opacification of the right maxillary sinus. The surrounding soft tissues and osseous structures are unremarkable. IMPRESSION: Limited examination secondary to extensive patient motion artifact. The posterior fossa and bilateral temporal lobes are suboptimally visualized. Otherwise, no acute intracranial abnormality. Radiation optimization: All CT scans at this facility use at least one of these dose optimization techniques: automated exposure control mA and/or kV adjustment per patient size (includes targeted exams where dose is matched to clinical indication) or iterative reconstruction. EDURE(s): CXRP - CHEST PORTABLE REASON: aloc ORDER NUMBER(s): [id number], ACCESSION NUMBER(s): [id number] CHEST RADIOGRAPH Indication: aloc Technique: Single frontal view of the chest was obtained COMPARISON: XY CHEST XRAY 1 VIEW on DOS: 11/18/24, XY CHEST PORTABLE on DOS: 11/17/24, XY CHEST XRAY 1 VIEW on DOS: 11/12/24, XY CHEST PORTABLE on DOS: 11/10/24, XY CHEST PORTABLE on DOS: 10/27/24 FINDINGS: Lines and Tubes: None Lungs: Mild congestion Pleura: No effusion. No pneumothorax. Cardiomediastinal contours: Cardiomegaly Bones: Unremarkable IMPRESSION: Mild congestion X-Ray, Labs, Meds, VS Comment 64-year-old male with a history of CHF, COPD, hypertension, hyperlipidemia and CVA presenting with altered mental status Vitals remarkable for heart rate 122, oxygen saturation 92% on room air Rhythm strip independently interpreted by me: AFib with RVR, rate 121, no PVCs. CT head IMPRESSION: Limited examination secondary to extensive patient motion artifact. The posterior fossa and bilateral temporal lobes are suboptimally visualized. Otherwise, no acute intracranial abnormality. Chest x-ray IMPRESSION: Mild congestion CBC unremarkable, metabolic panel unremarkable, 2 serial troponins negative, lactate normal, BNP 307.24, UA pending Patient treated with the following in the ED: Metoprolol 5 mg IV and Lasix 20 mg IV were ordered for the patient, however there was no available monitored bed, so as of 2218, the medication had not been administered. Plan is to admit the patient for rate control, Cardiology and Neurology evalu ation. Time of 1ST Reevaluation: 18:54 Reevaluation 1ST: Unchanged Patient Education/Counseling: Diagnosis, Treatment Family Education/Counseling: No Family Present Departure 1 Departure Time of Disposition: 22:19 Impression: Primary Impression: Metabolic encephalopathy Additional Impressions: Rapid atrial fibrillation CHF exacerbation Qualified Codes: I50.9 - Heart failure, unspecified Disposition: 09 ADMITTED INPATIENT Admit to: [facility] Condition: Guarded Critical Care Note Critical Care Time?: Yes (45 min-critical care time only) Critical care comment: Critical care time including multiple bedside re-evaluations, review of lab and imaging studies, and discussion of the case with the admitting provider. Patient is high risk for hemodynamic and/or neurologic decompensation. Stability Stability form required: No Heart Score Heart Score: Heart Score Response (Comments) Value History N/A 0 EKG N/A 0 Age N/A 0 Risk Factors N/A 0 Troponin N/A 0 Total 0 I personally scribed for LAKESHA NAPOLES MD ([email or web address]) on 11/24/24 at 18:34. Electronically submitted by Cheyanne Chauhan ([email or web address]). LAKESHA NAPOLES MD Nov 24, 2024 18:34
[2024-11-24 19:00] LABS: Basophils # (auto) 0.1 10 ^3/uL (0-0.2); Basophils % (auto) 0.7 % (0.0-2.0); Eosinophils # (auto) 0.2 10 ^3/uL (0-0.8); Eosinophils % (auto) 2.3 % (0.0-7.0); Hematocrit 43.4 % (41.0-53.0); Hemoglobin 14.6 g/dL (13.5-17.5); Lymphocytes # (auto) 0.9 10 ^3/uL (0.4-5.4); Lymphocytes % (auto) 12.1 % (10.0-50.0); Mean Corpuscular Hemoglobin 30.9 pg (28.0-32.0); Mean Corpuscular Hgb Conc. 33.7 g/dL (32.0-36.0); Mean Corpuscular Volume 91.7 fL (80.0-100.0); Monocytes # (auto) 1.2 10 ^3/uL (0-1.3); Monocytes % (auto) 15.3 % (0.0-12.0); Neutrophils # (auto) 5.4 10 ^3/uL (1.6-8.6); Neutrophils % (auto) 69.6 % (37.0-80.0); Nucleated Red Blood Cells % 0.1 %; Platelet Count (auto) 251 10^3/uL (140-450); Red Blood Cells 4.73 10^6/uL (4.5-5.90); Red Cell Distribution Width 15.3 % (11.8-14.3); White Blood Cell 7.7 10^3/uL (4.4-10.8)
[2024-11-24 19:17] LABS: Alanine Aminotransferase 19 U/L (7-40); Albumin 3.5 g/dL (3.2-4.8); Anion Gap 6 (5-15); Aspartate Aminotransferase 21 U/L (13-40); BUN/Creatinine Ratio 25.8 (10.0-20.0); Blood Alcohol 5.7 mg/dL (<10); Blood Urea Nitrogen 17 mg/dL (9-23); Calcium 8.9 mg/dL (8.7-10.4); Carbon Dioxide 29 mmol/L (20-31); Chloride 103 mmol/L (98-107); Potassium 4.6 mmol/L (3.5-5.1); Sodium 138 mmol/L (136-145)
[2024-11-24 19:18] LABS: Bilirubin, Total 0.6 mg/dL (0.2-1.0); Total Protein 6.2 g/dL (5.7-8.2)
[2024-11-24 19:58] LABS: Alkaline Phosphatase 139 U/L (46-116); Glucose 115 mg/dL (74-106)
--- NOTE | 2024-11-24 20:32 | DVH ---
CHEST RADIOGRAPH Indication: aloc Technique: Single frontal view of the chest was obtained COMPARISON: XY CHEST XRAY 1 VIEW on DOS: 11/18/24, XY CHEST PORTABLE on DOS: 11/17/24, XY CHEST XRAY 1 EW on DOS: 11/12/24, XY CHEST PORTABLE on DOS: 11/10/24, XY CHEST PORTABLE on DOS: 10/27/24 FINDINGS: Lines and Tubes: None Lungs: Mild congestion Pleura: No effusion. No pneumothorax. Cardiomediastinal contours: Cardiomegaly Bones: Unremarkable IMPRESSION: Mild congestion
--- NOTE | 2024-11-24 20:37 | DVH ---
EXAM: CT HEAD WITHOUT CONTRAST INDICATION: aloc TECHNIQUE: CT of the head without intravenous contrast. Radiation Dose : 1. Head: CT Dose: CTDI volume is 53.99 mGy. Dose-length product is 2051.75 mGy*cm The dose indicators for CT are the volume Computed Tomography (CT) Dose Index (CTDIvol) and the Dose Length Product (DLP), and are measured in units of mGy and mGy-cm, respectively. These indicators are not patient dose, but values generated from the CT scanner acquisition factors. The report includes radiation exposure data for exposures received during this examination. COMPARISON: CT HEAD WITHOUT CONTRAST on DOS: 11/12/24, CT CHEST WITHOUT CONTRAST on DOS: 10/29/24 FINDINGS: There is no evidence of acute intracranial hemorrhage, extra-axial collection, mass effect, midline s hift, herniation or hydrocephalus. The ventricles, sulci and cisterns are age appropriate. The diaz-white differentiation is intact. Patchy periventricular and subcortical white matter hypoattenuation is nonspecific but may be related to small vessel ischemic disease. Moderate mucosal opacification of the right maxillary sinus. The surrounding soft tissues and osseous structures are unremarkable. IMPRESSION: Limited examination secondary to extensive patient motion artifact. The posterior fossa and bilateral temporal lobes are suboptimally visualized. Otherwise, no acute intracranial abnormality. Radiation optimization: All CT scans at this facility use at least one of these dose optimization remigio hniques: automated exposure control mA and/or kV adjustment per patient size (includes targeted exam s where dose is matched to clinical indication) or iterative reconstruction.
[2024-11-24] MEDS ORDERED: dilTIAZem 25 MG/5 ML VIAL IV ONE (22:15)
[2024-11-24] MEDS: FUROSEMIDE 20 MG/2 ML VIAL IV ONE (22:30)
[2024-11-24] MEDS: FUROSEMIDE 20 MG/2 ML VIAL ONE (23:56)
[2024-11-24 23:59] LABS: Cannabinoid Screen, Urine Pos (NEGATIVE)
[2024-11-25] VITALS (7 sets, daily range): BP systolic 150; BP diastolic 87; PULSE 79–127; RESP 15–24; TEMP 98.8; O2SAT 92–97
[2024-11-25 00:01] LABS: Amphetamine Screen, Urine Neg (NEGATIVE); Barbiturate Scree,Urine Neg (NEGATIVE); Benzodiazephine Screen, Urine Pos (NEGATIVE); Cocaine Screen, Urine Neg (NEGATIVE); Opiate Scree,Urine Neg (NEGATIVE); Phencyclidine Screen, Urine Neg (NEGATIVE)
[2024-11-25] MEDS: METOPROLOL TARTRATE 1MG/1ML-5ML VIAL IV ONE (00:05)
--- NOTE | 2024-11-25 00:23 | DVHHPRES ---
History of Present Illness Resident Creating Document: BRANDON HERNANDEZ RESIDENT History of Present Illness Patient is a 64-year-old male with past medical history of COPD, CHF, hypertension, dyslipidemia, CVA, atrial fibrillation, peripheral arterial disease who was brought in due to increasing confusion and a foul-smelling urine. Patient is a poor historian with episodes of confusion and agitation, however, patient is alert and oriented to place, person but not to time. Patient is unaware why he is in the hospital, per patient he was brought in by his son who thinks patient is mentally impaired. Past Medical History COPD, systolic congestive heart failure, hypertension, dyslipidemia, CVA, atrial fibrillation, peripheral arterial disease, cataracts, anxiety, history of alcohol withdrawal Past Surgical History Right leg angioplasty, PCI Past Social History Smoking, patient states he quit 3 weeks ago, prior to that was smoking 10 cigarettes per day for 50 years Alcohol: patient notes he quit in October Drugs: Uses marijuana once in a while Review of Systems Constitutional: Yes: Malaise; No: Fever, Chills, Sweats, Weakness, Other Eyes: No: Pain, Vision change, Conjunctivae inflammation, Eyelid inflammation, Other, Redness ENT: Nose discharge, Nose congestion, Throat pain; No: Ear pain, Ear discharge, Nose pain, Mouth pain, Mouth swelling, Throat swelling, Other Respiratory: Cough, Shortness of breath, SOB with excertion, Wheezing; No: Dry, Hemoptysis, Pleuritic Pain, Sputum, Wheezing, Other Cardiovascular: Palpitations, Paroxysmal Noc. Dyspnea; No: Chest Pain, Orthopnea, Edema, Lt Headedness, Other Gastrointestinal: No: Nausea, Vomiting, Abdominal Pain, Diarrhea, Constipation, Melena, Hematochezia, Other Genitourinary: Dysuria, Frequency; No Incontinence, No Hematuria, No Retention, No Other Musculoskeletal: No: other, neck pain, shoulder pain, arm pain, back pain, hand pain, leg pain, foot pain Skin: No: Rash, Lesions, Jaundice, Bruising, Other Neurological: Confusion; No: Weakness, Numbness, Incoordination, Change in speech, Seizures, Other Allergies: Coded Allergies: NO KNOWN ALLERGIES (Unverified , 09/26/24) Exam Vital Signs Vital Signs Date Time Temp Pulse Resp B/P (MAP) Pulse Ox O2 Delivery O2 Flow Rate FiO2 11/25/24 00:15 150/87 11/25/24 00:15 127 11/24/24 23:03 98.8 24 92 98.8 General Appearance: Alert, Oriented X3 (Uncooperative), No acute distress HEENT: Atraumatic, PERRLA, EOMI Respiratory: Other (Bilateral wheezing heard) Cardiovascular: Other (Tachycardia, irregular rhythm) Abdominal: Normal bowel sounds, Soft, No tenderness Extremities: No edema, Normal pulses, Other (Dry scales noted on left anterior leg) Labs/Xrays Labs Test 11/24/24 23:30 11/24/24 19:58 11/24/24 18:46 Range/Units Urine Opiates Screen Neg NEGATIVE Urine Fentanyl Screen Neg NEGATIVE Urine Barbiturates Screen Neg NEGATIVE Urine Phencyclidine Screen Neg NEGATIVE Urine Amphetamines Screen Neg NEGATIVE Urine Benzodiazepines Screen Pos NEGATIVE Urine Cocaine Screen Neg NEGATIVE Urine Cannabinoids Screen Pos NEGATIVE Magnesium Level 1.8 1.6-2.6 mg/dL Troponin I High Sensitivity 8 </=54 ng/L White Blood Count 7.7 4.4-10.8 10^3/uL Red Blood Count 4.73 4.5-5.90 10^6/uL Hemoglobin 14.6 13.5-17.5 g/dL Hematocrit 43.4 41.0-53.0 % Mean Corpuscular Volume 91.7 80.0-100.0 fL Mean Corpuscular Hemoglobin 30.9 28.0-32.0 pg Mean Corpuscular Hemoglobin Concent 33.7 32.0-36.0 g/dL Red Cell Distribution Width 15.3 H 11.8-14.3 % Platelet Count 251 140-450 10^3/uL Mean Platelet Volume 7.6 6.9-10.8 fL Neutrophils (%) (Auto) 69.6 37.0-80.0 % Lymphocytes (%) (Auto) 12.1 10.0-50.0 % Monocytes (%) (Auto) 15.3 H 0.0-12.0 % Eosinophils (%) (Auto) 2.3 0.0-7.0 % Basophils (%) (Auto) 0.7 0.0-2.0 % Neutrophils # (Auto) 5.4 1.6-8.6 10 ^3/uL Lymphocytes # (Auto) 0.9 0.4-5.4 10 ^3/uL Monocytes # (Auto) 1.2 0-1.3 10 ^3/uL Eosinophils # (Auto) 0.2 0-0.8 10 ^3/uL Basophils # (Auto) 0.1 0-0.2 10 ^3/uL Nucleated Red Blood Cells 0.1 % Sodium Level 138 136-145 mmol/L Potassium Level 4.6 3.5-5.1 mmol/L Chloride Level 103 98-107 mmol/L Carbon Dioxide Level 29 20-31 mmol/L Anion Gap 6 5-15 Blood Urea Nitrogen 17 9-23 mg/dL Creatinine 0.66 L 0.700-1.30 mg/dL Glomerular Filtration Rate Calc 104 >90 mL/min BUN/Creatinine Ratio 25.8 H 10.0-20.0 Serum Glucose 115 H 74-106 mg/dL Lactic Acid Level 0.8 0.4-2.0 mmol/L Calcium Level 8.9 8.7-10.4 mg/dL Total Bilirubin 0.6 0.2-1.0 mg/dL Aspartate Amino Transferase (AST) 21 13-40 U/L Alanine Aminotransferase (ALT) 19 7-40 U/L Alkaline Phosphatase 139 H 46-116 U/L Ammonia 13 11-32 umol/L B-Type Natriuretic Peptide 307.24 0-100 pg/mL Total Protein 6.2 5.7-8.2 g/dL Albumin 3.5 3.2-4.8 g/dL Plasma/Serum Blood Alcohol 5.7 <10 mg/dL Assessment/Plan Assessment/Plan Fluctuating level of consciousness likely due to acute metabolic encephalopathy COPD exacerbation - ipratropium albuterol med nebs - IV azithromycin Acute on chronic systolic congestive heart failure - ECHO: echo reveals Severely reduced left ventricular systolic function estimated ejection fraction of 30%. There is global wall hypokinesia. Could not assess diastolic function due to atrial fibrillation. Severely dilated right ventricle. Severely reduced right ventricular systolic function. Moderately dilated right and left atria. There is mild mitral regurgitation. - patient recently underwent cardiac catheterization which showed: Mild nonobstructive coronary artery disease. Patient presentation likely due to possible microvascular disease, or myocarditis as a cause of cardiomyopathy. Other possible etiology include alcohol intoxication. Patient would need aggressive medical therapy including goal-directed therapy for reduced ejection fraction, selective beta blockade given history of COPD in addition to possible need of ICD. - CXR: Mild congestion Chronic AFib with RVR; persistent versus paroxysmal? Chads Vasc 6; has bled 4 - resumed home medication Eliquis 5 mg b.i.d. - magnesium greater than 2, potassium greater than 4 Chronic peripheral arterial disease, s/p right leg angioplasty History of CVA - currently on Plavix - atorvastatin 40 mg Hypertension Dyslipidemia - amlodipine 10 mg - lisinopril 20 mg - Plavix 75 mg Tobacco use disorder, per patient he quit in October 2024 Alcohol use disorder, per patient he quit in October 2024 Marijuana use disorder, per patient uses marijuana once in a while - counseled for cessation >15 mins Goals of care: Full code, discussed for >16 minutes on 11/25/2024 Plan discussed with patient Plan discussed with Dr. Nick Plan discussed with: Patient, Other (RN) My Orders Orders - BRANDON HERNANDEZ Procedure Category Date Status Time Admit ADMIT 11/24/24 Transmitted 23:51 Notify Of Changes TAPAN 11/24/24 In Process From [facility] 23:51 Date of Service: Nov 24, 2024 Billing Provider: BERT NICK MD Common Visit Codes: 19081-[id number] INP/OBS CARE (HIGH) Secondary Visit Codes: 21662-[id number] CARE PLAN 30 MINUTES BRANDON HERNANDEZ Nov 25, 2024 00:23 BERT NICK MD Nov 25, 2024 09:42
[2024-11-25 00:29] LABS: Urine Bacteria FEW /hpf (None Seen); Urine Blood Negative /uL (Negative); Urine Clarity Clear (Clear); Urine Color Yellow (Yellow); Urine Mucus FEW (None Seen); Urine Protein, UAD TRACE (Negative); Urine Specific Gravity 1.029 (1.001-1.035); Urine Squamous Epithelial Cell FEW /hpf (<5); Urine Urobilinogen 2 mg/dL (Negative); Urine WBC 2 /hpf (0 - 3); Urine pH 5.5 (5.0-9.0)
[2024-11-25] MEDS: AZITHROMYCIN 500MG/ 250ML 250 ML IV ONE (00:41)
[2024-11-25 01:20] LABS: Erythrocyte Sedimentation Rate 20 mm/hr (0-20)
[2024-11-25] MEDS ORDERED: ALBUTEROL SULF 2.5 MG/0.5ML(0.5%) NEB SOLN NEB PRN (02:30)
[2024-11-25] MEDS ORDERED: IPRATROPIUM BROM 0.5 MG/2.5ML INH SOL NEB PRN (02:30)
[2024-11-25] MEDS: LISINOPRIL 20 MG TAB PO ONE (03:37)
[2024-11-25] MEDS: traZODone HCL 50 MG TAB PO ONE (03:38)
[2024-11-25] MEDS: CLOPIDOGREL BISULFATE 75 MG TAB PO ONE (03:38)
[2024-11-25] MEDS: amLODIPine BESYLATE 5 MG TAB PO ONE (03:39)
[2024-11-25 04:59] LABS: COVID19 ANTIGEN SOFIA FIA NEGATIVE (NEGATIVE); Rapid Influenza A Negative (Negative); Rapid Influenza B Negative (Negative)
[2024-11-25] MEDS: FUROSEMIDE 20 MG/2 ML VIAL IV SCH (07:45)
[2024-11-25] MEDS: APIXABAN 5 MG TAB PO SCH (10:20)
[2024-11-25] MEDS: cefTRIAXone 1GM/50ML D5W 50 ML IV SCH (10:21)
--- NOTE | 2024-11-25 14:12 | DVHPN2 ---
Subjective Patient continues to have altered mental status Reviewed: Care Plan, H&P, Labs, Medications, Previous Orders Changes from previous H/P or p: No Changes General: Per HPI Eyes: No Pain, No Vision change, No Conjunctivae inflammation, No Eyelid inflammation, No Other, No Redness ENT: No Ear pain, No Ear discharge, No Nose pain; Nose discharge, Nose congestion; No Mouth pain, No Mouth swelling; Throat pain; No Throat swelling, No Other Cardiovascular: No Chest Pain; Palpitations; No Orthopnea; Paroxysmal Noc. Dyspnea; No Edema, No Lt Headedness, No Other Respiratory: Cough; No Dry; Shortness of breath, SOB with excertion, Wheezing; No Hemoptysis, No Pleuritic Pain, No Sputum, No Other Gastrointestinal: No Nausea, No Vomiting, No Abdominal Pain, No Diarrhea, No Constipation, No Melena, No Hematochezia, No Other Genitourinary: Dysuria, Frequency; No Incontinence, No Hematuria, No Retention, No Other Musculoskeletal: No other, No neck pain, No shoulder pain, No arm pain, No back pain, No hand pain, No leg pain, No foot pain Skin: No Rash, No Lesions, No Jaundice, No Bruising, No Other Objective Vitals Vital Signs Date Time Temp Pulse Resp B/P (MAP) Pulse Ox O2 Delivery O2 Flow Rate FiO2 11/25/24 08:30 79 17 94 Room Air* 0 21 11/25/24 08:00 97.9 118/87 (97) 97.9 General Appearance: Alert, Other (Oriented x1) HEENT: Atraumatic, PERRLA Lungs: Clear to auscultation, Normal air movement Cardiovascular: Normal S1, Normal S2 Abdomen: Normal bowel sounds, Soft, No tenderness, No hepatospenomegaly, No masses Musculoskeletal: Normal sensory function, Normal motor function Extremities: Normal pulses Skin: Dry, Intact, Warm Psych/Mental Status: Other (Altered mental status) Medications Current Medications Medications Dose Ordered Sig/Audrye Route Start Time Stop Time Status Last Admin Dose Admin Azithromycin 250 ml @ 125 mls/hr DAILY IV 11/26/24 10:00 Amlodipine Besylate 10 mg DAILY PO 11/26/24 10:00 Lisinopril 20 mg DAILY PO 11/26/24 10:00 Clopidogrel Bisulfate 75 mg DAILY PO 11/26/24 10:00 Atorvastatin Calcium 40 mg HS PO 11/25/24 22:00 Trazodone HCl 50 mg HS PO 11/25/24 22:00 Apixaban 5 mg BID PO 11/25/24 10:00 11/25/24 10:20 5 MG Ipratropium [place] 0.5 mg Q4HPRN PRN NEB 11/25/24 02:30 Albuterol 2.5 mg Q4HPRN PRN NEB 11/25/24 02:30 Ceftriaxone Sodium 50 ml @ 100 mls/hr DAILY@09 IV 11/25/24 09:00 11/25/24 10:21 100 MLS/HR Furosemide 20 mg BIDD IV 11/25/24 07:45 11/25/24 07:45 20 MG Laboratory Results Laboratory Tests 11/24/24 18:46 Chemistry Test 11/24/24 18:46 11/24/24 19:58 Albumin 3.5 g/dL (3.2-4.8) Calcium Level 8.9 mg/dL (8.7-10.4) Total Protein 6.2 g/dL (5.7-8.2) Magnesium Level 1.8 mg/dL (1.6-2.6) Cardiac Markers Test 11/24/24 18:46 B-Type Natriuretic Peptide 307.24 pg/mL (0-100) LFT Test 11/24/24 18:46 Alanine Aminotransferase (ALT) 19 U/L (7-40) Alkaline Phosphatase 139 U/L (46-116) H Aspartate Amino Transferase (AST) 21 U/L (13-40) Total Bilirubin 0.6 mg/dL (0.2-1.0) Urinalysis Test 11/24/24 23:30 Urine Color Yellow (Yellow) Urine Clarity Clear (Clear) Urine pH 5.5 (5.0-9.0) Urine Specific [place] 1.029 (1.001-1.035) Urine Protein Trace (Negative) H Urine Ketones Negative (Negative) Urine Blood Negative /uL (Negative) Urine Nitrite Negative (Negative) Urine Bilirubin Negative (Negative) Urine Urobilinogen 2 mg/dL (Negative) H Urine Leukocyte Esterase Negative /uL (Negative) Urine RBC 1 /hpf (0 - 3) Urine WBC 2 /hpf (0 - 3) Urine Squamous Epithelial Cells Few /hpf (<5) Urine Bacteria Few /hpf (None Seen) H Urine Mucus Few (None Seen) Urine Glucose 3+ mg/dL (Normal) H Labs and/or images reviewed: Labs reviewed by me, Image(s) reviewed by me Assessment/Plan Assessment/Plan Impression: -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 Patient recently discharged on Sunday, A&O x4, now with altered mental status in addition to being found with benzos and cannabis in his toxicology in a patient with antidepressants -repeat labs in a.m. Total time spent with patient discussing and formulating plan of care: 35 minutes. This medical document was created using an electronic medical record system with Boutir dictation system. Although this document has been carefully reviewed, there may still be some phonetic and typographical errors. These areas are purely typographical due to imperfections of the software programs, and do not reflect any compromise in the patient's medical care. Plan discussed with: Patient, Other (RN) Date of Service: Nov 25, 2024 Billing Provider: BELKIS ANTONY NP Common Visit Codes: [id number] INP/OBS CARE(HIGH) BELKIS ANTONY NP Nov 25, 2024 14:12
--- NOTE | 2024-11-25 14:57 | DVHINCON2 ---
Date Seen: Nov 25, 2024 Referring Physician MD Jarred resident Reason for Consultation Afib History of Present Illness This is a 64-year-old male patient who presents to emergency room with chief complaint of ALOC. At the time of assessment, the patient remains in the emergency room on a gurney but is alert and oriented x4. When asked why he came to the emergency room, the patient is unsure. Per documentation, the patient was confused and had foul-smelling urine prompting the patient's son to call EMS and bring the patient to the emergency room. Cardiology has now been consulted for atrial fibrillation. Initial twelve lead electrocardiogram reveals atrial fibrillation with nonspecific ST segment changes to inferolateral and anterior leads. The patient denies any cardiac symptoms at this time including chest pain, shortness of breath or palpitations. Initial troponin level of 8ng/L. Significant past medical history includes congestive heart failure, atrial fibrillation, hypertension, hyperlipidemia, CVA in 2013, tobacco use, polysubstance abuse, and anxiety. Of note, the patient has been seen at this facility multiple times. The patient underwent a coronary angiogram on October 30, 2024 in which he was found to have mild nonobstructive coronary artery disease without any catheter based intervention at that time. The patient also underwent a peripheral angiogram on 11/21/24 in which a stent was placed into the femoral artery. The patient denies following up with a athletic gear custodian in the outpatient setting. Past Medical History Past medical history reviewed. No other significant than mentioned above. Past Surgical History Right lower extremity angioplasty 11/21/24 Coronary angiogram left heart catheterization 10/30/24 Family History: Diabetes mellitus G8 MOTHER G8 BROTHER G8 BROTHER FH: heart disease G8 BROTHER G8 SISTER Prostate problems G8 FATHER Family History Family history reviewed. Social History Patient has a 50 pack-year history, states he quit smoking within the last two months Patient admits to marijuana use, denies any other illicit drugs Patient states he quit drinking but used to have issues with alcohol abuse Allergies: Coded Allergies: NO KNOWN ALLERGIES (Unverified , 09/26/24) Home Meds Active Scripts Trazodone Hcl (Trazodone Hcl) 50 Mg Tab, 50 MG PO HS for 30 Days, #30 TAB 1 Refill Prov:BELKIS ANTONY NURSING SUPPORT WORKER 11/22/24 Citalopram Hydrobromide (Celexa) 10 Mg Tab, 3 TAB PO DAILY for 60 Days, #180 TAB 2 Refills Prov:BELKIS ANTONY NURSING SUPPORT WORKER 11/22/24 Clopidogrel Bisulfate (Plavix) 75 Mg Tab, 1 TAB PO DAILY for 30 Days, #30 TAB 1 Refill Prov:EUSEBIA ANTONYPH NURSING SUPPORT WORKER 11/22/24 Apixaban Base (ELIQUIS) 5 Mg Tab, 5 MG PO BID for 30 Days, #60 TAB Prov:[facility] 11/01/24 Furosemide (Furosemide) 20 Mg Tab, 1 TAB PO DAILY, #30 TAB 5 Refills Prov:[facility] 11/01/24 Spironolactone (Aldactone) 25 Mg Tab, 25 MG PO DAILY for 30 Days, #30 TAB Prov:[facility] 11/01/24 Metoprolol Succinate (Toprol Xl) 50 Mg Tab, 25 MG PO DAILY for 30 Days, #15 TAB Prov:[facility] 11/01/24 Lisinopril (Lisinopril) 20 Mg Tab, 20 MG PO DAILY for 30 Days, #30 TAB Prov:[facility] 11/01/24 Empagliflozin (Jardiance) 10 Mg Tab, 10 MG PO DAILY for 30 Days, #30 TAB Prov:[facility] 11/01/24 Reported Medications Atorvastatin Calcium (Lipitor) 40 Mg Tab, 1 TAB PO DAILY for 30 Days, #30 11/11/24 Umeclidinium-Vilanterol (Anoro Ellipta 62.5-25 Mcg/INH) 1 Aer Aer, 1 PUFF IN DAILY for 30 Days, #60 10/28/24 Amlodipine Besylate (Amlodipine Besylate) 10 Mg Tab, 1 TAB PO DAILY for 90 Days, #90 10/28/24 Multiple Vitamins W/ Minerals (Centrum Silver) Silver Chw, 1 OR, TAB.CHEW 10/28/24 Nicotine Polacrilex (Nicotine Mini Lozenge) 4 Mg Christi, 4 MG MT, CHRISTI 10/28/24 Ergocalciferol (VITAMIN D 74792 UNIT) 50,000 [place], [address] UNIT PO Weekly, CAP 10/28/24 Tamsulosin Hcl (Tamsulosin Hcl) 0.4 Mg Cap, 1 CAP PO DAILY 10/28/24 Discontinued Reported Medications Aspirin (Aspirin 81 Low Dose) 81 Mg Chw, 81 MG PO 2XW, TAB.CHEW 10/28/24 Citalopram Hydrobromide (Citalopram Hydrobromide) 20 Mg Tab, 1 TAB PO DAILY 10/28/24 Dutasteride (Dutasteride) 0.5 Mg Cap, 1 CAP PO DAILY for 90 Days, #90 10/28/24 Simvastatin (Simvastatin) 20 Mg Tab, 1 TAB PO DAILY for 90 Days, #90 10/28/24 Discontinued Scripts Prednisone (Prednisone) 20 Mg Tab, 40 MG PO DAILY for 3 Days, #6 TAB Prov:YAZMIN FONSECA RESIDENT 11/01/24 Doxycycline Monohydrate (Doxycycline Monohydrate) 100 Mg Tab, 100 MG PO Q12HR for 3 Days, #6 TAB Prov:YAZMIN FONSECA RESIDENT 11/01/24 Home Meds Home medications reviewed. Current Medications Current Medications Medications (Trade) Dose Ordered Sig/Audrey Route PRN Reason Start Time Stop Time Status Last Admin Azithromycin 250 ml @ 125 mls/hr DAILY IV 11/26/24 10:00 Amlodipine Besylate (Norvasc Tablet) 10 mg DAILY PO 11/26/24 10:00 Lisinopril (Zestril Tablet) 20 mg DAILY PO 11/26/24 10:00 Clopidogrel Bisulfate (Plavix) 75 mg DAILY PO 11/26/24 10:00 Atorvastatin Calcium (Lipitor) 40 mg HS PO 11/25/24 22:00 Trazodone HCl (Desyrel) 50 mg HS PO 11/25/24 22:00 11/25/24 14:08 DC Apixaban (Eliquis) 5 mg BID PO 11/25/24 10:00 11/25/24 10:20 Ipratropium [place] (Atrovent Medneb) 0.5 mg Q4HPRN PRN NEB SHORTNESS OF BREATH 11/25/24 02:30 Albuterol (Ventolin Medneb) 2.5 mg Q4HPRN PRN NEB SHORTNESS OF BREATH 11/25/24 02:30 Ceftriaxone Sodium 50 ml @ 100 mls/hr DAILY@09 IV 11/25/24 09:00 11/25/24 10:21 Furosemide (Lasix Injection) 20 mg BIDD IV 11/25/24 07:45 11/25/24 07:45 Review of Systems Constitutional: No symptom reported Ears, Nose, & Throat: No symptom reported Eyes: No symptom reported Neurological: Altered level of mentation Pulmonary/Respiratory: No symptoms reported Cardiovascular: No symptom reported Gastrointestinal: No symptom reported Genitourinary: No symptom reported Musculoskeletal: No symptom reported Skin: No symptom reported Psychiatric: No symptom reported Endocrine: No symptom reported Hematologic/Lymphatic: No symptom reported Vital Signs Vital Signs Date Time Temp Pulse Resp B/P (MAP) Pulse Ox O2 Delivery O2 Flow Rate FiO2 11/25/24 08:30 79 17 94 Room Air* 0 21 11/25/24 08:00 97.9 118/87 (97) 97.9 Physical Exam General Appearance: Cooperative. Well-developed. Well-nourished. No acute distress. Pulmonary/Respiratory: Clear, bilateral breaths sounds. Cardiovascular/Chest: Irregular rate and rhythm. Peripheral Pulses: 2+ Radial (R). 2+ Radial (L). 2+ Pedal (R). 2+ Pedal (L) Abdominal Exam: Normal bowel sounds. Ankle Exam: Negative ankle edema Lower extremities: Negative lower extremity edema Neuro/Mental Status: A/OX4, coherent. Thoughts/Psych: Normal thought pattern. Appropriate mood and affect. Good judgment and insight. Appearance: No acute distress. Skin Exam: Normal inspection. Normal color. Warm and dry. Labs/Diagnostic Data Labs Test 11/25/24 03:05 11/24/24 23:30 11/24/24 19:58 11/24/24 18:46 Range/Units Influenza Type A Antigen Negative Negative Influenza Type B Antigen Negative Negative SARS-CoV-2 Antigen (Rapid) Negative NEGATIVE Urine Color Yellow Yellow Urine Clarity Clear Clear Urine pH 5.5 5.0-9.0 Urine Specific [place] 1.029 1.001-1.035 Urine Protein Trace H Negative Urine Ketones Negative Negative Urine Blood Negative Negative /uL Urine Nitrite Negative Negative Urine Bilirubin Negative Negative Urine Urobilinogen 2 H Negative mg/dL Urine Leukocyte Esterase Negative Negative /uL Urine RBC 1 0 - 3 /hpf Urine WBC 2 0 - 3 /hpf Urine Squamous Epithelial Cells Few <5 /hpf Urine Bacteria Few H None Seen /hpf Urine Mucus Few None Seen Urine Glucose 3+ H Normal mg/dL Urine Opiates Screen Neg NEGATIVE Urine Fentanyl Screen Neg NEGATIVE Urine Barbiturates Screen Neg NEGATIVE Urine Phencyclidine Screen Neg NEGATIVE Urine Amphetamines Screen Neg NEGATIVE Urine Benzodiazepines Screen Pos NEGATIVE Urine Cocaine Screen Neg NEGATIVE Urine Cannabinoids Screen Pos NEGATIVE Magnesium Level 1.8 1.6-2.6 mg/dL Troponin I High Sensitivity 8 </=54 ng/L White Blood Count 7.7 4.4-10.8 10^3/uL Red Blood Count 4.73 4.5-5.90 10^6/uL Hemoglobin 14.6 13.5-17.5 g/dL Hematocrit 43.4 41.0-53.0 % Mean Corpuscular Volume 91.7 80.0-100.0 fL Mean Corpuscular Hemoglobin 30.9 28.0-32.0 pg Mean Corpuscular Hemoglobin Concent 33.7 32.0-36.0 g/dL Red Cell Distribution Width 15.3 H 11.8-14.3 % Platelet Count 251 140-450 10^3/uL Mean Platelet Volume 7.6 6.9-10.8 fL Neutrophils (%) (Auto) 69.6 37.0-80.0 % Lymphocytes (%) (Auto) 12.1 10.0-50.0 % Monocytes (%) (Auto) 15.3 H 0.0-12.0 % Eosinophils (%) (Auto) 2.3 0.0-7.0 % Basophils (%) (Auto) 0.7 0.0-2.0 % Neutrophils # (Auto) 5.4 1.6-8.6 10 ^3/uL Lymphocytes # (Auto) 0.9 0.4-5.4 10 ^3/uL Monocytes # (Auto) 1.2 0-1.3 10 ^3/uL Eosinophils # (Auto) 0.2 0-0.8 10 ^3/uL Basophils # (Auto) 0.1 0-0.2 10 ^3/uL Nucleated Red Blood Cells 0.1 % Erythrocyte Sedimentation Rate 20 0-20 mm/hr Sodium Level 138 136-145 mmol/L Potassium Level 4.6 3.5-5.1 mmol/L Chloride Level 103 98-107 mmol/L Carbon Dioxide Level 29 20-31 mmol/L Anion Gap 6 5-15 Blood Urea Nitrogen 17 9-23 mg/dL Creatinine 0.66 L 0.700-1.30 mg/dL Glomerular Filtration Rate Calc 104 >90 mL/min BUN/Creatinine Ratio 25.8 H 10.0-20.0 Serum Glucose 115 H 74-106 mg/dL Lactic Acid Level 0.8 0.4-2.0 mmol/L Calcium Level 8.9 8.7-10.4 mg/dL Total Bilirubin 0.6 0.2-1.0 mg/dL Aspartate Amino Transferase (AST) 21 13-40 U/L Alanine Aminotransferase (ALT) 19 7-40 U/L Alkaline Phosphatase 139 H 46-116 U/L Ammonia 13 11-32 umol/L C-Reactive Protein High Sensitivity 2.46 H <1.0 mg/dL B-Type Natriuretic Peptide 307.24 0-100 pg/mL Total Protein 6.2 5.7-8.2 g/dL Albumin 3.5 3.2-4.8 g/dL Plasma/Serum Blood Alcohol 5.7 <10 mg/dL Assessment Atrial fibrillation, likely persistent, Stage 3B (on Eliquis) Peripheral vascular disease status post PTCA x 1 ZAHIDA (on Plavix) Acute on chronic HFrEF, NYHA class III Hypertension Dyslipidemia Moderate to severe tricuspid valve regurgitation COPD History of CVA Tobacco use Plan/Recommendation We will continue with following plan/recommendations (Dr. Gutierrez): * Echocardiogram from 10/29/2024 reveals EF 30% * Initiate GDMT for CHF as tolerated * Consider spironolactone with stable potassium * [id number] score: 6 points HAS-BLED: 3 points * Beta-sangeeta for rate control * Continue NOAC therapy, Eliquis * Do not recommend antiarrhythmic agent at this time given AFib is likely persistent * Continue single antiplatelet therapy Plavix and lipid-lowering agent * Cardiac surveillance: Notify of any ECG changes * Risk factor modifications, counseled * Adherence to medication regimen Patient seen and examined at bedside with . The patient may qualify for ICD implantation if no improvement in EF within 3-6 months of being on guideline directed medical therapy for CHF. There is no further inpatient cardiac workup indicated at this time. Please reconsult if needed. Thank you for allowing us to care for this patient. Please call with any questions or concerns. Critical care time spent: 44 minutes This medical document was created using an electronic medical record system with voice recognition software and computerized dictation system. Although this document has been carefully reviewed, there might still be some phonetic and typographical errors. Occasional wrong-word or ``sound-alike substitutions may have occurred due to the inherent limitations of voice recognition software. These areas are purely typographical due to imperfections of the software programs and do not reflect any compromise in the patient's medical care. Please read the chart carefully and recognize, using context, where these substitutions have occurred. Plan discussed with: Patient NYHA Physical activity limitations: Class3(Marked) ordinary (activity causes symtoms) Date of Service: Nov 25, 2024 Billing Provider: BRUNO GUTIERREZ MD Cardiology Common Codes: [id number] INP/OBS CARE (High) Cardiology Consultation Codes: [id number] CONSULT <45MIN REX RON [employer] T[employer]OR Nov 25, 2024 14:57
[2024-11-25] MEDS: METOPROLOL SUCCINATE XL 50 MG TAB PO ONE (18:55)
[2024-11-25] MEDS ORDERED: traZODone HCL 50 MG TAB PO SCH (22:00)
[2024-11-25] MEDS: ATORVASTATIN 20 MG TAB PO SCH (22:00)
[2024-11-26] VITALS (10 sets, daily range): BP systolic 98–131; BP diastolic 59–84; PULSE 73–96; RESP 16–19; TEMP 97.5–98.2; O2SAT 90–94
[2024-11-26] MEDS: AZITHROMYCIN 500MG/ 250ML 250 ML IV SCH (09:12)
[2024-11-26] MEDS: EMPAGLIFLOZIN 10 MG TAB PO SCH (09:13)
[2024-11-26] MEDS: LISINOPRIL 20 MG TAB PO SCH (09:14)
[2024-11-26] MEDS: CLOPIDOGREL BISULFATE 75 MG TAB PO SCH (09:15)
[2024-11-26] MEDS: amLODIPine BESYLATE 5 MG TAB PO SCH (09:15)
[2024-11-26] MEDS: METOPROLOL SUCCINATE XL 50 MG TAB PO SCH (09:16)
[2024-11-26] MEDS: MULTIPLE VITAMIN TAB PO ONE (13:21)
[2024-11-26] MEDS: THIAMINE HCL 100 MG TAB PO ONE (13:22)
[2024-11-26] MEDS: NITROFURANTOIN 100 mg CAP PO SCH (22:01)
[2024-11-27 01:00] VITALS: BP 106/73; PULSE 82; RESP 18; TEMP 98.4; O2SAT 95
[2024-11-27 05:23] VITALS: BP 126/88; PULSE 74; RESP 17; TEMP 98.1; O2SAT 93
[2024-11-27 07:37] VITALS: O2SAT 98
[2024-11-27 08:40] VITALS: BP 122/83; PULSE 89; RESP 19; TEMP 97.6; O2SAT 93
[2024-11-27] MEDS: THIAMINE HCL 100 MG TAB PO SCH (09:30)
[2024-11-27] MEDS: FUROSEMIDE 20 MG TAB PO SCH (09:31)
[2024-11-27] MEDS: MULTIPLE VITAMIN TAB PO SCH (09:31)
[2024-11-27 12:13] VITALS: BP 105/70; PULSE 85; RESP 17; TEMP 97.8; O2SAT 96
--- NOTE | 2024-11-27 13:14 | DVHDS2 ---
Discharge Summary Date of Admission Nov 24, 2024 at 23:51 Date of Discharge: Nov 27, 2024 Admitting Diagnosis Toxic metabolic encephalopathy Labs/Diagnostic Data: Laboratory Results Test 11/25/24 03:05 11/24/24 23:30 11/24/24 19:58 11/24/24 18:46 Influenza Type A Antigen Negative (Negative) Influenza Type B Antigen Negative (Negative) SARS-CoV-2 Antigen (Rapid) Negative (NEGATIVE) Urine Color Yellow (Yellow) Urine Clarity Clear (Clear) Urine pH 5.5 (5.0-9.0) Urine Specific [place] 1.029 (1.001-1.035) Urine Protein Trace (Negative) Urine Ketones Negative (Negative) Urine Blood Negative /uL (Negative) Urine Nitrite Negative (Negative) Urine Bilirubin Negative (Negative) Urine Urobilinogen 2 mg/dL (Negative) Urine Leukocyte Esterase Negative /uL (Negative) Urine RBC 1 /hpf (0 - 3) Urine WBC 2 /hpf (0 - 3) Urine Squamous Epithelial Cells Few /hpf (<5) Urine Bacteria Few /hpf (None Seen) Urine Mucus Few (None Seen) Urine Glucose 3+ mg/dL (Normal) Urine Opiates Screen Neg (NEGATIVE) Urine Fentanyl Screen Neg (NEGATIVE) Urine Barbiturates Screen Neg (NEGATIVE) Urine Phencyclidine Screen Neg (NEGATIVE) Urine Amphetamines Screen Neg (NEGATIVE) Urine Benzodiazepines Screen Pos (NEGATIVE) Urine Cocaine Screen Neg (NEGATIVE) Urine Cannabinoids Screen Pos (NEGATIVE) Magnesium Level 1.8 mg/dL (1.6-2.6) Troponin I High Sensitivity 8 ng/L (</=54) White Blood Count 7.7 10^3/uL (4.4-10.8) Red Blood Count 4.73 10^6/uL (4.5-5.90) Hemoglobin 14.6 g/dL (13.5-17.5) Hematocrit 43.4 % (41.0-53.0) Mean Corpuscular Volume 91.7 fL (80.0-100.0) Mean Corpuscular Hemoglobin 30.9 pg (28.0-32.0) Mean Corpuscular Hemoglobin Concent 33.7 g/dL (32.0-36.0) Red Cell Distribution Width 15.3 % (11.8-14.3) Platelet Count 251 10^3/uL (140-450) Mean Platelet Volume 7.6 fL (6.9-10.8) Neutrophils (%) (Auto) 69.6 % (37.0-80.0) Lymphocytes (%) (Auto) 12.1 % (10.0-50.0) Monocytes (%) (Auto) 15.3 % (0.0-12.0) Eosinophils (%) (Auto) 2.3 % (0.0-7.0) Basophils (%) (Auto) 0.7 % (0.0-2.0) Neutrophils # (Auto) 5.4 10 ^3/uL (1.6-8.6) Lymphocytes # (Auto) 0.9 10 ^3/uL (0.4-5.4) Monocytes # (Auto) 1.2 10 ^3/uL (0-1.3) Eosinophils # (Auto) 0.2 10 ^3/uL (0-0.8) Basophils # (Auto) 0.1 10 ^3/uL (0-0.2) Nucleated Red Blood Cells 0.1 % Erythrocyte Sedimentation Rate 20 mm/hr (0-20) Sodium Level 138 mmol/L (136-145) Potassium Level 4.6 mmol/L (3.5-5.1) Chloride Level 103 mmol/L (98-107) Carbon Dioxide Level 29 mmol/L (20-31) Anion Gap 6 (5-15) Blood Urea Nitrogen 17 mg/dL (9-23) Creatinine 0.66 mg/dL (0.700-1.30) Glomerular Filtration Rate Calc 104 mL/min (>90) BUN/Creatinine Ratio 25.8 (10.0-20.0) Serum Glucose 115 mg/dL (74-106) Lactic Acid Level 0.8 mmol/L (0.4-2.0) Calcium Level 8.9 mg/dL (8.7-10.4) Total Bilirubin 0.6 mg/dL (0.2-1.0) Aspartate Amino Transferase (AST) 21 U/L (13-40) Alanine Aminotransferase (ALT) 19 U/L (7-40) Alkaline Phosphatase 139 U/L (46-116) Ammonia 13 umol/L (11-32) C-Reactive Protein High Sensitivity 2.46 mg/dL (<1.0) B-Type Natriuretic Peptide 307.24 pg/mL (0-100) Total Protein 6.2 g/dL (5.7-8.2) Albumin 3.5 g/dL (3.2-4.8) Plasma/Serum Blood Alcohol 5.7 mg/dL (<10) Other Laboratory Tests 11/24/24 18:46 Brief Hx & Hospital Course: History of Present Illness Patient is a 64-year-old male with past medical history of COPD, CHF, hypertension, dyslipidemia, CVA, atrial fibrillation, peripheral arterial disease who was brought in due to increasing confusion and a foul-smelling urine. Patient is a poor historian with episodes of confusion and agitation, however, patient is alert and oriented to place, person but not to time. Patient is unaware why he is in the hospital, per patient he was brought in by his son who thinks patient is mentally impaired. Course of Hospitalization: Patient was recently discharged after being found with acute alcohol withdrawal as well as being treated for his chronic peripheral arterial disease to his right lower extremity. Patient was found to be positive for benzodiazepines as well as cannabinoids on this admission. All hypnotics were held with the patient. Patient now is alert and oriented x4. Social service consultation was placed for discharge planning given his recent admission after being discharged. Patient originally was open to the idea of being placed in his [facility] facility for further treatment of the UTI as well as getting physical therapy. Today, the patient states that he was ambulating well and does not want to go to a [facility] facility. Patient will be discharged home with continuation of his previously prescribed medications including antiplatelet and Eliquis as previously ordered. Patient was instructed to stop drinking alcohol, smoking marijuana and tobacco, for which she states that he will attempt to once being discharged home. Given that both individuals that he states he lives with including Katelyn and Juanito, smoking use marijuana, this is highly unlikely. [employer] has been consulted to provide the patient with resources for addiction. Physical examination General: Alert and Oriented x3. No acute distress. Well-nourished. Eyes: EOMI. Anicteric. HENT: Moist mucous membranes. Lungs: Clear to auscultation bilaterally. No accessory muscle use. Cardiovascular: Regular rate and rhythm. No murmur. No JVD. Abdomen: Soft, non-tender and non-distended. No palpable masses. Extremities: No edema. Non-tender. Skin: No rashes or lesions. Warm. Neurologic: No focal neurological deficits. CN II-XII grossly intact, but not individually tested. Psychiatric: Cooperative. Appropriate mood and affect. Total time spent with patient discussing and formulating plan of care: 35 minutes. This medical document was created using an electronic medical record system with [employer] system. Although this document has been carefully reviewed, there may still be some phonetic and typographical errors. These areas are purely typographical due to imperfections of the software programs, and do not reflect any compromise in the patient's medical care. Condition at Discharge: Poor Final Diagnosis/Problems List Toxic metabolic encephalopathy secondary to cannabinoids and benzodiazepine Secondary Diagnosis: -peripheral arterial disease with recent stent placement to right femoral artery -acute on chronic decompensated systolic heart failure -peripheral arterial disease -anxiety disorder -history of CVA -atrial fibrillation Discharge Disposition: Home Discharge Instruct/Medications Diet: Cardiac 2g Na,low cholest Activity: No Restrictions, As Tolerated Follow Up/Referral: Follow up with Cardiology, Dr. Meier in 1-2 weeks Medications: Continue all previous home medications 36 Discharge Statement: "Patient was advised to return to the ER or call 911 if any headaches, dizziness, shortness of breath, chest pain, abdominal pain, bleeding, fevers, or worsening of medical condition. Patient was counseled about treatment plan, medications, possible side effects, patientverbalized understanding. All questions were answered to the best of my ability. This discharge took greater then 30 minutes in planning, reviewing documentation, counseling the patient, and discussing with other team members." ASSESSMENT ASSESSMENT Assessment Toxic metabolic encephalopathy secondary to cannabinoids and benzodiazepine Date of Service: Nov 27, 2024 Billing Provider: BELKIS ANTONY NP Common Visit Codes: 43241-FNC/OBS DISCH DAY >30min BELKIS ANTONY NP Nov 27, 2024 13:14
[2024-11-27 14:43] VITALS: BP 122/83; PULSE 89; TEMP 36.6
== END 2024-11-27 18:48 | disposition home or self-care (01) | DRG 91 ==
LOC: EDBD 15:37 → ER 15:45 → OVERFLOW 23:51 → CENTRAL 11-26 03:00
PROVIDERS: ADMIT Nurse Practitioner Acute Care; ATTEND Nurse Practitioner Acute Care
DX: G92.8 Other toxic encephalopathy (principal); I50.23 Acute on chronic systolic (congestive) heart failure; N39.0 Urinary tract infection, site not specified; I48.20 Chronic atrial fibrillation, unspecified; Z20.822 Contact with and (suspected) exposure to COVID-19; F17.210 Nicotine dependence, cigarettes, uncomplicated; I11.0 Hypertensive heart disease with heart failure; J44.9 Chronic obstructive pulmonary disease, unspecified; E78.5 Hyperlipidemia, unspecified; F19.90 Other psychoactive substance use, unspecified, uncomplicated; F41.9 Anxiety disorder, unspecified; I07.1 Rheumatic tricuspid insufficiency; I25.10 Atherosclerotic heart disease of native coronary artery without angina pectoris; I73.9 Peripheral vascular disease, unspecified; T42.4X5A Adverse effect of benzodiazepines, initial encounter; T40.715A Adverse effect of cannabis, initial encounter; Z86.73 Personal history of transient ischemic attack (TIA), and cerebral infarction without residual deficits; Z83.3 Family history of diabetes mellitus; Z98.61 Coronary angioplasty status; Y92.89 Other specified places as the place of occurrence of the external cause
CPT/HCPCS: 36415; 70450; 71045; 80053; 80307; 80320; 81001; 82140; 83605; 83735; 83880; 84484; 85025; 85652; 86141; 87040; 87081; 87086; 87088; 87186; 87426; 87804; 99291; G0378

== ENCOUNTER 2025-06-06 01:23 | Inpatient (IN) | payer MEDICARE ==
[~2025-06-06] VITALS: Ht 177.8 cm; Wt 73.3 kg
[2025-06-06] VITALS (14 sets, daily range): BP systolic 117–142; BP diastolic 70–88; PULSE 82–118; RESP 15–26; TEMP 98.1–98.9; O2SAT 89–98
[~2025-06-06 01:23] MED LIST changes: -APIX5TAB PO
--- NOTE | 2025-06-06 01:44 | ED.PDOC ---
SOB-HPI HPI Comments 64 year old male with a Hx of COPD, DVT, Stents, and A-FIB was BIBA for the c/c of SOB, w/ associated Vertigo. Pt states that his symptoms started at around 0600 yesterday morning, with progressively worsening symptoms. Pt notes of a worsening factors of laying flat, but an alleviating factor of sitting up straight. EMS states that pt was SAT at 89% on 4L O2 on site, but was given 6L O2 and has improved to 97%. No other associated symptoms, modifiers, recent injuries or sick contacts present at this time. Time Seen by MD: 01:38 Primary Care Provider: NONE Reviewed notes: Nurses Notes, Heel Painter Notes, Medications, Allergies Information Source: Patient, Emergency Med Personnel Mode of Arrival: EMS Severity: Moderate Timing: Hours Duration: Since onset, Hours Context: At Rest, Spontaneous Onset PE Risk Factors: None History of: COPD, DVT/PE Prehospital treatment: 12 Lead EKG, Ore Trimmer, Oxygen Modifying Factors: Exertion, Laying flat Associated Signs and Symptoms: None If cough with SOB: Productive Past Medical History PAST MEDICAL HISTORY: CHF, COPD, CVA, High Lipids, HTN Family History Family History: Family hx of DM Social History Smoker: Cigarettes Alcohol: Occasionally Drugs: Marijuana Lives In: Home Constitutional: denies: chills, diaphoresis, fatigue, fever, malaise, sweats, weakness, others EENTM: denies: blurred vision, double vision, ear bleeding, ear discharge, ear drainage, ear pain, ear ringing, eye pain, eye redness, hearing loss, mouth pain, mouth swelling, nasal discharge, nose bleeding, nose congestion, nose pain, photophobia, tearing, throat pain, throat swelling, voice changes, others Respiratory: reports: SOB at rest, shortness of breath; denies: cough, hemoptysis, orthopnea, SOB with excertion, stridor, wheezing, others Cardiovascular: denies: chest pain, dizzy spells, diaphoresis, Dyspnea on exertion, edema, irregular heart beat, left arm pain, lightheadedness, palpitations, PND, syncope, others Gastrointestinal: denies: abdomen distended, abdominal pain, blood streaked bowels, constipated, diarrhea, dysphagia, difficulty swallowing, hematemesis, melena, nausea, poor appetite, poor fluid intake, rectal bleeding, rectal pain, vomiting, others Genitourinary: denies: burning, dysuria, flank pain, frequency, hematuria, incontinence, penile discharge, penile sore, pain, testicle pain, testicle swelling, urgency, others Neurological: reports: dizziness; denies: fainting, headache, left sided numbness, left sided weakness, numbness, paresthesia, pre-existing deficit, right sided numbness, right sided weakness, seizure, speech problems, tingling, tremors, weakness, others Musculoskeletal: denies: back pain, gout, joint pain, joint swelling, muscle pain, muscle stiffness, neck pain, others Integumetry: denies: bruises, change in color, change in hair/nails, dryness, laceration, lesions, lumps, rash, wounds, others Allergic/Immunocompromised: denies: Difficulty Healing, Frequent Infections, Hives, Itching, others Hematologic/Lymphatic: denies: anemia, blood clots, easy bleeding, easy bruising, swollen glands, others Endocrine: denies: excessive hunger, excessive sweating, excessive thirst, excessive urination, flushing, intolerance to cold, intolerance to heat, unexplained weight gain, unexplained weight loss, others Psychiatric: denies: anxiety, bipolar disorder, depression, hopeless, panic disorder, schizophrenia, sleepless, suicidal, others All Other Systems: Reviewed and Negative Physical Exam General Appearance: Moderate Distress, Normal, Other (chronic ill appearing) HEENT: Normal ENT Inspection, Pharynx Normal, TMs Normal Neck: Full Range of Motion, Non-Tender, Normal, Normal Inspection Respiratory: Accessory Muscle Use, Chest Non-Tender, Lungs Clear, No Respiratory Distress, Other (Tachypnic) Cardiovascular: No Edema, No JVD, No Murmur, Normal Peripheral Pulses, Regular Rate/Rhythm Breast Exam: Deferred Gastrointestinal: Non Tender, No Pulsatile Mass, Normal Bowel Sounds, Soft Genitalia: Deferred Pelvic: Deferred Rectal: Deferred Extremities: No calf tenderness, Normal capillary refill, Normal range of motion, Non-tender Musculoskeletal : Apperance: Normal Neurologic: Alert, Disoriented, Dizziness, No Motor Deficits, Normal Affect, Normal Mood, No Sensory Deficits Cerebellar Function: Normal Reflexes: Normal Skin: Dry, Normal Color, Warm Lymphatic: No Adenopathy Was a procedure done? Was a procedure done?: No Differential Dx Differential Diagnosis: Anxiety, Asthma, Bronchitis, Cardiogenic Shock, CHF, COPD, Dysrhythmia, Hypertension, Hyponatremia, Myocardial infarction, Panic Attack, Pneumonia, Pneumothorax, PSVT, Pulmonary Embolism, Respiratory Distress, Pharyngitis X-Ray, Labs, Meds, VS Vital Signs Date Time Temp Pulse Resp B/P (MAP) Pulse Ox O2 Delivery O2 Flow Rate FiO2 06/06/25 02:17 94 15 134/81 (98) 98 06/06/25 02:10 118 26 95 Nasal Cannula* 6 44 06/06/25 02:10 95 Nasal Cannula* 5 40 06/06/25 02:08 98.2 117 26 173/112 (132) 93 98.2 06/06/25 01:25 97 Nasal Cannula* 6 44 06/06/25 01:25 98.9 120 22 136/74 (94) 97 98.9 06/06/25 01:24 103 Lab Test 06/06/25 02:21 06/06/25 02:07 06/06/25 02:00 Range/Units B-Type Natriuretic Peptide Pending White Blood Count 5.9 4.4-10.8 10^3/uL Red Blood Count 5.44 4.5-5.90 10^6/uL Hemoglobin 17.9 H 13.5-17.5 g/dL Hematocrit 51.2 41.0-53.0 % Mean Corpuscular Volume 94.2 80.0-100.0 fL Mean Corpuscular Hemoglobin 32.9 H 28.0-32.0 pg Mean Corpuscular Hemoglobin Concent 34.9 32.0-36.0 g/dL Red Cell Distribution Width 14.3 11.8-14.3 % Platelet Count 144 140-450 10^3/uL Mean Platelet Volume 8.0 6.9-10.8 fL Neutrophils (%) (Auto) 85.2 H 37.0-80.0 % Lymphocytes (%) (Auto) 6.8 L 10.0-50.0 % Monocytes (%) (Auto) 7.6 0.0-12.0 % Eosinophils (%) (Auto) 0.1 0.0-7.0 % Basophils (%) (Auto) 0.3 0.0-2.0 % Neutrophils # (Auto) 5.0 1.6-8.6 10 ^3/uL Lymphocytes # (Auto) 0.4 0.4-5.4 10 ^3/uL Monocytes # (Auto) 0.5 0-1.3 10 ^3/uL Eosinophils # (Auto) 0 0-0.8 10 ^3/uL Basophils # (Auto) 0 0-0.2 10 ^3/uL Nucleated Red Blood Cells 0.3 % Sodium Level 133 L 136-145 mmol/L Potassium Level 3.6 3.5-5.1 mmol/L Chloride Level 93 L 98-107 mmol/L Carbon Dioxide Level 24 20-31 mmol/L Anion Gap 16 H 5-15 Blood Urea Nitrogen 10 9-23 mg/dL Creatinine 0.61 L 0.700-1.30 mg/dL Glomerular Filtration Rate Calc 107 >90 mL/min BUN/Creatinine Ratio 16.4 10.0-20.0 Serum Glucose 182 H 74-106 mg/dL Lactic Acid Level 3.1 *H 0.4-2.0 mmol/L Calcium Level 9.1 8.7-10.4 mg/dL Magnesium Level 1.8 1.6-2.6 mg/dL Total Bilirubin 2.1 H 0.2-1.0 mg/dL Aspartate Amino Transferase (AST) 80 H 13-40 U/L Alanine Aminotransferase (ALT) 57 H 7-40 U/L Alkaline Phosphatase 188 H 46-116 U/L Troponin I High Sensitivity 7 </=54 ng/L Total Protein 7.7 5.7-8.2 g/dL Albumin 4.6 3.2-4.8 g/dL Blood Gas Specimen Type Venous Blood Gas Sample Site Vbg - n/a Blood Gas Patient Temperature 37.0 Arterial Blood Date Drawn [id number] Darshan Test N/a Venous Blood pH 7.433 H 7.320-7.430 Venous Blood pCO2 at Patient Temp 39.5 38.0-54.0 mmHg Venous Blood pO2 at Patient Temp 52.0 H 23.0-48.0 mmHg Venous Blood HCO3 25.8 22.0-29.0 mmol/L Venous Blood Base Excess 1.6 -2.0-3.0 mmol/L Blood Gas Liter Flow 5.00 Blood Gas Modality Nasal cannula FiO2 % 40.0 Blood Gas Critical Value Read Back yes Blood Gas Notified Whom Guillermo dillard md Blood Gas Notified Time [id number] Blood Gas Notified By Taffy Puller celeste cody Current Medications Medications (Trade) Dose Ordered Sig/Audrey Route Start Time Stop Time Status Last Admin Albuterol (Ventolin Medneb) 5 mg ONCE ONCE [facility] 06/06/25 01:45 06/06/25 01:46 DC 06/06/25 02:10 Ipratropium Claude (Atrovent Medneb) 0.5 mg ONCE ONCE [facility] 06/06/25 01:45 06/06/25 01:46 DC 06/06/25 02:10 Piperacillin Sod/ Tazobactam Sod 100 ml @ 100 mls/hr ONCE ONCE IV 06/06/25 02:30 06/06/25 03:29 06/06/25 02:35 Sodium Chloride 1,000 ml @ 1,000 mls/hr Q1H ONCE IV 06/06/25 02:30 06/06/25 03:29 06/06/25 02:35 PATIENT: THAIS BRAVO ACCT: [id number] UNIT: [id number] : 1960 LOC: ER ROOM / BED: / AGE / SEX: 64 / M ADM STATUS: REG ER SERVICE [id number] ORDERING PHYSICIAN: AYESHA PAPPAS MD PROCEDURE(s): CXRP - CHEST PORTABLE REASON: SOB ORDER NUMBER(s): [id number], ACCESSION NUMBER(s): [id number] CHEST RADIOGRAPH Indication: SOB Technique: Single frontal view of the chest was obtained COMPARISON: XY CHEST PORTABLE on DOS: 11/24/24, XY CHEST XRAY 1 VIEW on DOS: 11/18/24, XY CHEST PORTABLE on DOS: 11/17/24, XY CHEST XRAY 1 VIEW on DOS: 11/12/24, XY CHEST PORTABLE on DOS: 11/10/24 FINDINGS: Lines and Tubes: None Lungs: Clear Pleura: No effusion. No pneumothorax. Cardiomediastinal contours: Cardiomegaly. Bones: Unremarkable IMPRESSION: 1. Cardiomegaly. Time of 1ST Reevaluation: 02:09 Reevaluation 1ST: Unchanged Patient Education/Counseling: Diagnosis, Treatment, Need For Follow Up Family Education/Counseling: No Family Present Sepsis focused exam: focus exam completed, time: (0200) SEPSIS Sepsis Screen Recent Procedure: No On Antibiotic Therapy: No Respiratory Rate >20: Yes Heart Rate >90: No Temp<36 C (96.8 F) or >38.3 C: No SBP <90 or MAP <65 mmHG: No Is the patient on CPAP, BIPAP,: No IV fluid challenge completed?: Yes Physician Orders Electrocardigram (06/06/25 01:28) B-Type Natriuretic Peptide (06/06/25 01:35) Med Neb Initial Treatment (06/06/25 01:35) Chest Portable (06/06/25 01:35) Blood Culture (06/06/25 01:35) Troponin-I Hs (06/06/25 02:35) Troponin-I Hs (06/06/25 04:35) Venous Blood Gas (06/06/25 01:35) Piperacillin-Tazob 3.375gm (Zosyn 3.375g (06/06/25 02:30) Sodium Chloride 0.9% (06/06/25 02:30) Ondansetron Hcl (Zofran) (06/06/25 03:00) Vital Signs Date Time Temp Pulse Resp B/P (MAP) Pulse Ox O2 Delivery O2 Flow Rate FiO2 06/06/25 02:17 94 15 134/81 (98) 98 06/06/25 02:10 118 26 95 Nasal Cannula* 6 44 06/06/25 02:10 95 Nasal Cannula* 5 40 06/06/25 02:08 98.2 117 26 173/112 (132) 93 98.2 06/06/25 01:25 97 Nasal Cannula* 6 44 06/06/25 01:25 98.9 120 22 136/74 (94) 97 98.9 06/06/25 01:24 103 Laboratory Tests Test 06/06/25 02:07 Lactic Acid Level 3.1 mmol/L (0.4-2.0) *H White Blood Count 5.9 10^3/uL (4.4-10.8) Medications Medications Dose Ordered Sig/Audrey Route Start Time Stop Time Status Last Admin Dose Admin Albuterol 5 mg ONCE ONCE N 06/06/25 01:45 06/06/25 01:46 DC 06/06/25 02:10 Ipratropium Claude 0.5 mg ONCE ONCE [facility] 06/06/25 01:45 06/06/25 01:46 DC 06/06/25 02:10 Piperacillin Sod/ Tazobactam Sod 100 ml @ 100 mls/hr ONCE ONCE IV 06/06/25 02:30 06/06/25 03:29 06/06/25 02:35 Sodium Chloride 1,000 ml @ 1,000 mls/hr Q1H ONCE IV 06/06/25 02:30 06/06/25 03:29 06/06/25 02:35 Departure 1 Departure Time of Disposition: 03:04 Impression: Primary Impression: Acute on chronic diastolic heart failure Additional Impressions: COPD (chronic obstructive pulmonary disease) with acute bronchitis Respiratory failure with hypoxia Pneumonitis Disposition: ADMITTED INPATIENT Admit to: Tele Condition: Guarded Comments Shortness of Breath and Dizziness in 64-year-old Male with COPD Chief Complaint: Shortness of breath and dizziness History of Present Illness: Patient is a 64-year-old male with a significant history of COPD, cardiac stents, and atrial fibrillation who presents to the emergency department via ambulance with complaints of shortness of breath and dizziness. Symptoms began yesterday morning, approximately 12 hours prior to arrival. The patient reports progressive worsening of his respiratory status. He appears to be in mild respiratory distress on presentation. Given his cardiac history and current symptoms, there is concern for both a COPD exacerbation and possible pneumonia with respiratory compromise. Review of Systems: Respiratory: Positive for shortness of breath and wheezing. Cardiovascular: Positive for dizziness. Constitutional: Mild respiratory distress noted. All other systems: Unable to obtain due to patient's acute presentation. Allergies: No known allergies documented in [facility]. Past Medical History: 1. Chronic Obstructive Pulmonary Disease (COPD) 2. Atrial Fibrillation 3. Coronary Artery Disease s/p cardiac stents Past Surgical History: Cardiac stent placement, dates unknown Social History: Social history not documented in [facility]. Family History: Family history not documented in [facility]. Vital Signs: Vital signs not explicitly documented in [facility]. Physical Exam: General: Patient in mild respiratory distress. Respiratory: Scattered wheezes bilaterally. Remainder of physical exam not documented in [facility]. Lab Results: CBC: Unremarkable Chemistry Panel: - Sodium: 133 mEq/L (Low) - Chloride: 93 mEq/L (Low) - Glucose: 182 mg/dL (Elevated) Lactic Acid: 3.1 mmol/L (Elevated) Liver Function Tests: - Total Bilirubin: 2.1 mg/dL (Elevated) - AST: 80 U/L (Elevated) - ALT: 57 U/L (Elevated) - Unknown value elevated at 188 (possibly LDH or Alkaline Phosphatase) Imaging and Other Relevant Results: Chest X-ray: Cardiomegaly noted. No other findings documented in [facility]. Medical Decision Making: Summary Statement: 64-year-old male with history of COPD, cardiac stents, and atrial fibrillation presenting with acute shortness of breath, dizziness, and mild respiratory distress. Labs show mild electrolyte abnormalities, elevated lactate, and mildly elevated liver enzymes. Chest X-ray shows cardiomegaly. Problem List: 1. Acute COPD exacerbation 2. Suspected pneumonia 3. Respiratory failure with hypoxia 4. Elevated lactate 5. Mild hyponatremia and hypochloremia 6. Elevated liver enzymes 7. Cardiomegaly Differential Diagnosis: COPD exacerbation, community-acquired pneumonia, healthcare-associated pneumonia, acute heart failure exacerbation, pulmonary embolism, sepsis, acute liver dysfunction, medication side effects. ED Course: Patient received nebulizer treatment for bronchodilation, IV fluids for hydration, and empiric antibiotics (IV Rocephin and azithromycin) due to concern for pneumonia and elevated lactate. Patient's respiratory status was monitored throughout ED stay. Decision was made to admit for further management of COPD exacerbation, pneumonitis, and respiratory failure with hypoxia. Assessment and Plan: 1. Acute COPD Exacerbation: - Continue bronchodilator therapy - Initiate systemic corticosteroids - Supplemental oxygen as needed to maintain SpO2 > 88-92% - Monitor respiratory status closely 2. Pneumonitis/Suspected Pneumonia: - Continue IV antibiotics (Ceftriaxone and Azithromycin) - Obtain sputum cultures if possible - Consider respiratory viral panel 3. Respiratory Failure with Hypoxia: - Supplemental oxygen therapy - Consider arterial blood gas to assess severity - Monitor for need of escalation to non-invasive ventilation or intubation 4. Elevated Lactate (3.1): - Continue IV fluid resuscitation - Repeat lactate in 4-6 hours to assess clearance - Monitor for signs of sepsis or tissue hypoperfusion 5. Electrolyte Abnormalities (Hyponatremia, Hypochloremia): - Correct with IV fluids - Monitor electrolytes with repeat testing 6. Elevated Liver Enzymes: - Monitor trend - Consider hepatic ultrasound if persistent elevation - Review medications for potential hepatotoxicity 7. Cardiomegaly: - Cardiology consultation - Consider echocardiogram to assess cardiac function - Optimize management of atrial fibrillation Disposition: Admit to inpatient medicine service for management of COPD exacerbation, pneumonitis, and respiratory failure with hypoxia. Additional Notes: Patient presented via ambulance with acute respiratory symptoms requiring admission. Billing Information: ICD-10: J44.1 - Chronic obstructive pulmonary disease with acute exacerbation ICD-10: J18.9 - Pneumonia, unspecified organism ICD-10: J96.01 - Acute respiratory failure with hypoxia ICD-10: R42 - Dizziness and giddiness ICD-10: I48.91 - Unspecified atrial fibrillation Critical Care Note Critical Care Time?: Yes (35 min-critical care time only) Critical care comment: Total critical care time: Approximately 36 minutes Due to a high probability of clinically significant, life threatening deterioration, the patient required my highest level of preparedness to intervene emergently and I personally spent this critical care time directly and personally managing the patient. This critical care time included obtaining a history; examining the patient; pulse oximetry; ordering and review of studies; arranging urgent treatment with development of a management plan; evaluation of patient's response to treatment; frequent reassessment; and, discussions with other providers. This critical care time was performed to assess and manage the high probability of imminent, life-threatening deterioration that could result in multi-organ failure. It was exclusive of separately billable procedures and treating other patients. Stability Stability form required: No Heart Score Heart Score: Heart Score Response (Comments) Value History N/A 0 EKG N/A 0 Age N/A 0 Risk Factors N/A 0 Troponin N/A 0 Total 0 I personally scribed for AYESHA PAPPAS MD ([email or web address]) on 06/06/25 at 01:44. Electronically submitted by Tab Penn ([email or web address]). I personally scribed for AYESHA PAPPAS MD ([email or web address]) on 06/06/25 at 02:41. Electronically submitted by Tab Penn ([email or web address]). AYESHA PAPPAS MD Jun 06, 2025 01:44
[2025-06-06] MEDS: ALBUTEROL SULF 2.5 MG/0.5ML(0.5%) NEB SOLN HHN ONE (02:10)
[2025-06-06] MEDS: IPRATROPIUM BROM 0.5 MG/2.5ML INH SOL HHN ONE (02:10)
--- NOTE | 2025-06-06 02:31 | DVH ---
CHEST RADIOGRAPH Indication: SOB Technique: Single frontal view of the chest was obtained COMPARISON: XY CHEST PORTABLE on DOS: 11/24/24, XY CHEST XRAY 1 VIEW on DOS: 11/18/24, XY CHEST PORTABLE on DOS: 11/17/24, XY CHEST XRAY 1 VIEW on DOS: 11/12/24, XY CHEST PORTABLE on DOS: 11/10/24 FINDINGS: Lines and Tubes: None Lungs: Clear Pleura: No effusion. No pneumothorax. Cardiomediastinal contours: Cardiomegaly. Bones: Unremarkable IMPRESSION: 1. Cardiomegaly.
[2025-06-06 02:35] LABS: Hematocrit 51.2 % (41.0-53.0); Hemoglobin 17.9 g/dL (13.5-17.5); Mean Corpuscular Hemoglobin 32.9 pg (28.0-32.0); Mean Corpuscular Volume 94.2 fL (80.0-100.0); Nucleated Red Blood Cells % 0.3 %
[2025-06-06] MEDS: SODIUM CHLORIDE 0.9% 1,000 ML IV ONE (02:35)
[2025-06-06] MEDS: PIPERACILLIN-TAZOB 3.375GM 100 ML IV ONE (02:35)
[2025-06-06 02:45] LABS: Anion Gap 16 (5-15); BUN/Creatinine Ratio 16.4 (10.0-20.0); Blood Urea Nitrogen 10 mg/dL (9-23); Calcium 9.1 mg/dL (8.7-10.4); Carbon Dioxide 24 mmol/L (20-31); Magnesium 1.8 mg/dL (1.6-2.6); Potassium 3.6 mmol/L (3.5-5.1); Total Protein 7.7 g/dL (5.7-8.2)
[2025-06-06 02:46] LABS: Albumin 4.6 g/dL (3.2-4.8)
[2025-06-06 02:47] LABS: Alanine Aminotransferase 57 U/L (7-40); Alkaline Phosphatase 188 U/L (46-116); Bilirubin, Total 2.1 mg/dL (0.2-1.0); Chloride 93 mmol/L (98-107); Glucose 182 mg/dL (74-106); Sodium 133 mmol/L (136-145)
[2025-06-06 02:51] LABS: Lactic Acid w/Reflex 3.1 mmol/L (0.4-2.0)
[2025-06-06] MEDS: ONDANSETRON HCL 4 MG/2 ML VIAL IV ONE (03:24)
[2025-06-06] MEDS: AZITHROMYCIN 500MG/ 250ML 250 ML IV ONE (03:38)
[2025-06-06] MEDS ORDERED: NITROGLYCERIN 0.4 MG SL TAB SL PRN (05:15)
[2025-06-06] MEDS ORDERED: MORPHINE SULFATE INJ 2 MG/ml SYRG IV PRN (05:15)
[2025-06-06] MEDS ORDERED: HYDROcodone-ACET 5/325MG TAB PO PRN (05:15)
[2025-06-06] MEDS ORDERED: ALBUTEROL SULF 2.5 MG/0.5ML(0.5%) NEB SOLN NEB PRN (05:15)
[2025-06-06] MEDS ORDERED: DOCUSATE SOD 100 MG CAP PO PRN (05:15)
[2025-06-06] MEDS ORDERED: IPRATROPIUM BROM 0.5 MG/2.5ML INH SOL NEB PRN (05:15)
[2025-06-06] MEDS ORDERED: ONDANSETRON HCL 4 MG/2 ML VIAL IV PRN (05:15)
--- NOTE | 2025-06-06 05:45 | DVHHP2 ---
History of Present Illness Reason for Visit: Acute exacerbation of congestive heart failure History of Present Illness The patient is a 64-year-old male with past medical history of CHF, DVT, COPD, C VA, hyperlipidemia, and hypertension who presented to [facility] ED with complaint of shortness of breaths. Patient reports symptoms progressively get worse with hypoxia, dizziness, when lying flat, increased work of breathing, getting worse that prompted this visit. Patient was seen and evaluated in the ED, laboratory data shows WBC 5.9, platelets 144, sodium 133, potassium 3.6, BUN 10, creatinine 0.61, glucose 182, calcium 9.1, AST 80, ALT 57, total bilirubin 2.1, alkaline phos 188, lactic acid 3.1 trending down to 1.3, BNP 423.61, troponin 8, blood pressure 127/82, heart rate 102, temperature 98.2 F, O2 saturation 94% on oxygen. Chest x-ray revealing cardiomegaly. Patient was given breathing treatment, started on Solu-Medrol 40 mg IV x1, please see medication orders section in the computer. On my assessment, patient denied chest pain, no headache, no dizziness, currently on oxygen, no diaphoresis, no abdominal pain, no nausea, no vomiting, no fever, no chills. Patient was admitted for further evaluation and medical management. Past Medical History DVT, CHF, COPD, CVA, High Lipids, HTN Past Surgical History Stent Family History Reviewed, noncontributory to the management of this case. Past Social History Patient lives at home, smokes cigarettes, drinks alcohol occasionally, uses marijuana. Review of Systems Constitutional: Yes: Weakness; No: Fever, Chills, Sweats, Malaise, Other Eyes: No: Pain, Vision change, Conjunctivae inflammation, Eyelid inflammation, Other, Redness ENT: No: Ear pain, Ear discharge, Nose pain, Nose discharge, Nose congestion, Mouth pain, Mouth swelling, Throat pain, Throat swelling, Other Respiratory: Shortness of breath, Other (SOB at rest); No: Cough, Dry, SOB with excertion, Wheezing, Hemoptysis, Pleuritic Pain, Sputum, Wheezing Cardiovascular: No: Chest Pain, Palpitations, Orthopnea, Paroxysmal Noc. Dyspnea, Edema, Lt Headedness, Other Gastrointestinal: No: Nausea, Vomiting, Abdominal Pain, Diarrhea, Constipation, Melena, Hematochezia, Other Genitourinary: No Dysuria, No Frequency, No Incontinence, No Hematuria, No Retention, No Other Musculoskeletal: No: other, neck pain, shoulder pain, arm pain, back pain, hand pain, leg pain, foot pain Skin: No: Rash, Lesions, Jaundice, Bruising, Other Neurological: Other (Dizziness); No: Weakness, Numbness, Incoordination, Change in speech, Confusion, Seizures Allergies: Coded Allergies: NO KNOWN ALLERGIES (Unverified , 09/26/24) Exam Vital Signs Vital Signs Date Time Temp Pulse Resp B/P (MAP) Pulse Ox O2 Delivery O2 Flow Rate FiO2 06/06/25 04:00 102 16 127/82 (97) 94 06/06/25 02:10 Nasal Cannula* 6 44 06/06/25 02:08 98.2 98.2 General Appearance: Alert, Oriented X3, Cooperative, No acute distress HEENT: Atraumatic, PERRLA, EOMI, Mucous membr. moist/pink Respiratory: Normal air movement Cardiovascular: Regular rate, Normal S1, Normal S2, No murmurs Abdominal: Normal bowel sounds, Soft, No tenderness, No hepatospenomegaly, No masses Extremities: No clubbing, No cyanosis, No edema, Normal pulses, No tenderness/swelling Skin: No rashes, No significant lesion Neuro: Normal speech, Normal tone, Sensation intact, Cranial nerves 3-12 NL, Reflexes 2+, Other (Generalized weakness) Psych/Mental Status: Mental status NL, Mood NL Labs/Xrays Labs Test 06/06/25 05:10 06/06/25 04:00 06/06/25 02:21 06/06/25 02:07 Range/Units Lactic Acid Level 1.3 0.4-2.0 mmol/L B-Type Natriuretic Peptide 423.61 0-100 pg/mL White Blood Count 5.9 4.4-10.8 10^3/uL Red Blood Count 5.44 4.5-5.90 10^6/uL Hemoglobin 17.9 H 13.5-17.5 g/dL Hematocrit 51.2 41.0-53.0 % Mean Corpuscular Volume 94.2 80.0-100.0 fL Mean Corpuscular Hemoglobin 32.9 H 28.0-32.0 pg Mean Corpuscular Hemoglobin Concent 34.9 32.0-36.0 g/dL Red Cell Distribution Width 14.3 11.8-14.3 % Platelet Count 144 140-450 10^3/uL Mean Platelet Volume 8.0 6.9-10.8 fL Neutrophils (%) (Auto) 85.2 H 37.0-80.0 % Lymphocytes (%) (Auto) 6.8 L 10.0-50.0 % Monocytes (%) (Auto) 7.6 0.0-12.0 % Eosinophils (%) (Auto) 0.1 0.0-7.0 % Basophils (%) (Auto) 0.3 0.0-2.0 % Neutrophils # (Auto) 5.0 1.6-8.6 10 ^3/uL Lymphocytes # (Auto) 0.4 0.4-5.4 10 ^3/uL Monocytes # (Auto) 0.5 0-1.3 10 ^3/uL Eosinophils # (Auto) 0 0-0.8 10 ^3/uL Basophils # (Auto) 0 0-0.2 10 ^3/uL Nucleated Red Blood Cells 0.3 % Sodium Level 133 L 136-145 mmol/L Potassium Level 3.6 3.5-5.1 mmol/L Chloride Level 93 L 98-107 mmol/L Carbon Dioxide Level 24 20-31 mmol/L Anion Gap 16 H 5-15 Blood Urea Nitrogen 10 9-23 mg/dL Creatinine 0.61 L 0.700-1.30 mg/dL Glomerular Filtration Rate Calc 107 >90 mL/min BUN/Creatinine Ratio 16.4 10.0-20.0 Serum Glucose 182 H 74-106 mg/dL Calcium Level 9.1 8.7-10.4 mg/dL Magnesium Level 1.8 1.6-2.6 mg/dL Total Bilirubin 2.1 H 0.2-1.0 mg/dL Aspartate Amino Transferase (AST) 80 H 13-40 U/L Alanine Aminotransferase (ALT) 57 H 7-40 U/L Alkaline Phosphatase 188 H 46-116 U/L Total Protein 7.7 5.7-8.2 g/dL Albumin 4.6 3.2-4.8 g/dL Test 06/06/25 02:00 Range/Units Blood Gas Specimen Type Venous Blood Gas Sample Site Vbg - n/a Blood Gas Patient Temperature 37.0 Arterial Blood Date Drawn [id number] Darshan Test N/a Venous Blood pH 7.433 H 7.320-7.430 Venous Blood pCO2 at Patient Temp 39.5 38.0-54.0 mmHg Venous Blood pO2 at Patient Temp 52.0 H 23.0-48.0 mmHg Venous Blood HCO3 25.8 22.0-29.0 mmol/L Venous Blood Base Excess 1.6 -2.0-3.0 mmol/L Blood Gas Liter Flow 5.00 Blood Gas Modality Nasal cannula FiO2 % 40.0 Blood Gas Critical Value Read Back yes Blood Gas Notified Whom Guillermo dillard md Blood Gas Notified Time [id number] Blood Gas Notified By Motor Electrician celeste cody PATIENT: THAIS BRAVO ACCT: [id number] UNIT: [id number] : 1960 LOC: ER ROOM / BED: / AGE / SEX: 64 / M ADM STATUS: REG ER SERVICE 013 ORDERING PHYSICIAN: AYESHA PAPPAS MD PROCEDURE(s): CXRP - CHEST PORTABLE REASON: SOB ORDER NUMBER(s): [id number], ACCESSION NUMBER(s): [id number] CHEST RADIOGRAPH Indication: SOB Technique: Single frontal view of the chest was obtained COMPARISON: XY CHEST PORTABLE on DOS: 11/24/24, XY CHEST XRAY 1 VIEW on DOS: 11/18/24, XY CHEST PORTABLE on DOS: 11/17/24, XY CHEST XRAY 1 VIEW on DOS: 11/12/24, XY CHEST PORTABLE on DOS: 11/10/24 FINDINGS: Lines and Tubes: None Lungs: Clear Pleura: No effusion. No pneumothorax. Cardiomediastinal contours: Cardiomegaly. Bones: Unremarkable IMPRESSION: 1. Cardiomegaly. SEPSIS Sepsis Screen Date sepsis recognized/suspect: Jun 06, 2025 Time Sepsis recognized/suspect: 209 Recent Procedure: No On Antibiotic Therapy: No Respiratory Rate >20: Yes Heart Rate >90: No Temp<36 C (96.8 F) or >38.3 C: No SBP <90 or MAP <65 mmHG: No New Acute Mental Status Change: No Is the patient on CPAP, BIPAP,: No IV fluid challenge completed?: Yes Physician Orders Electrocardigram (06/06/25 01:28) Med Neb Initial Treatment (06/06/25 01:35) Chest Portable (06/06/25 01:35) Blood Culture (06/06/25 01:35) Troponin-I Hs (06/06/25 04:35) Venous Blood Gas (06/06/25 01:35) Complete Blood Count (06/06/25 05:14) Comprehensive Metabolic Panel (06/06/25 05:14) Albuterol Medneb (Ventolin Medneb) (06/06/25 05:15) Ipratropium Medneb (Atrovent Medneb) (06/06/25 05:15) Clopidogrel Bisulfate (Plavix) (06/06/25 10:00) Atorvastatin (Lipitor) (06/06/25 22:00) Furosemide Injection (Lasix Injection) (06/06/25 10:00) Furosemide Injection (Lasix Injection) (06/06/25 05:15) Methylprednisolone Sod Succ (Solu Medrol (06/06/25 10:00) Famotidine Injection (Pepcid Injection) (06/06/25 10:00) Tamsulosin Hydrochloride (Flomax) (06/06/25 18:00) Hemoglobin A1c (06/06/25 05:14) Carvedilol Tablet (Coreg Tablet) (06/06/25 10:00) Clonidine Hcl Tablet (Catapres Tablet) (06/06/25 05:15) Admit (06/06/25 05:14) Allergies (06/06/25 05:14) Code Status (06/06/25 05:14) Sodium Chloride Lock (Saline Lock Ns) (06/06/25 06:00) Oxygen Per Hour (06/06/25 05:14) Hydrocodone-Acet 5/325mg Tab (Delevan 5/32 (06/06/25 05:15) Ondansetron Hcl (Zofran) (06/06/25 05:15) Docusate Sodium Capsule (Colace Capsule) (06/06/25 05:15) Fall Risk Precautions In Place QSHIFT (06/06/25 05:14) Complete Blood Count (06/07/25 04:00) Comprehensive Metabolic Panel (06/07/25 04:00) Cardiac Diet-2gna,Lofat,Lochol (06/06/25 Breakfast) Echo 2d Mode Cardiac Dop (06/06/25 05:14) Condition: Serious (06/06/25 05:14) Acetaminophen Tablet (Tylenol Tablet) (06/06/25 05:15) Bedrest With Bathroom Privileg (06/06/25 05:14) Sequential Compression Device (06/06/25 ) Nitroglycerin Sublingual (Ntrostat Subli (06/06/25 05:15) Vital Signs Date Time Temp Pulse Resp B/P (MAP) Pulse Ox O2 Delivery O2 Flow Rate FiO2 06/06/25 04:00 102 16 127/82 (97) 94 06/06/25 02:17 94 15 134/81 (98) 98 06/06/25 02:10 118 26 95 Nasal Cannula* 6 44 06/06/25 02:10 95 Nasal Cannula* 5 40 06/06/25 02:08 98.2 117 26 173/112 (132) 93 98.2 06/06/25 01:25 97 Nasal Cannula* 6 44 06/06/25 01:25 98.9 120 22 136/74 (94) 97 98.9 06/06/25 01:24 103 Laboratory Tests Test 06/06/25 02:07 06/06/25 04:00 Lactic Acid Level 3.1 mmol/L (0.4-2.0) *H 1.3 mmol/L (0.4-2.0) White Blood Count 5.9 10^3/uL (4.4-10.8) Medications Medications Dose Ordered Sig/Audrey Route Start Time Stop Time Status Last Admin Dose Admin Albuterol 5 mg ONCE ONCE [facility] 06/06/25 01:45 06/06/25 01:46 DC 06/06/25 02:10 5 MG Azithromycin 250 ml @ 125 mls/hr ONCE ONCE IV 06/06/25 03:15 06/06/25 05:14 DC 06/06/25 03:38 125 MLS/HR Ipratropium [place] 0.5 mg ONCE ONCE N 06/06/25 01:45 06/06/25 01:46 DC 06/06/25 02:10 0.5 MG Ondansetron HCl 4 mg ONCE ONCE IV 06/06/25 03:00 06/06/25 03:10 DC 06/06/25 03:24 4 MG Piperacillin Sod/ Tazobactam Sod 100 ml @ 100 mls/hr ONCE ONCE IV 06/06/25 02:30 06/06/25 03:29 DC 06/06/25 02:35 100 MLS/HR Sodium Chloride 1,000 ml @ 1,000 mls/hr Q1H ONCE IV 06/06/25 02:30 06/06/25 03:29 DC 06/06/25 02:35 1,000 MLS/HR Assessment/Plan Assessment/Plan Acute exacerbation of congestive heart failure Hyperglycemia Elevated liver enzymes COPD (chronic obstructive pulmonary disease) with acute bronchitis Respiratory failure with hypoxia Generalized weakness Plan 1. Admit to telemetry unit 2. Breathing treatment 3. Pain control management 4. Management of fluids and electrolytes 5. Consultation for hospitalist 6. Diagnostic tests chest x-ray 7. DVT prophylaxis-on Plavix 8. Repeat labs CBC, CMP in a.m. 9. Continue with current medical management 10. Treatment plan discussed with patient and RN. Patient verbalized understanding. Plan discussed with: Patient, Other (RN) My Orders Orders - MOODY SOLIS DNP Procedure Category Date Status Time Complete Blood Count LAB 06/06/25 Verified 05:14 Comprehensive LAB 06/06/25 Verified Metabolic Panel 05:14 Albuterol Medneb PHA 06/06/25 Verified (Ventolin Medneb) 05:15 Ipratropium Medneb PHA 06/06/25 Verified (Atrovent Medneb) 05:15 Clopidogrel Bisulfate PHA 06/06/25 Verified (Plavix) 10:00 Atorvastatin (Lipitor) PHA 06/06/25 Verified 22:00 Furosemide Injection PHA 06/06/25 Verified (Lasix Injection) 10:00 Furosemide Injection PHA 06/06/25 Verified (Lasix Injection) 05:15 Methylprednisolone PHA 06/06/25 Verified Sod Succ (Solu Medrol 10:00 Famotidine Injection PHA 06/06/25 Verified (Pepcid Injection) 10:00 Tamsulosin PHA 06/06/25 Verified Hydrochloride (Flomax) 18:00 Hemoglobin A1c LAB 06/06/25 Verified 05:14 Carvedilol Tablet PHA 06/06/25 Verified (Coreg Tablet) 10:00 Clonidine Hcl Tablet PHA 06/06/25 Verified (Catapres Tablet) 05:15 Admit ADMIT 06/06/25 Verified 05:14 Allergies TAPAN 06/06/25 Verified 05:14 Code Status CODE 06/06/25 Verified 05:14 Sodium Chloride Lock [facility] 06/06/25 Verified (Saline Lock Ns) 06:00 Oxygen Per Hour RT 06/06/25 Verified 05:14 Hydrocodone-Acet [facility] 06/06/25 Verified 5/325mg Tab (Delevan 05:15 Ondansetron Hcl PHA 06/06/25 Verified (Zofran) 05:15 Docusate Sodium [facility] 06/06/25 Verified Capsule (Colace 05:15 Fall Risk Precautions [facility] 06/06/[address] 05:14 Complete Blood Count LAB 06/07/25 Verified 04:00 Comprehensive LAB 06/07/25 Verified Metabolic Panel 04:00 Cardiac DIET 06/06/25 Verified Diet-2gna,Lofat,Lochol Breakfast Echo 2d Mode Cardiac US 06/06/25 Verified DOP 05:14 Condition: Serious [facility] 06/06/25 Verified 05:14 Acetaminophen Tablet [facility] 06/06/25 Verified (Tylenol Tablet) 05:15 Bedrest With Bathroom [facility] 06/06/25 Verified Privileg 05:14 Sequential [facility] 06/06/25 Verified Compression Device Nitroglycerin [facility] 06/06/25 Verified Sublingual (Ntrostat 05:15 Problem List: (1) Acute exacerbation of congestive heart failure (2) Hyperglycemia (3) Elevated liver enzymes (4) COPD (chronic obstructive pulmonary disease) with acute bronchitis (5) Respiratory failure with hypoxia (6) Generalized weakness Date of Service: Jun 06, 2025 Billing Provider: MOODY SOLIS DNP Common Visit Codes: [id number] INP/OBS CARE (HIGH) MOODY SOLIS DNP Jun 06, 2025 05:45
[2025-06-06] MEDS: SODIUM CHLOR 0.9% PF (SALINE LOCK) 10ML VIAL/SYR IV SCH (06:07)
[2025-06-06] MEDS: FUROSEMIDE 20 MG/2 ML VIAL IV ONE (06:11)
[2025-06-06] MEDS: methylPREDNISolone SOD SUCC 40 MG/ML VL IV SCH (12:08)
[2025-06-06] MEDS: FAMOTIDINE (10MG/ML) 2ML VL IV SCH (12:08)
[2025-06-06] MEDS: FUROSEMIDE 20 MG/2 ML VIAL IV SCH (12:09)
[2025-06-06] MEDS: CLOPIDOGREL BISULFATE 75 MG TAB PO SCH (12:09)
[2025-06-06] MEDS: CARVEDILOL 3.125 MG TAB PO SCH (12:10)
[2025-06-06] MEDS: TAMSULOSIN HYDROCHLORIDE 0.4 MG CAP PO SCH (18:35)
--- NOTE | 2025-06-06 19:15 | DVHPN2 ---
Subjective FEELS BETTER Reviewed: Care Plan, H&P, Labs, Medications, Previous Orders, Radiology Changes from previous H/P or p: No Changes General: Per HPI Objective Vitals Vital Signs Date Time Temp Pulse Resp B/P (MAP) Pulse Ox O2 Delivery O2 Flow Rate FiO2 06/06/25 17:00 98.4 85 20 132/75 (94) 94 98.4 06/06/25 16:30 Nasal Cannula* 4 36 Intake/Output Intake and Output 06/06/25 07:00 Intake Total 1350 ml Balance 1350 ml IV Total 1350 ml General Appearance: Alert, Oriented X3, Cooperative HEENT: Atraumatic Lungs: Other (FEW CRACKLES BILATERAL LUNGS) Cardiovascular: Other (IRREGULAR) Abdomen: Normal bowel sounds, Soft, No tenderness Extremities: Other (Some edema bilateral lower extremities) Medications Current Medications Medications Dose Ordered Sig/Audrey Route Start Time Stop Time Status Last Admin Dose Admin Albuterol 2.5 mg Q4HPRN PRN NEB 06/06/25 05:15 Ipratropium [place] 0.5 mg Q4HPRN PRN NEB 06/06/25 05:15 Clopidogrel Bisulfate 75 mg DAILY PO 06/06/25 10:00 06/06/25 12:09 75 MG Atorvastatin Calcium 20 mg HS PO 06/06/25 22:00 Furosemide 20 mg DAILY IV 06/06/25 10:00 06/06/25 12:09 20 MG Methylprednisolone Sodium Succinate 40 mg BID IV 06/06/25 10:00 06/06/25 12:08 40 MG Famotidine 20 mg Q12HR IV 06/06/25 10:00 06/06/25 12:08 20 MG Tamsulosin HCl 0.4 mg QPM PO 06/06/25 18:00 06/06/25 18:35 0.4 MG Carvedilol 3.125 mg Q12HR PO 06/06/25 10:00 06/06/25 12:10 3.125 MG Clonidine HCl 0.1 mg Q4HP PRN PO 06/06/25 05:15 Sodium Chloride 10 ml Q8HR IV 06/06/25 06:00 06/06/25 14:00 10 ML Acetaminophen/ Hydrocodone Bitart 1 tab Q4HP PRN PO 06/06/25 05:15 Ondansetron HCl 4 mg Q4HP PRN IV 06/06/25 05:15 Docusate Sodium 100 mg BIDPRN PRN PO 06/06/25 05:15 Acetaminophen 650 mg Q6HP PRN PO 06/06/25 05:15 Nitroglycerin 0.4 mg Q5MINP PRN SL 06/06/25 05:15 Morphine Sulfate 2 mg Q30M PRN IV 06/06/25 05:15 Laboratory Results Laboratory Tests 06/06/25 02:07 Chemistry Test 06/06/25 02:07 Albumin 4.6 g/dL (3.2-4.8) Calcium Level 9.1 mg/dL (8.7-10.4) Magnesium Level 1.8 mg/dL (1.6-2.6) Total Protein 7.7 g/dL (5.7-8.2) Cardiac Markers Test 06/06/25 02:21 B-Type Natriuretic Peptide 423.61 pg/mL (0-100) LFT Test 06/06/25 02:07 Alanine Aminotransferase (ALT) 57 U/L (7-40) H Alkaline Phosphatase 188 U/L (46-116) H Aspartate Amino Transferase (AST) 80 U/L (13-40) H Total Bilirubin 2.1 mg/dL (0.2-1.0) H HgA1c, TSH Test 06/06/25 02:07 Hemoglobin A1c 5.6 % A1C (<5.7) Blood Gas Results Test 06/06/25 02:00 FiO2 % 40.0 Assessment/Plan Assessment/Plan Acute on chronic congestive heart failure Respiratory failure COPD History of DVT History of CVA Dyslipidemia Hypertension History of drug use Chronic Atrial fibrillation Plan: Continue current plan of care. Further plan per orders Plan discussed with: Patient Date of Service: Jun 06, 2025 Billing Provider: SANA OLIVAS MD Common Visit Codes: [id number] INP/OBS CARE(HIGH) SANA OLIVAS MD Jun 06, 2025 19:15
[2025-06-06] MEDS: ATORVASTATIN 20 MG TAB PO SCH (22:42)
[2025-06-07] VITALS (9 sets, daily range): BP systolic 122–135; BP diastolic 72–98; PULSE 76–112; RESP 16–20; TEMP 97.4–98.4; O2SAT 90–98
[2025-06-07 06:02] LABS: Hematocrit 46.8 % (41.0-53.0); Hemoglobin 16.3 g/dL (13.5-17.5); Mean Corpuscular Hemoglobin 32.7 pg (28.0-32.0); Mean Corpuscular Volume 94.0 fL (80.0-100.0); Nucleated Red Blood Cells % 0.0 %
[2025-06-07 06:18] LABS: Alanine Aminotransferase 32 U/L (7-40); Anion Gap 7 (5-15); BUN/Creatinine Ratio 21.1 (10.0-20.0); Blood Urea Nitrogen 15 mg/dL (9-23); Calcium 9.0 mg/dL (8.7-10.4)
[2025-06-07 06:19] LABS: Albumin 3.4 g/dL (3.2-4.8); Bilirubin, Total 1.2 mg/dL (0.2-1.0)
[2025-06-07 06:21] LABS: Alkaline Phosphatase 123 U/L (46-116); Carbon Dioxide 34 mmol/L (20-31); Chloride 94 mmol/L (98-107); Glucose 163 mg/dL (74-106); Potassium 3.4 mmol/L (3.5-5.1); Sodium 135 mmol/L (136-145); Total Protein 5.7 g/dL (5.7-8.2)
[2025-06-07] MEDS: ACETAMINOPHEN 325 MG TAB PO PRN (16:09)
--- NOTE | 2025-06-07 16:40 | DVHSR ---
APPROVED REPORT EXAM: LIMITED Two-dimensional and M-mode echocardiogram with Doppler and color Doppler. Blood Pressure: 127/82 mmHg INDICATION Elevated Trops Surgery/Intervention Pacemaker: DIMENSIONS LVDd4.4 (3.8-5.7cm)LA (2D)4.1 (1.9-4.0cm)Aortic Root2.9 (2.0-3.7cm) LVDs3.4 (2.5-4.0cm)LA (MM) (1.9-4.0cm)Aortic Cusp Exc1.4 (1.5-2.0cm) EF (%) 47.0 (55-70%)Rt. Atrium (1.9-4.0cm)Asc. Aorta cm IVSd1.0 (0.7-1.1cm)RV (D) (1.8-2.4cm) PWd1.3 (0.7-1.1cm) Mitral Valve MitralMitral Stenosis E/A ratio0.02D MVAcm2 Aortic Valve Aortic ValveAortic Stenosis V10.68m/Andre Mean GR.mmHg LVOT Diameter2.2 (1.8-2.4cm)Doppler AVA0.00cm2 Tricuspid Valve TR Velocity2.95m/s [id number] Other Information Quality : Technically LimitedRhythm : Technically limited study due to body habitus and patient position. Conclusion Atrial fibrillation. Left atrial enlargement. Valves are normal. EF of 60% with normal RV function. Dopplers unremarkable. No pericardial effusion masses or vegetations.
--- NOTE | 2025-06-07 18:12 | DVHPN2 ---
Subjective FEELS BETTER Reviewed: Care Plan, H&P, Labs, Medications, Previous Orders, Radiology Changes from previous H/P or p: No Changes General: Per HPI Objective Vitals Vital Signs Date Time Temp Pulse Resp B/P (MAP) Pulse Ox O2 Delivery O2 Flow Rate FiO2 06/07/25 17:20 97.4 112 18 130/95 (107) 98 97.4 06/07/25 10:00 Nasal Cannula 4.0 06/07/25 08:00 36 Intake/Output Intake and Output 06/07/25 07:00 Intake Total 1920 ml Output Total 1200 ml Balance 720 ml Intake Oral 1920 ml Output Urine Total 1200 ml # Voids 6 General Appearance: Alert, Oriented X3, Cooperative HEENT: Atraumatic Lungs: Other (FEW CRACKLES BILATERAL LUNGS) Cardiovascular: Other (IRREGULAR) Abdomen: Normal bowel sounds, Soft, No tenderness Extremities: Other (Some edema bilateral lower extremities) Medications Current Medications Medications Dose Ordered Sig/Audrey Route Start Time Stop Time Status Last Admin Dose Admin Albuterol 2.5 mg Q4HPRN PRN NEB 06/06/25 05:15 Ipratropium [place] 0.5 mg Q4HPRN PRN NEB 06/06/25 05:15 Clopidogrel Bisulfate 75 mg DAILY PO 06/06/25 10:00 06/07/25 10:13 75 MG Atorvastatin Calcium 20 mg HS PO 06/06/25 22:00 06/06/25 22:42 20 MG Furosemide 20 mg DAILY IV 06/06/25 10:00 06/07/25 10:13 20 MG Methylprednisolone Sodium Succinate 40 mg BID IV 06/06/25 10:00 06/07/25 10:13 40 MG Famotidine 20 mg Q12HR IV 06/06/25 10:00 06/07/25 10:13 20 MG Tamsulosin HCl 0.4 mg QPM PO 06/06/25 18:00 06/06/25 18:35 0.4 MG Carvedilol 3.125 mg Q12HR PO 06/06/25 10:00 06/07/25 10:14 3.125 MG Clonidine HCl 0.1 mg Q4HP PRN PO 06/06/25 05:15 Sodium Chloride 10 ml Q8HR IV 06/06/25 06:00 06/07/25 14:00 10 ML Acetaminophen/ Hydrocodone Bitart 1 tab Q4HP PRN PO 06/06/25 05:15 Ondansetron HCl 4 mg Q4HP PRN IV 06/06/25 05:15 Docusate Sodium 100 mg BIDPRN PRN PO 06/06/25 05:15 Acetaminophen 650 mg Q6HP PRN PO 06/06/25 05:15 06/07/25 16:09 650 MG Nitroglycerin 0.4 mg Q5MINP PRN SL 06/06/25 05:15 Morphine Sulfate 2 mg Q30M PRN IV 06/06/25 05:15 Laboratory Results Laboratory Tests 06/07/25 04:58 Chemistry Test 06/07/25 04:58 Albumin 3.4 g/dL (3.2-4.8) Calcium Level 9.0 mg/dL (8.7-10.4) Total Protein 5.7 g/dL (5.7-8.2) LFT Test 06/07/25 04:58 Alanine Aminotransferase (ALT) 32 U/L (7-40) Alkaline Phosphatase 123 U/L (46-116) H Aspartate Amino Transferase (AST) 36 U/L (13-40) Total Bilirubin 1.2 mg/dL (0.2-1.0) H Microbiology Microbiology Date/Time Source Procedure Growth Status 06/06/25 01:50 Blood Blood Culture - Preliminary NO GROWTH AFTER 24 HOURS OF INCUBATION. Resulted Assessment/Plan Assessment/Plan Acute on chronic congestive heart failure Respiratory failure COPD History of DVT History of CVA Dyslipidemia Hypertension History of drug use Chronic Atrial fibrillation Hypokalemia Thrombocytopenia Plan: Discontinue steroids. Increase beta-blockers. Lovenox. Replace potassium. Repeat labs. Resume Jardiance from home medications. Further plan per order Plan discussed with: Patient Date of Service: Jun 07, 2025 Billing Provider: SANA OLIVAS MD Common Visit Codes: [id number] INP/OBS CARE(HIGH) SANA OLIVAS MD Jun 07, 2025 18:12
[2025-06-07] MEDS: POTASSIUM EFFERVESENT TAB 25 MEQ PO ONE (18:58)
[2025-06-07] MEDS: CARVEDILOL 3.125 MG TAB PO SCH (19:01)
[2025-06-07 19:05] LABS: INR 1.13 (0.9-1.15); Prothrombin Time 11.8 sec (9.3-11.8)
[2025-06-07] MEDS: ENOXAPARIN SOD 80 MG/0.8ML SYRINGE SC SCH (22:03)
[2025-06-08] VITALS (11 sets, daily range): BP systolic 111–128; BP diastolic 80–92; PULSE 66–102; RESP 16–18; TEMP 97.7–98.4; O2SAT 97–100
--- NOTE | 2025-06-08 06:07 | ECG ---
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
[2025-06-08] MEDS: LISINOPRIL 20 MG TAB PO SCH (10:23)
[2025-06-08] MEDS: POTASSIUM CHLORIDE 8 MEQ TAB PO SCH (10:23)
[2025-06-08] MEDS: EMPAGLIFLOZIN 10 MG TAB PO SCH (10:24)
[2025-06-08] MEDS: SPIRONOLACTONE 25 MG TAB PO SCH (10:24)
[2025-06-08] MEDS: CARVEDILOL 3.125 MG TAB PO SCH (10:24)
--- NOTE | 2025-06-08 12:15 | DVHPN2 ---
Progress Note Date Seen: Jun 08, 2025 Medical Necessity Reason Pt with a Central, PICC or Fol: No Subjective Patient reports: No new complaints Review of Systems: HEENT:Normal, CVS:Normal, RESPIRATORY:Normal, GI:Normal, :Normal, MSK:Normal, NEURO:Normal Objective vital signs Vital Sign Date Time Temp Pulse Resp B/P (MAP) Pulse Ox O2 Delivery O2 Flow Rate FiO2 06/08/25 10:24 92 128/92 06/08/25 09:49 97 Nasal Cannula 4.0 06/08/25 09:00 97.8 16 97.8 06/08/25 08:00 36 Total Intake and Output 06/07/25 06/07/25 06/08/25 15:00 23:00 07:00 Intake Total 300 ml 900 ml 300 ml Output Total 900 ml Balance 300 ml 900 ml -600 ml medications Current Medications Medications Dose Ordered Sig/Audrey Route Start Time Stop Time Status Last Admin Dose Admin Albuterol 2.5 mg Q4HPRN PRN NEB 06/06/25 05:15 Cancel Ipratropium [place] 0.5 mg Q4HPRN PRN NEB 06/06/25 05:15 Cancel Clopidogrel Bisulfate 75 mg DAILY PO 06/06/25 10:00 06/08/25 10:25 75 MG Atorvastatin Calcium 20 mg HS PO 06/06/25 22:00 06/07/25 22:03 20 MG Furosemide 20 mg DAILY IV 06/06/25 10:00 06/08/25 10:23 20 MG Famotidine 20 mg Q12HR IV 06/06/25 10:00 06/08/25 10:22 20 MG Tamsulosin HCl 0.4 mg QPM PO 06/06/25 18:00 06/07/25 19:02 0.4 MG Clonidine HCl 0.1 mg Q4HP PRN PO 06/06/25 05:15 Sodium Chloride 10 ml Q8HR IV 06/06/25 06:00 06/08/25 06:07 10 ML Acetaminophen/ Hydrocodone Bitart 1 tab Q4HP PRN PO 06/06/25 05:15 Ondansetron HCl 4 mg Q4HP PRN IV 06/06/25 05:15 Docusate Sodium 100 mg BIDPRN PRN PO 06/06/25 05:15 Acetaminophen 650 mg Q6HP PRN PO 06/06/25 05:15 06/08/25 08:27 650 MG Nitroglycerin 0.4 mg Q5MINP PRN SL 06/06/25 05:15 Morphine Sulfate 2 mg Q30M PRN IV 06/06/25 05:15 Empaglifozin 10 mg DAILY PO 06/08/25 10:00 06/08/25 10:24 10 MG Lisinopril 20 mg DAILY PO 06/08/25 10:00 06/08/25 10:23 20 MG Spironolactone 25 mg DAILY PO 06/08/25 10:00 06/08/25 10:24 25 MG Enoxaparin Sodium 70 mg Q12HR SC 06/07/25 22:00 06/08/25 10:25 70 MG Potassium Chloride 8 meq DAILY PO 06/08/25 10:00 06/08/25 10:23 8 MEQ Carvedilol 6.25 mg Q12HR PO 06/08/25 10:00 06/08/25 10:24 6.25 MG Examination: GENERAL:Normal, HEENT:Normal, NECK:Normal, LUNGS:Normal, LUNGS:Abnormal (on oxygen, rhonchi), CVS:Normal, ABDOMEN:Normal, MSK:Normal, SKIN:Normal, NEURO:Normal, :Normal laboratory and microbiology Laboratory Tests 06/07/25 04:58 Test 06/07/25 04:58 Range/Units Serum Glucose 163 H 74-106 mg/dL Microbiology Date/Time Source Procedure Growth Status 06/06/25 01:50 Blood Blood Culture - Preliminary NO GROWTH AFTER 48 HOURS OF INCUBATION. Resulted Problem List/Assessment/Plan Problem List/Assessment/Plan #1 acute on chronic resp failure: cont oxygen #2 acute on chronic diastolic heart failure: lasix iv #3 copd with exacerbation: prednisone #4 htn #5 tobacco abuse: advised to quit, nicotine patch- time spent 11 mins #6 alcohol abuse: thiamine, folic acid #7 a fib: coreg/ eliquis #8 pvd/stent #9 thrombocytopenia: monitor #10 h/o cva advance care planning- full code- time spent 19 mins Plan discussed with: Patient My Orders My Orders Orders - NEGRA CARLSON MD Procedure Category Date Status Time Urinalysis LAB 06/08/25 Uncollected 12:03 Apixaban (Eliquis) PHA 06/08/25 Verified 22:00 Pt Request For Service PT 06/08/25 Verified 12:03 Nicotine 21mg/24hr PHA 06/08/25 Verified (Nicoderm 21mg/24hr) 12:15 Nicotine 21mg/24hr PHA 06/09/25 Verified (Nicoderm 21mg/24hr) 10:00 Pantoprazole Tablet PHA 06/09/25 Verified (Protonix Tablet) 06:00 Trazodone Hcl PHA 06/08/25 Verified (Desyrel) 22:00 Albuterol Medneb PHA 06/08/25 Verified (Ventolin Medneb) 18:00 Ipratropium Medneb PHA 06/08/25 Verified (Atrovent Medneb) 18:00 Thiamine Inj PHA 06/08/25 Verified 12:15 Thiamine Inj PHA 06/09/25 Verified 10:00 Folic Acid Ivpb PHA 06/09/25 Verified 10:00 Folic Acid Ivpb PHA 06/08/25 Verified 12:15 Date of Service: Jun 08, 2025 Billing Provider: NEGRA CARLSON MD Common Visit Codes: [id number] INP/OBS CARE(HIGH) Secondary Visit Codes: [id number] CARE PLAN 30 MINUTES NEGRA CARLSON MD Jun 08, 2025 12:14
[2025-06-08] MEDS: FOLIC ACID 1 MG in D5W 5% 50 ML INJ ONE (13:28)
[2025-06-08] MEDS: NICOTINE 21MG/24 HR TOPICAL PATCH TD ONE (13:29)
[2025-06-08] MEDS: THIAMINE 100mg/ml INJ (200mg/2ml VIAL) IV ONE (13:29)
[2025-06-08] MEDS: IPRATROPIUM BROM 0.5 MG/2.5ML INH SOL NEB SCH (18:46)
[2025-06-08] MEDS: ALBUTEROL SULF 2.5 MG/0.5ML(0.5%) NEB SOLN NEB SCH (18:46)
[2025-06-08] MEDS: APIXABAN 5 MG TAB PO SCH (21:56)
[2025-06-09] VITALS (16 sets, daily range): BP systolic 108–137; BP diastolic 73–102; PULSE 69–101; RESP 16–20; TEMP 97.2–98.2; O2SAT 93–100
[2025-06-09] MEDS: PANTOPRAZOLE 40 MG TAB PO SCH (05:34)
[2025-06-09 06:29] LABS: Hematocrit 48.2 % (41.0-53.0); Hemoglobin 16.7 g/dL (13.5-17.5); Mean Corpuscular Hemoglobin 32.9 pg (28.0-32.0); Mean Corpuscular Volume 95.2 fL (80.0-100.0); Nucleated Red Blood Cells % 0.2 %
[2025-06-09 06:44] LABS: Anion Gap 4 (5-15); Calcium 9.2 mg/dL (8.7-10.4); Potassium 3.7 mmol/L (3.5-5.1)
[2025-06-09 06:50] LABS: BUN/Creatinine Ratio 22.7 (10.0-20.0); Blood Urea Nitrogen 15 mg/dL (9-23); Glucose 95 mg/dL (74-106); Magnesium 2.1 mg/dL (1.6-2.6)
[2025-06-09 06:54] LABS: Carbon Dioxide 33 mmol/L (20-31); Chloride 97 mmol/L (98-107); Sodium 134 mmol/L (136-145)
[2025-06-09] MEDS: NICOTINE 21MG/24 HR TOPICAL PATCH TD SCH (10:33)
[2025-06-09] MEDS: THIAMINE 100mg/ml INJ (200mg/2ml VIAL) IV SCH (10:33)
[2025-06-09] MEDS: FOLIC ACID 1 MG in D5W 5% 50 ML INJ SCH (10:33)
[2025-06-09 11:55] LABS: Urine Protein, UAD Negative (Negative)
--- NOTE | 2025-06-09 12:54 | DVHPN2 ---
Progress Note Date Seen: Jun 09, 2025 Medical Necessity Reason Pt with a Central, PICC or Fol: No Subjective Patient reports: No new complaints Review of Systems: HEENT:Normal, CVS:Normal, RESPIRATORY:Normal, GI:Normal, :Normal, MSK:Normal, NEURO:Normal Objective vital signs Vital Sign Date Time Temp Pulse Resp B/P (MAP) Pulse Ox O2 Delivery O2 Flow Rate FiO2 06/09/25 12:48 97.5 78 18 137/102 (114) 93 97.5 06/09/25 11:38 Nasal Cannula 3.0 06/09/25 11:38 32 Total Intake and Output 06/08/25 06/08/25 06/09/25 15:00 23:00 07:00 Intake Total 50.2 ml 1260 ml 600 ml Output Total 700 ml 1300 ml Balance 50.2 ml 560 ml -700 ml medications Current Medications Medications Dose Ordered Sig/Audrey Route Start Time Stop Time Status Last Admin Dose Admin Albuterol 2.5 mg Q4HPRN PRN NEB 06/06/25 05:15 Cancel Ipratropium [place] 0.5 mg Q4HPRN PRN NEB 06/06/25 05:15 Cancel Clopidogrel Bisulfate 75 mg DAILY PO 06/06/25 10:00 06/09/25 10:30 75 MG Atorvastatin Calcium 20 mg HS PO 06/06/25 22:00 06/08/25 21:56 20 MG Furosemide 20 mg DAILY IV 06/06/25 10:00 06/09/25 10:30 20 MG Tamsulosin HCl 0.4 mg QPM PO 06/06/25 18:00 06/08/25 18:25 0.4 MG Clonidine HCl 0.1 mg Q4HP PRN PO 06/06/25 05:15 Sodium Chloride 10 ml Q8HR IV 06/06/25 06:00 06/09/25 05:33 10 ML Acetaminophen/ Hydrocodone Bitart 1 tab Q4HP PRN PO 06/06/25 05:15 Ondansetron HCl 4 mg Q4HP PRN IV 06/06/25 05:15 Docusate Sodium 100 mg BIDPRN PRN PO 06/06/25 05:15 Acetaminophen 650 mg Q6HP PRN PO 06/06/25 05:15 06/09/25 10:32 650 MG Nitroglycerin 0.4 mg Q5MINP PRN SL 06/06/25 05:15 Morphine Sulfate 2 mg Q30M PRN IV 06/06/25 05:15 Empaglifozin 10 mg DAILY PO 06/08/25 10:00 06/09/25 10:30 10 MG Lisinopril 20 mg DAILY PO 06/08/25 10:00 06/09/25 10:32 20 MG Spironolactone 25 mg DAILY PO 06/08/25 10:00 06/09/25 10:32 25 MG Potassium Chloride 8 meq DAILY PO 06/08/25 10:00 06/09/25 10:33 8 MEQ Carvedilol 6.25 mg Q12HR PO 06/08/25 10:00 06/09/25 10:32 6.25 MG Apixaban 5 mg BID PO 06/08/25 22:00 06/09/25 10:30 5 MG Nicotine 1 patch DAILY TD 06/09/25 10:00 06/09/25 10:33 1 PATCH Pantoprazole Sodium 40 mg DAILY@0600 PO 06/09/25 06:00 06/09/25 05:34 40 MG Trazodone HCl 50 mg HS PO 06/08/25 22:00 06/08/25 21:56 50 MG Albuterol 2.5 mg Q6HWA NEB 06/08/25 18:00 06/09/25 11:38 2.5 MG Ipratropium [place] 0.5 mg Q6HWA NEB 06/08/25 18:00 06/09/25 11:38 0.5 MG Thiamine HCl 100 mg DAILY IV 06/09/25 10:00 06/09/25 10:33 100 MG Folic Acid 1 mg/ Dextrose 50.2 ml @ 200.8 mls/ hr DAILY INJ 06/09/25 10:00 06/09/25 10:33 200.8 MLS/HR Examination: GENERAL:Normal, HEENT:Normal, NECK:Normal, LUNGS:Normal, CVS:Normal, ABDOMEN:Normal, MSK:Normal, SKIN:Normal, NEURO:Normal, :Normal laboratory and microbiology Laboratory Tests 06/09/25 06:00 Test 06/09/25 06:00 Range/Units Serum Glucose 95 74-106 mg/dL Microbiology Date/Time Source Procedure Growth Status 7/26/25 01:50 Blood Blood Culture - Preliminary NO GROWTH AFTER 72 HOURS OF INCUBATION. Resulted Problem List/Assessment/Plan Problem List/Assessment/Plan #1 acute on chronic resp failure: cont oxygen #2 acute on chronic diastolic heart failure: lasix #3 copd with exacerbation: prednisone #4 htn #5 tobacco abuse: advised to quit, nicotine patch- time spent 11 mins #6 alcohol abuse: thiamine, folic acid #7 a fib: coreg/ eliquis #8 pvd/stent #9 thrombocytopenia: monitor #10 h/o cva advance care planning- full code- time spent 19 mins Plan discussed with: Patient Date of Service: Jun 09, 2025 Billing Provider: NEGRA CARLSON MD Common Visit Codes: [id number] INP/OBS CARE(HIGH) NEGRA CARLSON MD Jun 09, 2025 12:54
[2025-06-10] VITALS (11 sets, daily range): BP systolic 117–136; BP diastolic 84–98; PULSE 72–102; RESP 16–18; TEMP 36.6; O2SAT 92–100
[2025-06-10 06:26] LABS: Hematocrit 50.4 % (41.0-53.0); Hemoglobin 17.5 g/dL (13.5-17.5); Mean Corpuscular Hemoglobin 33.0 pg (28.0-32.0); Mean Corpuscular Volume 95.0 fL (80.0-100.0); Nucleated Red Blood Cells % 0.2 %
[2025-06-10] MEDS: FUROSEMIDE 20 MG TAB PO SCH (10:39)
--- NOTE | 2025-06-10 11:09 | DVHDS2 ---
Discharge Summary Date of Admission Jun 06, 2025 at 05:14 Date of Discharge: Jun 10, 2025 Labs/Diagnostic Data: Laboratory Results Test 06/10/25 05:38 06/09/25 09:00 06/09/25 06:00 06/07/25 18:28 White Blood Count 7.6 10^3/uL (4.4-10.8) Red Blood Count 5.30 10^6/uL (4.5-5.90) Hemoglobin 17.5 g/dL (13.5-17.5) Hematocrit 50.4 % (41.0-53.0) Mean Corpuscular Volume 95.0 fL (80.0-100.0) Mean Corpuscular Hemoglobin 33.0 pg (28.0-32.0) Mean Corpuscular Hemoglobin Concent 34.7 g/dL (32.0-36.0) Red Cell Distribution Width 14.1 % (11.8-14.3) Platelet Count 116 10^3/uL (140-450) Mean Platelet Volume 8.1 fL (6.9-10.8) Neutrophils (%) (Auto) 70.6 % (37.0-80.0) Lymphocytes (%) (Auto) 15.6 % (10.0-50.0) Monocytes (%) (Auto) 11.0 % (0.0-12.0) Eosinophils (%) (Auto) 2.5 % (0.0-7.0) Basophils (%) (Auto) 0.3 % (0.0-2.0) Neutrophils # (Auto) 5.4 10 ^3/uL (1.6-8.6) Lymphocytes # (Auto) 1.2 10 ^3/uL (0.4-5.4) Monocytes # (Auto) 0.8 10 ^3/uL (0-1.3) Eosinophils # (Auto) 0.2 10 ^3/uL (0-0.8) Basophils # (Auto) 0 10 ^3/uL (0-0.2) Nucleated Red Blood Cells 0.2 % Urine Color Colorless (Yellow) Urine Clarity Clear (Clear) Urine pH 7.5 (5.0-9.0) Urine Specific [place] 1.006 (1.001-1.035) Urine Protein Negative (Negative) Urine Ketones Negative (Negative) Urine Blood Negative /uL (Negative) Urine Nitrite Negative (Negative) Urine Bilirubin Negative (Negative) Urine Urobilinogen Normal mg/dL (Negative) Urine Leukocyte Esterase Negative /uL (Negative) Urine RBC None seen /hpf (0 - 3) Urine Microscopic WBC < 1 /HPF (0-3) Urine Squamous Epithelial Cells None seen /hpf (<5) Urine Bacteria None seen /hpf (None Seen) Urine Glucose 3+ mg/dL (Normal) Sodium Level 134 mmol/L (136-145) Potassium Level 3.7 mmol/L (3.5-5.1) Chloride Level 97 mmol/L (98-107) Carbon Dioxide Level 33 mmol/L (20-31) Anion Gap 4 (5-15) Blood Urea Nitrogen 15 mg/dL (9-23) Creatinine 0.66 mg/dL (0.700-1.30) Glomerular Filtration Rate Calc 104 mL/min (>90) BUN/Creatinine Ratio 22.7 (10.0-20.0) Serum Glucose 95 mg/dL (74-106) Calcium Level 9.2 mg/dL (8.7-10.4) Magnesium Level 2.1 mg/dL (1.6-2.6) Prothrombin Time 11.8 sec (9.3-11.8) Prothrombin Time INR 1.13 (0.9-1.15) Test 06/07/25 04:58 06/06/25 05:10 06/06/25 04:00 06/06/25 02:21 Total Bilirubin 1.2 mg/dL (0.2-1.0) Aspartate Amino Transferase (AST) 36 U/L (13-40) Alanine Aminotransferase (ALT) 32 U/L (7-40) Alkaline Phosphatase 123 U/L (46-116) Total Protein 5.7 g/dL (5.7-8.2) Albumin 3.4 g/dL (3.2-4.8) Troponin I High Sensitivity 11 ng/L (</=54) Lactic Acid Level 1.3 mmol/L (0.4-2.0) B-Type Natriuretic Peptide 423.61 pg/mL (0-100) Test 06/06/25 02:07 06/06/25 02:00 Hemoglobin A1c 5.6 % A1C (<5.7) Blood Gas Specimen Type Venous Blood Gas Sample Site Vbg - n/a Blood Gas Patient Temperature 37.0 Arterial Blood Date Drawn [id number] Darshan Test N/a Venous Blood pH 7.433 (7.320-7.430) Venous Blood pCO2 at Patient Temp 39.5 mmHg (38.0-54.0) Venous Blood pO2 at Patient Temp 52.0 mmHg (23.0-48.0) Venous Blood HCO3 25.8 mmol/L (22.0-29.0) Venous Blood Base Excess 1.6 mmol/L (-2.0-3.0) Blood Gas Liter Flow 5.00 Blood Gas Modality Nasal cannula FiO2 % 40.0 Blood Gas Critical Value Read Back yes Blood Gas Notified Whom Guillermo dillard md Blood Gas Notified Time [id number] Blood Gas Notified By Commutator Presser celeste cody Other Laboratory Tests 06/10/25 05:38 06/09/25 06:00 Brief Hx & Hospital Course: see dictated note Condition at Discharge: Fair Final Diagnosis/Problems List chf Discharge Disposition: Home Discharge Instruct/Medications Diet: Cardiac 2g Na,low cholest Activity: No Restrictions, As Tolerated Follow Up/Referral: fu with pcp in 1wk Medications: resume home meds script to pharmacy Scheduled Amlodipine Besylate (Amlodipine Besylate), 1 TAB PO DAILY, (Reported) Atorvastatin Calcium (Lipitor), 1 TAB PO DAILY, (Reported) Citalopram Hydrobromide (Celexa), 3 TAB PO DAILY Clopidogrel Bisulfate (Plavix), 1 TAB PO DAILY Empagliflozin (Jardiance), 10 MG PO DAILY Ergocalciferol (Vitamin D 31260 Unit), 50,000 UNIT PO Weekly, (Reported) Furosemide (Furosemide), 1 TAB PO DAILY Lisinopril (Lisinopril), 20 MG PO DAILY Metoprolol Succinate (Toprol Xl), 25 MG PO DAILY Spironolactone (Aldactone), 25 MG PO DAILY Tamsulosin Hcl (Tamsulosin Hcl), 1 CAP PO DAILY, (Reported) Trazodone Hcl (Trazodone Hcl), 50 MG PO HS Umeclidinium-Vilanterol (Anoro Ellipta 62.5-25 Mcg/INH), 1 PUFF IN DAILY, (Reported) Miscellaneous Medications Multiple Vitamins W/ Minerals (Centrum Silver), 1 OR, (Reported) Nicotine Polacrilex (Nicotine Mini Lozenge), 4 MG MT, (Reported) Discharge Statement: "Patient was advised to return to the ER or call 911 if any headaches, dizziness, shortness of breath, chest pain, abdominal pain, bleeding, fevers, or worsening of medical condition. Patient was counseled about treatment plan, medications, possible side effects, patientverbalized understanding. All questions were answered to the best of my ability. This discharge took greater then 30 minutes in planning, reviewing documentation, counseling the patient, and discussing with other team members." ASSESSMENT ASSESSMENT Assessment chf Date of Service: Jun 10, 2025 Billing Provider: NEGRA CARLSON MD Common Visit Codes: [id number] DISCH DAY >30min NEGRA CARLSON MD Jun 10, 2025 11:09
[2025-06-10] MEDS ORDERED: PRED20TA2 PO (11:18)
[2025-06-10] MEDS ORDERED: POTA-228 PO (11:19)
[2025-06-10] MEDS ORDERED: FURO1TAB33 PO (11:19)
--- NOTE | 2025-06-10 11:34 | DVHDS ---
DATE OF DISCHARGE: 06/10/2025 HISTORY OF PRESENT ILLNESS: The patient is a 64-year-old gentleman who is admitted with history of increasing shortness of breath and has a history of CHF, COPD, chronic respiratory failure, hypertension, hyperlipidemia and DVT. HOSPITAL COURSE: The patient had an echocardiogram done that showed ejection fraction of 60%. The patient was placed on intravenous diuretics. Troponin level was negative for acute RI. BNP was elevated at 423. The patient is now improved in his symptoms. He will be discharged home. He is strongly advised to quit tobacco abuse as well as alcohol abuse. The patient will resume his home medications as well as be on prednisone 20 mg daily for 5 days, Lasix 20 mg daily, potassium chloride 10 mEq p.o. daily and he will follow up with his primary in 1 week. FINAL DIAGNOSES: Therefore: * Acute on chronic respiratory failure. * Acute on chronic diastolic heart failure. * COPD exacerbation. * Hypertension. * Tobacco abuse. * Alcohol abuse. * Atrial fibrillation with secondary hypercoagulable state. * Peripheral vascular disease with previous stent. * Thrombocytopenia. * History of CVA. Time spent in discharge planning and review of plan with the patient and nursing was 39 minutes. MD CAMILA Judd/DARRYL TID: [id number] RECEIPT: [id number]
== END 2025-06-10 15:07 | disposition home or self-care (01) | DRG 291 ==
LOC: EDBD 01:23 → ER 01:23 → OVERFLOW 05:14 → TELE-WESTW 09:13
PROVIDERS: ADMIT Internal Medicine; ATTEND Internal Medicine
DX: I11.0 Hypertensive heart disease with heart failure (principal); I50.33 Acute on chronic diastolic (congestive) heart failure; J96.21 Acute and chronic respiratory failure with hypoxia; E87.1 Hypo-osmolality and hyponatremia; J44.1 Chronic obstructive pulmonary disease with (acute) exacerbation; I48.20 Chronic atrial fibrillation, unspecified; D68.69 Other thrombophilia; R73.9 Hyperglycemia, unspecified; J20.9 Acute bronchitis, unspecified; J98.4 Other disorders of lung; F17.210 Nicotine dependence, cigarettes, uncomplicated; D69.6 Thrombocytopenia, unspecified; E78.5 Hyperlipidemia, unspecified; E87.6 Hypokalemia; F10.10 Alcohol abuse, uncomplicated; I25.10 Atherosclerotic heart disease of native coronary artery without angina pectoris; Z79.899 Other long term (current) drug therapy; Z86.73 Personal history of transient ischemic attack (TIA), and cerebral infarction without residual deficits; Z95.5 Presence of coronary angioplasty implant and graft; Z86.718 Personal history of other venous thrombosis and embolism; Z83.3 Family history of diabetes mellitus; Y90.9 Presence of alcohol in blood, level not specified
CPT/HCPCS: 36415; 36600; 71045; 80048; 80053; 81001; 82805; 83036; 83605; 83735; 83880; 84484; 85025; 85610; 87040; 93005; 93306; 94640; 96365; 96367; 96375; 97163; 99291; G0378; J2405; J2543; J3490; J7060

== ENCOUNTER 2025-07-12 14:53 | Inpatient (IN) | payer MEDICARE ==
[~2025-07-12] VITALS: Ht 177.8 cm; Wt 73.6 kg
[~2025-07-12 14:53] MED LIST changes: +APIX5TAB PO; +CARV3.1240 PO; +CITA-77 PO; +FURO1TAB33 PO; +LISI-275 PO; +POTA-228 PO; +PRED20TA2 PO; +SIMV20TA20 PO
--- NOTE | 2025-07-12 15:35 | ED.PDOC ---
Epistaxis- HPI HPI Comments 65 y/o M, with PMHx ofCOPD, HTN, CVA, CHF, HLD and AFib presents to the ED for CC of nose-bleed. Patient states, he has been having left-nare epistaxis x1 day. Patient reports, that he is currently on blood thinners. At this time no active bleeding is noted from either nare; dry blood and formation of eschar present to the left nare. No other symptoms or modifying factors are present at this time. Chief Complaint: Nose Bleed Time Seen by MD: 15:20 Primary Care Provider: NONE Reviewed Notes: Nurses Notes, Medications, Allergies Allergies: Coded Allergies: NO KNOWN ALLERGIES (Unverified , 09/26/24) Home Meds Active Scripts Potassium Chloride (Potassium Chloride ER) 10 Meq Tab, 10 MEQ PO DAILY for 30 Days, #30 TAB 3 Refills Prov:NEGRA CARLSON MD 06/10/25 Furosemide (Lasix) 20 Mg Tb, 1 TAB PO QAM for 30 Days, #30 TAB 3 Refills Prov:NEGRA CARLSON MD 06/10/25 Prednisone (Prednisone) 20 Mg Tab, 20 MG PO QAM for 5 Days, #10 MG Prov:NEGRA CARLSON MD 06/10/25 Trazodone Hcl (Trazodone Hcl) 50 Mg Tab, 50 MG PO HS for 30 Days, #30 TAB 1 Refill Prov:BELKIS ANTONY PUTTY WORKER 11/22/24 Citalopram Hydrobromide (Celexa) 10 Mg Tab, 3 TAB PO DAILY for 60 Days, #180 TAB 2 Refills Prov:BELKIS ANTONY PUTTY WORKER 11/22/24 Clopidogrel Bisulfate (Plavix) 75 Mg Tab, 1 TAB PO DAILY for 30 Days, #30 TAB 1 Refill Prov:BELKIS ANTONY NP 11/22/24 Furosemide (Furosemide) 20 Mg Tab, 1 TAB PO DAILY, #30 TAB 5 Refills Prov:YAZMIN FONSECA RESIDENT 11/01/24 Spironolactone (Aldactone) 25 Mg Tab, 25 MG PO DAILY for 30 Days, #30 TAB Prov:YAZMIN FONSECA RESIDENT 11/01/24 Metoprolol Succinate (Toprol Xl) 50 Mg Tab, 25 MG PO DAILY for 30 Days, #15 TAB Prov:YAZMIN FONSECA RESIDENT 11/01/24 Lisinopril (Lisinopril) 20 Mg Tab, 20 MG PO DAILY for 30 Days, #30 TAB Prov:YAZMIN FONSECA RESIDENT 11/01/24 Empagliflozin (Jardiance) 10 Mg Tab, 10 MG PO DAILY for 30 Days, #30 TAB Prov:YAZMIN FONSECA RESIDENT 11/01/24 Reported Medications Atorvastatin Calcium (Lipitor) 40 Mg Tab, 1 TAB PO DAILY for 30 Days, #30 11/11/24 Umeclidinium-Vilanterol (Anoro Ellipta 62.5-25 Mcg/INH) 1 Aer Aer, 1 PUFF IN DAILY for 30 Days, #60 10/28/24 Amlodipine Besylate (Amlodipine Besylate) 10 Mg Tab, 1 TAB PO DAILY for 90 Days, #90 10/28/24 Multiple Vitamins W/ Minerals (Centrum Silver) Silver Chw, 1 OR, TAB.CHEW 10/28/24 Nicotine Polacrilex (Nicotine Mini Lozenge) 4 Mg Christi, 4 MG MT, CHRISTI 10/28/24 Ergocalciferol (VITAMIN D 87416 UNIT) 50,000 [place], [address] UNIT PO Weekly, CAP 10/28/24 Tamsulosin Hcl (Tamsulosin Hcl) 0.4 Mg Cap, 1 CAP PO DAILY 10/28/24 Information Source: Patient Mode of Arrival: Wheelchair Timing: Hours Duration: Since onset Prehospital treatment: None Location: Left naris Mechanism: Spontaneous onset Circumstances: Unknown History of: None Last Tetanus: Unknown Nose: Intranasal/Septum: Blood Bleeding Status: No active bleeding Source: Left Associated signs and symptoms: None Past Medical History PAST MEDICAL HISTORY: AFIB, CHF, COPD, CVA, High Lipids, HTN Family History Family History: Family hx of DM Social History Smoker: Cigarettes Alcohol: Occasionally Drugs: Marijuana Lives In: Home Constitutional: denies: chills, diaphoresis, fatigue, fever, malaise, sweats, weakness, others EENTM: reports: nose bleeding; denies: blurred vision, double vision, ear bleeding, ear discharge, ear drainage, ear pain, ear ringing, eye pain, eye redness, hearing loss, mouth pain, mouth swelling, nasal discharge, nose congestion, nose pain, photophobia, tearing, throat pain, throat swelling, voice changes, others Respiratory: denies: cough, hemoptysis, orthopnea, SOB at rest, shortness of br eath, SOB with excertion, stridor, wheezing, others Cardiovascular: denies: chest pain, dizzy spells, diaphoresis, Dyspnea on exertion, edema, irregular heart beat, left arm pain, lightheadedness, palpitations, PND, syncope, others Gastrointestinal: denies: abdomen distended, abdominal pain, blood streaked bowels, constipated, diarrhea, dysphagia, difficulty swallowing, hematemesis, melena, nausea, poor appetite, poor fluid intake, rectal bleeding, rectal pain, vomiting, others Genitourinary: denies: burning, dysuria, flank pain, frequency, hematuria, incontinence, penile discharge, penile sore, pain, testicle pain, testicle swelling, urgency, others Neurological: denies: dizziness, fainting, headache, left sided numbness, left sided weakness, numbness, paresthesia, pre-existing deficit, right sided numbness, right sided weakness, seizure, speech problems, tingling, tremors, weakness, others Musculoskeletal: denies: back pain, gout, joint pain, joint swelling, muscle pain, muscle stiffness, neck pain, others Integumetry: denies: bruises, change in color, change in hair/nails, dryness, laceration, lesions, lumps, rash, wounds, others Allergic/Immunocompromised: denies: Difficulty Healing, Frequent Infections, Hives, Itching, others Hematologic/Lymphatic: denies: anemia, blood clots, easy bleeding, easy bruising, swollen glands, others Endocrine: denies: excessive hunger, excessive sweating, excessive thirst, excessive urination, flushing, intolerance to cold, intolerance to heat, unexplained weight gain, unexplained weight loss, others Psychiatric: denies: anxiety, bipolar disorder, depression, hopeless, panic disorder, schizophrenia, sleepless, suicidal, others All Other Systems: Reviewed and Negative Physical Exam General Appearance: Moderate Distress HEENT: Pharynx Normal, TMs Normal, Other (Left nostril nosebleed) Neck: Full Range of Motion, Non-Tender, Normal, Normal Inspection Respiratory: Chest Non-Tender, Lungs Clear, No Accessory Muscle Use, No Respiratory Distress, Normal Breath Sounds Cardiovascular: Irregular, No Edema, No JVD, No Murmur, No Gallop, Normal Peripheral Pulses, Tachycardia Breast Exam: Deferred Gastrointestinal: No Organomegaly, Non Tender, No Pulsatile Mass, Normal Bowel Sounds, Soft Genitalia: Deferred Pelvic: Deferred Rectal: Deferred Extremities: No calf tenderness, Normal capillary refill, Normal inspection, Normal range of motion, Non-tender, No pedal edema Musculoskeletal : Apperance: Normal Neurologic: Alert, carrot tier II-XII nml as Tested, No Motor Deficits, Normal Affect, Normal Mood, No Sensory Deficits Cerebellar Function: NOT DONE Reflexes: NOT DONE Skin: Dry, Normal Color, Warm Peripheral Pulses: 3+ Radial (R), 3+ Radial (L) Lymphatic: No Adenopathy Was a procedure done? Was a procedure done?: No Nasal Cautery and Pack Indicaton: Anterior epitaxis Silver nitrate: Bilateral Hemostasis: Was obtained Location of packing: Left Packing: Other (Surgicel) Notes Control the bleeding Differential Diagnosis (NSB) Differential Diagnosis: Anterior Nasal Bleed, Posterior Nasal Bleed, Hypertension X-Ray, Labs, Meds, VS Vital Signs Date Time Temp Pulse Resp B/P (MAP) Pulse Ox O2 Delivery O2 Flow Rate FiO2 07/12/25 15:00 160/120 (133) 07/12/25 14:59 111 15 171/104 (126) 94 07/12/25 14:54 97.3 111 15 160/120 94 97.3 Lab Test 07/12/25 15:43 Range/Units White Blood Count 7.9 4.4-10.8 10^3/uL Red Blood Count 4.78 4.5-5.90 10^6/uL Hemoglobin 15.5 13.5-17.5 g/dL Hematocrit 45.4 41.0-53.0 % Mean Corpuscular Volume 95.0 80.0-100.0 fL Mean Corpuscular Hemoglobin 32.3 H 28.0-32.0 pg Mean Corpuscular Hemoglobin Concent 34.1 32.0-36.0 g/dL Red Cell Distribution Width 15.5 H 11.8-14.3 % Platelet Count 204 140-450 10^3/uL Mean Platelet Volume 8.0 6.9-10.8 fL Neutrophils (%) (Auto) 68.3 37.0-80.0 % Lymphocytes (%) (Auto) 15.5 10.0-50.0 % Monocytes (%) (Auto) 14.0 H 0.0-12.0 % Eosinophils (%) (Auto) 1.5 0.0-7.0 % Basophils (%) (Auto) 0.7 0.0-2.0 % Neutrophils # (Auto) 5.4 1.6-8.6 10 ^3/uL Lymphocytes # (Auto) 1.2 0.4-5.4 10 ^3/uL Monocytes # (Auto) 1.1 0-1.3 10 ^3/uL Eosinophils # (Auto) 0.1 0-0.8 10 ^3/uL Basophils # (Auto) 0.1 0-0.2 10 ^3/uL Nucleated Red Blood Cells 0.0 % Sodium Level Pending Potassium Level Pending Chloride Level Pending Carbon Dioxide Level Pending Anion Gap Pending Blood Urea Nitrogen Pending Creatinine Pending Glomerular Filtration Rate Calc Pending BUN/Creatinine Ratio Pending Serum Glucose Pending Calcium Level Pending Total Bilirubin Pending Aspartate Amino Transferase (AST) Pending Alanine Aminotransferase (ALT) Pending Alkaline Phosphatase Pending Troponin I High Sensitivity Pending Total Protein Pending Albumin Pending Current Medications Medications (Trade) Dose Ordered Sig/Audrey Route Start Time Stop Time Status Last Admin Sodium Chloride 1,000 ml @ 1,000 mls/hr Q1H ONCE IV 07/12/25 15:30 07/12/25 16:29 07/12/25 16:01 Patient alert. Complaining of nosebleed which started this morning. He is on blood thinner. Vitals stable. Answering questions. Was able to control the bleeding with nasal packing. Atrial fibrillation. Explained to the physician. Continue monitoring. [address] [address] Ph: [phone] DIAGNOSTIC IMAGING Diagnostic Imaging Report : [id number] Signed PATIENT: THAIS BRAVO ACCT: [id number] UNIT: [id number] : 1960 LOC: ER ROOM / BED: / AGE / SEX: 65 / M ADM STATUS: REG ER SERVICE 1530 ORDERING PHYSICIAN: DYLAN NEAL MD PROCEDURE(s): CXRP - CHEST PORTABLE REASON: sob ORDER NUMBER(s): [id number], ACCESSION NUMBER(s): [id number] XY CHEST PORTABLE, HISTORY: sob COMPARISON: XY CHEST PORTABLE on DOS: 06/06/25, XY CHEST PORTABLE on DOS: 11/24/24, XY CHEST XRAY 1 VIEW on DOS: 11/18/24 XY CHEST PORTABLE on DOS: 06/06/25, XY CHEST PORTABLE on DOS: 11/24/24, XY CHEST XRAY 1 VIEW on DOS: 11/18/24 TECHNICAL DATA: 1 view of the chest was obtained. FINDINGS: Lines and tubes: None Cardiomediastinal silhouette: normal Pulmonary vasculature: normal Lung expansion: normal Lung airspace: normal Lung interstitium: normal Pleura: normal Pneumothorax: no Bones: Unremarkable Other: no IMPRESSION: No acute intrathoracic abnormality. ATED BY: ADOLFO MENDEZ MD DICTATED DATE/TIME: 07/12/251554 SIGNED BY: ADOLFO MENDEZ MD SIGNED DATE/TIME: 07/12/25 155 CC: Time of 1ST Reevaluation: 15:50 Reevaluation 1ST: Unchanged Patient Education/Counseling: Diagnosis, Treatment Family Education/Counseling: No Family Present Departure 1 Departure Time of Disposition: 15:50 Impression: Primary Impression: Nosebleed Additional Impression: Atrial fibrillation Qualified Codes: I48.0 - Paroxysmal atrial fibrillation Disposition: ADMITTED INPATIENT Admit to: Med Surg Condition: Guarded Critical Care Note Critical Care Time?: No Stability Stability form required: No Heart Score Heart Score: Heart Score Response (Comments) Value History N/A 0 EKG N/A 0 Age N/A 0 Risk Factors N/A 0 Troponin N/A 0 Total 0 I personally scribed for DYLAN NEAL MD ([email or web address]) on 07/12/25 at 15:35. Electronically submitted by Brittany Slaughter ([email or web address]). I personally scribed for DYLAN NEAL MD ([email or web address]) on 07/12/25 at 16:09. Electronically submitted by Brittany Slaughter ([email or web address]). DYLAN NEAL MD Jul 12, 2025 15:35
[2025-07-12 15:57] LABS: Hematocrit 45.4 % (41.0-53.0); Hemoglobin 15.5 g/dL (13.5-17.5); Mean Corpuscular Hemoglobin 32.3 pg (28.0-32.0); Mean Corpuscular Volume 95.0 fL (80.0-100.0); Nucleated Red Blood Cells % 0.0 %
--- NOTE | 2025-07-12 15:57 | DVH ---
XY CHEST PORTABLE, HISTORY: sob COMPARISON: XY CHEST PORTABLE on DOS: 06/06/25, XY CHEST PORTABLE on DOS: 11/24/24, XY CHEST XRAY 1 VIE W on DOS: 11/18/24 XY CHEST PORTABLE on DOS: 06/06/25, XY CHEST PORTABLE on DOS: 11/24/24, XY CHEST XRAY 1 VIEW on DOS: 11/18/24 TECHNICAL DATA: 1 view of the chest was obtained. FINDINGS: Lines and tubes: None Cardiomediastinal silhouette: normal Pulmonary vasculature: normal Lung expansion: normal Lung airspace: normal Lung interstitium: normal Pleura: normal Pneumothorax: no Bones: Unremarkable Other: no IMPRESSION: No acute intrathoracic abnormality.
[2025-07-12] MEDS: SODIUM CHLORIDE 0.9% 1,000 ML IV ONE (16:01)
[2025-07-12 16:08] LABS: Alanine Aminotransferase 15 U/L (7-40); Albumin 3.9 g/dL (3.2-4.8); Anion Gap 5 (5-15); BUN/Creatinine Ratio 21.6 (10.0-20.0); Blood Urea Nitrogen 16 mg/dL (9-23); Calcium 8.7 mg/dL (8.7-10.4); Carbon Dioxide 28 mmol/L (20-31); Chloride 103 mmol/L (98-107); Potassium 4.2 mmol/L (3.5-5.1); Sodium 136 mmol/L (136-145); Total Protein 6.7 g/dL (5.7-8.2)
[2025-07-12 16:20] LABS: Alkaline Phosphatase 119 U/L (46-116); Bilirubin, Total 1.3 mg/dL (0.2-1.0); Glucose 114 mg/dL (74-106)
[2025-07-12 20:35] VITALS: O2SAT 98
[2025-07-12] MEDS: LISINOPRIL 5 MG TAB PO ONE (21:00)
[2025-07-12] MEDS ORDERED: DOCUSATE SOD 100 MG CAP PO PRN (22:45)
[2025-07-12] MEDS ORDERED: ONDANSETRON HCL 4 MG/2 ML VIAL IV PRN (22:45)
[2025-07-13] MEDS: ACETAMINOPHEN 325 MG TAB PO PRN (02:19)
[2025-07-13] MEDS: CHLORHEXIDINE 0.12% ORAL rinse 473ML MT SCH (03:00)
[2025-07-13] MEDS: SALINE 0.65 % NASAL SPRAY 45ML BOTTLE EACHNOSTRI SCH (03:00)
[2025-07-13] MEDS: LISINOPRIL 5 MG TAB PO ONE (03:06)
[2025-07-13 04:05] LABS: Hematocrit 45.6 % (41.0-53.0); Hemoglobin 15.4 g/dL (13.5-17.5); Mean Corpuscular Hemoglobin 32.2 pg (28.0-32.0); Mean Corpuscular Volume 95.5 fL (80.0-100.0); Nucleated Red Blood Cells % 0.2 %
[2025-07-13 04:26] LABS: Alanine Aminotransferase 13 U/L (7-40); Albumin 4.0 g/dL (3.2-4.8); Anion Gap 6 (5-15); BUN/Creatinine Ratio 15.2 (10.0-20.0); Blood Urea Nitrogen 10 mg/dL (9-23); Calcium 8.8 mg/dL (8.7-10.4); Carbon Dioxide 28 mmol/L (20-31); Chloride 102 mmol/L (98-107); Glucose 92 mg/dL (74-106); Potassium 4.2 mmol/L (3.5-5.1); Total Protein 6.8 g/dL (5.7-8.2)
[2025-07-13 04:33] LABS: Alkaline Phosphatase 118 U/L (46-116); Bilirubin, Total 1.4 mg/dL (0.2-1.0); Sodium 136 mmol/L (136-145)
[2025-07-13 04:39] LABS: INR 1.14 (0.9-1.15); Partial Thromboplastin Time 30.2 SEC (24.5-34.5); Prothrombin Time 11.9 sec (9.3-11.8)
[2025-07-13 05:37] VITALS: O2SAT 91
--- NOTE | 2025-07-13 07:12 | DVHHPRES ---
History of Present Illness Resident Creating Document: LEVY LYNNE RESIDENT History of Present Illness Patient is a 65-year-old male with past medical history of COPD, hypertension, CVA, CHF, hyperlipidemia, AFib, depression who came to the ED with chief complaint of nose bleed, an mounth bleed. Patient states that since 1 day when he was leaning down to pickup something he mainly had left Nare bleed which did not stop for a long time even though he tried to stop it by pinching his nose. Patient is on Eliquis 5 mg b.i.d. patient has dry mucous membranes, says he has not picked his nose. He has dry blood on his nostrils and mouth area which is crusting, has a dry eschar present in the left near. Patient does not complain of any pain, chest pain, shortness of breath, palpitations, nausea, vomiting, diarrhea, constipation, dysuria, hematuria, blood in the stool. Patient is not taking the nasal spray or anticholinergic inhaler. Past surgical history: Denies Family history: Reviewed, noncontributory Personal history: smokes half pack a day since 50 years, denies drinking, or any drug use Lives in: Mobile home PcP: Dr. Garcia Review of Systems Constitutional: No: Fever, Chills, Sweats, Weakness, Malaise, Other Eyes: No: Pain, Vision change, Conjunctivae inflammation, Eyelid inflammation, Other, Redness ENT: Nose discharge (Nosebleed), Other (Crusting) Respiratory: No: Cough, Dry, Shortness of breath, SOB with excertion, Wheezing, Hemoptysis, Pleuritic Pain, Sputum, Wheezing, Other Cardiovascular: No: Chest Pain, Palpitations, Orthopnea, Paroxysmal Noc. Dyspnea, Edema, Lt Headedness, Other Gastrointestinal: No: Nausea, Vomiting, Abdominal Pain, Diarrhea, Constipation, Melena, Hematochezia, Other Genitourinary: No Dysuria, No Frequency, No Incontinence, No Hematuria, No Retention, No Other Musculoskeletal: No: other, neck pain, shoulder pain, arm pain, back pain, hand pain, leg pain, foot pain Skin: No: Rash, Lesions, Jaundice, Bruising, Other Neurological: No: Weakness, Numbness, Incoordination, Change in speech, Confusion, Seizures, Other Allergies: Coded Allergies: NO KNOWN ALLERGIES (Unverified , 09/26/24) Medications Current Medications Medications Dose Ordered Sig/Audrey Route Start Time Stop Time Status Last Admin Dose Admin Acetaminophen 325 mg Q4HP PRN PO 07/12/25 22:45 07/13/25 02:19 325 MG Acetaminophen/ Hydrocodone Bitart 1 tab Q4HP PRN PO 07/12/25 22:45 Ondansetron HCl 4 mg Q4HP PRN IV 07/12/25 22:45 Docusate Sodium 100 mg BIDPRN PRN PO 07/12/25 22:45 Lisinopril 5 mg DAILY PO 07/13/25 10:00 Chlorhexidine Gluconate 15 ml Q12HR MT 07/13/25 03:00 Sodium Chloride 1 spr QID EACHNOSTRI 07/13/25 03:00 Apixaban 5 mg BID PO 07/13/25 10:00 Carvedilol 3.125 mg Q12HR PO 07/13/25 10:00 Empaglifozin 10 mg DAILY PO 07/13/25 10:00 Furosemide 20 mg DAILY PO 07/13/25 10:00 Tamsulosin HCl 0.4 mg DAILY PO 07/13/25 10:00 Trazodone HCl 50 mg HS PO 07/13/25 22:00 Citalopram Hydrobromide 10 mg DAILY PO 07/13/25 10:00 Exam Vital Signs Vital Signs Date Time Temp Pulse Resp B/P (MAP) Pulse Ox O2 Delivery O2 Flow Rate FiO2 07/13/25 03:06 167/125 07/13/25 02:23 101 07/13/25 02:19 97.5 17 97 97.5 07/12/25 20:35 Room Air* 0 21 Exam General: Patient alert and oriented in person, place and time. Patient following commands. In no distress HEENT: Normocephalic, atraumatic, moist mucous membranes, nosebleed with crusting and black eschar in the left nostril Respiratory/pulmonary: Clear lungs bilaterally, vesicular murmurs present in almost all lung polo, no associated crackles or wheezes. Cardiovascular: Normal heart sounds S1 and S2 with no associated murmurs Abdomen: Abdomen nondistended, there is no pain to palpation in any of the abdominal quadrants, no palpable masses. Extremities: There is no peripheral edema present at the lower extremities. Peripheral Pulses: 3+ Radial (R). 3+ Radial (L). 3+ Dorsalis pedis (R). 3+ Dorsalis pedis(L) Skin: No rashes or pruritus, there is no sacral edema present at this time. Neurological: Intact cranial nerves with no focal neurologic deficits Psych, mood: Normal psych, mood Labs/Xrays Labs Test 07/13/25 03:27 07/12/25 15:43 Range/Units White Blood Count 6.6 4.4-10.8 10^3/uL Red Blood Count 4.78 4.5-5.90 10^6/uL Hemoglobin 15.4 13.5-17.5 g/dL Hematocrit 45.6 41.0-53.0 % Mean Corpuscular Volume 95.5 80.0-100.0 fL Mean Corpuscular Hemoglobin 32.2 H 28.0-32.0 pg Mean Corpuscular Hemoglobin Concent 33.7 32.0-36.0 g/dL Red Cell Distribution Width 15.6 H 11.8-14.3 % Platelet Count 186 140-450 10^3/uL Mean Platelet Volume 8.1 6.9-10.8 fL Neutrophils (%) (Auto) 62.6 37.0-80.0 % Lymphocytes (%) (Auto) 19.1 10.0-50.0 % Monocytes (%) (Auto) 13.3 H 0.0-12.0 % Eosinophils (%) (Auto) 2.8 0.0-7.0 % Basophils (%) (Auto) 2.2 H 0.0-2.0 % Neutrophils # (Auto) 4.1 1.6-8.6 10 ^3/uL Lymphocytes # (Auto) 1.3 0.4-5.4 10 ^3/uL Monocytes # (Auto) 0.9 0-1.3 10 ^3/uL Eosinophils # (Auto) 0.2 0-0.8 10 ^3/uL Basophils # (Auto) 0.1 0-0.2 10 ^3/uL Nucleated Red Blood Cells 0.2 % Prothrombin Time 11.9 H 9.3-11.8 sec Prothrombin Time INR 1.14 0.9-1.15 Activated Partial Thromboplast Time 30.2 24.5-34.5 SEC Sodium Level 136 136-145 mmol/L Potassium Level 4.2 3.5-5.1 mmol/L Chloride Level 102 98-107 mmol/L Carbon Dioxide Level 28 20-31 mmol/L Anion Gap 6 5-15 Blood Urea Nitrogen 10 9-23 mg/dL Creatinine 0.66 L 0.700-1.30 mg/dL Glomerular Filtration Rate Calc 103 >90 mL/min BUN/Creatinine Ratio 15.2 10.0-20.0 Serum Glucose 92 74-106 mg/dL Calcium Level 8.8 8.7-10.4 mg/dL Total Bilirubin 1.4 H 0.2-1.0 mg/dL Aspartate Amino Transferase (AST) 18 13-40 U/L Alanine Aminotransferase (ALT) 13 7-40 U/L Alkaline Phosphatase 118 H 46-116 U/L Total Protein 6.8 5.7-8.2 g/dL Albumin 4.0 3.2-4.8 g/dL Troponin I High Sensitivity 13 </=54 ng/L SEPSIS Sepsis Screen Date sepsis recognized/suspect: Jul 12, 2025 Time Sepsis recognized/suspect: 2201 Recent Procedure: No On Antibiotic Therapy: No Respiratory Rate >20: No Heart Rate >90: Yes Temp<36 C (96.8 F) or >38.3 C: No SBP <90 or MAP <65 mmHG: No New Acute Mental Status Change: No Is the patient on CPAP, BIPAP,: No Physician Orders Admit (07/12/25 22:40) Allergies (07/12/25 22:40) Code Status (07/12/25 22:40) Acetaminophen Tablet (Tylenol Tablet) (07/12/25 22:45) Hydrocodone-Acet 5/325mg Tab ([place] 5/32 (07/12/25 22:45) Ondansetron Hcl (Zofran) (07/12/25 22:45) Docusate Sodium Capsule (Colace Capsule) (07/12/25 22:45) Npo (Nothing By Mouth) Diet (07/13/25 Breakfast) Condition: Serious (07/12/25 22:40) Bedrest With Bathroom Privileg (07/12/25 22:40) Stat Ekg For Chest Pain (07/12/25 22:40) Notify Md Of Changes From Base (07/12/25 22:40) Metal Handler For 24 Hours (07/12/25 22:40) Emergency Dysrhythmia Protocol (07/12/25 22:40) Rhythm Strips Once Every Shift (07/12/25 22:40) Drug Screen (07/13/25 01:43) Lisinopril Tablet (Zestril Tablet) (07/13/25 10:00) Chlorhexidine Oral Rinse (Chlorhexidine (07/13/25 03:00) Saline ([place] Nasal [place]) (07/13/25 03:00) Jennifer; Comprehensive Panel (07/13/25 02:59) Apixaban (Eliquis) (07/13/25 10:00) Carvedilol Tablet (Coreg Tablet) (07/13/25 10:00) Empagliflozin (Jardiance) (07/13/25 10:00) Furosemide Tablet (Lasix Tablet) (07/13/25 10:00) Tamsulosin Hydrochloride (Flomax) (07/13/25 10:00) Trazodone Hcl (Desyrel) (07/13/25 22:00) Citalopram Tablet (Celexa Tablet) (07/13/25 10:00) Vital Signs Date Time Temp Pulse Resp B/P (MAP) Pulse Ox O2 Delivery O2 Flow Rate FiO2 07/13/25 03:06 167/125 07/13/25 02:23 101 167/125 (139) 07/13/25 02:19 97.5 85 17 175/115 (135) 97 97.5 Laboratory Tests Test 07/13/25 03:27 White Blood Count 6.6 10^3/uL (4.4-10.8) Medications Medications Dose Ordered Sig/Audrey Route Start Time Stop Time Status Last Admin Dose Admin Acetaminophen 325 mg Q4HP PRN PO 07/12/25 22:45 07/13/25 02:19 325 MG Lisinopril 5 mg ONCE ONCE PO 07/12/25 21:00 07/12/25 21:01 DC 07/12/25 21:00 5 MG Lisinopril 5 mg ONCE ONCE PO 07/13/25 03:00 07/13/25 03:02 DC 07/13/25 03:06 5 MG Assessment/Plan Assessment/Plan # nosebleed possibly due to anticoagulation - nasal packing - Saline nostril spray - Chlorhexidine oral rinse - PT PTT INR ordered # uncontrolled hypertension: continue Home meds # history of COPD : Continue home meds #History of CVA: Continue home med #History of AFib :continue Eliquis 5 mg b.i.d. #History of hyperlipidemia: Continue atorvastatin #History of CHF: Continue home meds # Tobacco abuse. # Alcohol abuse. #Peripheral vascular disease with previous stent. PPI prophylaxis: not indicated DVT prophylaxis: Eliquis 5mg B.i.d Goals of care addressed with the patient for more than 37 minutes: Full code status Case discussed with Dr. Nick , patient and nurse Plan discussed with: Patient My Orders Orders - LEVY LYNNE RESIDENT Procedure Category Date Status Time Admit ADMIT 07/12/25 Transmitted 22:40 Allergies TAPAN 07/12/25 In Process 22:40 Code Status CODE 07/12/25 Transmitted 22:40 Acetaminophen Tablet PHA 07/12/25 In Process (Tylenol Tablet) 22:45 Hydrocodone-Acet PHA 07/12/25 In Process 5/325mg Tab ([place] 22:45 Ondansetron Hcl PHA 07/12/25 In Process (Zofran) 22:45 Docusate Sodium PHA 07/12/25 In Process Capsule (Colace 22:45 Npo (Nothing By DIET 07/13/25 Transmitted Mouth) Diet Breakfast Condition: Serious [facility] 07/12/25 In Process 22:40 Bedrest With Bathroom [facility] 07/12/25 In Process Privileg 22:40 Stat Ekg For Chest [facility] 07/12/25 In Process Pain 22:40 Notify Md Of Changes [facility] 07/12/25 In Process From Base 22:40 Metal Handler For [facility] 07/12/25 In Process 24 Hours 22:40 Emergency Dysrhythmia [facility] 07/12/25 In Process Protocol 22:40 Rhythm Strips Once [facility] 07/12/25 In Process Every Shift 22:40 Drug Screen LAB 07/13/25 Logged 01:43 Lisinopril Tablet PHA 07/13/25 In Process (Zestril Tablet) 10:00 Date of Service: Jul 13, 2025 Billing Provider: BERT NICK MD Common Visit Codes: [id number] INP/OBS CARE (HIGH) Secondary Visit Codes: [id number] CARE PLAN 30 MINUTES LEVY LYNNE Jul 13, 2025 07:12
[2025-07-13 09:00] VITALS: BP 162/101; PULSE 57; RESP 19; TEMP 97.8; O2SAT 93
[2025-07-13] MEDS: APIXABAN 5 MG TAB PO SCH (10:00)
[2025-07-13] MEDS: EMPAGLIFLOZIN 10 MG TAB PO SCH (10:02)
[2025-07-13] MEDS: CITALOPRAM HYDROBR 20 MG TAB PO SCH (10:02)
[2025-07-13] MEDS: TAMSULOSIN HYDROCHLORIDE 0.4 MG CAP PO SCH (10:03)
[2025-07-13] MEDS: CARVEDILOL 3.125 MG TAB PO SCH (10:04)
[2025-07-13] MEDS: LISINOPRIL 5 MG TAB PO SCH (10:05)
[2025-07-13] MEDS: FUROSEMIDE 20 MG TAB PO SCH (10:06)
[2025-07-13 13:00] VITALS: BP_SYST 138; BP_SYST 139; BP_SYST 145; BP_DIAS 104; BP_DIAS 84; BP_DIAS 98; PULSE 105; RESP 18; TEMP 98; O2SAT 94
[2025-07-13] MEDS: MECLIZINE HCL 25 MG TAB PO ONE (15:41)
[2025-07-13 17:00] VITALS: BP 163/111; PULSE 87; RESP 18; TEMP 98; O2SAT 96
--- NOTE | 2025-07-13 18:52 | DVHPNRES ---
Progress Note Date Seen: Jul 13, 2025 Resident Creating Document: MISTY FABIAN RESIDENT Medical Necessity Reason Pt with a Central, PICC or Fol: No Subjective Review of Systems The patient was seen and examined at bedside today. Overnight events were reviewed. Denies any chest pain, shortness of breath, fever or any other complaints today. No further epistaxis at this time. Objective vital signs Vital Sign Date Time Temp Pulse Resp B/P (MAP) Pulse Ox O2 Delivery O2 Flow Rate FiO2 07/13/25 17:00 98.0 87 18 163/111 (128) 96 98.0 07/13/25 05:37 Room Air* 0 21 medications Current Medications Medications Dose Ordered Sig/Audrey Route Start Time Stop Time Status Last Admin Dose Admin Acetaminophen 325 mg Q4HP PRN PO 07/12/25 22:45 07/13/25 02:19 325 MG Acetaminophen/ Hydrocodone Bitart 1 tab Q4HP PRN PO 07/12/25 22:45 Ondansetron HCl 4 mg Q4HP PRN IV 07/12/25 22:45 Docusate Sodium 100 mg BIDPRN PRN PO 07/12/25 22:45 Lisinopril 5 mg DAILY PO 07/13/25 10:00 07/13/25 10:05 5 MG Chlorhexidine Gluconate 15 ml Q12HR MT 07/13/25 03:00 Sodium Chloride 1 spr QID EACHNOSTRI 07/13/25 03:00 Apixaban 5 mg BID PO 07/13/25 10:00 Carvedilol 3.125 mg Q12HR PO 07/13/25 10:00 07/13/25 10:04 3.125 MG Empaglifozin 10 mg DAILY PO 07/13/25 10:00 07/13/25 10:02 10 MG Furosemide 20 mg DAILY PO 07/13/25 10:00 07/13/25 10:06 20 MG Tamsulosin HCl 0.4 mg DAILY PO 07/13/25 10:00 07/13/25 10:03 0.4 MG Trazodone HCl 50 mg HS PO 07/13/25 22:00 Citalopram Hydrobromide 10 mg DAILY PO 07/13/25 10:00 07/13/25 10:02 10 MG Examination Pt is lying on bed General Appearance: Alert, Oriented X3, Cooperative, Mild distress HEENT: Atraumatic, Mucous membranes moist/pink, left nostril has packing, both nostrils showed clotted blood. Mouth examination reveals no tense, no other abnormality Respiratory: Clear to auscultation, Normal air movement, No added sounds Cardiovascular: Regular rate, Normal S1, Normal S2, No murmurs Abdominal/ : Active bowel sounds, Soft, no distention, no tenderness Extremities: No edema, Normal pulses, No tenderness/swelling Skin: No Significant rash, except past surgical scars Neuro: Normal speech, left upper and lower extremity weakness, 2/5 Psych/Mental Status: Mental status NL, Mood NL Nurse was there as vp delivery during examination laboratory and microbiology Laboratory Tests 07/13/25 03:27 Test 07/13/25 03:27 Range/Units Serum Glucose 92 74-106 mg/dL Labs and/or images reviewed: Labs reviewed by me, Image(s) reviewed by me Problem List/Assessment/Plan Problem List/Assessment/Plan #Anterior Epistaxis #Secondary Hypercoagulable state due to apixaban use # Atrial fibrillation - anterior nasal packing - Saline nostril spray - Chlorhexidine oral rinse - PT 11.9, PTT INR normal -Bleeding is controlled with the packing, patient is advised to fu with ENT as outpatient for possible nasal cauterization -hb is stable, no need of stop anticoagulation new EKG ordered # Hypertensive urgency resolved Lisinopril 5 mg p.o. daily # history of COPD : stable, no respiratory symptoms # Cerebrovascular accident/stroke with left-sided weakness #Peripheral vascular disease with previous stent: #sp [employer] [employer] [facility] and stenting of Right femoral artery Atorvastatin 40 mg daily -patient was on clopidogrel at home, will be resumed #Paroxysmal atrial fibrillation Will continue Eliquis 5 mg b.i.d. based on cardiovascular risks. #Hyperlipidemia: Continue atorvastatin #Heart failure with improved EF, stable, not in exacerbation EF 30 --> 60%, no CAD Carvedilol tablet 3.125 mg p.o. b.i.d. Furosemide 20 mg p.o. daily Empagliflozin 10 mg daily #BPH: tamsulosin #Insomnia: trazodone #Polysubstance use disorder including alcohol and tobacco Counseled on tobacco and alcohol use cessation for 22 minutes; 16 minutes exclusively for tobacco use cessation # COPD Not in exacerbation Continue nebulizers as needed Oxygen therapy as needed #Anxiety Patient states being restlessness and dizzy: meclizine and Ativan one dose given GI prophylaxis: Protonix DVT prophylaxis: Eliquis Diet: Cardiac Goals of care discussed with the patient for 20 minutes: Full code status Case discussed with Dr. Reynoso, patient and RN Plan discussed with: Patient, Other (RN) My Orders My Orders Orders - MISTY FABIAN RESIDENT Procedure Category Date Status Time Cardiac DIET 07/13/25 Transmitted Diet-2gna,Lofat,Lochol Breakfast Addendum Addendum Addendum I was physically present for the moore portions of the service provided to patient by THE RESIDENT. I have reviewed the documentation, discussed the case with resident and agree with the resident's documentation except as noted. Also the patient's clinical case was discussed with the patient's nurse. This medical document was created using an electronic medical record system with computerized dictation system. Although this document has been carefully reviewed, there might still be some phonetic and typographical errors. These areas are purely typographical due to imperfections of the software programs, and do not reflect any compromise in the patient's medical care. Late signature. Date of Service: Jul 13, 2025 Billing Provider: WESLEY REYNOSO MD Common Visit Codes: 66571-[id number] INP/OBS CARE(HIGH) Secondary Visit Codes: 98870-EJBXV CHNG SMOKING >10MIN (Counseled for 22 minutes on alcohol and tobacco use cessation; 16 minutes exclusively for tobacco use cessation), 31695-[id number] CARE PLAN 30 MINUTES (20 minutes) MISTY FABIAN Jul 13, 2025 18:52 MISTY NGUYEN Jul 13, 2025 22:54 WESLEY REYNOSO MD Jul 14, 2025 15:57
[2025-07-13] MEDS: LORazepam 2MG/ML-1ML VIAL IV ONE (18:54)
[2025-07-13 21:00] VITALS: BP 146/87; PULSE 96; TEMP 98.3; O2SAT 94
[2025-07-13] MEDS: ATORVASTATIN 20 MG TAB PO ONE (21:21)
[2025-07-13 21:53] LABS: Urine Protein, UAD Negative (Negative)
[2025-07-13 22:00] LABS: Amphetamine Screen, Urine Neg (NEGATIVE); Barbiturate Scree,Urine Neg (NEGATIVE); Benzodiazephine Screen, Urine Neg (NEGATIVE); Cannabinoid Screen, Urine Neg (NEGATIVE); Cocaine Screen, Urine Neg (NEGATIVE); Opiate Scree,Urine Neg (NEGATIVE); Phencyclidine Screen, Urine Neg (NEGATIVE)
[2025-07-13 22:24] VITALS: BP_SYST 155; BP_SYST 156; BP_SYST 169; BP_DIAS 119; BP_DIAS 120; BP_DIAS 122; PULSE 108; PULSE 114; PULSE 122; RESP 20; TEMP 97.8; O2SAT 95; O2SAT 96; O2SAT 97
[2025-07-13] MEDS: HYDROcodone-ACET 5/325MG TAB PO PRN (22:40)
--- NOTE | 2025-07-13 23:21 | ECG ---
[facility] Test Date: 2025-07-13 Test Time: 23:19:49 Pat Name: THAIS BRAVO Department: Respiratoy Room: 0276 B Gender: M Identification Technician: : [id number] Requested By: MISTY CARRILLO Order Number: [id number] Reading MD: Viraj Meier Measurements Intervals [place] Rate: 96 P: 0 ME: 0 QRS: 230 QRSD: 99 T: 57 QT: 384 QTc: 486 Interpretive Statements Atrial fibrillation Ventricular premature complex Markedly posterior QRS axis Consider anterior infarct Electronically Signed On 07-16-2025 14:31:45 PDT by Viraj Meier Please click the below link to view image of tracing.
[2025-07-14] VITALS (8 sets, daily range): BP systolic 141–160; BP diastolic 90–122; PULSE 72–98; RESP 18–20; TEMP 97.6–97.9; O2SAT 96–98
[2025-07-14] MEDS: CARVEDILOL 3.125 MG TAB PO ONE (00:07)
[2025-07-14] MEDS: PANTOPRAZOLE 40 MG TAB PO SCH (06:12)
[2025-07-14 07:38] LABS: Hematocrit 42.7 % (41.0-53.0); Hemoglobin 14.8 g/dL (13.5-17.5); Mean Corpuscular Hemoglobin 32.6 pg (28.0-32.0); Mean Corpuscular Volume 93.9 fL (80.0-100.0); Nucleated Red Blood Cells % 0.0 %
[2025-07-14 07:46] LABS: Chloride 104 mmol/L (98-107); Potassium 3.8 mmol/L (3.5-5.1); Sodium 140 mmol/L (136-145)
[2025-07-14 07:47] LABS: Anion Gap 6 (5-15); Carbon Dioxide 30 mmol/L (20-31)
[2025-07-14 07:52] LABS: BUN/Creatinine Ratio 13.9 (10.0-20.0); Blood Urea Nitrogen 10 mg/dL (9-23); Glucose 86 mg/dL (74-106)
[2025-07-14 07:53] LABS: Calcium 8.5 mg/dL (8.7-10.4)
[2025-07-14 10:07] LABS: Anti-Centromere B Antibody <0.2 AI (0.0-0.9); Anti-Jo-1 Antibody <0.2 AI (0.0-0.9); Anti-dsDNA Antibody 8 IU/mL (0-9); Antichromatin Antibody <0.2 AI (0.0-0.9); Antiscleroderma-70 Antibody <0.2 AI (0.0-0.9); Sjogren's Anti-SS-A Antibody <0.2 AI (0.0-0.9); Sjogren's Anti-SS-B Antibody <0.2 AI (0.0-0.9)
[2025-07-14] MEDS: CARVEDILOL 3.125 MG TAB PO SCH (10:17)
--- NOTE | 2025-07-14 19:38 | DVHDSRES ---
Discharge Summary Date of Admission Resident Creating Document: MISTY FABIAN RESIDENT Jul 12, 2025 at 22:40 Date of Discharge: Jul 14, 2025 Admitting Diagnosis Epistaxis Hypertension AFib on Eliquis Labs/Diagnostic Data: Laboratory Results Test 07/14/25 07:16 07/13/25 21:15 07/13/25 03:27 07/12/25 15:43 White Blood Count 6.2 10^3/uL (4.4-10.8) Red Blood Count 4.55 10^6/uL (4.5-5.90) Hemoglobin 14.8 g/dL (13.5-17.5) Hematocrit 42.7 % (41.0-53.0) Mean Corpuscular Volume 93.9 fL (80.0-100.0) Mean Corpuscular Hemoglobin 32.6 pg (28.0-32.0) Mean Corpuscular Hemoglobin Concent 34.7 g/dL (32.0-36.0) Red Cell Distribution Width 15.4 % (11.8-14.3) Platelet Count 177 10^3/uL (140-450) Mean Platelet Volume 8.0 fL (6.9-10.8) Neutrophils (%) (Auto) 67.9 % (37.0-80.0) Lymphocytes (%) (Auto) 13.7 % (10.0-50.0) Monocytes (%) (Auto) 14.6 % (0.0-12.0) Eosinophils (%) (Auto) 2.7 % (0.0-7.0) Basophils (%) (Auto) 1.1 % (0.0-2.0) Neutrophils # (Auto) 4.2 10 ^3/uL (1.6-8.6) Lymphocytes # (Auto) 0.8 10 ^3/uL (0.4-5.4) Monocytes # (Auto) 0.9 10 ^3/uL (0-1.3) Eosinophils # (Auto) 0.2 10 ^3/uL (0-0.8) Basophils # (Auto) 0.1 10 ^3/uL (0-0.2) Nucleated Red Blood Cells 0.0 % Sodium Level 140 mmol/L (136-145) Potassium Level 3.8 mmol/L (3.5-5.1) Chloride Level 104 mmol/L (98-107) Carbon Dioxide Level 30 mmol/L (20-31) Anion Gap 6 (5-15) Blood Urea Nitrogen 10 mg/dL (9-23) Creatinine 0.72 mg/dL (0.700-1.30) Glomerular Filtration Rate Calc 101 mL/min (>90) BUN/Creatinine Ratio 13.9 (10.0-20.0) Serum Glucose 86 mg/dL (74-106) Calcium Level 8.5 mg/dL (8.7-10.4) Urine Color Light-yellow (Yellow) Urine Clarity Clear (Clear) Urine pH 5.5 (5.0-9.0) Urine Specific [place] 1.020 (1.001-1.035) Urine Protein Negative (Negative) Urine Ketones Negative (Negative) Urine Blood Trace /uL (Negative) Urine Nitrite Negative (Negative) Urine Bilirubin Negative (Negative) Urine Urobilinogen 2 mg/dL (Negative) Urine Leukocyte Esterase Negative /uL (Negative) Urine RBC 2 /hpf (0 - 3) Urine Microscopic WBC 1 /HPF (0-3) Urine Squamous Epithelial Cells Few /hpf (<5) Urine Bacteria None seen /hpf (None Seen) Urine Glucose 4+ mg/dL (Normal) Urine Opiates Screen Neg (NEGATIVE) Urine Fentanyl Screen Neg (NEGATIVE) Urine Barbiturates Screen Neg (NEGATIVE) Urine Phencyclidine Screen Neg (NEGATIVE) Urine Amphetamines Screen Neg (NEGATIVE) Urine Benzodiazepines Screen Neg (NEGATIVE) Urine Cocaine Screen Neg (NEGATIVE) Urine Cannabinoids Screen Neg (NEGATIVE) Prothrombin Time 11.9 sec (9.3-11.8) Prothrombin Time INR 1.14 (0.9-1.15) Activated Partial Thromboplast Time 30.2 SEC (24.5-34.5) Total Bilirubin 1.4 mg/dL (0.2-1.0) Aspartate Amino Transferase (AST) 18 U/L (13-40) Alanine Aminotransferase (ALT) 13 U/L (7-40) Alkaline Phosphatase 118 U/L (46-116) Total Protein 6.8 g/dL (5.7-8.2) Albumin 4.0 g/dL (3.2-4.8) Anti-Nuclear Antibody Comment Comment (.) HARIS-1 Antibody <0.2 AI (0.0-0.9) SS-A/Ro Antibody <0.2 AI (0.0-0.9) SS-B/La Antibody <0.2 AI (0.0-0.9) Sm Antibody <0.2 AI (0.0-0.9) TELEPHONER Antibody <0.2 AI (0.0-0.9) Scl-70 (Scleroderma) Antibody <0.2 AI (0.0-0.9) Anti-Double Strand DNA Antibody 8 IU/mL (0-9) Chromatin Antibody <0.2 AI (0.0-0.9) Centromere B Antibody <0.2 AI (0.0-0.9) Troponin I High Sensitivity 13 ng/L (</=54) Other Laboratory Tests 07/14/25 07:16 Brief Hx & Hospital Course: 65-year-old male with a past medical history significant for AFib on apixaban, COPD on 3 L home oxygen, cerebrovascular accident with residual left-sided weakness, peripheral vascular disease with prior stent placement on 11/2024, heart failure with preserved ejection fraction 60%, hypertension,hyperlipidemia, COPD, benign prostatic hyperplasia, insomnia and polysubstance use disorder including alcohol and tobacco presented with anterior epistaxis, which was controlled with anterior nasal packing, saline nasal spray, and chlorhexidine oral rinse. Given that his hemoglobin remained stable, there was no need to stop anticoagulation and he was advised to follow up with ENT as an outpatient for possible nasal cauterization. Nasal pack was removed before discharge. His hypertensive urgency resolved on lisinopril 5 mg daily, and COPD remained stable without respiratory symptoms. For secondary prevention after stroke and peripheral vascular disease, he was continued on atorvastatin 40 mg daily, continued clopidogrel due to non-significant bleeding and no drop in hemoglobin. His atrial fibrillation management included continuation of apixaban 5 mg bid. Heart failure was stable, with an ejection fraction of 60% and no evidence of acute exacerbation. The patient was continued on carvedilol, furosemide and empagliflozin. BPH was managed with tamsulosin, insomnia with trazodone and hyperlipidemia with atorvastatin. He received counseling on tobacco and alcohol cessation. COPD therapy including nebulizers and oxygen as needed. The patient remained clinically stable at discharge with the appropriate follow-up arranged. General Appearance: Alert, Oriented X3, Cooperative, Mild distress HEENT: Atraumatic, Mucous membranes moist/pink, Respiratory: Clear to auscultation, Normal air movement, No added sounds Cardiovascular: Regular rate, Normal S1, Normal S2, No murmurs Abdominal/ : Active bowel sounds, Soft, no distention, no tenderness Extremities: No edema, Normal pulses, No tenderness/swelling Skin: No Significant rash, except past surgical scars Neuro: Normal speech, left upper and lower extremity weakness, 2/5 Psych/Mental Status: Mental status NL, Mood NL Nurse was there as stable hand during examination Operations or Procedures Chest x-ray: No acute abnormality. Condition at Discharge: Stable Final Diagnosis/Problems List Epistaxis due to anti-coagulation and uncontrolled Permamnent Atrial fibrillation (chads Vasc 5/ has bled 1) -secondary hypercoagulability state History of CVA - questionable vascular dementia, lives in board and care Peripheral artery disease status post stent placement HTN HFpEF (LVEF 60%) with no exacerbation COPD no exacerbation - on intermittent home oxygen requirement (3L/m) History of polysubstance abuse Discharge Disposition: Home Discharge Instruct/Medications Diet: Consistent carbohydrate, Cardiac 2g Na,low cholest Activity: No Restrictions, As Tolerated Follow Up/Referral: Fu with PCP in 2 weeks Medications: As per EMR Scheduled Amlodipine Besylate (Amlodipine Besylate), 1 TAB PO DAILY, (Reported) Apixaban Base (Eliquis), 1 TAB PO BID, (Reported) Carvedilol (Carvedilol), 1 TAB PO BID, (Reported) Citalopram Hydrobromide (Citalopram Hydrobromide), 1 TAB PO DAILY, (Reported) Clopidogrel Bisulfate (Clopidogrel), 1 TAB PO DAILY Empagliflozin (Jardiance), 10 MG PO DAILY Ergocalciferol (Vitamin D 04986 Unit), 50,000 UNIT PO Weekly, (Reported) Furosemide (Furosemide), 1 TAB PO DAILY Lisinopril (Lisinopril), 1 TAB PO DAILY, (Reported) Potassium Chloride (Potassium Chloride ER), 10 MEQ PO DAILY Simvastatin (Simvastatin), 1 TAB PO HS, (Reported) Spironolactone (Aldactone), 25 MG PO DAILY Tamsulosin Hcl (Tamsulosin Hcl), 1 CAP PO DAILY, (Reported) Trazodone Hcl (Trazodone Hcl), 50 MG PO HS Umeclidinium-Vilanterol (Anoro Ellipta 62.5-25 Mcg/INH), 1 PUFF IN DAILY, (Reported) Miscellaneous Medications Multiple Vitamins W/ Minerals (Centrum Silver), 1 OR, (Reported) Nicotine Polacrilex (Nicotine Mini Lozenge), 4 MG MT, (Reported) Discharge Statement: "Patient was advised to return to the ER or call 911 if any headaches, dizziness, shortness of breath, chest pain, abdominal pain, bleeding, fevers, or worsening of medical condition. Patient was counseled about treatment plan, medications, possible side effects, patientverbalized understanding. All questions were answered to the best of my ability. This discharge took greater then 30 minutes in planning, reviewing documentation, counseling the patient, and discussing with other team members." ASSESSMENT ASSESSMENT Assessment Epistaxis on Elliquis A fib CVA HTN Date of Service: Jul 14, 2025 Billing Provider: ANNE MARIE CALLES MD Common Visit Codes: 45661-RLC/OBS DISCH DAY >30min MISTY FABIAN RESIDENT Jul 14, 2025 19:38 ERASTO MICHELE RESIDENT Jul 15, 2025 00:11 ANNE MARIE CALLES MD Jul 17, 2025 22:22
[2025-07-14] MEDS ORDERED: ATORVASTATIN 20 MG TAB PO SCH (22:00)
[2025-07-14] MEDS ORDERED: CLOP75TA70 PO (23:59)
== END 2025-07-14 21:28 | disposition home or self-care (01) | DRG 813 ==
LOC: ER 14:53 → OVERFLOW 22:40 → WEST WING 07-13 22:24
PROVIDERS: ADMIT Student in an Organized Health Care Education/Training Program; ATTEND Student in an Organized Health Care Education/Training Program
PROC: 2Y41X5Z Packing of Nasal Region using Packing Material (ICD-10-PCS; principal; 2025-07-12)
DX: D68.32 Hemorrhagic disorder due to extrinsic circulating anticoagulants (principal); I69.354 Hemiplegia and hemiparesis following cerebral infarction affecting left non-dominant side; D68.69 Other thrombophilia; I50.32 Chronic diastolic (congestive) heart failure; I48.21 Permanent atrial fibrillation; R04.0 Epistaxis; I16.0 Hypertensive urgency; E78.5 Hyperlipidemia, unspecified; J44.9 Chronic obstructive pulmonary disease, unspecified; F17.210 Nicotine dependence, cigarettes, uncomplicated; I11.0 Hypertensive heart disease with heart failure; I73.9 Peripheral vascular disease, unspecified; F10.10 Alcohol abuse, uncomplicated; F41.9 Anxiety disorder, unspecified; F19.90 Other psychoactive substance use, unspecified, uncomplicated; N40.0 Benign prostatic hyperplasia without lower urinary tract symptoms; G47.00 Insomnia, unspecified; F01.50 Vascular dementia, unspecified severity, without behavioral disturbance, psychotic disturbance, mood disturbance, and anxiety; Z79.899 Other long term (current) drug therapy; Z83.3 Family history of diabetes mellitus; Y90.9 Presence of alcohol in blood, level not specified; Z79.01 Long term (current) use of anticoagulants; T45.515A Adverse effect of anticoagulants, initial encounter; Y92.89 Other specified places as the place of occurrence of the external cause
CPT/HCPCS: 30901; 36415; 71045; 80048; 80053; 80307; 81001; 83516; 84484; 85025; 85610; 85730; 86225; 86235; 93005; 96360; 97163; G0378

== ENCOUNTER 2025-08-18 10:11 | Inpatient (IN) | payer MEDICARE ==
[~2025-08-18] VITALS: Ht 165.1 cm; Wt 87.2 kg
[~2025-08-18 10:11] MED LIST changes: -ATOR-507 PO; -CITA10TA8 PO; -CLOP75TA28 PO; +CLOP75TA70 PO; -FURO1TAB33 PO; -LISI20TA56 PO; -METO-6 PO; -PRED20TA2 PO
--- NOTE | 2025-08-18 10:17 | ED.PDOC ---
SOB-HPI HPI Comments 65 year old male with PMhx of a-fib, CHF, COPD, CVA, HLD, HTN presents to the ED via EMS with a chief compliant of shortness of breath onset 1 week. Patient states he has been experiencing shortness of breath for the past week as well as generalized weakness, BLE edema, enlarged testicle. Symptoms worsened, he was not able to walk around his house this morning, called 911. Denies fever, chills, nausea, vomiting, diarrhea, chest pain, abdominal pain, dizziness, headache, blurred vision. No other symptoms or modifying factors present at this time. Time Seen by MD: 10:10 Primary Care Provider: NONE Reviewed notes: Medications, Allergies Information Source: Patient, Emergency Med Personnel Mode of Arrival: EMS Severity: Moderate Timing: Weeks Duration: Since onset Context: At Rest PE Risk Factors: None History of: COPD, CHF Prehospital treatment: None Modifying Factors: Nothing Associated Signs and Symptoms: Leg Swelling Past Medical History PAST MEDICAL HISTORY: AFIB, CHF, COPD, CVA, High Lipids, HTN Surgical History: Denies all surgeries Family History Family History: Family hx of DM Social History Smoker: Cigarettes Alcohol: Occasionally Drugs: Marijuana Lives In: Home Constitutional: reports: weakness; denies: chills, diaphoresis, fatigue, fever, malaise, sweats, others EENTM: denies: blurred vision, double vision, ear bleeding, ear discharge, ear drainage, ear pain, ear ringing, eye pain, eye redness, hearing loss, mouth garry n, mouth swelling, nasal discharge, nose bleeding, nose congestion, nose pain, photophobia, tearing, throat pain, throat swelling, voice changes, others Respiratory: reports: shortness of breath; denies: cough, hemoptysis, orthopnea, SOB at rest, SOB with excertion, stridor, wheezing, others Cardiovascular: denies: chest pain, dizzy spells, diaphoresis, Dyspnea on exertion, edema, irregular heart beat, left arm pain, lightheadedness, palpitati ons, PND, syncope, others Gastrointestinal: denies: abdomen distended, abdominal pain, blood streaked bowels, constipated, diarrhea, dysphagia, difficulty swallowing, hematemesis, melena, nausea, poor appetite, poor fluid intake, rectal bleeding, rectal pain, vomiting, others Genitourinary: reports: testicle swelling; denies: burning, dysuria, flank pain, frequency, hematuria, incontinence, penile discharge, penile sore, pain, testicle pain, urgency, others Neurological: reports: weakness; denies: dizziness, fainting, headache, left sided numbness, left sided weakness, numbness, paresthesia, pre-existing deficit, right sided numbness, right sided weakness, seizure, speech problems, tingling, tremors, others Musculoskeletal: reports: others (BLE edema); denies: back pain, gout, joint pain, joint swelling, muscle pain, muscle stiffness, neck pain Integumetry: denies: bruises, change in color, change in hair/nails, dryness, laceration, lesions, lumps, rash, wounds, others Allergic/Immunocompromised: denies: Difficulty Healing, Frequent Infections, Hives, Itching, others Hematologic/Lymphatic: denies: anemia, blood clots, easy bleeding, easy bruising, swollen glands, others Endocrine: denies: excessive hunger, excessive sweating, excessive thirst, excessive urination, flushing, intolerance to cold, intolerance to heat, unexplained weight gain, unexplained weight loss, others Psychiatric: denies: anxiety, bipolar disorder, depression, hopeless, panic disorder, schizophrenia, sleepless, suicidal, others All Other Systems: Reviewed and Negative Physical Exam General Appearance: Normal HEENT: Normal ENT Inspection, Pharynx Normal, TMs Normal Neck: Full Range of Motion, Non-Tender, Normal, Normal Inspection Respiratory: Chest Non-Tender, Lungs Clear, No Accessory Muscle Use, No Respiratory Distress, Normal Breath Sounds Cardiovascular: No Edema, No JVD, No Murmur, No Gallop, Normal Peripheral Pulses, Regular Rate/Rhythm Breast Exam: Deferred Gastrointestinal: No Organomegaly, Non Tender, No Pulsatile Mass, Normal Bowel Sounds, Soft Genitalia: Deferred Pelvic: Deferred Rectal: Deferred Extremities: No calf tenderness, Normal capillary refill, Normal inspection, Normal range of motion, Non-tender, No pedal edema Musculoskeletal : Apperance: Normal Neurologic: Alert, 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 Was a procedure done?: No Differential Dx Differential Diagnosis: Myocardial infarction, Pneumonia X-Ray, Labs, Meds, VS Vital Signs Date Time Temp Pulse Resp B/P (MAP) Pulse Ox O2 Delivery O2 Flow Rate FiO2 08/18/25 13:13 89 16 147/95 08/18/25 12:30 101 20 133/84 08/18/25 12:30 98.7 101 22 130/90 (103) 95 98.7 08/18/25 12:29 133/84 08/18/25 12:00 97 08/18/25 11:37 96 Nasal Cannula* 3 32 08/18/25 11:37 19 96 Room Air* 0 21 08/18/25 10:45 82 22 95 Nasal Cannula* 3 32 08/18/25 10:45 97.9 82 22 127/99 (108) 95 97.9 08/18/25 10:36 83 08/18/25 10:15 88 08/18/25 10:13 97.9 98 14 123/90 96 97.9 Lab Test 08/18/25 13:38 08/18/25 11:45 08/18/25 11:39 08/18/25 10:27 Range/Units Troponin I High Sensitivity Pending 8 7 </=54 ng/L Urine Color Yellow Yellow Urine Clarity Turbid H Clear Urine pH 5.5 5.0-9.0 Urine Specific [place] 1.044 H 1.001-1.035 Urine Protein Trace H Negative Urine Ketones Negative Negative Urine Blood Negative Negative /uL Urine Nitrite Negative Negative Urine Bilirubin Negative Negative Urine Urobilinogen Normal Negative mg/dL Urine Leukocyte Esterase Negative Negative /uL Urine RBC 8 0 - 3 /hpf Urine Microscopic WBC 5 H 0-3 /HPF Urine Squamous Epithelial Cells Mod <5 /hpf Urine Bacteria Few H None Seen /hpf Urine Mucus Few None Seen Urine Glucose 4+ H Normal mg/dL White Blood Count 6.2 4.4-10.8 10^3/uL Red Blood Count 4.61 4.5-5.90 10^6/uL Hemoglobin 13.9 13.5-17.5 g/dL Hematocrit 43.6 41.0-53.0 % Mean Corpuscular Volume 94.7 80.0-100.0 fL Mean Corpuscular Hemoglobin 30.3 28.0-32.0 pg Mean Corpuscular Hemoglobin Concent 32.0 32.0-36.0 g/dL Red Cell Distribution Width 15.9 H 11.8-14.3 % Platelet Count 223 140-450 10^3/uL Mean Platelet Volume 7.9 6.9-10.8 fL Neutrophils (%) (Auto) 67.1 37.0-80.0 % Lymphocytes (%) (Auto) 16.0 10.0-50.0 % Monocytes (%) (Auto) 14.0 H 0.0-12.0 % Eosinophils (%) (Auto) 2.1 0.0-7.0 % Basophils (%) (Auto) 0.8 0.0-2.0 % Neutrophils # (Auto) 4.1 1.6-8.6 10 ^3/uL Lymphocytes # (Auto) 1.0 0.4-5.4 10 ^3/uL Monocytes # (Auto) 0.9 0-1.3 10 ^3/uL Eosinophils # (Auto) 0.1 0-0.8 10 ^3/uL Basophils # (Auto) 0 0-0.2 10 ^3/uL Nucleated Red Blood Cells 0.1 % Sodium Level 138 136-145 mmol/L Potassium Level 4.8 3.5-5.1 mmol/L Chloride Level 104 98-107 mmol/L Carbon Dioxide Level 28 20-31 mmol/L Anion Gap 6 5-15 Blood Urea Nitrogen 9 9-23 mg/dL Creatinine 0.68 L 0.700-1.30 mg/dL Glomerular Filtration Rate Calc 103 >90 mL/min BUN/Creatinine Ratio 13.2 10.0-20.0 Serum Glucose 100 74-106 mg/dL Calcium Level 8.2 L 8.7-10.4 mg/dL B-Type Natriuretic Peptide 669.34 0-100 pg/mL Current Medications Medications (Trade) Dose Ordered Sig/Audrey Route Start Time Stop Time Status Last Admin Albuterol (Ventolin Medneb) 2.5 mg ONCE ONCE NEB 08/18/25 11:30 08/18/25 11:31 DC 08/18/25 11:38 Ipratropium [place] (Atrovent Medneb) 0.5 mg ONCE ONCE NEB 08/18/25 11:30 08/18/25 11:31 DC 08/18/25 11:37 Furosemide (Lasix Injection) 40 mg ONCE ONCE IV 08/18/25 12:15 10/7/25 12:16 DC 08/18/25 12:29 Morphine Sulfate 4 mg ONCE ONCE IV 08/18/25 12:15 08/18/25 12:16 DC 08/18/25 12:30 Ondansetron HCl (Zofran) 4 mg ONCE ONCE IV 08/18/25 12:15 08/18/25 12:16 DC 08/18/25 12:29 [place] [id number] Ph: [phone] DIAGNOSTIC IMAGING Diagnostic Imaging Report : [id number] Signed PATIENT: THAIS BRAVO ACCT: [id number] UNIT: [id number] : 1960 LOC: ER ROOM / BED: / AGE / SEX: 65 / M ADM STATUS: REG ER SERVICE 1017 ORDERING PHYSICIAN: YURY LOCKETT MD PROCEDURE(s): CXRP - CHEST PORTABLE REASON: sob ORDER NUMBER(s): [id number], ACCESSION NUMBER(s): [id number] CHEST RADIOGRAPH Indication: sob Technique: Single frontal view of the chest was obtained COMPARISON: XY CHEST PORTABLE on DOS: 07/12/25, XY CHEST PORTABLE on DOS: 06/06/25, XY CHEST PORTABLE on DOS: 11/24/24, XY CHEST XRAY 1 VIEW on DOS: 11/18/24, XY CHEST PORTABLE on DOS: 11/17/24 FINDINGS: Lines and Tubes: None Lungs: Increased interstital prominence. This may represent pulmonary vascular congestion and/or viral pneumonia. Clinical correlation advised. Pleura: Small right pleural effusion No pneumothorax. Cardiomediastinal contours: Cardiomegaly Bones: Unremarkable IMPRESSION: Cardiomegaly with CHF. Small right pleural effusion. ATED BY: ENZO BEAN MD DICTATED DATE/TIME: 08/18/251044 SIGNED BY: ENZO BEAN MD SIGNED DATE/TIME: 08/18/251044 CC: Time of 1ST Reevaluation: 10:40 Reevaluation 1ST: Unchanged Patient Education/Counseling: Diagnosis, Treatment, Prognosis Family Education/Counseling: No Family Present SEPSIS Sepsis Screen Physician Orders Chest Portable (08/18/25 10:17) Troponin-I Hs (08/18/25 13:17) Vital Signs Date Time Temp Pulse Resp B/P (MAP) Pulse Ox O2 Delivery O2 Flow Rate FiO2 08/18/25 13:13 89 16 147/95 08/18/25 12:30 101 20 133/84 08/18/25 12:30 98.7 101 22 130/90 (103) 95 98.7 08/18/25 12:29 133/84 08/18/25 12:00 97 08/18/25 11:37 96 Nasal Cannula* 3 32 08/18/25 11:37 19 96 Room Air* 0 21 08/18/25 10:45 82 22 95 Nasal Cannula* 3 32 08/18/25 10:45 97.9 82 22 127/99 (108) 95 97.9 08/18/25 10:36 83 08/18/25 10:15 88 08/18/25 10:13 97.9 98 14 123/90 96 97.9 Laboratory Tests Test 08/18/25 10:27 White Blood Count 6.2 10^3/uL (4.4-10.8) Medications Medications Dose Ordered Sig/Audrey Route Start Time Stop Time Status Last Admin Dose Admin Albuterol 2.5 mg ONCE ONCE NEB 08/18/25 11:30 08/18/25 11:31 DC 08/18/25 11:38 Furosemide 40 mg ONCE ONCE IV 08/18/25 12:15 08/18/25 12:16 DC 08/18/25 12:29 Ipratropium [place] 0.5 mg ONCE ONCE NEB 08/18/25 11:30 08/18/25 11:31 DC 08/18/25 11:37 Morphine Sulfate 4 mg ONCE ONCE IV 08/18/25 12:15 08/18/25 12:16 DC 08/18/25 12:30 Ondansetron HCl 4 mg ONCE ONCE IV 08/18/25 12:15 08/18/25 12:16 DC 08/18/25 12:29 Departure 1 Departure Time of Disposition: 13:49 (Patient presented with shortness of breath that was concerning for possible STEMI, ACS, PE, Pneumonia, Muscle Strain, COPD, Dissection, Acute on Chronic systolic and Diastolic dysfunction. Data: 1. I ordered and reviewed the result of at least 3 labs including a CBC, BMP, and Troponin. 2. I independently interpreted the following tests: EKG which shows sinus arrhthmia and Chest X-ray which shows cardiomegaly.Risk:This patient has a high risk of morbidity due to further diagnostic testing or treatment and may suffer from an acute cardiac or respiratory disorder but is most consitent with an acute chf exacerbation. Patient should be admitted for further workup and possible expert consultation. ) Impression: Primary Impression: Acute on chronic systolic (congestive) heart failure Additional Impression: Shortness of breath Disposition: ADMITTED INPATIENT Admit to: Tele Condition: Guarded Critical Care Note Critical Care Time?: Yes Critical care comment: Acute Shortness of Breath Authorized and Performed by: Yury Lockett MD Total critical care time: Approximately 43 minutes Due to a high probability of clinically significant, life threatening deterioration, the patient required my highest level of preparedness to intervene emergently and I personally spent this critical care time directly and personally managing the patient. This critical care time included obtaining a history; examining the patient; pulse oximetry; ordering and review of studies; arranging urgent treatment with development of a management plan; evaluation of patient's response to treatment; frequent reassessment; and, discussions with other providers. This critical care time was performed to assess and manage the high probability of imminent, life-threatening deterioration that could result in multi-organ failure. It was exclusive of separately billable procedures and treating other patients and teaching time. Please see my other sections and the rest of the note for further information on patient assessment and treatment. Stability Stability form required: No Heart Score Heart Score: Heart Score Response (Comments) Value History Moderate Suspicious 1 EKG Repolarization Disturb 1 Age >65 2 Risk Factors >3 or Hx ASHD 2 Troponin 1-2 x's Normal limit 1 Total 7 I personally scribed for YURY LOCKETT MD ([email or web address]) on 08/18/25 at 10:17. Electronically submitted by Madelin Beasley ([email or web address]). I personally scribed for YURY LOCKETT MD ([email or web address]) on 08/18/25 at 11:44. Electronically submitted by Madelin Beasley ([email or web address]). YURY LOCKETT MD Aug 18, 2025 10:17
--- NOTE | 2025-08-18 10:20 | ECG ---
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
[2025-08-18 10:45] VITALS: PULSE 82; RESP 22; O2SAT 95
--- NOTE | 2025-08-18 10:47 | DVH ---
CHEST RADIOGRAPH Indication: sob Technique: Single frontal view of the chest was obtained COMPARISON: XY CHEST PORTABLE on DOS: 07/12/25, XY CHEST PORTABLE on DOS: 06/06/25, XY CHEST PORTABLE o n DOS: 11/24/24, XY CHEST XRAY 1 VIEW on DOS: 11/18/24, XY CHEST PORTABLE on DOS: 11/17/24 FINDINGS: Lines and Tubes: None Lungs: Increased interstital prominence. This may represent pulmonary vascular congestion and/or rachid l pneumonia. Clinical correlation advised. Pleura: Small right pleural effusion No pneumothorax. Cardiomediastinal contours: Cardiomegaly Bones: Unremarkable IMPRESSION: Cardiomegaly with CHF. Small right pleural effusion.
[2025-08-18 10:57] LABS: Hematocrit 43.6 % (41.0-53.0); Hemoglobin 13.9 g/dL (13.5-17.5); Mean Corpuscular Hemoglobin 30.3 pg (28.0-32.0); Mean Corpuscular Volume 94.7 fL (80.0-100.0); Nucleated Red Blood Cells % 0.1 %
[2025-08-18 11:08] LABS: Chloride 104 mmol/L (98-107); Potassium 4.8 mmol/L (3.5-5.1); Sodium 138 mmol/L (136-145)
[2025-08-18 11:09] LABS: Anion Gap 6 (5-15); Carbon Dioxide 28 mmol/L (20-31)
[2025-08-18 11:13] LABS: Calcium 8.2 mg/dL (8.7-10.4)
[2025-08-18 11:14] LABS: Glucose 100 mg/dL (74-106)
[2025-08-18 11:15] LABS: BUN/Creatinine Ratio 13.2 (10.0-20.0); Blood Urea Nitrogen 9 mg/dL (9-23)
[2025-08-18] MEDS: IPRATROPIUM BROM 0.5 MG/2.5ML INH SOL NEB ONE (11:37)
[2025-08-18] MEDS: ALBUTEROL SULF 2.5 MG/0.5ML(0.5%) NEB SOLN NEB ONE (11:38)
[2025-08-18 11:55] LABS: Urine Protein, UAD TRACE (Negative)
[2025-08-18] MEDS: ONDANSETRON HCL 4 MG/2 ML VIAL IV ONE (12:29)
[2025-08-18] MEDS: FUROSEMIDE 40 MG/4 ML VIAL IV ONE (12:29)
[2025-08-18] MEDS: MORPHINE SULFATE 4 MG/ML SYR/VIAL IV ONE (12:30)
[2025-08-18] MEDS ORDERED: NITROGLYCERIN 0.4 MG SL TAB SL PRN (15:30)
[2025-08-18] MEDS ORDERED: ONDANSETRON HCL 4 MG/2 ML VIAL IV PRN (15:30)
[2025-08-18] MEDS ORDERED: DOCUSATE SOD 100 MG CAP PO PRN (15:30)
[2025-08-18] MEDS ORDERED: MORPHINE SULFATE 4 MG/ML SYR/VIAL IV PRN (15:45)
--- NOTE | 2025-08-18 16:10 | DVHHP2 ---
History of Present Illness Reason for Visit: Shortness of breath History of Present Illness Félix Bae is a 65-year-old male with past medical history of atrial fibrillation, COPD, CHF, CVA, hypertension, and hyperlipidemia, who came to the hospital for shortness of breath and edema. Patient states his symptoms began about 5-6 days ago. He did not come to the hospital because he was hoping it would get better. Patient states he has been compliant with his medications and he does not have a real estate services coordinator that he follows with. Patient is a poor historian and appears to have a cognitive dysfunction. Patient had an ECHO completed in 10/29/2024 that showed an EF of 30% and valvular disease, he had another ECHO in 06/06/2025 that showed an EF of 60% and no valvular disease. 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 Past Surgical History: None Smoke: Quit (1.5 weeks ago) ALCOHOL: occassional Drugs: None Lives: Friends Domestic Violence: Neg Review of Systems Constitutional: No: Fever, Chills, Sweats, Weakness, Malaise, Other Eyes: No: Pain, Vision change, Conjunctivae inflammation, Eyelid inflammation, Other, Redness ENT: No: Ear pain, Ear discharge, Nose pain, Nose discharge, Nose congestion, Mouth pain, Mouth swelling, Throat pain, Throat swelling, Other Respiratory: Shortness of breath, SOB with excertion, Wheezing; No: Cough, Dry, Hemoptysis, Pleuritic Pain, Sputum, Wheezing, Other Cardiovascular: Edema (+2 pitting edema on abdomen and bilateral lower extremities. +4 scrotal edema); No: Chest Pain, Palpitations, Orthopnea, Paroxysmal Noc. Dyspnea, Lt Headedness, Other Gastrointestinal: No: Nausea, Vomiting, Abdominal Pain, Diarrhea, Constipation, Melena, Hematochezia, Other Genitourinary: No Dysuria, No Frequency, No Incontinence, No Hematuria, No Retention, No Other Musculoskeletal: No: other, neck pain, shoulder pain, arm pain, back pain, hand pain, leg pain, foot pain Skin: No: Rash, Lesions, Jaundice, Bruising, Other Neurological: No: Weakness, Numbness, Incoordination, Change in speech, Confusion, Seizures, Other Allergies: Coded Allergies: NO KNOWN ALLERGIES (Unverified , 09/26/24) Exam Vital Signs Vital Signs Date Time Temp Pulse Resp B/P (MAP) Pulse Ox O2 Delivery O2 Flow Rate FiO2 08/18/25 14:30 98.5 83 12 133/87 (102) 93 98.5 08/18/25 11:37 Nasal Cannula* 3 32 General Appearance: Alert, Oriented X3, Cooperative, moderate distress HEENT: Atraumatic, PERRLA Respiratory: Other (Bilateral wheezing and diminished breath sounds) Cardiovascular: Other (atrial fibrillation) Abdominal: Normal bowel sounds, Soft, No tenderness, No hepatospenomegaly Extremities: No clubbing, No cyanosis, Other (edema from abdomin to bilatral lower extremity) Skin: No significant lesion (bilateral lower extremity wounds) Neuro: Normal speech, Other (weakness) Psych/Mental Status: Mental status NL Labs/Xrays Labs Test 08/18/25 13:38 08/18/25 11:45 08/18/25 10:27 Range/Units Troponin I High Sensitivity 8 </=54 ng/L Urine Color Yellow Yellow Urine Clarity Turbid H Clear Urine pH 5.5 5.0-9.0 Urine Specific [place] 1.044 H 1.001-1.035 Urine Protein Trace H Negative Urine Ketones Negative Negative Urine Blood Negative Negative /uL Urine Nitrite Negative Negative Urine Bilirubin Negative Negative Urine Urobilinogen Normal Negative mg/dL Urine Leukocyte Esterase Negative Negative /uL Urine RBC 8 0 - 3 /hpf Urine Microscopic WBC 5 H 0-3 /HPF Urine Squamous Epithelial Cells Mod <5 /hpf Urine Bacteria Few H None Seen /hpf Urine Mucus Few None Seen Urine Glucose 4+ H Normal mg/dL White Blood Count 6.2 4.4-10.8 10^3/uL Red Blood Count 4.61 4.5-5.90 10^6/uL Hemoglobin 13.9 13.5-17.5 g/dL Hematocrit 43.6 41.0-53.0 % Mean Corpuscular Volume 94.7 80.0-100.0 fL Mean Corpuscular Hemoglobin 30.3 28.0-32.0 pg Mean Corpuscular Hemoglobin Concent 32.0 32.0-36.0 g/dL Red Cell Distribution Width 15.9 H 11.8-14.3 % Platelet Count 223 140-450 10^3/uL Mean Platelet Volume 7.9 6.9-10.8 fL Neutrophils (%) (Auto) 67.1 37.0-80.0 % Lymphocytes (%) (Auto) 16.0 10.0-50.0 % Monocytes (%) (Auto) 14.0 H 0.0-12.0 % Eosinophils (%) (Auto) 2.1 0.0-7.0 % Basophils (%) (Auto) 0.8 0.0-2.0 % Neutrophils # (Auto) 4.1 1.6-8.6 10 ^3/uL Lymphocytes # (Auto) 1.0 0.4-5.4 10 ^3/uL Monocytes # (Auto) 0.9 0-1.3 10 ^3/uL Eosinophils # (Auto) 0.1 0-0.8 10 ^3/uL Basophils # (Auto) 0 0-0.2 10 ^3/uL Nucleated Red Blood Cells 0.1 % Sodium Level 138 136-145 mmol/L Potassium Level 4.8 3.5-5.1 mmol/L Chloride Level 104 98-107 mmol/L Carbon Dioxide Level 28 20-31 mmol/L Anion Gap 6 5-15 Blood Urea Nitrogen 9 9-23 mg/dL Creatinine 0.68 L 0.700-1.30 mg/dL Glomerular Filtration Rate Calc 103 >90 mL/min BUN/Creatinine Ratio 13.2 10.0-20.0 Serum Glucose 100 74-106 mg/dL Calcium Level 8.2 L 8.7-10.4 mg/dL B-Type Natriuretic Peptide 669.34 0-100 pg/mL CHEST RADIOGRAPH FINDINGS: Lines and Tubes: None Lungs: Increased interstitial prominence. This may represent pulmonary vascular congestion and/or viral pneumonia. Clinical correlation advised. Pleura: Small right pleural effusion No pneumothorax. Cardiomediastinal contours: Cardiomegaly Bones: Unremarkable IMPRESSION: Cardiomegaly with CHF. Small right pleural effusion. SEPSIS Sepsis Screen Date sepsis recognized/suspect: Aug 18, 2025 Time Sepsis recognized/suspect: 1045 Recent Procedure: No On Antibiotic Therapy: No Respiratory Rate >20: Yes Heart Rate >90: No Temp<36 C (96.8 F) or >38.3 C: No SBP <90 or MAP <65 mmHG: No New Acute Mental Status Change: No Is the patient on CPAP, BIPAP,: No Physician Orders Chest Portable (08/18/25 10:17) Admit (08/18/25 15:21) Code Status (08/18/25 15:21) Sodium Chloride Lock (Saline Lock Ns) (08/18/25 22:00) Hydrocodone-Acet 5/325mg Tab (Reading (08/18/25 15:30) Ondansetron Hcl (Zofran) (08/18/25 15:30) Docusate Sodium Capsule (Colace Capsule) (08/18/25 15:30) Complete Blood Count (08/19/25 04:00) Comprehensive Metabolic Panel (08/19/25 04:00) Cardiac Diet-2gna,Lofat,Lochol (08/18/25 Dinner) Condition: Serious (08/18/25 15:21) Acetaminophen Tablet (Tylenol Tablet) (08/18/25 15:30) Nitroglycerin Sublingual (Ntrostat Subli (08/18/25 15:30) Morphine Sulfate Injection (08/18/25 15:30) Stat Ekg For Chest Pain (08/18/25 15:21) Notify Md Of Changes From Base (08/18/25 15:21) Disability Counselor For 24 Hours (08/18/25 15:21) Emergency Dysrhythmia Protocol (08/18/25 15:21) Rhythm Strips Once Every Shift (08/18/25 15:21) Oxygen By Nasal Cannula (08/18/25 15:21) Furosemide Injection (Lasix Injection) (08/18/25 18:00) Vital Signs Date Time Temp Pulse Resp B/P (MAP) Pulse Ox O2 Delivery O2 Flow Rate FiO2 08/18/25 14:30 98.5 83 12 133/87 (102) 93 98.5 08/18/25 13:13 89 16 147/95 08/18/25 12:30 101 20 133/84 08/18/25 12:30 98.7 101 22 130/90 (103) 95 98.7 08/18/25 12:29 133/84 08/18/25 12:00 97 08/18/25 11:37 96 Nasal Cannula* 3 32 08/18/25 11:37 19 96 Room Air* 0 21 08/18/25 10:45 82 22 95 Nasal Cannula* 3 32 08/18/25 10:45 97.9 82 22 127/99 (108) 95 97.9 08/18/25 10:36 83 08/18/25 10:15 88 08/18/25 10:13 97.9 98 14 123/90 96 97.9 Laboratory Tests Test 08/18/25 10:27 White Blood Count 6.2 10^3/uL (4.4-10.8) Medications Medications Dose Ordered Sig/Audrey Route Start Time Stop Time Status Last Admin Dose Admin Albuterol 2.5 mg ONCE ONCE NEB 08/18/25 11:30 08/18/25 11:31 DC 08/18/25 11:38 2.5 MG Furosemide 40 mg ONCE ONCE IV 08/18/25 12:15 08/18/25 12:16 DC 08/18/25 12:29 40 MG Ipratropium [place] 0.5 mg ONCE ONCE NEB 08/18/25 11:30 08/18/25 11:31 DC 08/18/25 11:37 0.5 MG Morphine Sulfate 4 mg ONCE ONCE IV 08/18/25 12:15 08/18/25 12:16 DC 08/18/25 12:30 4 MG Ondansetron HCl 4 mg ONCE ONCE IV 08/18/25 12:15 08/18/25 12:16 DC 08/18/25 12:29 4 MG Assessment/Plan Assessment/Plan Assessment: Acute on chronic systolic (congestive) heart failure, Fluid overload, Pleural effusion, UTI, Cardiomegaly, Atrial fibrillation, Hypertension, Hyperlipidemia, Plan: Admit to Tele, Cardiology consult, IV Lasix, IV antibiotics, Wound care consult, Urine culture, Home medications reconciled, Plan discussed with: Patient My Orders Orders - 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 Procedure Category Date Status Time Admit ADMIT 08/18/25 Verified 15:21 Code Status CODE 08/18/25 Verified 15:21 Sodium Chloride Lock PHA 08/18/25 Verified (Saline Lock Ns) 22:00 Hydrocodone-Acet PHA 08/18/25 Verified 5/325mg Tab (Reading 15:30 Ondansetron Hcl PHA 08/18/25 Verified (Zofran) 15:30 Docusate Sodium PHA 08/18/25 Verified Capsule (Colace 15:30 Complete Blood Count LAB 08/19/25 Verified 04:00 Comprehensive LAB 08/19/25 Verified Metabolic Panel 04:00 Cardiac DIET 08/18/25 Verified Diet-2gna,Lofat,Lochol Dinner Condition: Serious [facility] 08/18/25 Verified 15:21 Acetaminophen Tablet PHA 08/18/25 Verified (Tylenol Tablet) 15:[address] [facility] 08/18/25 Verified Sublingual (Ntrostat 15:30 Morphine Sulfate PHA 08/18/25 Verified Injection 15:[address] Chest [facility] 08/18/25 Verified Pain 15:21 Notify Md Of Changes [facility] 08/18/25 Verified From Base 15:[address] [facility] 08/18/25 Verified 24 Hours 15:[address] [facility] 08/18/25 Verified Protocol 15:[address] [facility] 08/18/25 Verified Every Shift 15:21 Oxygen By Nasal RT 08/18/25 Verified Cannula 15:[address] [facility] 08/18/25 Verified (Lasix Injection) 18:00 Date of Service: Aug 18, 2025 Billing Provider: GILBERTO RIVERA Common Visit Codes: [id number] INP/OBS CARE (HIGH) GILBERTO RIVERA Aug 18, 2025 16:09
[2025-08-18 20:00] VITALS: PULSE 100
[2025-08-18] MEDS: FUROSEMIDE 40 MG/4 ML VIAL IV SCH (20:51)
[2025-08-18 21:00] VITALS: BP 107/64; PULSE 100; RESP 16; TEMP 97.7; O2SAT 94
[2025-08-18] MEDS: SODIUM CHLOR 0.9% PF (SALINE LOCK) 10ML VIAL/SYR IV SCH (21:08)
[2025-08-18] MEDS: APIXABAN 5 MG TAB PO SCH (21:08)
[2025-08-18] MEDS: CARVEDILOL 3.125 MG TAB PO SCH (21:09)
[2025-08-18] MEDS: ATORVASTATIN 20 MG TAB PO SCH (21:09)
[2025-08-18] MEDS: HYDROcodone-ACET 5/325MG TAB PO PRN (21:14)
[2025-08-18] MEDS ORDERED: CARVEDILOL 3.125 MG TAB PO SCH (22:00)
[2025-08-18] MEDS ORDERED: APIXABAN 2.5 MG TAB PO SCH (22:00)
[2025-08-19] VITALS (7 sets, daily range): BP systolic 93–127; BP diastolic 62–87; PULSE 70–110; RESP 16–19; TEMP 97.7–98.7; O2SAT 92–99
--- NOTE | 2025-08-19 01:59 | DVHINCON2 ---
Date of service: Aug 18, 2025 Referring Physician Adelita Reason for Consultation CHF exacerbation History of Present Illness This is a 65 year old male with a PMH of A-fib, CHF, COPD, CVA, HLD, HTN brought in by EMS with c/o shortness of breath x 1 week. Patient states he has been experiencing shortness of breath for the past week as well as generalized weakness, BLE edema, enlarged testicle. Symptoms worsened, he was not able to walk around his house this morning, called 911. Chest x-ray shows cardiomegaly with CHF with small right pleural effusion. Troponin is negative. BNP 669.34. CBC is WNL. Patient was admitted to the hospital. I am asked to consult on this patient. Family History: Diabetes mellitus G8 MOTHER G8 BROTHER G8 BROTHER FH: heart disease G8 BROTHER G8 SISTER Prostate problems G8 FATHER Allergies: Coded Allergies: NO KNOWN ALLERGIES (Unverified , 09/26/24) Home Meds Active Scripts Clopidogrel Bisulfate (CLOPIDOGREL) 75 Mg Tab, 1 TAB PO DAILY for 90 Days, #90 TAB 1 Refill Prov:ERASTO MICHELE RESIDENT 07/14/25 Potassium Chloride (Potassium Chloride ER) 10 Meq Tab, 10 MEQ PO DAILY for 30 Days, #30 TAB 3 Refills Prov:NEGRA CARLSON MD 06/10/25 Trazodone Hcl (Trazodone Hcl) 50 Mg Tab, 50 MG PO HS for 30 Days, #30 TAB 1 Refill Prov:BELKIS ANTONY NP 11/22/24 Furosemide (Furosemide) 20 Mg Tab, 1 TAB PO DAILY, #30 TAB 5 Refills Prov:YAZMIN FONSECA RESIDENT 11/01/24 Empagliflozin (Jardiance) 10 Mg Tab, 10 MG PO DAILY for 30 Days, #30 TAB Prov:YAZMIN FONSECA RESIDENT 11/01/24 Reported Medications Simvastatin (Simvastatin) 20 Mg Tab, 1 TAB PO HS for 90 Days, #90 07/14/25 Citalopram Hydrobromide (Citalopram Hydrobromide) 20 Mg Tab, 1 TAB PO DAILY for 90 Days, #90 07/14/25 Apixaban Base (ELIQUIS) 5 Mg Tab, 1 TAB PO BID for 30 Days, #60 07/14/25 Carvedilol (Carvedilol) 3.125 Mg Tab, 1 TAB PO BID for 90 Days, #180 07/14/25 Lisinopril (Lisinopril) 5 Mg Tab, 1 TAB PO DAILY for 90 Days, #90 07/13/25 Umeclidinium-Vilanterol (Anoro Ellipta 62.5-25 Mcg/INH) 1 Aer Aer, 1 PUFF IN DAILY for 30 Days, #60 10/28/24 Multiple Vitamins W/ Minerals (Centrum Silver) Silver Chw, 1 OR, TAB.CHEW 10/28/24 Nicotine Polacrilex (Nicotine Mini Lozenge) 4 Mg Christi, 4 MG MT, CHRISTI 10/28/24 Ergocalciferol (VITAMIN D 09546 UNIT) 50,000 [place], [address] UNIT PO Weekly, CAP 10/28/24 Tamsulosin Hcl (Tamsulosin Hcl) 0.4 Mg Cap, 1 CAP PO DAILY 10/28/24 Discontinued Reported Medications Amlodipine Besylate (Amlodipine Besylate) 10 Mg Tab, 1 TAB PO DAILY for 90 Days, #90 10/28/24 Discontinued Scripts Spironolactone (Aldactone) 25 Mg Tab, 25 MG PO DAILY for 30 Days, #30 TAB Prov:YAZMIN FONSECA RESIDENT 11/01/24 Current Medications Current Medications Medications (Trade) Dose Ordered Sig/Audrey Route PRN Reason Start Time Stop Time Status Last Admin Sodium Chloride (Saline Lock Ns) 10 ml Q8HR IV 08/18/25 22:00 08/18/25 21:08 Acetaminophen/ Hydrocodone Bitart (Gila 5/325MG Tab) 1 tab Q4HP PRN PO MODERATE PAIN (4-6 PAIN SCALE) 08/18/25 15:30 08/18/25 21:14 Ondansetron HCl (Zofran) 4 mg Q4HP PRN IV NAUSEA / VOMITING 08/18/25 15:30 Docusate Sodium (Colace Capsule) 100 mg BIDPRN PRN PO FOR CONSTIPATION 08/18/25 15:30 Acetaminophen (Tylenol Tablet) 650 mg Q6HP PRN PO PAIN SCALE 1-3 OR TEMP>100.4 08/18/25 15:30 Nitroglycerin (Ntrostat Sublingual) 0.4 mg Q5MINP PRN SL FOR CHEST PAIN 08/18/25 15:30 Morphine Sulfate 2 mg Q30M PRN IV FOR CHEST PAIN 08/18/25 15:45 Furosemide (Lasix Injection) 40 mg BIDD IV 08/18/25 18:00 08/18/25 20:51 Ceftriaxone Sodium 50 ml @ 100 mls/hr DAILY@09 IV 08/19/25 09:00 Empaglifozin (Jardiance) 10 mg DAILY PO 08/19/25 10:00 08/18/25 18:16 DC Apixaban (Eliquis) 5 mg BID PO 08/18/25 22:00 08/18/25 18:15 DC Lisinopril (Zestril Tablet) 5 mg DAILY PO 08/19/25 10:00 08/18/25 18:16 DC Citalopram Hydrobromide (CeleXA TABLET) 20 mg DAILY PO 08/19/25 10:00 08/18/25 18:16 DC Carvedilol (Coreg Tablet) 3.125 mg BID PO 08/18/25 22:00 08/18/25 18:15 DC Apixaban (Eliquis) 5 mg BID PO 08/18/25 22:00 08/18/25 21:08 Carvedilol (Coreg Tablet) 3.125 mg BID PO 08/18/25 22:00 08/18/25 21:09 Citalopram Hydrobromide (CeleXA TABLET) 20 mg DAILY PO 08/19/25 10:00 Empaglifozin (Jardiance) 10 mg DAILY PO 08/19/25 10:00 Lisinopril (Zestril Tablet) 5 mg DAILY PO 08/19/25 10:00 Tamsulosin HCl (Flomax) 0.4 mg DAILY PO 08/19/25 10:00 Atorvastatin Calcium (Lipitor) 10 mg HS PO 08/18/25 22:00 08/18/25 21:09 Review of Systems Constitutional: reports: weakness; denies: chills, diaphoresis, fatigue, fever, malaise, sweats, others EENTM: denies: blurred vision, double vision, ear bleeding, ear discharge, ear drainage, ear pain, ear ringing, eye pain, eye redness, hearing loss, mouth pain, mouth swelling, nasal discharge, nose bleeding, nose congestion, nose pain, photophobia, tearing, throat pain, throat swelling, voice changes, others Respiratory: reports: shortness of breath; denies: cough, hemoptysis, orthopnea, SOB at rest, SOB with excertion, stridor, wheezing, others Cardiovascular: denies: chest pain, dizzy spells, diaphoresis, Dyspnea on exertion, edema, irregular heart beat, left arm pain, lightheadedness, palpitations, PND, syncope, others Gastrointestinal: denies: abdomen distended, abdominal pain, blood streaked bowels, constipated, diarrhea, dysphagia, difficulty swallowing, hematemesis, melena, nausea, poor appetite, poor fluid intake, rectal bleeding, rectal pain, vomiting, others Genitourinary: reports: testicle swelling; denies: burning, dysuria, flank pain, frequency, hematuria, incontinence, penile discharge, penile sore, pain, testicle pain, urgency, others Neurological: reports: weakness; denies: dizziness, fainting, headache, left sided numbness, left sided weakness, numbness, paresthesia, pre-existing deficit, right sided numbness, right sided weakness, seizure, speech problems, tingling, tremors, others Musculoskeletal: reports: others (BLE edema); denies: back pain, gout, joint pain, joint swelling, muscle pain, muscle stiffness, neck pain Integumetry: denies: bruises, change in color, change in hair/nails, dryness, laceration, lesions, lumps, rash, wounds, others Allergic/Immunocompromised: denies: Difficulty Healing, Frequent Infections, Hives, Itching, others Hematologic/Lymphatic: denies: anemia, blood clots, easy bleeding, easy bruising, swollen glands, others Endocrine: denies: excessive hunger, excessive sweating, excessive thirst, excessive urination, flushing, intolerance to cold, intolerance to heat, unexplained weight gain, unexplained weight loss, others Psychiatric: denies: anxiety, bipolar disorder, depression, hopeless, panic disorder, schizophrenia, sleepless, suicidal, others All Other Systems: Reviewed and Negative Vital Signs Vital Signs Date Time Temp Pulse Resp B/P (MAP) Pulse Ox O2 Delivery O2 Flow Rate FiO2 08/18/25 21:09 100 107/64 08/18/25 21:00 97.7 16 94 97.7 08/18/25 17:47 Nasal Cannula* 3 32 Physical Exam GENERAL: Alert and oriented x 3. No acute distress. Obese. EYES: PERRL, EOMI. Anicteric. HENT: Moist mucous membranes. LUNGS: Diminished breath sounds. CARDIOVASCULAR: Regular rate and rhythm. ABDOMEN: Soft, non-tender and non-distended. EXTREMITIES: 2+ pitting edema BLE. NEUROLOGIC: No focal neurological deficits. SKIN: Warm, dry. Labs/Diagnostic Data Labs Test 08/18/25 13:38 08/18/25 11:45 08/18/25 10:27 Range/Units Troponin I High Sensitivity 8 </=54 ng/L Urine Color Yellow Yellow Urine Clarity Turbid H Clear Urine pH 5.5 5.0-9.0 Urine Specific [place] 1.044 H 1.001-1.035 Urine Protein Trace H Negative Urine Ketones Negative Negative Urine Blood Negative Negative /uL Urine Nitrite Negative Negative Urine Bilirubin Negative Negative Urine Urobilinogen Normal Negative mg/dL Urine Leukocyte Esterase Negative Negative /uL Urine RBC 8 0 - 3 /hpf Urine Microscopic WBC 5 H 0-3 /HPF Urine Squamous Epithelial Cells Mod <5 /hpf Urine Bacteria Few H None Seen /hpf Urine Mucus Few None Seen Urine Glucose 4+ H Normal mg/dL White Blood Count 6.2 4.4-10.8 10^3/uL Red Blood Count 4.61 4.5-5.90 10^6/uL Hemoglobin 13.9 13.5-17.5 g/dL Hematocrit 43.6 41.0-53.0 % Mean Corpuscular Volume 94.7 80.0-100.0 fL Mean Corpuscular Hemoglobin 30.3 28.0-32.0 pg Mean Corpuscular Hemoglobin Concent 32.0 32.0-36.0 g/dL Red Cell Distribution Width 15.9 H 11.8-14.3 % Platelet Count 223 140-450 10^3/uL Mean Platelet Volume 7.9 6.9-10.8 fL Neutrophils (%) (Auto) 67.1 37.0-80.0 % Lymphocytes (%) (Auto) 16.0 10.0-50.0 % Monocytes (%) (Auto) 14.0 H 0.0-12.0 % Eosinophils (%) (Auto) 2.1 0.0-7.0 % Basophils (%) (Auto) 0.8 0.0-2.0 % Neutrophils # (Auto) 4.1 1.6-8.6 10 ^3/uL Lymphocytes # (Auto) 1.0 0.4-5.4 10 ^3/uL Monocytes # (Auto) 0.9 0-1.3 10 ^3/uL Eosinophils # (Auto) 0.1 0-0.8 10 ^3/uL Basophils # (Auto) 0 0-0.2 10 ^3/uL Nucleated Red Blood Cells 0.1 % Sodium Level 138 136-145 mmol/L Potassium Level 4.8 3.5-5.1 mmol/L Chloride Level 104 98-107 mmol/L Carbon Dioxide Level 28 20-31 mmol/L Anion Gap 6 5-15 Blood Urea Nitrogen 9 9-23 mg/dL Creatinine 0.68 L 0.700-1.30 mg/dL Glomerular Filtration Rate Calc 103 >90 mL/min BUN/Creatinine Ratio 13.2 10.0-20.0 Serum Glucose 100 74-106 mg/dL Calcium Level 8.2 L 8.7-10.4 mg/dL B-Type Natriuretic Peptide 669.34 0-100 pg/mL Assessment Acute on chronic systolic (congestive) heart failure. Fluid overload. Pleural effusion. UTI. Cardiomegaly. Plan/Recommendation I agree with your ongoing assessment and care of plan. Gila for pain management. Eliquis. Lipitor. Coreg, Lisinopril. IV antibiotics as ordered. Diuretics with Lasix. Additional plan as per the hospital course. A total of 45 minutes was spent reviewing the patient record, examining the patient, making a diagnostic and therapeutic plan, discussing this plan with medical personnel, following up on diagnostic studies and following the patient for clinical stability excluding any and all procedures. At least 50% of this time was spent in direct, [id number] contact. Plan discussed with: Patient EJ CARDOSO MD Aug 18, 2025 23:48
[2025-08-19 06:50] LABS: Hematocrit 40.7 % (41.0-53.0); Hemoglobin 13.2 g/dL (13.5-17.5); Mean Corpuscular Hemoglobin 30.6 pg (28.0-32.0); Mean Corpuscular Volume 94.0 fL (80.0-100.0); Nucleated Red Blood Cells % 0.2 %
[2025-08-19 06:57] LABS: Alanine Aminotransferase 11 U/L (7-40); Albumin 3.2 g/dL (3.2-4.8); Alkaline Phosphatase 116 U/L (46-116); Anion Gap 7 (5-15); BUN/Creatinine Ratio 19.5 (10.0-20.0); Blood Urea Nitrogen 17 mg/dL (9-23); Chloride 104 mmol/L (98-107); Glucose 104 mg/dL (74-106); Potassium 4.4 mmol/L (3.5-5.1); Sodium 143 mmol/L (136-145); Total Protein 6.2 g/dL (5.7-8.2)
[2025-08-19 06:58] LABS: Bilirubin, Total 0.5 mg/dL (0.2-1.0)
[2025-08-19 07:06] LABS: Calcium 7.9 mg/dL (8.7-10.4); Carbon Dioxide 32 mmol/L (20-31)
[2025-08-19] MEDS ORDERED: EMPAGLIFLOZIN 10 MG TAB PO SCH (10:00)
[2025-08-19] MEDS ORDERED: LISINOPRIL 5 MG TAB PO SCH (10:00)
[2025-08-19] MEDS ORDERED: CITALOPRAM HYDROBR 20 MG TAB PO SCH (10:00)
[2025-08-19] MEDS ORDERED: TAMSULOSIN HYDROCHLORIDE 0.4 MG CAP PO ONE (10:00)
[2025-08-19] MEDS: LISINOPRIL 5 MG TAB PO SCH (10:37)
[2025-08-19] MEDS: TAMSULOSIN HYDROCHLORIDE 0.4 MG CAP PO SCH (10:38)
[2025-08-19] MEDS: EMPAGLIFLOZIN 10 MG TAB PO SCH (10:38)
[2025-08-19] MEDS: CITALOPRAM HYDROBR 20 MG TAB PO SCH (10:38)
--- NOTE | 2025-08-19 12:39 | DVHPN2 ---
Reviewed: Care Plan, H&P, Labs, Medications, Previous Orders, Radiology Changes from previous H/P or p: No Changes Eyes: No Pain, No Vision change, No Conjunctivae inflammation, No Eyelid inflammation, No Other, No Redness ENT: No Ear pain, No Ear discharge, No Nose pain, No Nose discharge, No Nose congestion, No Mouth pain, No Mouth swelling, No Throat pain, No Throat swelling, No Other Cardiovascular: No Chest Pain, No Palpitations, No Orthopnea, No Paroxysmal Noc. Dyspnea; Edema (+2 pitting edema on abdomen and bilateral lower extremities. +4 scrotal edema); No Lt Headedness, No Other Respiratory: No Cough, No Dry; Shortness of breath, SOB with excertion, W heezing; No Hemoptysis, No Pleuritic Pain, No Sputum, No Other Gastrointestinal: No Nausea, No Vomiting, No Abdominal Pain, No Diarrhea, No Constipation, No Melena, No Hematochezia, No Other Genitourinary: No Dysuria, No Frequency, No Incontinence, No Hematuria, No Retention, No Other Musculoskeletal: No other, No neck pain, No shoulder pain, No arm pain, No back pain, No hand pain, No leg pain, No foot pain Skin: No Rash, No Lesions, No Jaundice, No Bruising, No Other Objective Vitals Vital Signs Date Time Temp Pulse Resp B/P (MAP) Pulse Ox O2 Delivery O2 Flow Rate FiO2 08/19/25 10:38 77 111/80 08/19/25 09:00 98.1 19 99 98.1 08/19/25 08:10 Nasal Cannula* 3 32 Intake/Output Intake and Output 08/19/25 07:00 Intake Total 950 ml Output Total 3525 ml Balance -2575 ml Intake Oral 950 ml Output Urine Total 3525 ml Medications Current Medications Medications Dose Ordered Sig/Audrey Route Start Time Stop Time Status Last Admin Dose Admin Sodium Chloride 10 ml Q8HR IV 08/18/25 22:00 08/19/25 05:09 10 ML Acetaminophen/ Hydrocodone Bitart 1 tab Q4HP PRN PO 08/18/25 15:30 08/19/25 05:10 1 TAB Ondansetron HCl 4 mg Q4HP PRN IV 08/18/25 15:30 Docusate Sodium 100 mg BIDPRN PRN PO 08/18/25 15:30 Acetaminophen 650 mg Q6HP PRN PO 08/18/25 15:30 Nitroglycerin 0.4 mg Q5MINP PRN SL 08/18/25 15:30 Morphine Sulfate 2 mg Q30M PRN IV 08/18/25 15:45 Furosemide 40 mg BIDD IV 08/18/25 18:00 08/19/25 05:10 40 MG Ceftriaxone Sodium 50 ml @ 100 mls/hr DAILY@09 IV 08/19/25 09:00 08/19/25 10:39 100 MLS/HR Apixaban 5 mg BID PO 08/18/25 22:00 08/19/25 10:38 5 MG Carvedilol 3.125 mg BID PO 08/18/25 22:00 08/19/25 10:38 3.125 MG Citalopram Hydrobromide 20 mg DAILY PO 08/19/25 10:00 08/19/25 10:38 20 MG Empaglifozin 10 mg DAILY PO 08/19/25 10:00 08/19/25 10:38 10 MG Lisinopril 5 mg DAILY PO 08/19/25 10:00 08/19/25 10:37 5 MG Tamsulosin HCl 0.4 mg DAILY PO 08/19/25 10:00 08/19/25 10:38 0.4 MG Atorvastatin Calcium 10 mg HS PO 08/18/25 22:00 08/18/25 21:09 10 MG Laboratory Results Laboratory Tests 08/19/25 05:44 Chemistry Test 08/19/25 05:44 Albumin 3.2 g/dL (3.2-4.8) Calcium Level 7.9 mg/dL (8.7-10.4) L Total Protein 6.2 g/dL (5.7-8.2) LFT Test 08/19/25 05:44 Alanine Aminotransferase (ALT) 11 U/L (7-40) Alkaline Phosphatase 116 U/L (46-116) Aspartate Amino Transferase (AST) 19 U/L (13-40) Total Bilirubin 0.5 mg/dL (0.2-1.0) Urinalysis Test 08/18/25 11:45 Urine Color Yellow (Yellow) Urine Clarity Turbid (Clear) H Urine pH 5.5 (5.0-9.0) Urine Specific [place] 1.044 (1.001-1.035) Urine Protein Trace (Negative) H Urine Ketones Negative (Negative) Urine Blood Negative /uL (Negative) Urine Nitrite Negative (Negative) Urine Bilirubin Negative (Negative) Urine Urobilinogen Normal mg/dL (Negative) Urine Leukocyte Esterase Negative /uL (Negative) Urine RBC 8 /hpf (0 - 3) Urine Microscopic WBC 5 /HPF (0-3) H Urine Squamous Epithelial Cells Mod /hpf (<5) Urine Bacteria Few /hpf (None Seen) H Urine Mucus Few (None Seen) Urine Glucose 4+ mg/dL (Normal) H Labs and/or images reviewed: Labs reviewed by me, Image(s) reviewed by me Assessment/Plan Assessment/Plan Acute on chronic systolic (congestive) heart failure. Fluid overload. Pleural effusion. UTI. Cardiomegaly. AFib history of CVA Hypertension Acute on chronic congestive heart failure ejection fraction 60 percent Acute COPD exacerbation Polysubstance abuse Critical care time 60 minutes Advanced care planning time 20 minutes Patient is full code Plan discussed with: Patient Date of Service: Aug 19, 2025 Billing Provider: ERICA LONG MD Common Visit Codes: [id number] CARE 30-74 MIN ERICA LONG MD Aug 19, 2025 12:38
[2025-08-19 14:05] LABS: Amphetamine Screen, Urine Neg (NEGATIVE); Barbiturate Scree,Urine Neg (NEGATIVE); Benzodiazephine Screen, Urine Neg (NEGATIVE); Cannabinoid Screen, Urine Neg (NEGATIVE); Cocaine Screen, Urine Neg (NEGATIVE); Opiate Scree,Urine Neg (NEGATIVE); Phencyclidine Screen, Urine Neg (NEGATIVE)
--- NOTE | 2025-08-19 23:14 | DVHPN2 ---
Progress Note - Dictate Date Seen: Aug 19, 2025 Medical Necessity Reason Pt with a Central, PICC or Fol: No Subjective Patient was seen and evaluated in follow up. Patient reports feeling short of breath. He is on 4 LPM NC. BUN 32, CA 7.9. Telemetry reviewed. vital signs Vital Sign Date Time Temp Pulse Resp B/P (MAP) Pulse Ox O2 Delivery O2 Flow Rate FiO2 08/19/25 13:00 97.7 92 19 109/79 (89) 92 97.7 08/19/25 08:10 Nasal Cannula* 3 32 Total Intake and Output 08/18/25 08/18/25 08/19/25 15:00 23:00 07:00 Intake Total 950 ml Output Total 3525 ml Balance -2575 ml medications Current Medications Medications Dose Ordered Sig/Audrey Route Start Time Stop Time Status Last Admin Dose Admin Sodium Chloride 10 ml Q8HR IV 08/18/25 22:00 08/19/25 05:09 10 ML Acetaminophen/ Hydrocodone Bitart 1 tab Q4HP PRN PO 08/18/25 15:30 08/19/25 05:10 1 TAB Ondansetron HCl 4 mg Q4HP PRN IV 08/18/25 15:30 Docusate Sodium 100 mg BIDPRN PRN PO 08/18/25 15:30 Acetaminophen 650 mg Q6HP PRN PO 08/18/25 15:30 Nitroglycerin 0.4 mg Q5MINP PRN SL 08/18/25 15:30 Morphine Sulfate 2 mg Q30M PRN IV 08/18/25 15:45 Furosemide 40 mg BIDD IV 08/18/25 18:00 08/19/25 05:10 40 MG Ceftriaxone Sodium 50 ml @ 100 mls/hr DAILY@09 IV 08/19/25 09:00 08/19/25 10:39 100 MLS/HR Apixaban 5 mg BID PO 08/18/25 22:00 08/19/25 10:38 5 MG Carvedilol 3.125 mg BID PO 08/18/25 22:00 08/19/25 10:38 3.125 MG Citalopram Hydrobromide 20 mg DAILY PO 08/19/25 10:00 08/19/25 10:38 20 MG Empaglifozin 10 mg DAILY PO 08/19/25 10:00 08/19/25 10:38 10 MG Lisinopril 5 mg DAILY PO 08/19/25 10:00 08/19/25 10:37 5 MG Tamsulosin HCl 0.4 mg DAILY PO 08/19/25 10:00 08/19/25 10:38 0.4 MG Atorvastatin Calcium 10 mg HS PO 08/18/25 22:00 08/18/25 21:09 10 MG objective GENERAL: Alert and oriented x 3. No acute distress. Obese. EYES: PERRL, EOMI. Anicteric. HENT: Moist mucous membranes. LUNGS: Diminished breath sounds. CARDIOVASCULAR: Regular rate and rhythm. ABDOMEN: Soft, non-tender and non-distended. EXTREMITIES: 2+ pitting edema BLE. NEUROLOGIC: No focal neurological deficits. SKIN: Warm, dry. laboratory and microbiology Laboratory Tests 08/19/25 05:44 Test 08/19/25 05:44 Range/Units Serum Glucose 104 74-106 mg/dL Problem List Acute on chronic systolic (congestive) heart failure. Fluid overload. Pleural effusion. UTI. Cardiomegaly. Assessment/Plan Continued all current supportive medical care. Eliquis. Coreg, Lisinopril. Diuretics with Lasix. IV antibiotics as ordered. [place] and Tylenol for pain management. Additional plan as per the hospital course. Plan discussed with: Patient EJ CARDOSO MD Aug 19, 2025 14:05
[2025-08-20] VITALS (7 sets, daily range): BP systolic 99–122; BP diastolic 70–88; PULSE 61–92; RESP 17–19; TEMP 97.7–99.2; O2SAT 96–98
[2025-08-20 06:50] LABS: Anion Gap 6 (5-15); Chloride 101 mmol/L (98-107); Potassium 3.8 mmol/L (3.5-5.1); Sodium 142 mmol/L (136-145)
[2025-08-20 06:55] LABS: Glucose 98 mg/dL (74-106)
[2025-08-20 06:56] LABS: BUN/Creatinine Ratio 20.0 (10.0-20.0); Blood Urea Nitrogen 16 mg/dL (9-23)
[2025-08-20 06:57] LABS: Calcium 7.9 mg/dL (8.7-10.4); Carbon Dioxide 35 mmol/L (20-31)
[2025-08-20 07:21] LABS: Magnesium 1.9 mg/dL (1.6-2.6)
--- NOTE | 2025-08-20 09:34 | DVHPN2 ---
Reviewed: Care Plan, H&P, Labs, Medications, Previous Orders, Radiology Changes from previous H/P or p: No Changes Eyes: No Pain, No Vision change, No Conjunctivae inflammation, No Eyelid inflammation, No Other, No Redness ENT: No Ear pain, No Ear discharge, No Nose pain, No Nose discharge, No Nose congestion, No Mouth pain, No Mouth swelling, No Throat pain, No Throat swelling, No Other Cardiovascular: No Chest Pain, No Palpitations, No Orthopnea, No Paroxysmal Noc. Dyspnea; Edema (+2 pitting edema on abdomen and bilateral lower extremities. +4 scrotal edema); No Lt Headedness, No Other Respiratory: No Cough, No Dry; Shortness of breath, SOB with excertion, W heezing; No Hemoptysis, No Pleuritic Pain, No Sputum, No Other Gastrointestinal: No Nausea, No Vomiting, No Abdominal Pain, No Diarrhea, No Constipation, No Melena, No Hematochezia, No Other Genitourinary: No Dysuria, No Frequency, No Incontinence, No Hematuria, No Retention, No Other Musculoskeletal: No other, No neck pain, No shoulder pain, No arm pain, No back pain, No hand pain, No leg pain, No foot pain Skin: No Rash, No Lesions, No Jaundice, No Bruising, No Other Objective Vitals Vital Signs Date Time Temp Pulse Resp B/P (MAP) Pulse Ox O2 Delivery O2 Flow Rate FiO2 08/20/25 05:10 122/81 08/20/25 05:00 98.5 88 19 97 98.5 08/19/25 20:00 Nasal Cannula* 4 36 Intake/Output Intake and Output 08/20/25 07:00 Intake Total 1580 ml Output Total 2550 ml Balance -970 ml Intake Oral 1530 ml IV Total 50 ml Output Urine Total 2550 ml Medications Current Medications Medications Dose Ordered Sig/Audrey Route Start Time Stop Time Status Last Admin Dose Admin Sodium Chloride 10 ml Q8HR IV 08/18/25 22:00 08/20/25 05:10 10 ML Acetaminophen/ Hydrocodone Bitart 1 tab Q4HP PRN PO 08/18/25 15:30 08/19/25 21:06 1 TAB Ondansetron HCl 4 mg Q4HP PRN IV 08/18/25 15:30 Docusate Sodium 100 mg BIDPRN PRN PO 08/18/25 15:30 Acetaminophen 650 mg Q6HP PRN PO 08/18/25 15:30 Nitroglycerin 0.4 mg Q5MINP PRN SL 08/18/25 15:30 Morphine Sulfate 2 mg Q30M PRN IV 08/18/25 15:45 Furosemide 40 mg BIDD IV 08/18/25 18:00 08/20/25 05:10 40 MG Ceftriaxone Sodium 50 ml @ 100 mls/hr DAILY@09 IV 08/19/25 09:00 08/19/25 10:39 100 MLS/HR Apixaban 5 mg BID PO 08/18/25 22:00 08/19/25 21:05 5 MG Carvedilol 3.125 mg BID PO 08/18/25 22:00 08/19/25 21:05 3.125 MG Citalopram Hydrobromide 20 mg DAILY PO 08/19/25 10:00 08/19/25 10:38 20 MG Empaglifozin 10 mg DAILY PO 08/19/25 10:00 08/19/25 10:38 10 MG Lisinopril 5 mg DAILY PO 08/19/25 10:00 08/19/25 10:37 5 MG Tamsulosin HCl 0.4 mg DAILY PO 08/19/25 10:00 08/19/25 10:38 0.4 MG Atorvastatin Calcium 10 mg HS PO 08/18/25 22:00 08/19/25 21:05 10 MG Laboratory Results Laboratory Tests 08/19/25 05:44 08/20/25 05:13 Chemistry Test 08/20/25 05:13 Calcium Level 7.9 mg/dL (8.7-10.4) L Magnesium Level 1.9 mg/dL (1.6-2.6) Urinalysis Test 08/18/25 11:45 Urine Color Yellow (Yellow) Urine Clarity Turbid (Clear) H Urine pH 5.5 (5.0-9.0) Urine Specific [place] 1.044 (1.001-1.035) Urine Protein Trace (Negative) H Urine Ketones Negative (Negative) Urine Blood Negative /uL (Negative) Urine Nitrite Negative (Negative) Urine Bilirubin Negative (Negative) Urine Urobilinogen Normal mg/dL (Negative) Urine Leukocyte Esterase Negative /uL (Negative) Urine RBC 8 /hpf (0 - 3) Urine Microscopic WBC 5 /HPF (0-3) H Urine Squamous Epithelial Cells Mod /hpf (<5) Urine Bacteria Few /hpf (None Seen) H Urine Mucus Few (None Seen) Urine Glucose 4+ mg/dL (Normal) H Microbiology Microbiology Date/Time Source Procedure Growth Status 08/18/25 11:45 Voided Urine Urine Culture - Final Complete Labs and/or images reviewed: Labs reviewed by me, Image(s) reviewed by me Assessment/Plan Assessment/Plan Acute on chronic systolic (congestive) heart failure. Fluid overload. Pleural effusion. Possible community-acquired pneumonia: Rocephin UTI. Cardiomegaly. AFib history of CVA Hypertension Acute on chronic congestive heart failure ejection fraction 60 % Acute COPD exacerbation Polysubstance abuse Bilateral leg cellulitis: Venous ultrasound ruled out DVT, arterial ultrasound ruled out peripheral arterial disease, add clindamycin to Rocephin Critical care time 60 minutes Advanced care planning time 20 minutes Patient is full code Plan discussed with: Patient Date of Service: Aug 20, 2025 Billing Provider: ERICA LONG MD Common Visit Codes: [id number] CARE 30-74 MIN ERICA LONG MD Aug 20, 2025 09:34
[2025-08-20] MEDS: ACETAMINOPHEN 325 MG TAB PO PRN (10:08)
--- NOTE | 2025-08-20 11:10 | DVH ---
BILATERAL Lower Extremity Arterial Duplex Date: 08/20/2025 10:11 AM Clinical History: PAD Comparison: US BILAT LOWER DVT on DOS: 08/20/25, CL ANGIO EXTREMITY BILAT Pardeep on DOS: 11/21/24, US BI LAT LOWER DVT on DOS: 11/10/24, US BILAT LOW EXT ART DUPLEX on DOS: 11/02/24 Technique: Duplex Doppler evaluation including color Doppler and spectral/pulsed waveform analysis of the lower extremity arteries was performed. Finding: RIGHT: Peak systolic velocities are as follows: [employer] 237 cm/s; right common femoral artery stent is visualized. Deep femoral 74 cm/s SFA proximal 87 cm/s SFA mid-portion 60 cm/s SFA distal 62 cm/s Popliteal 54 cm/s Posterior tibial 74 cm/s Anterior tibial 50 cm/s Dorsalis pedis 151 cm/s The waveforms are monophasic in the right mid and distal superficial femoral artery, right popliteal artery, right posterior tibial artery, right dorsalis pedis artery and right anterior tibial artery. LEFT: Peak systolic velocities are as follows: [employer] 94 cm/s Deep femoral 35 cm/s SFA proximal 72 cm/s SFA mid-portion 65 cm/s SFA distal 51 cm/s Popliteal 41 cm/s Posterior tibial 84 cm/s Dorsalis pedis 73 cm/s The waveforms are monophasic in the left posterior tibial artery, left dorsalis pedis, left anterior tibial artery. REFERENCE VALUES, [facility] ([facility]) vascular Imaging Lab Criteria: Peak systolic velocity ranges (in cm/sec) are as follows: <150 cm/s - <20 % stenosis 150-200 cm/s - 20-49% stenosis 200-300 cm/s - 50-75% stenosis >300 cm/s -> 75% stenosis There is severe atherosclerotic vascular disease in the bilateral lower extremities. IMPRESSION: Approximately 50-75% of the right common femoral artery. Peripheral vascular disease in the bilateral lower extremities.
--- NOTE | 2025-08-20 11:34 | DVH ---
Bilateral lower extremity venous duplex Clinical History: edema Comparison: US BILAT LOW EXT ART DUPLEX on DOS: 08/20/25, CL ANGIO EXTREMITY BILAT Pardeep on DOS: , US US GUIDED VASCULAR ACCESS on DOS: 11/20/24, US BILAT LOWER DVT on DOS: 11/10/24, US BILAT LOW EX T ART DUPLEX on DOS: 11/02/24 Findings: Duplex Doppler evaluation of the deep venous systems of both lower extremities from the common femora l veins to the popliteal veins including color Doppler and spectral/pulsed waveform analysis was perf ormed. RIGHT SIDE: The common femoral vein demonstrates appropriate compressibility and waveform variability. There is compressibility/patency of the great saphenous vein at the proximal thigh. The femoral vein demonstrates appropriate compressibility and waveform variability. The deep femoral vein demonstrates appropriate compressibility and waveform variability. The popliteal vein demonstrates appropriate compressibility and waveform variability. There is normal compressibility at the tibioperoneal trunk. LEFT SIDE: The common femoral vein demonstrates appropriate compressibility and waveform variability. There is compressibility/patency of the great saphenous vein at the proximal thigh. The femoral vein demonstrates appropriate compressibility and waveform variability. The deep femoral vein demonstrates appropriate compressibility and waveform variability. The popliteal vein demonstrates appropriate compressibility and waveform variability. There is normal compressibility at the tibioperoneal trunk. IMPRESSION: No right or left femoropopliteal venous thrombosis. If clinical concern/symptoms persist or worsen, short-interval follow-up study is suggested. END IMPRESSION:
[2025-08-20] MEDS: CLINDAMYCIN 600MG IV 50 ML IV SCH (13:24)
--- NOTE | 2025-08-20 23:46 | DVHPN2 ---
Progress Note - Dictate Date Seen: Aug 20, 2025 Medical Necessity Reason Pt with a Central, PICC or Fol: No Subjective Patient was seen and evaluated in follow up. Overnight, the patient had 6 bets of V-tach on the media monitor. BUN 35, CA 7.9. BLE arterial duplex shows approximately 50-75% of the right common femoral artery. Peripheral vascular disease in the bilateral lower extremities. BLE venous duplex is negative for DVT. Telemetry reviewed. vital signs Vital Sign Date Time Temp Pulse Resp B/P (MAP) Pulse Ox O2 Delivery O2 Flow Rate FiO2 08/20/25 10:08 122/81 08/20/25 10:07 88 08/20/25 09:00 97.9 17 96 97.9 08/20/25 08:00 Nasal Cannula* 4 36 Total Intake and Output 08/19/25 08/19/25 08/20/25 15:00 23:00 07:00 Intake Total 50 ml 600 ml 930 ml Output Total 250 ml 2300 ml Balance 50 ml 350 ml -1370 ml medications Current Medications Medications Dose Ordered Sig/Audrey Route Start Time Stop Time Status Last Admin Dose Admin Sodium Chloride 10 ml Q8HR IV 08/18/25 22:00 08/20/25 13:24 10 ML Acetaminophen/ Hydrocodone Bitart 1 tab Q4HP PRN PO 08/18/25 15:30 08/19/25 21:06 1 TAB Ondansetron HCl 4 mg Q4HP PRN IV 08/18/25 15:30 Docusate Sodium 100 mg BIDPRN PRN PO 08/18/25 15:30 Acetaminophen 650 mg Q6HP PRN PO 08/18/25 15:30 08/20/25 10:08 650 MG Nitroglycerin 0.4 mg Q5MINP PRN SL 08/18/25 15:30 Morphine Sulfate 2 mg Q30M PRN IV 08/18/25 15:45 Furosemide 40 mg BIDD IV 08/18/25 18:00 08/20/25 05:10 40 MG Ceftriaxone Sodium 50 ml @ 100 mls/hr DAILY@09 IV 08/19/25 09:00 08/20/25 10:07 100 MLS/HR Apixaban 5 mg BID PO 08/18/25 22:00 08/20/25 10:07 5 MG Carvedilol 3.125 mg BID PO 08/18/25 22:00 08/20/25 10:07 3.125 MG Citalopram Hydrobromide 20 mg DAILY PO 08/19/25 10:00 08/20/25 10:08 20 MG Empaglifozin 10 mg DAILY PO 08/19/25 10:00 08/20/25 10:08 10 MG Lisinopril 5 mg DAILY PO 08/19/25 10:00 08/20/25 10:08 5 MG Tamsulosin HCl 0.4 mg DAILY PO 08/19/25 10:00 08/20/25 10:08 0.4 MG Atorvastatin Calcium 10 mg HS PO 08/18/25 22:00 08/19/25 21:05 10 MG Clindamycin Phosphate 50 ml @ 50 mls/hr Q8HR IV 08/20/25 14:00 08/20/25 13:24 50 MLS/HR objective GENERAL: Alert and oriented x 3. No acute distress. Obese. EYES: PERRL, EOMI. Anicteric. HENT: Moist mucous membranes. LUNGS: Diminished breath sounds. CARDIOVASCULAR: Regular rate and rhythm. ABDOMEN: Soft, non-tender and non-distended. EXTREMITIES: 2+ pitting edema BLE. NEUROLOGIC: No focal neurological deficits. SKIN: Warm, dry. laboratory and microbiology Laboratory Tests 08/20/25 05:13 08/19/25 05:44 Test 08/20/25 05:13 Range/Units Serum Glucose 98 74-106 mg/dL Problem List Acute on chronic systolic (congestive) heart failure. Fluid overload. Pleural effusion. UTI. Cardiomegaly. Assessment/Plan Continued all current supportive medical care. Eliquis. Coreg, Lisinopril. Diuretics with Lasix. IV antibiotics as ordered. Morphine and Tylenol for pain management. Additional plan as per the hospital course. Plan discussed with: Patient EJ CARDOSO MD Aug 20, 2025 15:01
[2025-08-21] VITALS (8 sets, daily range): BP systolic 99–141; BP diastolic 56–105; PULSE 70–98; RESP 18–20; TEMP 97.1–99.2; O2SAT 96–99
--- NOTE | 2025-08-21 09:43 | DVHPN2 ---
Reviewed: Care Plan, H&P, Labs, Medications, Previous Orders, Radiology Changes from previous H/P or p: No Changes Eyes: No Pain, No Vision change, No Conjunctivae inflammation, No Eyelid inflammation, No Other, No Redness ENT: No Ear pain, No Ear discharge, No Nose pain, No Nose discharge, No Nose congestion, No Mouth pain, No Mouth swelling, No Throat pain, No Throat swelling, No Other Cardiovascular: No Chest Pain, No Palpitations, No Orthopnea, No Paroxysmal Noc. Dyspnea; Edema (+2 pitting edema on abdomen and bilateral lower extremities. +4 scrotal edema); No Lt Headedness, No Other Respiratory: No Cough, No Dry; Shortness of breath, SOB with excertion, W heezing; No Hemoptysis, No Pleuritic Pain, No Sputum, No Other Gastrointestinal: No Nausea, No Vomiting, No Abdominal Pain, No Diarrhea, No Constipation, No Melena, No Hematochezia, No Other Genitourinary: No Dysuria, No Frequency, No Incontinence, No Hematuria, No Retention, No Other Musculoskeletal: No other, No neck pain, No shoulder pain, No arm pain, No back pain, No hand pain, No leg pain, No foot pain Skin: No Rash, No Lesions, No Jaundice, No Bruising, No Other Objective Vitals Vital Signs Date Time Temp Pulse Resp B/P (MAP) Pulse Ox O2 Delivery O2 Flow Rate FiO2 08/21/25 05:08 126/93 08/21/25 05:00 97.1 75 18 98 97.1 08/20/25 20:00 Nasal Cannula* 4 36 Intake/Output Intake and Output 08/21/25 07:00 Intake Total 1070 ml Output Total 4650 ml Balance -3580 ml Intake Oral 970 ml IV Total 100 ml Output Urine Total 4650 ml Medications Current Medications Medications Dose Ordered Sig/Audrey Route Start Time Stop Time Status Last Admin Dose Admin Sodium Chloride 10 ml Q8HR IV 08/18/25 22:00 08/21/25 05:08 10 ML Acetaminophen/ Hydrocodone Bitart 1 tab Q4HP PRN PO 08/18/25 15:30 08/20/25 22:05 1 TAB Ondansetron HCl 4 mg Q4HP PRN IV 08/18/25 15:30 Docusate Sodium 100 mg BIDPRN PRN PO 08/18/25 15:30 Acetaminophen 650 mg Q6HP PRN PO 08/18/25 15:30 08/20/25 22:07 650 MG Nitroglycerin 0.4 mg Q5MINP PRN SL 08/18/25 15:30 Morphine Sulfate 2 mg Q30M PRN IV 08/18/25 15:45 Furosemide 40 mg BIDD IV 08/18/25 18:00 08/21/25 05:08 40 MG Ceftriaxone Sodium 50 ml @ 100 mls/hr DAILY@09 IV 08/19/25 09:00 08/20/25 10:07 100 MLS/HR Apixaban 5 mg BID PO 08/18/25 22:00 08/20/25 22:08 5 MG Carvedilol 3.125 mg BID PO 08/18/25 22:00 08/20/25 22:06 3.125 MG Citalopram Hydrobromide 20 mg DAILY PO 08/19/25 10:00 08/20/25 10:08 20 MG Empaglifozin 10 mg DAILY PO 08/19/25 10:00 08/20/25 10:08 10 MG Lisinopril 5 mg DAILY PO 08/19/25 10:00 08/20/25 10:08 5 MG Tamsulosin HCl 0.4 mg DAILY PO 08/19/25 10:00 08/20/25 10:08 0.4 MG Atorvastatin Calcium 10 mg HS PO 08/18/25 22:00 08/20/25 22:06 10 MG Clindamycin Phosphate 50 ml @ 50 mls/hr Q8HR IV 08/20/25 14:00 08/21/25 05:08 50 MLS/HR Laboratory Results Laboratory Tests 08/19/25 05:44 08/20/25 05:13 Urinalysis Test 08/18/25 11:45 Urine Color Yellow (Yellow) Urine Clarity Turbid (Clear) H Urine pH 5.5 (5.0-9.0) Urine Specific [place] 1.044 (1.001-1.035) Urine Protein Trace (Negative) H Urine Ketones Negative (Negative) Urine Blood Negative /uL (Negative) Urine Nitrite Negative (Negative) Urine Bilirubin Negative (Negative) Urine Urobilinogen Normal mg/dL (Negative) Urine Leukocyte Esterase Negative /uL (Negative) Urine RBC 8 /hpf (0 - 3) Urine Microscopic WBC 5 /HPF (0-3) H Urine Squamous Epithelial Cells Mod /hpf (<5) Urine Bacteria Few /hpf (None Seen) H Urine Mucus Few (None Seen) Urine Glucose 4+ mg/dL (Normal) H Microbiology Microbiology Date/Time Source Procedure Growth Status 08/18/25 11:45 Voided Urine Urine Culture - Final Complete Labs and/or images reviewed: Labs reviewed by me, Image(s) reviewed by me Assessment/Plan Assessment/Plan Acute on chronic systolic (congestive) heart failure. Fluid overload. Pleural effusion. Possible community-acquired pneumonia: Rocephin UTI. Cardiomegaly. AFib History of CVA Hypertension Acute on chronic congestive heart failure ejection fraction 60 % Acute COPD exacerbation Polysubstance abuse Bilateral leg cellulitis: clindamycin and Rocephin DVT ruled out 50-75 % stenosis right common femoral artery, history of peripheral stents 2023 per patient, cardiology consult by Dr. Wendi man Critical care time 60 minutes Advanced care planning time 20 minutes Patient is full code Plan discussed with: Patient Date of Service: Aug 21, 2025 Billing Provider: ERICA LONG MD Common Visit Codes: [id number] INP/OBS CARE(HIGH) ERICA LONG MD Aug 21, 2025 09:42
--- NOTE | 2025-08-21 20:39 | DVHPN2 ---
Progress Note - Dictate Date Seen: Aug 21, 2025 Medical Necessity Reason Pt with a Central, PICC or Fol: No Subjective Patient was seen and evaluated in follow up. No overnight events. Patient is resting in bed. He is on 4 LPM NC. Telemetry reviewed. vital signs Vital Sign Date Time Temp Pulse Resp B/P (MAP) Pulse Ox O2 Delivery O2 Flow Rate FiO2 08/21/25 10:48 88 132/75 08/21/25 09:00 98.6 20 99 98.6 08/21/25 08:00 Nasal Cannula* 4 36 Total Intake and Output 08/20/25 08/20/25 08/21/25 15:00 23:00 07:00 Intake Total 100 ml 650 ml 320 ml Output Total 2000 ml 2650 ml Balance 100 ml -1350 ml -2330 ml medications Current Medications Medications Dose Ordered Sig/Audrey Route Start Time Stop Time Status Last Admin Dose Admin Sodium Chloride 10 ml Q8HR IV 08/18/25 22:00 08/21/25 05:08 10 ML Acetaminophen/ Hydrocodone Bitart 1 tab Q4HP PRN PO 08/18/25 15:30 08/21/25 11:46 1 TAB Ondansetron HCl 4 mg Q4HP PRN IV 08/18/25 15:30 Docusate Sodium 100 mg BIDPRN PRN PO 08/18/25 15:30 Acetaminophen 650 mg Q6HP PRN PO 08/18/25 15:30 08/20/25 22:07 650 MG Nitroglycerin 0.4 mg Q5MINP PRN SL 08/18/25 15:30 Morphine Sulfate 2 mg Q30M PRN IV 08/18/25 15:45 Furosemide 40 mg BIDD IV 08/18/25 18:00 08/21/25 05:08 40 MG Ceftriaxone Sodium 50 ml @ 100 mls/hr DAILY@09 IV 08/19/25 09:00 08/21/25 09:47 100 MLS/HR Apixaban 5 mg BID PO 08/18/25 22:00 08/21/25 09:47 5 MG Carvedilol 3.125 mg BID PO 08/18/25 22:00 08/21/25 09:48 3.125 MG Citalopram Hydrobromide 20 mg DAILY PO 08/19/25 10:00 08/21/25 09:47 20 MG Empaglifozin 10 mg DAILY PO 08/19/25 10:00 08/21/25 09:47 10 MG Lisinopril 5 mg DAILY PO 08/19/25 10:00 08/21/25 09:48 5 MG Tamsulosin HCl 0.4 mg DAILY PO 08/19/25 10:00 08/21/25 09:47 0.4 MG Atorvastatin Calcium 10 mg HS PO 08/18/25 22:00 08/20/25 22:06 10 MG Clindamycin Phosphate 50 ml @ 50 mls/hr Q8HR IV 08/20/25 14:00 08/21/25 05:08 50 MLS/HR objective GENERAL: Alert and oriented x 3. No acute distress. Obese. EYES: PERRL, EOMI. Anicteric. HENT: Moist mucous membranes. LUNGS: Diminished breath sounds. CARDIOVASCULAR: Regular rate and rhythm. ABDOMEN: Soft, non-tender and non-distended. EXTREMITIES: 2+ pitting edema BLE. NEUROLOGIC: No focal neurological deficits. SKIN: Warm, dry. laboratory and microbiology Laboratory Tests 08/20/25 05:13 08/19/25 05:44 Test 08/20/25 05:13 Range/Units Serum Glucose 98 74-106 mg/dL Problem List Acute on chronic systolic (congestive) heart failure. Fluid overload. Pleural effusion. UTI. Cardiomegaly. Assessment/Plan Continued all current supportive medical care. Eliquis. Coreg, Lisinopril. Diuretics with Lasix. IV antibiotics as ordered. Morphine and Goodman for pain management. Additional plan as per the hospital course. Plan discussed with: Patient EJ CARDOSO MD Aug 21, 2025 12:29
[2025-08-22] VITALS (8 sets, daily range): BP systolic 132–144; BP diastolic 88–98; PULSE 69–95; RESP 16–19; TEMP 97.8–99.1; O2SAT 96–99
[2025-08-22] MEDS: guaiFENesin-DM 100/10mg/5ml SYR PO PRN (01:20)
--- NOTE | 2025-08-22 09:46 | DVHPN2 ---
Reviewed: Care Plan, H&P, Labs, Medications, Previous Orders, Radiology Changes from previous H/P or p: No Changes Eyes: No Pain, No Vision change, No Conjunctivae inflammation, No Eyelid inflammation, No Other, No Redness ENT: No Ear pain, No Ear discharge, No Nose pain, No Nose discharge, No Nose congestion, No Mouth pain, No Mouth swelling, No Throat pain, No Throat swelling, No Other Cardiovascular: Edema Respiratory: Shortness of breath, SOB with excertion, Wheezing Gastrointestinal: No Nausea, No Vomiting, No Abdominal Pain, No Diarrhea, No Constipation, No Melena, No Hematochezia, No Other Genitourinary: No Dysuria, No Frequency, No Incontinence, No Hematuria, No Retention, No Other Musculoskeletal: No other, No neck pain, No shoulder pain, No arm pain, No back pain, No hand pain, No leg pain, No foot pain Skin: No Rash, No Lesions, No Jaundice, No Bruising, No Other Objective Vitals Vital Signs Date Time Temp Pulse Resp B/P (MAP) Pulse Ox O2 Delivery O2 Flow Rate FiO2 08/22/25 09:25 136/93 08/22/25 09:24 78 08/22/25 05:00 98.9 19 99 98.9 08/21/25 20:00 Nasal Cannula* 2 28 Intake/Output Intake and Output 08/22/25 07:00 Intake Total 1920 ml Output Total 4225 ml Balance -2305 ml Intake Oral 1920 ml Output Urine Total 4225 ml # Bowel Movements 3 Medications Current Medications Medications Dose Ordered Sig/Audrey Route Start Time Stop Time Status Last Admin Dose Admin Sodium Chloride 10 ml Q8HR IV 08/18/25 22:00 08/22/25 06:00 10 ML Acetaminophen/ Hydrocodone Bitart 1 tab Q4HP PRN PO 08/18/25 15:30 08/21/25 11:46 1 TAB Ondansetron HCl 4 mg Q4HP PRN IV 08/18/25 15:30 Docusate Sodium 100 mg BIDPRN PRN PO 08/18/25 15:30 Acetaminophen 650 mg Q6HP PRN PO 08/18/25 15:30 08/20/25 22:07 650 MG Nitroglycerin 0.4 mg Q5MINP PRN SL 08/18/25 15:30 Morphine Sulfate 2 mg Q30M PRN IV 08/18/25 15:45 Furosemide 40 mg BIDD IV 08/18/25 18:00 08/22/25 06:00 40 MG Ceftriaxone Sodium 50 ml @ 100 mls/hr DAILY@09 IV 08/19/25 09:00 08/22/25 09:23 100 MLS/HR Apixaban 5 mg BID PO 08/18/25 22:00 08/22/25 09:23 5 MG Carvedilol 3.125 mg BID PO 08/18/25 22:00 08/22/25 09:24 3.125 MG Citalopram Hydrobromide 20 mg DAILY PO 08/19/25 10:00 08/22/25 09:24 20 MG Empaglifozin 10 mg DAILY PO 08/19/25 10:00 08/22/25 09:25 10 MG Lisinopril 5 mg DAILY PO 08/19/25 10:00 08/22/25 09:25 5 MG Tamsulosin HCl 0.4 mg DAILY PO 08/19/25 10:00 08/22/25 09:23 0.4 MG Atorvastatin Calcium 10 mg HS PO 08/18/25 22:00 08/21/25 23:26 10 MG Clindamycin Phosphate 50 ml @ 50 mls/hr Q8HR IV 08/20/25 14:00 08/22/25 06:42 50 MLS/HR Guaifenesin/ Dextromethorphan 5 ml Q6HR PRN PO 08/22/25 00:30 08/22/25 01:20 5 ML Laboratory Results Laboratory Tests 08/19/25 05:44 08/20/25 05:13 Urinalysis Test 08/18/25 11:45 Urine Color Yellow (Yellow) Urine Clarity Turbid (Clear) H Urine pH 5.5 (5.0-9.0) Urine Specific [place] 1.044 (1.001-1.035) Urine Protein Trace (Negative) H Urine Ketones Negative (Negative) Urine Blood Negative /uL (Negative) Urine Nitrite Negative (Negative) Urine Bilirubin Negative (Negative) Urine Urobilinogen Normal mg/dL (Negative) Urine Leukocyte Esterase Negative /uL (Negative) Urine RBC 8 /hpf (0 - 3) Urine Microscopic WBC 5 /HPF (0-3) H Urine Squamous Epithelial Cells Mod /hpf (<5) Urine Bacteria Few /hpf (None Seen) H Urine Mucus Few (None Seen) Urine Glucose 4+ mg/dL (Normal) H Microbiology Microbiology Date/Time Source Procedure Growth Status 08/18/25 11:45 Voided Urine Urine Culture - Final Complete Labs and/or images reviewed: Labs reviewed by me, Image(s) reviewed by me Assessment/Plan Assessment/Plan Acute on chronic systolic (congestive) heart failure. EF 60 % Fluid overload. Pleural effusion. Possible community-acquired pneumonia: Rocephin UTI. Cardiomegaly. AFib : Eliquis History of CVA Hypertension Acute COPD exacerbation Polysubstance abuse Bilateral leg cellulitis: clindamycin and Rocephin DVT ruled out 50-75 % stenosis right common femoral artery, history of peripheral stents 2023 per patient Midline in place Critical care time 60 minutes Advanced care planning time 20 minutes Patient is full code Plan discussed with: Patient My Orders Orders - ERICA LONG MD Procedure Category Date Status Time * Cardiology Consult CONS 08/21/25 Transmitted 09:38 Date of Service: Aug 22, 2025 Billing Provider: ERICA LNOG MD Common Visit Codes: [id number] INP/OBS CARE(HIGH) ERICA LONG MD Aug 22, 2025 09:46
[2025-08-22 12:31] LABS: COVID19 ANTIGEN SOFIA FIA NEGATIVE (NEGATIVE)
[2025-08-23] VITALS (8 sets, daily range): BP systolic 110–142; BP diastolic 45–93; PULSE 70–91; RESP 12–19; TEMP 36.9; O2SAT 95–99
--- NOTE | 2025-08-23 00:50 | DVHPN2 ---
Progress Note - Dictate Date Seen: Aug 22, 2025 Medical Necessity Reason Pt with a Central, PICC or Fol: No Subjective Patient was seen and evaluated in follow up. Patient complains of a non productive cough. He is on 2 LPM NC. COVID swab is negative. Telemetry reviewed. vital signs Vital Sign Date Time Temp Pulse Resp B/P (MAP) Pulse Ox O2 Delivery O2 Flow Rate FiO2 08/22/25 10:24 65 122/78 08/22/25 09:00 97.9 16 98 97.9 08/22/25 08:00 Nasal Cannula* 2 28 Total Intake and Output 08/21/25 08/21/25 08/22/25 15:00 23:00 07:00 Intake Total 720 ml 1200 ml Output Total 1775 ml 2450 ml Balance -1055 ml -1250 ml medications Current Medications Medications Dose Ordered Sig/Audrey Route Start Time Stop Time Status Last Admin Dose Admin Sodium Chloride 10 ml Q8HR IV 08/18/25 22:00 08/22/25 06:00 10 ML Acetaminophen/ Hydrocodone Bitart 1 tab Q4HP PRN PO 08/18/25 15:30 08/21/25 11:46 1 TAB Ondansetron HCl 4 mg Q4HP PRN IV 08/18/25 15:30 Docusate Sodium 100 mg BIDPRN PRN PO 08/18/25 15:30 Acetaminophen 650 mg Q6HP PRN PO 08/18/25 15:30 08/20/25 22:07 650 MG Nitroglycerin 0.4 mg Q5MINP PRN SL 08/18/25 15:30 Morphine Sulfate 2 mg Q30M PRN IV 08/18/25 15:45 Furosemide 40 mg BIDD IV 08/18/25 18:00 08/22/25 06:00 40 MG Ceftriaxone Sodium 50 ml @ 100 mls/hr DAILY@09 IV 08/19/25 09:00 08/22/25 09:23 100 MLS/HR Apixaban 5 mg BID PO 08/18/25 22:00 08/22/25 09:23 5 MG Carvedilol 3.125 mg BID PO 08/18/25 22:00 08/22/25 09:24 3.125 MG Citalopram Hydrobromide 20 mg DAILY PO 08/19/25 10:00 08/22/25 09:24 20 MG Empaglifozin 10 mg DAILY PO 08/19/25 10:00 08/22/25 09:25 10 MG Lisinopril 5 mg DAILY PO 08/19/25 10:00 08/22/25 09:25 5 MG Tamsulosin HCl 0.4 mg DAILY PO 08/19/25 10:00 08/22/25 09:23 0.4 MG Atorvastatin Calcium 10 mg HS PO 08/18/25 22:00 08/21/25 23:26 10 MG Clindamycin Phosphate 50 ml @ 50 mls/hr Q8HR IV 08/20/25 14:00 08/22/25 06:42 50 MLS/HR Guaifenesin/ Dextromethorphan 5 ml Q6HR PRN PO 08/22/25 00:30 08/22/25 01:20 5 ML objective GENERAL: Alert and oriented x 3. No acute distress. Obese. EYES: PERRL, EOMI. Anicteric. HENT: Moist mucous membranes. LUNGS: Diminished breath sounds. CARDIOVASCULAR: Regular rate and rhythm. ABDOMEN: Soft, non-tender and non-distended. EXTREMITIES: 2+ pitting edema BLE. NEUROLOGIC: No focal neurological deficits. SKIN: Warm, dry. laboratory and microbiology Laboratory Tests 08/20/25 05:13 08/19/25 05:44 Test 08/20/25 05:13 Range/Units Serum Glucose 98 74-106 mg/dL Problem List Acute on chronic systolic (congestive) heart failure. Fluid overload. Pleural effusion. UTI. Cardiomegaly. Assessment/Plan Continued all current supportive medical care. Eliquis. Coreg, Lisinopril. Diuretics with Lasix. IV antibiotics as ordered. Morphine for pain management. Additional plan as per the hospital course. Plan discussed with: Patient EJ CARDOSO MD Aug 22, 2025 12:41
--- NOTE | 2025-08-23 10:49 | DVHPN2 ---
Reviewed: Care Plan, H&P, Labs, Medications, Previous Orders, Radiology Changes from previous H/P or p: No Changes Eyes: No Pain, No Vision change, No Conjunctivae inflammation, No Eyelid inflammation, No Other, No Redness ENT: No Ear pain, No Ear discharge, No Nose pain, No Nose discharge, No Nose congestion, No Mouth pain, No Mouth swelling, No Throat pain, No Throat swelling, No Other Cardiovascular: Edema Respiratory: Shortness of breath, SOB with excertion, Wheezing Gastrointestinal: No Nausea, No Vomiting, No Abdominal Pain, No Diarrhea, No Constipation, No Melena, No Hematochezia, No Other Genitourinary: No Dysuria, No Frequency, No Incontinence, No Hematuria, No Retention, No Other Musculoskeletal: No other, No neck pain, No shoulder pain, No arm pain, No back pain, No hand pain, No leg pain, No foot pain Skin: No Rash, No Lesions, No Jaundice, No Bruising, No Other Objective Vitals Vital Signs Date Time Temp Pulse Resp B/P (MAP) Pulse Ox O2 Delivery O2 Flow Rate FiO2 08/23/25 09:11 123/84 08/23/25 09:11 74 08/23/25 08:52 98.8 16 98 98.8 08/22/25 20:00 Nasal Cannula* 2 28 Intake/Output Intake and Output 08/23/25 07:00 Intake Total 1500 ml Output Total 6800 ml Balance -5300 ml Intake Oral 1450 ml IV Total 50 ml Output Urine Total 6800 ml # Bowel Movements 1 Medications Current Medications Medications Dose Ordered Sig/Audrey Route Start Time Stop Time Status Last Admin Dose Admin Sodium Chloride 10 ml Q8HR IV 08/18/25 22:00 08/23/25 06:35 10 ML Acetaminophen/ Hydrocodone Bitart 1 tab Q4HP PRN PO 08/18/25 15:30 08/23/25 06:35 1 TAB Ondansetron HCl 4 mg Q4HP PRN IV 08/18/25 15:30 Docusate Sodium 100 mg BIDPRN PRN PO 08/18/25 15:30 Acetaminophen 650 mg Q6HP PRN PO 08/18/25 15:30 08/20/25 22:07 650 MG Nitroglycerin 0.4 mg Q5MINP PRN SL 08/18/25 15:30 Morphine Sulfate 2 mg Q30M PRN IV 08/18/25 15:45 Furosemide 40 mg BIDD IV 08/18/25 18:00 08/23/25 06:34 40 MG Ceftriaxone Sodium 50 ml @ 100 mls/hr DAILY@09 IV 08/19/25 09:00 08/23/25 09:09 100 MLS/HR Apixaban 5 mg BID PO 08/18/25 22:00 08/23/25 09:11 5 MG Carvedilol 3.125 mg BID PO 08/18/25 22:00 08/23/25 09:11 3.125 MG Citalopram Hydrobromide 20 mg DAILY PO 08/19/25 10:00 08/23/25 09:11 20 MG Empaglifozin 10 mg DAILY PO 08/19/25 10:00 08/23/25 09:11 10 MG Lisinopril 5 mg DAILY PO 08/19/25 10:00 08/23/25 09:11 5 MG Tamsulosin HCl 0.4 mg DAILY PO 08/19/25 10:00 08/23/25 09:11 0.4 MG Atorvastatin Calcium 10 mg HS PO 08/18/25 22:00 08/22/25 22:15 10 MG Clindamycin Phosphate 50 ml @ 50 mls/hr Q8HR IV 08/20/25 14:00 08/23/25 06:35 50 MLS/HR Guaifenesin/ Dextromethorphan 5 ml Q6HR PRN PO 08/22/25 00:30 08/22/25 01:20 5 ML Laboratory Results Laboratory Tests 08/19/25 05:44 08/20/25 05:13 Urinalysis Test 08/18/25 11:45 Urine Color Yellow (Yellow) Urine Clarity Turbid (Clear) H Urine pH 5.5 (5.0-9.0) Urine Specific [place] 1.044 (1.001-1.035) Urine Protein Trace (Negative) H Urine Ketones Negative (Negative) Urine Blood Negative /uL (Negative) Urine Nitrite Negative (Negative) Urine Bilirubin Negative (Negative) Urine Urobilinogen Normal mg/dL (Negative) Urine Leukocyte Esterase Negative /uL (Negative) Urine RBC 8 /hpf (0 - 3) Urine Microscopic WBC 5 /HPF (0-3) H Urine Squamous Epithelial Cells Mod /hpf (<5) Urine Bacteria Few /hpf (None Seen) H Urine Mucus Few (None Seen) Urine Glucose 4+ mg/dL (Normal) H Microbiology Microbiology Date/Time Source Procedure Growth Status 08/18/25 11:45 Voided Urine Urine Culture - Final Complete Labs and/or images reviewed: Labs reviewed by me, Image(s) reviewed by me Assessment/Plan Assessment/Plan Acute on chronic systolic (congestive) heart failure. EF 60 %: Lasix Fluid overload. Pleural effusion. Possible community-acquired pneumonia: Rocephin UTI. Cardiomegaly. AFib : Eliquis History of CVA Hypertension Acute COPD exacerbation Polysubstance abuse Bilateral leg cellulitis: clindamycin and Rocephin DVT ruled out 50-75 % stenosis right common femoral artery, history of peripheral stents 2023 per patient Midline in place Critical care time 60 minutes Advanced care planning time 20 minutes Patient is full code Plan discussed with: Patient Date of Service: Aug 23, 2025 Billing Provider: ERICA LONG MD Common Visit Codes: [id number] INP/OBS CARE(HIGH) ERICA LONG MD Aug 23, 2025 10:48
--- NOTE | 2025-08-23 10:58 | DVHDS2 ---
Discharge Summary Date of Admission Aug 18, 2025 at 15:21 Date of Discharge: Aug 23, 2025 Admitting Diagnosis Bilateral lower extremity cellulitis Wounds: Bilateral lower extremity cellulitis Labs/Diagnostic Data: Laboratory Results Test 08/22/25 10:00 08/20/25 05:13 08/19/25 05:44 08/18/25 13:38 SARS-CoV-2 Antigen (Rapid) Negative (NEGATIVE) Sodium Level 142 mmol/L (136-145) Potassium Level 3.8 mmol/L (3.5-5.1) Chloride Level 101 mmol/L (98-107) Carbon Dioxide Level 35 mmol/L (20-31) Anion Gap 6 (5-15) Blood Urea Nitrogen 16 mg/dL (9-23) Creatinine 0.80 mg/dL (0.700-1.30) Glomerular Filtration Rate Calc 98 mL/min (>90) BUN/Creatinine Ratio 20.0 (10.0-20.0) Serum Glucose 98 mg/dL (74-106) Calcium Level 7.9 mg/dL (8.7-10.4) Magnesium Level 1.9 mg/dL (1.6-2.6) White Blood Count 7.3 10^3/uL (4.4-10.8) Red Blood Count 4.33 10^6/uL (4.5-5.90) Hemoglobin 13.2 g/dL (13.5-17.5) Hematocrit 40.7 % (41.0-53.0) Mean Corpuscular Volume 94.0 fL (80.0-100.0) Mean Corpuscular Hemoglobin 30.6 pg (28.0-32.0) Mean Corpuscular Hemoglobin Concent 32.5 g/dL (32.0-36.0) Red Cell Distribution Width 15.7 % (11.8-14.3) Platelet Count 208 10^3/uL (140-450) Mean Platelet Volume 8.1 fL (6.9-10.8) Neutrophils (%) (Auto) 75.0 % (37.0-80.0) Lymphocytes (%) (Auto) 9.1 % (10.0-50.0) Monocytes (%) (Auto) 14.0 % (0.0-12.0) Eosinophils (%) (Auto) 1.4 % (0.0-7.0) Basophils (%) (Auto) 0.5 % (0.0-2.0) Neutrophils # (Auto) 5.5 10 ^3/uL (1.6-8.6) Lymphocytes # (Auto) 0.7 10 ^3/uL (0.4-5.4) Monocytes # (Auto) 1.0 10 ^3/uL (0-1.3) Eosinophils # (Auto) 0.1 10 ^3/uL (0-0.8) Basophils # (Auto) 0 10 ^3/uL (0-0.2) Nucleated Red Blood Cells 0.2 % Total Bilirubin 0.5 mg/dL (0.2-1.0) Aspartate Amino Transferase (AST) 19 U/L (13-40) Alanine Aminotransferase (ALT) 11 U/L (7-40) Alkaline Phosphatase 116 U/L (46-116) Total Protein 6.2 g/dL (5.7-8.2) Albumin 3.2 g/dL (3.2-4.8) Troponin I High Sensitivity 8 ng/L (</=54) Test 08/18/25 11:45 08/18/25 10:27 Urine Color Yellow (Yellow) Urine Clarity Turbid (Clear) Urine pH 5.5 (5.0-9.0) Urine Specific [place] 1.044 (1.001-1.035) Urine Protein Trace (Negative) Urine Ketones Negative (Negative) Urine Blood Negative /uL (Negative) Urine Nitrite Negative (Negative) Urine Bilirubin Negative (Negative) Urine Urobilinogen Normal mg/dL (Negative) Urine Leukocyte Esterase Negative /uL (Negative) Urine RBC 8 /hpf (0 - 3) Urine Microscopic WBC 5 /HPF (0-3) Urine Squamous Epithelial Cells Mod /hpf (<5) Urine Bacteria Few /hpf (None Seen) Urine Mucus Few (None Seen) Urine Glucose 4+ mg/dL (Normal) Urine Opiates Screen Neg (NEGATIVE) Urine Fentanyl Screen Neg (NEGATIVE) Urine Barbiturates Screen Neg (NEGATIVE) Urine Phencyclidine Screen Neg (NEGATIVE) Urine Amphetamines Screen Neg (NEGATIVE) Urine Benzodiazepines Screen Neg (NEGATIVE) Urine Cocaine Screen Neg (NEGATIVE) Urine Cannabinoids Screen Neg (NEGATIVE) B-Type Natriuretic Peptide 669.34 pg/mL (0-100) Other Laboratory Tests 08/20/25 05:13 08/19/25 05:44 Brief Hx & Hospital Course: 65-year-old male with a history of CVA hypertension COPD polysubstance abuse came in complaining of shortness of breaths found to have possible community- acquired pneumonia treated with Rocephin acute systolic congestive heart failure exacerbation treated with the Lasix ejection fraction 60 percent seen by Cardiology Dr. Briceño. Patient has bilateral lower extremity cellulitis treated with the Rocephin and clindamycin DVT ruled out patient has peripheral arterial disease 50-75 percent block right common femoral artery recently had peripheral stents placed in 2023. Patient being discharged to longterm facility for IV antibiotics for four weeks for cellulitis and for optimization of cardiac condition. Consults/Reason for consult Cardiology Dr. Wendi Briceño Operations or Procedures Venous ultrasound Arterial ultrasound Condition at Discharge: Fair Final Diagnosis/Problems List Acute on chronic systolic (congestive) heart failure. EF 60 % Fluid overload. Pleural effusion. Possible community-acquired pneumonia: Rocephin UTI. Cardiomegaly. AFib : Eliquis History of CVA Hypertension Acute COPD exacerbation Polysubstance abuse Bilateral leg cellulitis: clindamycin and Rocephin DVT ruled out 50-75 % stenosis right common femoral artery, history of peripheral stents 2023 per patient Midline in place Discharge Disposition: Intermediate Facility Discharge Instruct/Medications Diet: Cardiac 2g Na,low cholest Activity: Light activity Follow Up/Referral: Follow up with the long term Medications: Clindamycin and Rocephin for four weeks for bilateral lower extremity cellulitis See list for other meds Scheduled Apixaban Base (Eliquis), 1 TAB PO BID, (Reported) Carvedilol (Carvedilol), 1 TAB PO BID, (Reported) Citalopram Hydrobromide (Citalopram Hydrobromide), 1 TAB PO DAILY, (Reported) Clopidogrel Bisulfate (Clopidogrel), 1 TAB PO DAILY Empagliflozin (Jardiance), 10 MG PO DAILY Ergocalciferol (Vitamin D 70536 Unit), 50,000 UNIT PO Weekly, (Reported) Furosemide (Furosemide), 1 TAB PO DAILY Lisinopril (Lisinopril), 1 TAB PO DAILY, (Reported) Potassium Chloride (Potassium Chloride ER), 10 MEQ PO DAILY Simvastatin (Simvastatin), 1 TAB PO HS, (Reported) Tamsulosin Hcl (Tamsulosin Hcl), 1 CAP PO DAILY, (Reported) Trazodone Hcl (Trazodone Hcl), 50 MG PO HS Umeclidinium-Vilanterol (Anoro Ellipta 62.5-25 Mcg/INH), 1 PUFF IN DAILY, (Reported) Miscellaneous Medications Multiple Vitamins W/ Minerals (Centrum Silver), 1 OR, (Reported) Nicotine Polacrilex (Nicotine Mini Lozenge), 4 MG MT, (Reported) Discontinued Medications Amlodipine Besylate (Amlodipine Besylate), 1 TAB PO DAILY, (Reported) Spironolactone (Aldactone), 25 MG PO DAILY 39 (Time taken for discharge summary 39 minutes) Discharge Statement: "Patient was advised to return to the ER or call 911 if any headaches, dizziness, shortness of breath, chest pain, abdominal pain, bleeding, fevers, or worsening of medical condition. Patient was counseled about treatment plan, medications, possible side effects, patientverbalized understanding. All questions were answered to the best of my ability. This discharge took greater then 30 minutes in planning, reviewing documentation, counseling the patient, and discussing with other team members." ASSESSMENT ASSESSMENT Hospital Course Uneventful Assessment Acute on chronic systolic (congestive) heart failure. EF 60 % Fluid overload. Pleural effusion. Possible community-acquired pneumonia: Rocephin UTI. Cardiomegaly. AFib : Eliquis History of CVA Hypertension Acute COPD exacerbation Polysubstance abuse Bilateral leg cellulitis: clindamycin and Rocephin DVT ruled out 50-75 % stenosis right common femoral artery, history of peripheral stents 2023 per patient Midline in place Date of Service: Aug 23, 2025 Billing Provider: ERICA LONG MD Common Visit Codes: 47873-RFV/OBS DISCH DAY >30min ERICA LONG MD Aug 23, 2025 10:58
--- NOTE | 2025-08-23 23:53 | DVHPN2 ---
Progress Note - Dictate Date Seen: Aug 23, 2025 Medical Necessity Reason Pt with a Central, PICC or Fol: No Subjective Patient was seen and evaluated in follow up. Patient has no new complaints at this time. Patient denies any cardiac symptoms. Patient is cardiac stable for discharge. Telemetry reviewed. vital signs Vital Sign Date Time Temp Pulse Resp B/P (MAP) Pulse Ox O2 Delivery O2 Flow Rate FiO2 08/23/25 12:59 98.4 73 18 116/45 (68) 98 98.4 08/23/25 08:00 Nasal Cannula* 2 28 Total Intake and Output 08/22/25 08/22/25 08/23/25 15:00 23:00 07:00 Intake Total 800 ml 700 ml Output Total 4000 ml 2800 ml Balance -3200 ml -2100 ml medications Current Medications Medications Dose Ordered Sig/Audrey Route Start Time Stop Time Status Last Admin Dose Admin Sodium Chloride 10 ml Q8HR IV 08/18/25 22:00 08/23/25 13:20 10 ML Acetaminophen/ Hydrocodone Bitart 1 tab Q4HP PRN PO 08/18/25 15:30 08/23/25 06:35 1 TAB Ondansetron HCl 4 mg Q4HP PRN IV 08/18/25 15:30 Docusate Sodium 100 mg BIDPRN PRN PO 08/18/25 15:30 Acetaminophen 650 mg Q6HP PRN PO 08/18/25 15:30 08/20/25 22:07 650 MG Nitroglycerin 0.4 mg Q5MINP PRN SL 08/18/25 15:30 Morphine Sulfate 2 mg Q30M PRN IV 08/18/25 15:45 Furosemide 40 mg BIDD IV 08/18/25 18:00 08/23/25 06:34 40 MG Ceftriaxone Sodium 50 ml @ 100 mls/hr DAILY@09 IV 08/19/25 09:00 08/23/25 09:09 100 MLS/HR Apixaban 5 mg BID PO 08/18/25 22:00 08/23/25 09:11 5 MG Carvedilol 3.125 mg BID PO 08/18/25 22:00 08/23/25 09:11 3.125 MG Citalopram Hydrobromide 20 mg DAILY PO 08/19/25 10:00 08/23/25 09:11 20 MG Empaglifozin 10 mg DAILY PO 08/19/25 10:00 08/23/25 09:11 10 MG Lisinopril 5 mg DAILY PO 08/19/25 10:00 08/23/25 09:11 5 MG Tamsulosin HCl 0.4 mg DAILY PO 08/19/25 10:00 08/23/25 09:11 0.4 MG Atorvastatin Calcium 10 mg HS PO 08/18/25 22:00 08/22/25 22:15 10 MG Clindamycin Phosphate 50 ml @ 50 mls/hr Q8HR IV 08/20/25 14:00 08/23/25 13:20 50 MLS/HR Guaifenesin/ Dextromethorphan 5 ml Q6HR PRN PO 08/22/25 00:30 08/22/25 01:20 5 ML objective GENERAL: Alert and oriented x 3. No acute distress. Obese. EYES: PERRL, EOMI. Anicteric. HENT: Moist mucous membranes. LUNGS: Diminished breath sounds. CARDIOVASCULAR: Regular rate and rhythm. ABDOMEN: Soft, non-tender and non-distended. EXTREMITIES: 2+ pitting edema BLE. NEUROLOGIC: No focal neurological deficits. SKIN: Warm, dry. laboratory and microbiology Laboratory Tests 08/20/25 05:13 08/19/25 05:44 Test 08/20/25 05:13 Range/Units Serum Glucose 98 74-106 mg/dL Problem List Acute on chronic systolic (congestive) heart failure. Fluid overload. Pleural effusion. UTI. Cardiomegaly. Assessment/Plan Continued all current supportive medical care. Eliquis. Coreg, Lisinopril. Diuretics with Lasix. IV antibiotics as ordered. Morphine and [place] for pain management. Additional plan as per the hospital course. Plan discussed with: Patient EJ CARDOSO MD Aug 23, 2025 13:54
== END 2025-08-23 20:45 | DRG 177 ==
LOC: ER 10:11 → EDBD 10:11 → OVERFLOW 15:21 → TELE-CENTR 17:23
PROVIDERS: ADMIT Family Medicine; ATTEND Family Medicine
PROC: 05HB33Z Insertion of Infusion Device into Right Basilic Vein, Percutaneous Approach (ICD-10-PCS; principal; 2025-08-20)
PROC: B54MZZA Ultrasonography of Right Upper Extremity Veins, Guidance (ICD-10-PCS; 2025-08-20)
DX: J15.69 Pneumonia due to other Gram-negative bacteria (principal); I50.23 Acute on chronic systolic (congestive) heart failure; J96.00 Acute respiratory failure, unspecified whether with hypoxia or hypercapnia; J44.1 Chronic obstructive pulmonary disease with (acute) exacerbation; N39.0 Urinary tract infection, site not specified; L03.115 Cellulitis of right lower limb; L03.116 Cellulitis of left lower limb; J44.0 Chronic obstructive pulmonary disease with (acute) lower respiratory infection; I11.0 Hypertensive heart disease with heart failure; J15.9 Unspecified bacterial pneumonia; Z79.01 Long term (current) use of anticoagulants; Z20.822 Contact with and (suspected) exposure to COVID-19; F19.10 Other psychoactive substance abuse, uncomplicated; I70.291 Other atherosclerosis of native arteries of extremities, right leg; F17.210 Nicotine dependence, cigarettes, uncomplicated; I48.91 Unspecified atrial fibrillation; E78.5 Hyperlipidemia, unspecified; Z86.73 Personal history of transient ischemic attack (TIA), and cerebral infarction without residual deficits; Z83.3 Family history of diabetes mellitus; Z95.828 Presence of other vascular implants and grafts; Z82.49 Family history of ischemic heart disease and other diseases of the circulatory system
CPT/HCPCS: 36415; 71045; 80048; 80053; 80307; 81001; 83735; 83880; 84484; 85025; 87086; 87426; 93005; 93925; 93970; 94640; 97163; 99291; G0378; J2405; J3490

== ENCOUNTER 2025-10-05 22:16 | Inpatient (IN) | payer MEDICARE ==
[~2025-10-05] VITALS: Ht 177.8 cm; Wt 84.0 kg
[~2025-10-05 22:16] MED LIST changes: -AMLO1TAB23 PO; +FLUT1AER3 INH; -SPIR25TA PO
[2025-10-05] MEDS: SODIUM CHLORIDE 0.9% 1,000 ML IV ONE (22:30)
--- NOTE | 2025-10-05 22:41 | ED.PDOC ---
HPI Allergic reaction HPI Comments 65-year-old male who is brought in by ambulance from [facility] for chief complaint of red rash, with associated itchiness. Per EMS personnel report, patient endorses on onset of rash, yesterday. Rashes is reported by patient to have started in both of his legs and to have started radiating to his torso and arms, today. Pertinent allergy history to Rocephin. Staff of facility reported on only notable change to patient's diet, recently. Patient mentions on wearing a new clothing items and suspects on that being the cause of his symptoms. He denies any facial rash, throat swelling, shortness of breath, or further acute symptoms. Significant history of AFib - on Eliquis, CHF, COPD, CVA, cardiomegaly, cellulitis - BLE, DM type 1, HLD, HTN, unspecified liver disease, pleural effusions, pneumonia, right leg peripheral stents status post stenosis direct common femoral artery, sciatica, and former polysubstance abuse. Chief Complaint: Rash Time Seen by MD: 22:20 Primary Care Provider: NONE Reviewed Notes: Nurses Notes, Medications, Allergies Allergies: Coded Allergies: Ceftriaxone (Verified Allergy, Severe, 10/05/25) Home Meds Active Scripts Clopidogrel Bisulfate (CLOPIDOGREL) 75 Mg Tab, 1 TAB PO DAILY for 90 Days, #90 TAB 1 Refill Prov:ERASTO MICHELE RESIDENT 07/14/25 Potassium Chloride (Potassium Chloride ER) 10 Meq Tab, 10 MEQ PO DAILY for 30 Days, #30 TAB 3 Refills Prov:NEGRA CARLSON MD 06/10/25 Trazodone Hcl (Trazodone Hcl) 50 Mg Tab, 50 MG PO HS for 30 Days, #30 TAB 1 R efill Prov:BELKIS ANTONY NP 11/22/24 Furosemide (Furosemide) 20 Mg Tab, 1 TAB PO DAILY, #30 TAB 5 Refills Prov:YAZMIN FONSECA RESIDENT 11/01/24 Empagliflozin (Jardiance) 10 Mg Tab, 10 MG PO DAILY for 30 Days, #30 TAB Prov:YAZMIN FONSECA RESIDENT 11/01/24 Reported Medications Simvastatin (Simvastatin) 20 Mg Tab, 1 TAB PO HS for 90 Days, #90 07/14/25 Citalopram Hydrobromide (Citalopram Hydrobromide) 20 Mg Tab, 1 TAB PO DAILY for 90 Days, #90 07/14/25 Apixaban Base (ELIQUIS) 5 Mg Tab, 1 TAB PO BID for 30 Days, #60 07/14/25 Carvedilol (Carvedilol) 3.125 Mg Tab, 1 TAB PO BID for 90 Days, #180 07/14/25 Lisinopril (Lisinopril) 5 Mg Tab, 1 TAB PO DAILY for 90 Days, #90 07/13/25 Umeclidinium-Vilanterol (Anoro Ellipta 62.5-25 Mcg/INH) 1 Aer Aer, 1 PUFF IN DAILY for 30 Days, #60 10/28/24 Multiple Vitamins W/ Minerals (Centrum Silver) Silver Chw, 1 OR, TAB.CHEW 10/28/24 Nicotine Polacrilex (Nicotine Mini Lozenge) 4 Mg Christi, 4 MG MT, CHRISTI 10/28/24 Ergocalciferol (VITAMIN D 19743 UNIT) 50,000 [place], [address] UNIT PO Weekly, CAP 10/28/24 Tamsulosin Hcl (Tamsulosin Hcl) 0.4 Mg Cap, 1 CAP PO DAILY 10/28/24 Information Source: Patient Mode of Arrival: EMS Past Medical History PAST MEDICAL HISTORY: AFIB (On Eliquis), CHF, COPD, CVA, Depression, DM (Type 1), High Lipids, HTN, Liver, UTI'S Past Medical History (Other): Sciatica Cellulitis-BLE Pleural effusions Pneumonia Cardiomegaly Surgical History (Other): Right leg peripheral stents status post stenosis to right common femoral artery Family History Family History: Reviewed,noncontributory to illness, No family hx of Cancer, No family hx of Heart krupa, No family hx of HTN, No family hx ofKidney krupa, No family hx of Liver krupa, No family hx of Lung krupa, No family hx of Stroke, Family hx of DM Social History Smoker: Quit Less Than 1 Year Alcohol: Sober Drugs: Other (Sober) Lives In: Care Home Constitutional: denies: chills, diaphoresis, fatigue, fever, malaise, sweats, weakness, others EENTM: denies: blurred vision, double vision, ear bleeding, ear discharge, ear drainage, ear pain, ear ringing, eye pain, eye redness, hearing loss, mouth pain, mouth swelling, nasal discharge, nose bleeding, nose congestion, nose pain, photophobia, tearing, throat pain, throat swelling, voice changes, others Respiratory: denies: cough, hemoptysis, orthopnea, SOB at rest, shortness of breath, SOB with excertion, stridor, wheezing, others Cardiovascular: denies: chest pain, dizzy spells, diaphoresis, Dyspnea on e xertion, edema, irregular heart beat, left arm pain, lightheadedness, palpitations, PND, syncope, others Gastrointestinal: denies: abdomen distended, abdominal pain, blood streaked bowels, constipated, diarrhea, dysphagia, difficulty swallowing, hematemesis, melena, nausea, poor appetite, poor fluid intake, rectal bleeding, rectal pain, vomiting, others Genitourinary: denies: burning, dysuria, flank pain, frequency, hematuria, incontinence, penile discharge, penile sore, pain, testicle pain, testicle swelling, urgency, others Neurological: denies: dizziness, fainting, headache, left sided numbness, left sided weakness, numbness, paresthesia, pre-existing deficit, right sided numbness, right sided weakness, seizure, speech problems, tingling, tremors, weakness, others Musculoskeletal: denies: back pain, gout, joint pain, joint swelling, muscle pain, muscle stiffness, neck pain, others Integumetry: reports: rash; denies: bruises, change in color, change in hair/nails, dryness, laceration, lesions, lumps, wounds, others Allergic/Immunocompromised: denies: Difficulty Healing, Frequent Infections, Hives, Itching, others Hematologic/Lymphatic: denies: anemia, blood clots, easy bleeding, easy bruising, swollen glands, others Endocrine: denies: excessive hunger, excessive sweating, excessive thirst, excessive urination, flushing, intolerance to cold, intolerance to heat, unexplained weight gain, unexplained weight loss, others Psychiatric: denies: anxiety, bipolar disorder, depression, hopeless, panic disorder, schizophrenia, sleepless, suicidal, others All Other Systems: Reviewed and Negative Physical Exam General Appearance: Moderate Distress HEENT: Normal ENT Inspection, Pharynx Normal, TMs Normal Neck: Full Range of Motion, Non-Tender, Normal, Normal Inspection Respiratory: Chest Non-Tender, Lungs Clear, No Accessory Muscle Use, No Respiratory Distress, Normal Breath Sounds Cardiovascular: No Edema, No JVD, No Murmur, No Gallop, Normal Peripheral Pulses, Regular Rate/Rhythm Breast Exam: Deferred Gastrointestinal: No Organomegaly, Non Tender, No Pulsatile Mass, Normal Bowel Sounds, Soft Genitalia: Deferred Pelvic: Deferred Rectal: Deferred Extremities: No calf tenderness, Normal capillary refill, Pedal edema Musculoskeletal : Apperance: Normal Neurologic: Alert, software support analyst II-XII nml as Tested, Motor Weakness, Normal Affect, Normal Mood, No Sensory Deficits Cerebellar Function: Normal Reflexes: Normal Skin: Dry, Rash, Warm Lymphatic: No Adenopathy Was a procedure done? Was a procedure done?: No Differential diagnosis (all) Differential Diagnosis: Anaphylaxis, Angioedema, Contact Dermatitis, Drug Reaction, Urticaria X-Ray, Labs, Meds, VS Vital Signs Date Time Temp Pulse Resp B/P (MAP) Pulse Ox O2 Delivery O2 Flow Rate FiO2 10/05/25 22:55 98.0 74 18 155/105 (122) 95 98.0 10/05/25 22:45 74 18 95 Room Air* 0 21 10/05/25 22:22 98.2 75 18 158/110 99 98.2 Lab Test 10/05/25 23:04 10/05/25 22:43 Range/Units Urine Color Light-yellow Yellow Urine Clarity Clear Clear Urine pH 5.0 5.0-9.0 Urine Specific [place] 1.011 1.001-1.035 Urine Protein Negative Negative Urine Ketones Negative Negative Urine Blood Negative Negative /uL Urine Nitrite Negative Negative Urine Bilirubin Negative Negative Urine Urobilinogen Normal Negative mg/dL Urine Leukocyte Esterase Negative Negative /uL Urine RBC 3 0 - 3 /hpf Urine Microscopic WBC < 1 0-3 /HPF Urine Squamous Epithelial Cells Few <5 /hpf Urine Bacteria None seen None Seen /hpf Urine Glucose Normal Normal mg/dL White Blood Count 9.0 4.4-10.8 10^3/uL Red Blood Count 4.41 L 4.5-5.90 10^6/uL Hemoglobin 13.4 L 13.5-17.5 g/dL Hematocrit 40.3 L 41.0-53.0 % Mean Corpuscular Volume 91.3 80.0-100.0 fL Mean Corpuscular Hemoglobin 30.3 28.0-32.0 pg Mean Corpuscular Hemoglobin Concent 33.2 32.0-36.0 g/dL Red Cell Distribution Width 17.2 H 11.8-14.3 % Platelet Count 185 140-450 10^3/uL Mean Platelet Volume 8.0 6.9-10.8 fL Neutrophils (%) (Auto) 85.2 H 37.0-80.0 % Lymphocytes (%) (Auto) 5.3 L 10.0-50.0 % Monocytes (%) (Auto) 6.3 0.0-12.0 % Eosinophils (%) (Auto) 2.9 0.0-7.0 % Basophils (%) (Auto) 0.3 0.0-2.0 % Neutrophils # (Auto) 7.7 1.6-8.6 10 ^3/uL Lymphocytes # (Auto) 0.5 0.4-5.4 10 ^3/uL Monocytes # (Auto) 0.6 0-1.3 10 ^3/uL Eosinophils # (Auto) 0.3 0-0.8 10 ^3/uL Basophils # (Auto) 0 0-0.2 10 ^3/uL Nucleated Red Blood Cells 0.0 % Erythrocyte Sedimentation Rate 10 0-20 mm/hr Sodium Level 139 136-145 mmol/L Potassium Level 3.9 3.5-5.1 mmol/L Chloride Level 99 98-107 mmol/L Carbon Dioxide Level 32 H 20-31 mmol/L Anion Gap 8 5-15 Blood Urea Nitrogen 12 9-23 mg/dL Creatinine 0.73 0.700-1.30 mg/dL Glomerular Filtration Rate Calc 100 >90 mL/min BUN/Creatinine Ratio 16.4 10.0-20.0 Serum Glucose 112 H 74-106 mg/dL Lactic Acid Level 1.1 0.4-2.0 mmol/L Calcium Level 9.0 8.7-10.4 mg/dL B-Type Natriuretic Peptide 419.68 0-100 pg/mL Current Medications Medications (Trade) Dose Ordered Sig/Aurdey Route Start Time Stop Time Status Last Admin Methylprednisolone Sodium Succinate (Solu Medrol) 125 mg ONCE ONCE IV 10/05/25 22:30 10/05/25 22:31 DC 10/05/25 23:25 Patient was given Solu-Medrol 125 mg IV push The CBC and chemistry panel are within normal limits The urine test is negative The patient is being admitted at this time The patient understands and agrees with the management Time of 1ST Reevaluation: 22:50 Reevaluation 1ST: Unchanged Patient Education/Counseling: Diagnosis, Treatment, Prognosis Family Education/Counseling: No Family Present SEPSIS Sepsis Screen Date sepsis recognized/suspect: Oct 05, 2025 Time Sepsis recognized/suspect: 2227 Recent Procedure: No On Antibiotic Therapy: No Respiratory Rate >20: No Heart Rate >90: No Temp<36 C (96.8 F) or >38.3 C: No SBP <90 or MAP <65 mmHG: No New Acute Mental Status Change: No Is the patient on CPAP, BIPAP,: No Physician Orders Heplock Iv (10/05/25 22:26) Blood Culture (10/05/25 22:26) Vital Signs Date Time Temp Pulse Resp B/P (MAP) Pulse Ox O2 Delivery O2 Flow Rate FiO2 10/05/25 22:55 98.0 74 18 155/105 (122) 95 98.0 10/05/25 22:45 74 18 95 Room Air* 0 21 10/05/25 22:22 98.2 75 18 158/110 99 98.2 Laboratory Tests Test 10/05/25 22:43 Lactic Acid Level 1.1 mmol/L (0.4-2.0) White Blood Count 9.0 10^3/uL (4.4-10.8) Medications Medications Dose Ordered Sig/Audrey Route Start Time Stop Time Status Last Admin Dose Admin Methylprednisolone Sodium Succinate 125 mg ONCE ONCE IV 10/05/25 22:30 10/05/25 22:31 DC 10/05/25 23:25 Departure 1 Departure Time of Disposition: 00:50 Impression: Primary Impression: Generalized weakness Additional Impressions: Rash Allergic reaction Qualified Codes: T78.40XA - Allergy, unspecified, initial encounter Disposition: ADMITTED INPATIENT Admit to: Med Surg Condition: Fair Critical Care Note Critical Care Time?: No Stability Stability form required: Yes Unstable for transfer: ED Physician Assesment (Clinical assesment) Heart Score Heart Score: Heart Score Response (Comments) Value History N/A 0 EKG N/A 0 Age N/A 0 Risk Factors N/A 0 Troponin N/A 0 Total 0 I personally scribed for MARQUES OVERTON MD ([email or web address]) on 10/05/25 at 22:40. Electronically submitted by William Rivera [email or web address]). MARQUES OVERTON MD Oct 05, 2025 22:40
[2025-10-05 22:45] VITALS: PULSE 74; RESP 18; O2SAT 95
[2025-10-05 23:01] LABS: Hematocrit 40.3 % (41.0-53.0); Hemoglobin 13.4 g/dL (13.5-17.5); Mean Corpuscular Hemoglobin 30.3 pg (28.0-32.0); Mean Corpuscular Volume 91.3 fL (80.0-100.0); Nucleated Red Blood Cells % 0.0 %
[2025-10-05 23:11] LABS: Chloride 99 mmol/L (98-107); Potassium 3.9 mmol/L (3.5-5.1); Sodium 139 mmol/L (136-145)
[2025-10-05 23:12] LABS: Anion Gap 8 (5-15); Calcium 9.0 mg/dL (8.7-10.4)
[2025-10-05 23:15] LABS: Carbon Dioxide 32 mmol/L (20-31)
[2025-10-05 23:17] LABS: BUN/Creatinine Ratio 16.4 (10.0-20.0); Blood Urea Nitrogen 12 mg/dL (9-23); Glucose 112 mg/dL (74-106)
[2025-10-05 23:19] LABS: Urine Protein, UAD Negative (Negative)
[2025-10-05] MEDS: methylPREDNISolone SOD SUCC 125 MG/2 ML VL IV ONE (23:25)
--- NOTE | 2025-10-06 01:02 | DVHHP2 ---
History of Present Illness HPI 65-year-old male who is brought in by ambulance from [facility] for chief complaint of red rash, with associated itchiness. Per EMS personnel report, patient endorses on onset of rash, yesterday. Rashes is reported by patient to have started in both of his legs and to have started radiating to his torso and arms, today. Pertinent allergy history to Rocephin. Staff of facility reported on only notable change to patient's diet, recently. Patient mentions on wearing a new clothing items and suspects on that being the cause of his symptoms. He denies any facial rash, throat swelling, shortness of breath, or further acute symptoms. Significant history of AFib - on Eliquis, CHF, COPD, CVA, cardiomegaly, cellulitis - BLE, DM type 1, HLD, HTN, unspecified liver disease, pleural effusions, pneumonia, right leg peripheral stents status post stenosis direct common femoral artery, sciatica, and former polysubstance abuse. Home Meds Active Scripts Clopidogrel Bisulfate (CLOPIDOGREL) 75 Mg Tab, 1 TAB PO DAILY for 90 Days, #90 T AB 1 Refill Prov:ERASTO MICHELE RESIDENT 07/14/25 Potassium Chloride (Potassium Chloride ER) 10 Meq Tab, 10 MEQ PO DAILY for 30 Days, #30 TAB 3 Refills Prov:NEGRA CARLSON MD 06/10/25 Trazodone Hcl (Trazodone Hcl) 50 Mg Tab, 50 MG PO HS for 30 Days, #30 TAB 1 Refill Prov:BELKIS ANTONY NP 11/22/24 Furosemide (Furosemide) 20 Mg Tab, 1 TAB PO DAILY, #30 TAB 5 Refills Prov:YAZMIN FONSECA RESIDENT 11/01/24 Reported Medications Empagliflozin (Jardiance) 10 Mg Tab, 1 TAB PO DAILY for 30 Days, #30 10/08/25 Bahdweoqplh-Nwzbrvxxdawq-Nvdgr (Trelegy Ellipta 100-62.5-25 Mcg/INH) 1 Aer Aer, 1 PUFF INH DAILY for 30 Days, #60 10/08/25 Simvastatin (Simvastatin) 20 Mg Tab, 1 TAB PO HS for 90 Days, #90 07/14/25 Citalopram Hydrobromide (Citalopram Hydrobromide) 20 Mg Tab, 1 TAB PO DAILY for 90 Days, #90 07/14/25 Apixaban Base (ELIQUIS) 5 Mg Tab, 1 TAB PO BID for 30 Days, #60 07/14/25 Carvedilol (Carvedilol) 3.125 Mg Tab, 1 TAB PO BID for 90 Days, #180 07/14/25 Lisinopril (Lisinopril) 5 Mg Tab, 1 TAB PO DAILY for 90 Days, #90 07/13/25 Umeclidinium-Vilanterol (Anoro Ellipta 62.5-25 Mcg/INH) 1 Aer Aer, 1 PUFF IN DAILY for 30 Days, #60 10/28/24 Multiple Vitamins W/ Minerals (Centrum Silver) Silver Chw, 1 OR, TAB.CHEW 10/28/24 Nicotine Polacrilex (Nicotine Mini Lozenge) 4 Mg Christi, 4 MG MT, CHRISTI 10/28/24 Ergocalciferol (VITAMIN D 13429 UNIT) 50,[address] [place], [address] UNIT PO Weekly, CAP 10/28/24 Tamsulosin Hcl (Tamsulosin Hcl) 0.4 Mg Cap, 1 CAP PO DAILY for 90 Days, #90 10/28/24 Past Medical History Patient Family History: Diabetes mellitus G8 MOTHER G8 BROTHER G8 BROTHER FH: heart disease G8 BROTHER G8 SISTER Prostate problems G8 FATHER Review of Systems Constitutional: No symptom reported Ears, Nose, & Throat: No symptom reported Pulmonary/Respiratory: Dyspnea Cardiovascular: No symptom reported Gastrointestinal: No symptom reported Genitourinary: No symptom reported H&P Exam Vital Signs Vital Signs Date Time Temp Pulse Resp B/P (MAP) Pulse Ox O2 Delivery O2 Flow Rate FiO2 10/05/25 22:55 98.0 74 18 155/105 (122) 95 98.0 10/05/25 22:45 Room Air* 0 21 General Appeara: Well developed, Well nourished Head Exam: Normal inspection Neck Exam: Normal inspection Nasal Exam: Normal inspection Pulmonary/Respiratory: Normal inspection SEPSIS Sepsis Screen Date sepsis recognized/suspect: Oct 05, 2025 Time Sepsis recognized/suspect: 2244 Recent Procedure: No On Antibiotic Therapy: No Respiratory Rate >20: No Heart Rate >90: No Temp<36 C (96.8 F) or >38.3 C: No SBP <90 or MAP <65 mmHG: No New Acute Mental Status Change: No Is the patient on CPAP, BIPAP,: No Physician Orders Heplock Iv (10/05/25 22:26) Blood Culture (10/05/25 22:26) Vital Signs Date Time Temp Pulse Resp B/P (MAP) Pulse Ox O2 Delivery O2 Flow Rate FiO2 10/05/25 22:55 98.0 74 18 155/105 (122) 95 98.0 10/05/25 22:45 74 18 95 Room Air* 0 21 10/05/25 22:22 98.2 75 18 158/110 99 98.2 Laboratory Tests Test 10/05/25 22:43 Lactic Acid Level 1.1 mmol/L (0.4-2.0) White Blood Count 9.0 10^3/uL (4.4-10.8) Medications Medications Dose Ordered Sig/Audrey Route Start Time Stop Time Status Last Admin Dose Admin Methylprednisolone Sodium Succinate 125 mg ONCE ONCE IV 10/05/25 22:30 10/05/25 22:31 DC 10/05/25 23:25 125 MG Labs/Xrays Labs Test 10/05/25 23:04 10/05/25 22:43 Range/Units Urine Color Light-yellow Yellow Urine Clarity Clear Clear Urine pH 5.0 5.0-9.0 Urine Specific [place] 1.011 1.001-1.035 Urine Protein Negative Negative Urine Ketones Negative Negative Urine Blood Negative Negative /uL Urine Nitrite Negative Negative Urine Bilirubin Negative Negative Urine Urobilinogen Normal Negative mg/dL Urine Leukocyte Esterase Negative Negative /uL Urine RBC 3 0 - 3 /hpf Urine Microscopic WBC < 1 0-3 /HPF Urine Squamous Epithelial Cells Few <5 /hpf Urine Bacteria None seen None Seen /hpf Urine Glucose Normal Normal mg/dL White Blood Count 9.0 4.4-10.8 10^3/uL Red Blood Count 4.41 L 4.5-5.90 10^6/uL Hemoglobin 13.4 L 13.5-17.5 g/dL Hematocrit 40.3 L 41.0-53.0 % Mean Corpuscular Volume 91.3 80.0-100.0 fL Mean Corpuscular Hemoglobin 30.3 28.0-32.0 pg Mean Corpuscular Hemoglobin Concent 33.2 32.0-36.0 g/dL Red Cell Distribution Width 17.2 H 11.8-14.3 % Platelet Count 185 140-450 10^3/uL Mean Platelet Volume 8.0 6.9-10.8 fL Neutrophils (%) (Auto) 85.2 H 37.0-80.0 % Lymphocytes (%) (Auto) 5.3 L 10.0-50.0 % Monocytes (%) (Auto) 6.3 0.0-12.0 % Eosinophils (%) (Auto) 2.9 0.0-7.0 % Basophils (%) (Auto) 0.3 0.0-2.0 % Neutrophils # (Auto) 7.7 1.6-8.6 10 ^3/uL Lymphocytes # (Auto) 0.5 0.4-5.4 10 ^3/uL Monocytes # (Auto) 0.6 0-1.3 10 ^3/uL Eosinophils # (Auto) 0.3 0-0.8 10 ^3/uL Basophils # (Auto) 0 0-0.2 10 ^3/uL Nucleated Red Blood Cells 0.0 % Erythrocyte Sedimentation Rate 10 0-20 mm/hr Sodium Level 139 136-145 mmol/L Potassium Level 3.9 3.5-5.1 mmol/L Chloride Level 99 98-107 mmol/L Carbon Dioxide Level 32 H 20-31 mmol/L Anion Gap 8 5-15 Blood Urea Nitrogen 12 9-23 mg/dL Creatinine 0.73 0.700-1.30 mg/dL Glomerular Filtration Rate Calc 100 >90 mL/min BUN/Creatinine Ratio 16.4 10.0-20.0 Serum Glucose 112 H 74-106 mg/dL Lactic Acid Level 1.1 0.4-2.0 mmol/L Calcium Level 9.0 8.7-10.4 mg/dL B-Type Natriuretic Peptide 419.68 0-100 pg/mL Assessment/Plan Primary Diagnosis Generalized weakness Rash Allergic reactio Persistent atrial fibrillation with rapid ventricular rate, now rate controlled (on Eliquis). 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 disease status post TOOTH GRINDER with stent placement (on Plavix/statin). Chronic compensated HFpEF. Hypertension. Dyslipidemia. HX of CVA. BLE cellulitis. Nicotine dependence. Alcohol use. Obesity admitted to med/surg consult to cardiology reconcile with home meds Plan discussed with: Patient YUSEF FLOWERS Oct 06, 2025 01:01
[2025-10-06] MEDS ORDERED: NITROGLYCERIN 0.4 MG SL TAB SL PRN (01:15)
[2025-10-06] MEDS ORDERED: MORPHINE SULFATE 4 MG/ML SYR/VIAL IV PRN ×2 (01:15)
[2025-10-06] MEDS ORDERED: HYDROcodone-ACET 5/325MG TAB PO PRN (01:15)
[2025-10-06] MEDS: SODIUM CHLOR 0.9% PF (SALINE LOCK) 10ML VIAL/SYR IV SCH (06:08)
[2025-10-06 07:56] VITALS: RESP 17; O2SAT 92
[2025-10-06] MEDS: ENOXAPARIN SOD 40 MG/0.4 ML SYRINGE SC SCH (10:09)
[2025-10-06] MEDS: dilTIAZem 25 MG/5 ML VIAL IV ONE (11:18)
--- NOTE | 2025-10-06 11:43 | ECG ---
[facility] Test Date: 2025-10-06 Test Time: 10:37:23 Pat Name: THAIS BRAVO Department: ED Room: 0217 Gender: M Electrostatic Painter: ANTONIETA : 1960 Requested By: MARQUES OVERTON Order Number: [id number] Reading MD: Viraj Meier Measurements Intervals [place]onal[place] Rate: 138 P: 0 SD: 0 QRS: 241 QRSD: 95 T: 88 QT: 342 QTc: 519 Interpretive Statements Atrial fibrillation Inferior infarct, old Anterior infarct, old Prolonged QT interval Electronically Signed On 10-07-2025 17:47:24 PST by Viraj Meier Please click the below link to view image of tracing.
[2025-10-06] MEDS ORDERED: DEXTROSE (50%) 50ML SYRG IV PRN (13:15)
[2025-10-06] MEDS: InsuLIN REG 1unit/0.01ml Soln (100units/ml) SC ONE (13:56)
--- NOTE | 2025-10-06 14:41 | DVHINCON2 ---
Date Seen: Oct 06, 2025 Referring Physician MD Amairani Reason for Consultation A-fib History of Present Illness This is a 65-year-old man who presented to the emergency room via EMS from [facility] for a chief complaint of allergic reaction. The patient reports a sudden onset of a rash over his chest area as well as redness to bilateral lower extremities. Denies chest pain, palpitations, di aphoresis, SOB, dizziness, or syncopal events. During admission to the emergency room he developed atrial fibrillation (known history) with rapid ventricular rate for which he was initiated on a Cardizem drip. At time of assessment, the patient was in an atrial fibrillation rhythm at a controlled rate. 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 Past Medical History Past medical history reviewed. No other significant than mentioned above. Past Surgical History PTCA with a stent placement of the right femoral artery, 11/2024 Family History: Diabetes mellitus G8 MOTHER G8 BROTHER G8 BROTHER FH: heart disease G8 BROTHER G8 SISTER Prostate problems G8 FATHER Family History Family history reviewed. Social History Admits to alcohol and tobacco use, see HPI. Denies the use of illicit drugs. Allergies: Coded Allergies: Ceftriaxone (Verified Allergy, Severe, 10/05/25) Home Meds Active Scripts Clopidogrel Bisulfate (CLOPIDOGREL) 75 Mg Tab, 1 TAB PO DAILY for 90 Days, #90 TAB 1 Refill Prov:ERASTO MICHELE RESIDENT 07/14/25 Potassium Chloride (Potassium Chloride ER) 10 Meq Tab, 10 MEQ PO DAILY for 30 Days, #30 TAB 3 Refills Prov:NEGRA CARLSON MD 06/10/25 Trazodone Hcl (Trazodone Hcl) 50 Mg Tab, 50 MG PO HS for 30 Days, #30 TAB 1 Refill Prov:BELKIS ANTONY MAPPING ANALYST 11/22/24 Furosemide (Furosemide) 20 Mg Tab, 1 TAB PO DAILY, #30 TAB 5 Refills Prov:YAZMIN FONSECA RESIDENT 11/01/24 Empagliflozin (Jardiance) 10 Mg Tab, 10 MG PO DAILY for 30 Days, #30 TAB Prov:YAZMIN FONSECA RESIDENT 11/01/24 Reported Medications Simvastatin (Simvastatin) 20 Mg Tab, 1 TAB PO HS for 90 Days, #90 07/14/25 Citalopram Hydrobromide (Citalopram Hydrobromide) 20 Mg Tab, 1 TAB PO DAILY for 90 Days, #90 07/14/25 Apixaban Base (ELIQUIS) 5 Mg Tab, 1 TAB PO BID for 30 Days, #60 07/14/25 Carvedilol (Carvedilol) 3.125 Mg Tab, 1 TAB PO BID for 90 Days, #180 07/14/25 Lisinopril (Lisinopril) 5 Mg Tab, 1 TAB PO DAILY for 90 Days, #90 07/13/25 Umeclidinium-Vilanterol (Anoro Ellipta 62.5-25 Mcg/INH) 1 Aer Aer, 1 PUFF IN DAILY for 30 Days, #60 10/28/24 Multiple Vitamins W/ Minerals (Centrum Silver) Silver Chw, 1 OR, TAB.CHEW 10/28/24 Nicotine Polacrilex (Nicotine Mini Lozenge) 4 Mg Christi, 4 MG MT, CHRISTI 10/28/24 Ergocalciferol (VITAMIN D 77272 UNIT) 50,[place], [address] UNIT PO Weekly, CAP 10/28/24 Tamsulosin Hcl (Tamsulosin Hcl) 0.4 Mg Cap, 1 CAP PO DAILY 10/28/24 Home Meds Home medications reviewed. Current Medications Current Medications Medications (Trade) Dose Ordered Sig/Audrey Route PRN Reason Start Time Stop Time Status Last Admin Sodium Chloride (Saline Lock Ns) 10 ml Q8HR IV 10/06/25 06:00 10/06/25 14:13 Acetaminophen/ Hydrocodone Bitart (Dresher 5/325MG Tab) 1 tab Q4HP PRN PO MODERATE PAIN (4-6 PAIN SCALE) 10/06/25 01:15 Enoxaparin Sodium (Lovenox) 40 mg DAILY SC 10/06/25 10:00 10/06/25 10:09 Acetaminophen (Tylenol Tablet) 650 mg Q6HP PRN PO PAIN SCALE 1-3 OR TEMP>100.4 10/06/25 01:15 Morphine Sulfate 2 mg Q4HPRN PRN IV SEVERE PAIN (7-10 PAIN SCALE) 10/06/25 01:15 Nitroglycerin (Ntrostat Sublingual) 0.4 mg Q5MINP PRN SL FOR CHEST PAIN 10/06/25 01:15 Morphine Sulfate 2 mg Q30M PRN IV FOR CHEST PAIN 10/06/25 01:15 Diltiazem HCl 100 ml @ 5 mls/hr Q20H IV 10/06/25 11:00 10/06/25 11:15 Diagnostic Test (Pha) (Accu-Chek Comfort Curve T) 1 strip ACHS 10/06/25 17:00 Insulin Human Regular (InsuLIN R) HS SC 10/06/25 22:00 Insulin Human Regular (InsuLIN R) AC SC 10/06/25 17:00 Dextrose 50 ml UD PRN IV Blood Sugar LESS THAN 60 10/06/25 13:15 Insulin Glargine (Lantus) 10 units DAILY@1000 SC 10/07/25 10:00 Review of Systems Constitutional: No symptom reported Ears, Nose, & Throat: No symptom reported Eyes: No symptom reported Neurological: No symptoms reported Pulmonary/Respiratory: No symptom reported Cardiovascular: No symptom reported Gastrointestinal: No symptom reported Genitourinary: No symptom reported Musculoskeletal: No symptom reported Skin: Chest wall rash, bilateral lower extremity erythema Psychiatric: No symptom reported Endocrine: No symptom reported Hemotologic/Lymphatic: No symptom reported Vital Signs Vital Signs Date Time Temp Pulse Resp B/P (MAP) Pulse Ox O2 Delivery O2 Flow Rate FiO2 10/06/25 13:54 113/74 10/06/25 13:15 98 16 97 10/06/25 07:56 Nasal Cannula* 2 28 10/06/25 07:56 97.5 97.5 Physical Exam General Appearance: Cooperative. Well developed. Well nourished. Hard of hearing. In no acute distress Head Exam: Normal inspection Neck Exam: Normal inspection. Non-tender. Normal alignment Pulmonary/Respiratory: Chest non-tender. Clear bilateral breath sounds Cardiovascular/Chest: Irregularly irregular rate and rhythm. AFib, controlled rate. No murmurs. No JVD. Peripheral Pulses: 2+ Radial (R). 2+ Radial (L). 2+ Pedal (R). 2+ Pedal (L) Abdominal Exam: Normal bowel sounds Ankle Exam: Negative ankle edema Lower extremities: Negative lower extremity edema Neuro/Mental Status: A&O x4. Coherent Thoughts/Psych: Normal thought pattern. Appropriate mood and affect. Good judgement and insight Appearance: In no acute distress Skin Exam: Erythema to bilateral lower extremities. Rash over chest wall area Labs/Diagnostic Data Labs Test 10/06/25 13:41 10/05/25 23:04 10/05/25 22:43 Range/Units POC Glucose 302 H 70-106 mg/dl Urine Color Light-yellow Yellow Urine Clarity Clear Clear Urine pH 5.0 5.0-9.0 Urine Specific [place] 1.011 1.001-1.035 Urine Protein Negative Negative Urine Ketones Negative Negative Urine Blood Negative Negative /uL Urine Nitrite Negative Negative Urine Bilirubin Negative Negative Urine Urobilinogen Normal Negative mg/dL Urine Leukocyte Esterase Negative Negative /uL Urine RBC 3 0 - 3 /hpf Urine Microscopic WBC < 1 0-3 /HPF Urine Squamous Epithelial Cells Few <5 /hpf Urine Bacteria None seen None Seen /hpf Urine Glucose Normal Normal mg/dL White Blood Count 9.0 4.4-10.8 10^3/uL Red Blood Count 4.41 L 4.5-5.90 10^6/uL Hemoglobin 13.4 L 13.5-17.5 g/dL Hematocrit 40.3 L 41.0-53.0 % Mean Corpuscular Volume 91.3 80.0-100.0 fL Mean Corpuscular Hemoglobin 30.3 28.0-32.0 pg Mean Corpuscular Hemoglobin Concent 33.2 32.0-36.0 g/dL Red Cell Distribution Width 17.2 H 11.8-14.3 % Platelet Count 185 140-450 10^3/uL Mean Platelet Volume 8.0 6.9-10.8 fL Neutrophils (%) (Auto) 85.2 H 37.0-80.0 % Lymphocytes (%) (Auto) 5.3 L 10.0-50.0 % Monocytes (%) (Auto) 6.3 0.0-12.0 % Eosinophils (%) (Auto) 2.9 0.0-7.0 % Basophils (%) (Auto) 0.3 0.0-2.0 % Neutrophils # (Auto) 7.7 1.6-8.6 10 ^3/uL Lymphocytes # (Auto) 0.5 0.4-5.4 10 ^3/uL Monocytes # (Auto) 0.6 0-1.3 10 ^3/uL Eosinophils # (Auto) 0.3 0-0.8 10 ^3/uL Basophils # (Auto) 0 0-0.2 10 ^3/uL Nucleated Red Blood Cells 0.0 % Erythrocyte Sedimentation Rate 10 0-20 mm/hr Sodium Level 139 136-145 mmol/L Potassium Level 3.9 3.5-5.1 mmol/L Chloride Level 99 98-107 mmol/L Carbon Dioxide Level 32 H 20-31 mmol/L Anion Gap 8 5-15 Blood Urea Nitrogen 12 9-23 mg/dL Creatinine 0.73 0.700-1.30 mg/dL Glomerular Filtration Rate Calc 100 >90 mL/min BUN/Creatinine Ratio 16.4 10.0-20.0 Serum Glucose 112 H 74-106 mg/dL Lactic Acid Level 1.1 0.4-2.0 mmol/L Calcium Level 9.0 8.7-10.4 mg/dL B-Type Natriuretic Peptide 419.68 0-100 pg/mL Assessment Persistent atrial fibrillation with rapid ventricular rate, now rate controlled (on Eliquis) 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 disease 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 Briceño) Continue rate control with Cardizem p.o. as well as therapeutic Lovenox. Transition to Eliquis therapy when appropriate ([id number] Score 6 points. HAS-BLED Score 1 point). Initiate single-antiplatelet therapy and lipid lowering agent given history of PAD with stent placement. Cardiac stable at this time. Follow up with primary inspector outside steam distribution in the outpatient setting as scheduled. There is no further cardiac workup indicated at this time. Kindly call if you need of further recommendations. Thank you for allowing us to participate in this patient's care. Please call if you have any questions or concerns. This medical document was created using an electronic medical record system with voice recognition software and computerized dictation system. Although this document has been carefully reviewed, there might still be some phonetic and typographical errors. Occasional wrong-word or ``sound-alike substitutions may have occurred due to the inherent limitations of voice recognition software. These areas are purely typographical due to imperfections of the software programs and do not reflect any compromise in the patient's medical care. Please read the chart carefully and recognize, using context, where these substitutions have occurred. Plan discussed with: Patient, Other NYHA Physical activity limitations: NA Date of Service: Oct 06, 2025 Billing Provider: JUANI MERCHANT Cardiology Common Codes: 33412-HJCBRFZ INP/OBS CARE (High) JUANI MERCHANT Oct 06, 2025 14:41
[2025-10-06] MEDS: ACETAMINOPHEN 325 MG TAB PO PRN (15:17)
[2025-10-06] MEDS: InsuLIN REG 1unit/0.01ml Soln (100units/ml) SC SCH ×2 (16:49→22:37)
[2025-10-06] MEDS: ACCU-CHEK COMFORT CURVE STRIP VI SCH (17:08)
--- NOTE | 2025-10-06 17:55 | DVH ---
CHEST RADIOGRAPH Indication: CHF Technique: Single frontal view of the chest was obtained Comparison: XY CHEST PORTABLE on DOS: 08/18/25, XY CHEST PORTABLE on DOS: 07/12/25, XY CHEST PORTABLE on DOS: 06/06/25 FINDINGS: Lines and Tubes: None Lungs: No focal consolidation. Pleura: No effusion. No pneumothorax. Cardiomediastinal contours: Stable cardiomegaly without significant change in the appearance of the interstitial findings or pulmonary vascularity. Possibility of a cardiomyopathy or pericardial effusion is raised. Bones: No acute osseous abnormality. IMPRESSION: 1. Stable cardiomegaly. Question of a pericardial effusion or cardiomyopathy is raised.
[2025-10-06 19:35] VITALS: PULSE 77; RESP 21; O2SAT 95
[2025-10-06 21:20] VITALS: BP 110/68; PULSE 78; RESP 16; TEMP 97.5; O2SAT 97
[2025-10-06] MEDS ORDERED: ENOXAPARIN SOD 100 MG/1 ML SYRINGE SC SCH (22:00)
[2025-10-06] MEDS: ATORVASTATIN 20 MG TAB PO SCH (22:16)
[2025-10-06] MEDS: ENOXAPARIN SOD 150 MG/1 ML SYRINGE SC SCH (22:36)
[2025-10-06 22:56] VITALS: PULSE 75; PULSE 78; RESP 16; O2SAT 97
[2025-10-07] VITALS (8 sets, daily range): BP systolic 102–134; BP diastolic 63–86; PULSE 60–85; RESP 12–20; TEMP 97.3–98.1; O2SAT 94–98
--- NOTE | 2025-10-07 00:03 | DVHINCON2 ---
Date Seen: Oct 06, 2025 Referring Physician MD Amairani Reason for Consultation A-fib History of Present Illness This is a 65-year-old man with a past medical history includes atrial fibrillation on Eliquis therapy, congestive heart failure with preserved EF, history of nonsustained ventricular tachycardia, peripheral vascular disease status post ASSISTANT PROGRAM DIRECTOR with stent placement to the right femoral artery on plavix and statin, hypertension, dyslipidemia, history of cerebrovascular accident in 2014, COPD, bilateral lower extremity cellulitis, tobacco use including 50 pack years, alcohol use, and obesity who presented to the emergency room via EMS from [facility] for a complaint of an allergic reaction. The patient reports a sudden onset of a rash over his chest area as well as redness to bilateral lower extremities. Denies chest pain, palpitations, diaphoresis, SOB, dizziness, or syncopal events. During admission to the emergency room he developed atrial fibrillation (known history) with rapid ventricular rate for which he was initiated on a Cardizem drip. At time of assessment, the patient was in an atrial fibrillation rhythm at a controlled rate. Patient was admitted to the hospital. I am asked to consult on this patient. Past Medical History Past medical history reviewed. No other significant than mentioned above. Past Surgical History PTCA with a stent placement of the right femoral artery, 11/2024 Family History: Diabetes mellitus G8 MOTHER G8 BROTHER G8 BROTHER FH: heart disease G8 BROTHER G8 SISTER Prostate problems G8 FATHER Allergies: Coded Allergies: Ceftriaxone (Verified Allergy, Severe, 10/05/25) Home Meds Active Scripts Clopidogrel Bisulfate (CLOPIDOGREL) 75 Mg Tab, 1 TAB PO DAILY for 90 Days, #90 TAB 1 Refill Prov:ERASTO MICHELE RESIDENT 07/14/25 Potassium Chloride (Potassium Chloride ER) 10 Meq Tab, 10 MEQ PO DAILY for 30 Days, #30 TAB 3 Refills Prov:NEGRA CARLSON MD 06/10/25 Trazodone Hcl (Trazodone Hcl) 50 Mg Tab, 50 MG PO HS for 30 Days, #30 TAB 1 Refill Prov:BELKIS ANTONY NP 11/22/24 Furosemide (Furosemide) 20 Mg Tab, 1 TAB PO DAILY, #30 TAB 5 Refills Prov:YAZMIN FONSECA RESIDENT 11/01/24 Empagliflozin (Jardiance) 10 Mg Tab, 10 MG PO DAILY for 30 Days, #30 TAB Prov:YAZMIN FONSECA RESIDENT 11/01/24 Reported Medications Simvastatin (Simvastatin) 20 Mg Tab, 1 TAB PO HS for 90 Days, #90 07/14/25 Citalopram Hydrobromide (Citalopram Hydrobromide) 20 Mg Tab, 1 TAB PO DAILY for 90 Days, #90 07/14/25 Apixaban Base (ELIQUIS) 5 Mg Tab, 1 TAB PO BID for 30 Days, #60 07/14/25 Carvedilol (Carvedilol) 3.125 Mg Tab, 1 TAB PO BID for 90 Days, #180 07/14/25 Lisinopril (Lisinopril) 5 Mg Tab, 1 TAB PO DAILY for 90 Days, #90 07/13/25 Umeclidinium-Vilanterol (Anoro Ellipta 62.5-25 Mcg/INH) 1 Aer Aer, 1 PUFF IN DAILY for 30 Days, #60 10/28/24 Multiple Vitamins W/ Minerals (Centrum Silver) Silver Chw, 1 OR, TAB.CHEW 10/28/24 Nicotine Polacrilex (Nicotine Mini Lozenge) 4 Mg Christi, 4 MG MT, CHRISTI 10/28/24 Ergocalciferol (VITAMIN D 87592 UNIT) 50,000 [place], [address] UNIT PO Weekly, CAP 10/28/24 Tamsulosin Hcl (Tamsulosin Hcl) 0.4 Mg Cap, 1 CAP PO DAILY 10/28/24 Current Medications Current Medications Medications (Trade) Dose Ordered Sig/Audrey Route PRN Reason Start Time Stop Time Status Last Admin Sodium Chloride (Saline Lock Ns) 10 ml Q8HR IV 10/06/25 06:00 10/06/25 14:13 Acetaminophen/ Hydrocodone Bitart ([place] 5/325MG Tab) 1 tab Q4HP PRN PO MODERATE PAIN (4-6 PAIN SCALE) 10/06/25 01:15 Enoxaparin Sodium (Lovenox) 40 mg DAILY SC 10/06/25 10:00 10/06/25 14:41 DC 10/06/25 10:09 Acetaminophen (Tylenol Tablet) 650 mg Q6HP PRN PO PAIN SCALE 1-3 OR TEMP>100.4 10/06/25 01:15 10/06/25 15:17 Morphine Sulfate 2 mg Q4HPRN PRN IV SEVERE PAIN (7-10 PAIN SCALE) 10/06/25 01:15 Nitroglycerin (Ntrostat Sublingual) 0.4 mg Q5MINP PRN SL FOR CHEST PAIN 10/06/25 01:15 Morphine Sulfate 2 mg Q30M PRN IV FOR CHEST PAIN 10/06/25 01:15 Diltiazem HCl 100 ml @ 5 mls/hr Q20H IV 10/06/25 11:00 10/06/25 15:30 DC 10/06/25 11:15 Diagnostic Test (Pha) (Accu-Chek Comfort Curve T) 1 strip ACHS 10/06/25 17:00 10/06/25 17:08 Insulin Human Regular (InsuLIN R) HS SC 10/06/25 22:00 Insulin Human Regular (InsuLIN R) AC SC 10/06/25 17:00 10/06/25 16:49 Dextrose 50 ml UD PRN IV Blood Sugar LESS THAN 60 10/06/25 13:15 Insulin Glargine (Lantus) 10 units DAILY@1000 SC 10/07/25 10:00 Diltiazem HCl (Cardizem Immediate Release Tab) 60 mg Q8HR PO 10/06/25 22:00 Enoxaparin Sodium (Lovenox) 170 mg Q12HR SC 10/06/25 22:00 10/06/25 15:05 DC Enoxaparin Sodium (Lovenox) 150 mg Q12HR SC 10/06/25 22:00 Clopidogrel Bisulfate (Plavix) 75 mg DAILY PO 10/07/25 10:00 Atorvastatin Calcium (Lipitor) 40 mg HS PO 10/06/25 22:00 Review of Systems Constitutional: No symptom reported Ears, Nose, & Throat: No symptom reported Eyes: No symptom reported Neurological: No symptoms reported Pulmonary/Respiratory: No symptom reported Cardiovascular: No symptom reported Gastrointestinal: No symptom reported Genitourinary: No symptom reported Musculoskeletal: No symptom reported Skin: Chest wall rash, bilateral lower extremity erythema Psychiatric: No symptom reported Endocrine: No symptom reported Hemotologic/Lymphatic: No symptom reported Vital Signs Vital Signs Date Time Temp Pulse Resp B/P (MAP) Pulse Ox O2 Delivery O2 Flow Rate FiO2 10/06/25 16:30 75 17 91/54 (66) 97 10/06/25 07:56 Nasal Cannula* 2 28 10/06/25 07:56 97.5 97.5 Physical Exam GENERAL: Alert and oriented x 3. No acute distress. EYES: PERRL, EOMI. Anicteric. HENT: Moist mucous membranes. LUNGS: Clear to auscultation bilaterally. CARDIOVASCULAR: Regular rate and rhythm. ABDOMEN: Soft, nontender and nondistended. EXTREMITIES: No edema. NEUROLOGIC: No focal neurological deficits. SKIN: Warm, dry. Labs/Diagnostic Data Labs Test 10/06/25 16:33 10/05/25 23:04 10/05/25 22:43 Range/Units POC Glucose 279 H 70-106 mg/dl Urine Color Light-yellow Yellow Urine Clarity Clear Clear Urine pH 5.0 5.0-9.0 Urine Specific [place] 1.011 1.001-1.035 Urine Protein Negative Negative Urine Ketones Negative Negative Urine Blood Negative Negative /uL Urine Nitrite Negative Negative Urine Bilirubin Negative Negative Urine Urobilinogen Normal Negative mg/dL Urine Leukocyte Esterase Negative Negative /uL Urine RBC 3 0 - 3 /hpf Urine Microscopic WBC < 1 0-3 /HPF Urine Squamous Epithelial Cells Few <5 /hpf Urine Bacteria None seen None Seen /hpf Urine Glucose Normal Normal mg/dL White Blood Count 9.0 4.4-10.8 10^3/uL Red Blood Count 4.41 L 4.5-5.90 10^6/uL Hemoglobin 13.4 L 13.5-17.5 g/dL Hematocrit 40.3 L 41.0-53.0 % Mean Corpuscular Volume 91.3 80.0-100.0 fL Mean Corpuscular Hemoglobin 30.3 28.0-32.0 pg Mean Corpuscular Hemoglobin Concent 33.2 32.0-36.0 g/dL Red Cell Distribution Width 17.2 H 11.8-14.3 % Platelet Count 185 140-450 10^3/uL Mean Platelet Volume 8.0 6.9-10.8 fL Neutrophils (%) (Auto) 85.2 H 37.0-80.0 % Lymphocytes (%) (Auto) 5.3 L 10.0-50.0 % Monocytes (%) (Auto) 6.3 0.0-12.0 % Eosinophils (%) (Auto) 2.9 0.0-7.0 % Basophils (%) (Auto) 0.3 0.0-2.0 % Neutrophils # (Auto) 7.7 1.6-8.6 10 ^3/uL Lymphocytes # (Auto) 0.5 0.4-5.4 10 ^3/uL Monocytes # (Auto) 0.6 0-1.3 10 ^3/uL Eosinophils # (Auto) 0.3 0-0.8 10 ^3/uL Basophils # (Auto) 0 0-0.2 10 ^3/uL Nucleated Red Blood Cells 0.0 % Erythrocyte Sedimentation Rate 10 0-20 mm/hr Sodium Level 139 136-145 mmol/L Potassium Level 3.9 3.5-5.1 mmol/L Chloride Level 99 98-107 mmol/L Carbon Dioxide Level 32 H 20-31 mmol/L Anion Gap 8 5-15 Blood Urea Nitrogen 12 9-23 mg/dL Creatinine 0.73 0.700-1.30 mg/dL Glomerular Filtration Rate Calc 100 >90 mL/min BUN/Creatinine Ratio 16.4 10.0-20.0 Serum Glucose 112 H 74-106 mg/dL Lactic Acid Level 1.1 0.4-2.0 mmol/L Calcium Level 9.0 8.7-10.4 mg/dL B-Type Natriuretic Peptide 419.68 0-100 pg/mL Assessment Persistent atrial fibrillation with rapid ventricular rate, now rate controlled (on Eliquis). 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 disease status post ASSISTANT PROGRAM DIRECTOR with stent placement (on Plavix/statin). Chronic compensated HFpEF. Hypertension. Dyslipidemia. HX of CVA. BLE cellulitis. Nicotine dependence. Alcohol use. Obesity. Plan/Recommendation I agree with your ongoing assessment and care of plan. Patient has been seen by Tracy Garcia NP on my behalf, her and I discussed the plan with the patient. Echocardiogram (06/07/2025) revealed an LVEF of 60% with normal RV function and LAE (see full dictated report). Coronary angiogram with cardiac catheterization (10/30/2024) revealed mild nonobstructive coronary artery disease (see full dictated report). Peripheral angiogram (11/21/2024) revealed right femoral artery balloon angioplasty followed by single stent placement (see full dictated report). Continue rate control with Cardizem p.o. as well as therapeutic Lovenox. Transition to Eliquis therapy when appropriate ([id number] Score 6 points. HAS-BLED Score 1 point). Initiate single-antiplatelet therapy and lipid lowering agent given history of PAD with stent placement. Cardiac stable at this time. Follow up with primary human resources designate in the outpatient setting as scheduled. There is no further cardiac workup indicated at this time. Additional plan as per the hospital course. Plan discussed with: Patient NYHA Physical activity limitations: NA Date of Service: Oct 06, 2025 Billing Provider: EJ CARDOSO MD Cardiology Common Codes: 92764-[id number] INP/OBS CARE (High) Cardiology Consultation Codes: [id number] CONSULT <45MIN EJ CARDOSO MD Oct 06, 2025 17:14
[2025-10-07 06:02] LABS: Hematocrit 35.0 % (41.0-53.0); Hemoglobin 11.6 g/dL (13.5-17.5); Mean Corpuscular Hemoglobin 30.4 pg (28.0-32.0); Mean Corpuscular Volume 91.2 fL (80.0-100.0); Nucleated Red Blood Cells % 0.1 %
[2025-10-07 06:26] LABS: Alanine Aminotransferase 13 U/L (7-40); Anion Gap 7 (5-15); BUN/Creatinine Ratio 31.6 (10.0-20.0); Chloride 99 mmol/L (98-107); Potassium 4.1 mmol/L (3.5-5.1); Sodium 139 mmol/L (136-145); Total Protein 6.0 g/dL (5.7-8.2)
[2025-10-07 06:27] LABS: Albumin 3.4 g/dL (3.2-4.8); Bilirubin, Total 0.8 mg/dL (0.2-1.0)
[2025-10-07 06:28] LABS: Alkaline Phosphatase 132 U/L (46-116); Blood Urea Nitrogen 31 mg/dL (9-23); Calcium 8.6 mg/dL (8.7-10.4); Carbon Dioxide 33 mmol/L (20-31); Glucose 164 mg/dL (74-106)
[2025-10-07] MEDS: INSULIN LANTUS (GLARGINE) 1 /0.01ml (100units/ml) SC SCH (10:56)
[2025-10-07] MEDS: CLOPIDOGREL BISULFATE 75 MG TAB PO SCH (10:57)
--- NOTE | 2025-10-07 23:39 | DVHPN2 ---
Progress Note - Dictate Date Seen: Oct 07, 2025 Medical Necessity Reason Pt with a Central, PICC or Fol: No Subjective Patient was seen and evaluated in follow up. Patient is on 2 LPM NC. WBC 11.2, CO2 33, BUN 31, CA 8.6. Prelim blood cultures are negative. vital signs Vital Sign Date Time Temp Pulse Resp B/P (MAP) Pulse Ox O2 Delivery O2 Flow Rate FiO2 10/07/25 16:26 97.8 76 18 134/86 (102) 98 97.8 10/07/25 07:56 Nasal Cannula* 2 28 Total Intake and Output 10/06/25 10/06/25 10/07/25 15:00 23:00 07:00 Intake Total 300 ml Balance 300 ml medications Current Medications Medications Dose Ordered Sig/Audrey Route Start Time Stop Time Status Last Admin Dose Admin Sodium Chloride 10 ml Q8HR IV 10/06/25 06:00 10/07/25 13:29 10 ML Acetaminophen/ Hydrocodone Bitart 1 tab Q4HP PRN PO 10/06/25 01:15 Acetaminophen 650 mg Q6HP PRN PO 10/06/25 01:15 10/07/25 06:30 650 MG Morphine Sulfate 2 mg Q4HPRN PRN IV 10/06/25 01:15 Nitroglycerin 0.4 mg Q5MINP PRN SL 10/06/25 01:15 Morphine Sulfate 2 mg Q30M PRN IV 10/06/25 01:15 Diagnostic Test (Pha) 1 strip ACHS 10/06/25 17:00 10/07/25 16:21 1 STRIP Insulin Human Regular HS SC 10/06/25 22:00 10/06/25 22:37 4 UNITS Insulin Human Regular AC SC 10/06/25 17:00 10/07/25 10:56 3 UNITS Dextrose 50 ml UD PRN IV 10/06/25 13:15 Insulin Glargine 10 units DAILY@1000 SC 10/07/25 10:00 10/07/25 10:56 10 UNITS Diltiazem HCl 60 mg Q8HR PO 10/06/25 22:00 10/07/25 13:31 60 MG Enoxaparin Sodium 150 mg Q12HR SC 10/06/25 22:00 10/07/25 10:58 150 MG Clopidogrel Bisulfate 75 mg DAILY PO 10/07/25 10:00 10/07/25 10:57 75 MG Atorvastatin Calcium 40 mg HS PO 10/06/25 22:00 10/06/25 22:16 40 MG objective GENERAL: Alert and oriented x 3. No acute distress. EYES: PERRL, EOMI. Anicteric. HENT: Moist mucous membranes. LUNGS: Clear to auscultation bilaterally. CARDIOVASCULAR: Regular rate and rhythm. ABDOMEN: Soft, nontender and nondistended. EXTREMITIES: No edema. NEUROLOGIC: No focal neurological deficits. SKIN: Warm, dry. laboratory and microbiology Laboratory Tests 10/07/25 04:50 Test 10/07/25 04:50 Range/Units Serum Glucose 164 H 74-106 mg/dL Problem List Persistent atrial fibrillation with rapid ventricular rate, now rate controlled (on Eliquis). 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 disease status post PAPERBOARD BOXES ESTIMATOR with stent placement (on Plavix/statin). Chronic compensated HFpEF. Hypertension. Dyslipidemia. HX of CVA. BLE cellulitis. Nicotine dependence. Alcohol use. Obesity. Assessment/Plan Continued all current supportive medical care. Morphine and [place] for pain management. Lipitor, Plavix. Cardizem. DVT prophylactics. Nitro SL. Additional plan as per the hospital course. Plan discussed with: Patient EJ CARDOSO MD Oct 07, 2025 17:47
[2025-10-08] VITALS (8 sets, daily range): BP systolic 142–157; BP diastolic 90–111; PULSE 66–108; RESP 17–20; TEMP 97.4–98; O2SAT 94–99
[2025-10-08] MEDS: MUPIROCIN 2% OINT 15gm or 22gm FOR MRSA NARES EACHNOSTRI SCH (21:34)
--- NOTE | 2025-10-08 22:45 | DVHPN2 ---
Progress Note Date Seen: Oct 08, 2025 Medical Necessity Reason Pt with a Central, PICC or Fol: No Objective vital signs Vital Sign Date Time Temp Pulse Resp B/P (MAP) Pulse Ox O2 Delivery O2 Flow Rate FiO2 10/08/25 21:24 70 143/111 10/08/25 21:00 98.0 17 94 98.0 10/08/25 20:00 Nasal Cannula* 2 28 Total Intake and Output 10/07/25 10/07/25 10/08/25 15:00 23:00 07:00 Intake Total 500 ml 800 ml Balance 500 ml 800 ml medications Current Medications Medications Dose Ordered Sig/Audrey Route Start Time Stop Time Status Last Admin Dose Admin Sodium Chloride 10 ml Q8HR IV 10/06/25 06:00 10/08/25 21:34 10 ML Acetaminophen/ Hydrocodone Bitart 1 tab Q4HP PRN PO 10/06/25 01:15 Acetaminophen 650 mg Q6HP PRN PO 10/06/25 01:15 10/07/25 06:30 650 MG Morphine Sulfate 2 mg Q4HPRN PRN IV 10/06/25 01:15 Nitroglycerin 0.4 mg Q5MINP PRN SL 10/06/25 01:15 Morphine Sulfate 2 mg Q30M PRN IV 10/06/25 01:15 Diagnostic Test (Pha) 1 strip ACHS 10/06/25 17:00 10/08/25 21:09 1 STRIP Insulin Human Regular HS SC 10/06/25 22:00 10/07/25 21:28 2 UNITS Insulin Human Regular AC SC 10/06/25 17:00 10/07/25 10:56 3 UNITS Dextrose 50 ml UD PRN IV 10/06/25 13:15 Insulin Glargine 10 units DAILY@1000 SC 10/07/25 10:00 10/08/25 11:05 10 UNITS Diltiazem HCl 60 mg Q8HR PO 10/06/25 22:00 10/08/25 21:24 60 MG Enoxaparin Sodium 150 mg Q12HR SC 10/06/25 22:00 10/08/25 21:25 150 MG Clopidogrel Bisulfate 75 mg DAILY PO 10/07/25 10:00 10/08/25 11:10 75 MG Atorvastatin Calcium 40 mg HS PO 10/06/25 22:00 10/08/25 21:24 40 MG Mupirocin 1 applic BID EACHNOSTRI 10/08/25 22:00 10/13/25 21:59 laboratory and microbiology Laboratory Tests 10/07/25 04:50 Test 10/07/25 04:50 Range/Units Serum Glucose 164 H 74-106 mg/dL Microbiology Date/Time Source Procedure Growth Status 10/07/25 09:40 Nose MRSA Screen - Final Methicillin Resistant S.aureus Complete 10/05/25 22:45 Blood Blood Culture - Preliminary NO GROWTH AFTER 48 HOURS OF INCUBATION. Resulted Labs and/or images reviewed: Labs reviewed by me, Image(s) reviewed by me Problem List/Assessment/Plan Problem List/Assessment/Plan Generalized weakness Rash Allergic reactio Persistent atrial fibrillation with rapid ventricular rate, now rate controlled (on Eliquis). 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 disease status post FURNACE CLERK with stent placement (on Plavix/statin). Chronic compensated HFpEF. Hypertension. Dyslipidemia. HX of CVA. BLE cellulitis. Nicotine dependence. Alcohol use. Obesity admitted to med/surg consult to cardiology reconcile with home meds continue with current tx pain control Plan discussed with: Patient My Orders My Orders Orders - YUSEF FLOWERS DO Procedure Category Date Status Time Mupirocin 2% Oint PHA 10/08/25 In Process Mrsa Nares (Bactroban 22:00 YUSEF FLOWERS DO Oct 08, 2025 22:45
--- NOTE | 2025-10-08 22:45 | DVHPN2 ---
Progress Note Date Seen: Oct 07, 2025 Medical Necessity Reason Pt with a Central, PICC or Fol: No Objective vital signs Vital Sign Date Time Temp Pulse Resp B/P (MAP) Pulse Ox O2 Delivery O2 Flow Rate FiO2 10/08/25 21:24 70 143/111 10/08/25 21:00 98.0 17 94 98.0 10/08/25 20:00 Nasal Cannula* 2 28 Total Intake and Output 10/07/25 10/07/25 10/08/25 15:00 23:00 07:00 Intake Total 500 ml 800 ml Balance 500 ml 800 ml medications Current Medications Medications Dose Ordered Sig/Audrey Route Start Time Stop Time Status Last Admin Dose Admin Sodium Chloride 10 ml Q8HR IV 10/06/25 06:00 10/08/25 21:34 10 ML Acetaminophen/ Hydrocodone Bitart 1 tab Q4HP PRN PO 10/06/25 01:15 Acetaminophen 650 mg Q6HP PRN PO 10/06/25 01:15 10/07/25 06:30 650 MG Morphine Sulfate 2 mg Q4HPRN PRN IV 10/06/25 01:15 Nitroglycerin 0.4 mg Q5MINP PRN SL 10/06/25 01:15 Morphine Sulfate 2 mg Q30M PRN IV 10/06/25 01:15 Diagnostic Test (Pha) 1 strip ACHS 10/06/25 17:00 10/08/25 21:09 1 STRIP Insulin Human Regular HS SC 10/06/25 22:00 10/07/25 21:28 2 UNITS Insulin Human Regular AC SC 10/06/25 17:00 10/07/25 10:56 3 UNITS Dextrose 50 ml UD PRN IV 10/06/25 13:15 Insulin Glargine 10 units DAILY@1000 SC 10/07/25 10:00 10/08/25 11:05 10 UNITS Diltiazem HCl 60 mg Q8HR PO 10/06/25 22:00 10/08/25 21:24 60 MG Enoxaparin Sodium 150 mg Q12HR SC 10/06/25 22:00 10/08/25 21:25 150 MG Clopidogrel Bisulfate 75 mg DAILY PO 10/07/25 10:00 10/08/25 11:10 75 MG Atorvastatin Calcium 40 mg HS PO 10/06/25 22:00 10/08/25 21:24 40 MG Mupirocin 1 applic BID EACHNOSTRI 10/08/25 22:00 10/13/25 21:59 Examination: GENERAL:Normal, HEENT:Normal, NECK:Normal, LUNGS:Normal laboratory and microbiology Laboratory Tests 10/07/25 04:50 Test 10/07/25 04:50 Range/Units Serum Glucose 164 H 74-106 mg/dL Microbiology Date/Time Source Procedure Growth Status 10/07/25 09:40 Nose MRSA Screen - Final Methicillin Resistant S.aureus Complete 10/05/25 22:45 Blood Blood Culture - Preliminary NO GROWTH AFTER 48 HOURS OF INCUBATION. Resulted Labs and/or images reviewed: Labs reviewed by me, Image(s) reviewed by me Problem List/Assessment/Plan Problem List/Assessment/Plan Generalized weakness Rash Allergic reactio Persistent atrial fibrillation with rapid ventricular rate, now rate controlled (on Eliquis). 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 Chronic compensated HFpEF. Hypertension. Dyslipidemia. HX of CVA. BLE cellulitis. Nicotine dependence. Alcohol use. Obesity admitted to med/surg consult to cardiology reconcile with home meds continue with current tx pain control Plan discussed with: Patient My Orders My Orders Orders - YUSEF FLOWERS DO Procedure Category Date Status Time Mupirocin 2% Oint PHA 10/08/25 In Process Mrsa Nares (Bactroban 22:00 YUSEF FLOWERS DO Oct 08, 2025 22:45
--- NOTE | 2025-10-08 23:52 | DVHPN2 ---
Progress Note - Dictate Date Seen: Oct 08, 2025 Medical Necessity Reason Pt with a Central, PICC or Fol: No Subjective Patient was seen and evaluated in follow up. Patient is on 2 LPM NC. MRSA returned positive, patient started on Bactroban. BS are WNL. vital signs Vital Sign Date Time Temp Pulse Resp B/P (MAP) Pulse Ox O2 Delivery O2 Flow Rate FiO2 10/08/25 21:24 70 143/111 10/08/25 21:00 98.0 17 94 98.0 10/08/25 20:00 Nasal Cannula* 2 28 Total Intake and Output 10/07/25 10/07/25 10/08/25 15:00 23:00 07:00 Intake Total 500 ml 800 ml Balance 500 ml 800 ml medications Current Medications Medications Dose Ordered Sig/Audrey Route Start Time Stop Time Status Last Admin Dose Admin Sodium Chloride 10 ml Q8HR IV 10/06/25 06:00 10/08/25 21:34 10 ML Acetaminophen/ Hydrocodone Bitart 1 tab Q4HP PRN PO 10/06/25 01:15 Acetaminophen 650 mg Q6HP PRN PO 10/06/25 01:15 10/07/25 06:30 650 MG Morphine Sulfate 2 mg Q4HPRN PRN IV 10/06/25 01:15 Nitroglycerin 0.4 mg Q5MINP PRN SL 10/06/25 01:15 Morphine Sulfate 2 mg Q30M PRN IV 10/06/25 01:15 Diagnostic Test (Pha) 1 strip ACHS 10/06/25 17:00 10/08/25 21:09 1 STRIP Insulin Human Regular HS SC 10/06/25 22:00 10/07/25 21:28 2 UNITS Insulin Human Regular AC SC 10/06/25 17:00 10/07/25 10:56 3 UNITS Dextrose 50 ml UD PRN IV 10/06/25 13:15 Insulin Glargine 10 units DAILY@1000 SC 10/07/25 10:00 10/08/25 11:05 10 UNITS Diltiazem HCl 60 mg Q8HR PO 10/06/25 22:00 10/08/25 21:24 60 MG Enoxaparin Sodium 150 mg Q12HR SC 10/06/25 22:00 10/08/25 21:25 150 MG Clopidogrel Bisulfate 75 mg DAILY PO 10/07/25 10:00 10/08/25 11:10 75 MG Atorvastatin Calcium 40 mg HS PO 10/06/25 22:00 10/08/25 21:24 40 MG Mupirocin 1 applic BID EACHNOSTRI 10/08/25 22:00 10/13/25 21:59 objective GENERAL: Alert and oriented x 3. No acute distress. EYES: PERRL, EOMI. Anicteric. HENT: Moist mucous membranes. LUNGS: Clear to auscultation bilaterally. CARDIOVASCULAR: Regular rate and rhythm. ABDOMEN: Soft, nontender and nondistended. EXTREMITIES: No edema. NEUROLOGIC: No focal neurological deficits. SKIN: Warm, dry. laboratory and microbiology Laboratory Tests 10/07/25 04:50 Test 10/07/25 04:50 Range/Units Serum Glucose 164 H 74-106 mg/dL Problem List Persistent atrial fibrillation with rapid ventricular rate, now rate controlled (on Eliquis). 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 Chronic compensated HFpEF. Hypertension. Dyslipidemia. HX of CVA. BLE cellulitis. Nicotine dependence. Alcohol use. Obesity. Assessment/Plan Continued all current supportive medical care. Morphine and [place] for pain management. Lipitor, Plavix. Cardizem. DVT prophylactics. Nitro SL. Additional plan as per the hospital course. Plan discussed with: Patient EJ CARDOSO MD Oct 08, 2025 23:52
[2025-10-09] VITALS (8 sets, daily range): BP systolic 109–159; BP diastolic 57–101; PULSE 74–109; RESP 8–20; TEMP 97–98.9; O2SAT 91–98
--- NOTE | 2025-10-09 14:16 | DVHPN2 ---
Progress Note - Dictate Date Seen: Oct 09, 2025 Medical Necessity Reason Pt with a Central, PICC or Fol: No Subjective Patient was seen and evaluated in follow up. Patient is on 2 LPM NC. Patient complains of left elbow pain. BS remain WNL. vital signs Vital Sign Date Time Temp Pulse Resp B/P (MAP) Pulse Ox O2 Delivery O2 Flow Rate FiO2 10/09/25 13:55 84 153/105 10/09/25 12:00 97.4 17 98 97.4 10/09/25 08:00 Nasal Cannula* 2 28 Total Intake and Output 10/08/25 10/08/25 10/09/25 15:00 23:00 07:00 Intake Total 100 ml 650 ml Output Total 300 ml 500 ml Balance -200 ml 150 ml medications Current Medications Medications Dose Ordered Sig/Audrey Route Start Time Stop Time Status Last Admin Dose Admin Sodium Chloride 10 ml Q8HR IV 10/06/25 06:00 10/09/25 13:56 10 ML Acetaminophen/ Hydrocodone Bitart 1 tab Q4HP PRN PO 10/06/25 01:15 Acetaminophen 650 mg Q6HP PRN PO 10/06/25 01:15 10/07/25 06:30 650 MG Morphine Sulfate 2 mg Q4HPRN PRN IV 10/06/25 01:15 Nitroglycerin 0.4 mg Q5MINP PRN SL 10/06/25 01:15 Morphine Sulfate 2 mg Q30M PRN IV 10/06/25 01:15 Diagnostic Test (Pha) 1 strip ACHS 10/06/25 17:00 10/09/25 12:00 1 STRIP Insulin Human Regular HS SC 10/06/25 22:00 10/07/25 21:28 2 UNITS Insulin Human Regular AC SC 10/06/25 17:00 10/07/25 10:56 3 UNITS Dextrose 50 ml UD PRN IV 10/06/25 13:15 Insulin Glargine 10 units DAILY@1000 SC 10/07/25 10:00 10/09/25 12:09 10 UNITS Diltiazem HCl 60 mg Q8HR PO 10/06/25 22:00 10/09/25 13:55 60 MG Clopidogrel Bisulfate 75 mg DAILY PO 10/07/25 10:00 10/09/25 12:08 75 MG Atorvastatin Calcium 40 mg HS PO 10/06/25 22:00 10/08/25 21:24 40 MG Mupirocin 1 applic BID EACHNOSTRI 10/08/25 22:00 10/13/25 21:59 10/09/25 12:08 1 APPLIC Enoxaparin Sodium 80 mg Q12HR SC 10/10/25 10:00 Carvedilol 3.125 mg Q12HR PO 10/09/25 22:00 UNV Lisinopril 10 mg DAILY PO 10/10/25 10:00 UNV Trazodone HCl 50 mg HS PO 10/09/25 22:00 UNV Apixaban 5 mg BID PO 10/09/25 22:00 UNV objective GENERAL: Alert and oriented x 3. No acute distress. EYES: PERRL, EOMI. Anicteric. HENT: Moist mucous membranes. LUNGS: Clear to auscultation bilaterally. CARDIOVASCULAR: Regular rate and rhythm. ABDOMEN: Soft, nontender and nondistended. EXTREMITIES: No edema. NEUROLOGIC: No focal neurological deficits. SKIN: Warm, dry. laboratory and microbiology Laboratory Tests 10/07/25 04:50 Test 10/07/25 04:50 Range/Units Serum Glucose 164 H 74-106 mg/dL Problem List Persistent atrial fibrillation with rapid ventricular rate, now rate controlled (on Eliquis). 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 disease status post CITY CLERK with stent placement (on Plavix/statin). Chronic compensated HFpEF. Hypertension. Dyslipidemia. HX of CVA. BLE cellulitis. Nicotine dependence. Alcohol use. Obesity. Assessment/Plan Continued all current supportive medical care. Morphine and [place] for pain management. Plavix. Cardizem. DVT prophylactics. Nitro SL. Coreg, Lisinopril. Eliquis. Additional plan as per the hospital course. Plan discussed with: Patient EJ CARDOSO MD Oct 09, 2025 14:03
[2025-10-09] MEDS: CARVEDILOL 3.125 MG TAB PO SCH (21:17)
[2025-10-09] MEDS ORDERED: APIXABAN 5 MG TAB PO SCH (22:00)
[2025-10-10] VITALS (8 sets, daily range): BP systolic 143–160; BP diastolic 90–114; PULSE 65–87; RESP 16–19; TEMP 97.4–97.8; O2SAT 96–100
[2025-10-10] MEDS ORDERED: ENOXAPARIN SOD 80 MG/0.8ML SYRINGE SC SCH (10:00)
--- NOTE | 2025-10-10 11:43 | DVHPN2 ---
Progress Note Date Seen: Oct 09, 2025 Medical Necessity Reason Pt with a Central, PICC or Fol: No Objective vital signs Vital Sign Date Time Temp Pulse Resp B/P (MAP) Pulse Ox O2 Delivery O2 Flow Rate FiO2 10/10/25 08:57 97.4 73 18 160/114 (129) 98 97.4 10/09/25 20:00 Nasal Cannula* 2 28 Total Intake and Output 10/09/25 10/09/25 10/10/25 15:00 23:00 07:00 Intake Total 680 ml 1040 ml Output Total 200 ml Balance 680 ml 840 ml medications Current Medications Medications Dose Ordered Sig/Audrey Route Start Time Stop Time Status Last Admin Dose Admin Sodium Chloride 10 ml Q8HR IV 10/06/25 06:00 10/10/25 05:49 10 ML Acetaminophen/ Hydrocodone Bitart 1 tab Q4HP PRN PO 10/06/25 01:15 Acetaminophen 650 mg Q6HP PRN PO 10/06/25 01:15 10/09/25 21:17 650 MG Morphine Sulfate 2 mg Q4HPRN PRN IV 10/06/25 01:15 Nitroglycerin 0.4 mg Q5MINP PRN SL 10/06/25 01:15 Morphine Sulfate 2 mg Q30M PRN IV 10/06/25 01:15 Diagnostic Test (Pha) 1 strip ACHS 10/06/25 17:00 10/10/25 06:03 1 STRIP Insulin Human Regular HS SC 10/06/25 22:00 10/07/25 21:28 2 UNITS Insulin Human Regular AC SC 10/06/25 17:00 10/07/25 10:56 3 UNITS Dextrose 50 ml UD PRN IV 10/06/25 13:15 Insulin Glargine 10 units DAILY@1000 SC 10/07/25 10:00 10/09/25 12:09 10 UNITS Diltiazem HCl 60 mg Q8HR PO 10/06/25 22:00 10/10/25 05:49 60 MG Clopidogrel Bisulfate 75 mg DAILY PO 10/07/25 10:00 10/09/25 12:08 75 MG Atorvastatin Calcium 40 mg HS PO 10/06/25 22:00 10/09/25 21:16 40 MG Mupirocin 1 applic BID EACHNOSTRI 10/08/25 22:00 10/13/25 21:59 10/09/25 21:18 1 APPLIC Carvedilol 3.125 mg Q12HR PO 10/09/25 22:00 10/09/25 21:17 3.125 MG Lisinopril 10 mg DAILY PO 10/10/25 10:00 Trazodone HCl 50 mg HS PO 10/09/25 22:00 10/09/25 21:16 50 MG Apixaban 5 mg BID PO 10/10/25 10:00 Examination: GENERAL:Normal, HEENT:Normal, NECK:Normal, LUNGS:Normal laboratory and microbiology Laboratory Tests 10/07/25 04:50 Test 10/07/25 04:50 Range/Units Serum Glucose 164 H 74-106 mg/dL Microbiology Date/Time Source Procedure Growth Status 10/07/25 09:40 Nose MRSA Screen - Final Methicillin Resistant S.aureus Complete 10/05/25 22:45 Blood Blood Culture - Preliminary NO GROWTH AFTER 72 HOURS OF INCUBATION. Resulted Labs and/or images reviewed: Labs reviewed by me, Image(s) reviewed by me Problem List/Assessment/Plan Problem List/Assessment/Plan Generalized weakness Rash Allergic reactio Persistent atrial fibrillation with rapid ventricular rate, now rate controlled (on Eliquis). 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 disease status post ACTIVE DIRECTORY ARCHITECT with stent placement (on Plavix/statin). Chronic compensated HFpEF. Hypertension. Dyslipidemia. HX of CVA. BLE cellulitis. Nicotine dependence. Alcohol use. Obesity admitted to med/surg consult to cardiology reconcile with home meds continue with current tx pain control Plan discussed with: Patient My Orders My Orders Orders - YUSEF FLOWERS DO Procedure Category Date Status Time Carvedilol Tablet PHA 10/09/25 In Process (Coreg Tablet) 22:00 Lisinopril Tablet PHA 10/10/25 In Process (Zestril Tablet) 10:00 Trazodone Hcl PHA 10/09/25 In Process (Desyrel) 22:00 Apixaban (Eliquis) PHA 10/10/25 In Process 10:00 Tamsulosin PHA 10/10/25 Logged Hydrochloride (Flomax) 18:00 YUSEF FLOWERS DO Oct 10, 2025 11:43
--- NOTE | 2025-10-10 11:43 | DVHPN2 ---
Progress Note Date Seen: Oct 10, 2025 Medical Necessity Reason Pt with a Central, PICC or Fol: No Objective vital signs Vital Sign Date Time Temp Pulse Resp B/P (MAP) Pulse Ox O2 Delivery O2 Flow Rate FiO2 10/10/25 08:57 97.4 73 18 160/114 (129) 98 97.4 10/09/25 20:00 Nasal Cannula* 2 28 Total Intake and Output 10/09/25 10/09/25 10/10/25 15:00 23:00 07:00 Intake Total 680 ml 1040 ml Output Total 200 ml Balance 680 ml 840 ml medications Current Medications Medications Dose Ordered Sig/Audrey Route Start Time Stop Time Status Last Admin Dose Admin Sodium Chloride 10 ml Q8HR IV 10/06/25 06:00 10/10/25 05:49 10 ML Acetaminophen/ Hydrocodone Bitart 1 tab Q4HP PRN PO 10/06/25 01:15 Acetaminophen 650 mg Q6HP PRN PO 10/06/25 01:15 10/09/25 21:17 650 MG Morphine Sulfate 2 mg Q4HPRN PRN IV 10/06/25 01:15 Nitroglycerin 0.4 mg Q5MINP PRN SL 10/06/25 01:15 Morphine Sulfate 2 mg Q30M PRN IV 10/06/25 01:15 Diagnostic Test (Pha) 1 strip ACHS 10/06/25 17:00 10/10/25 06:03 1 STRIP Insulin Human Regular HS SC 10/06/25 22:00 10/07/25 21:28 2 UNITS Insulin Human Regular AC SC 10/06/25 17:00 10/07/25 10:56 3 UNITS Dextrose 50 ml UD PRN IV 10/06/25 13:15 Insulin Glargine 10 units DAILY@1000 SC 10/07/25 10:00 10/09/25 12:09 10 UNITS Diltiazem HCl 60 mg Q8HR PO 10/06/25 22:00 10/10/25 05:49 60 MG Clopidogrel Bisulfate 75 mg DAILY PO 10/07/25 10:00 10/09/25 12:08 75 MG Atorvastatin Calcium 40 mg HS PO 10/06/25 22:00 10/09/25 21:16 40 MG Mupirocin 1 applic BID EACHNOSTRI 10/08/25 22:00 10/13/25 21:59 10/09/25 21:18 1 APPLIC Carvedilol 3.125 mg Q12HR PO 10/09/25 22:00 10/09/25 21:17 3.125 MG Lisinopril 10 mg DAILY PO 10/10/25 10:00 Trazodone HCl 50 mg HS PO 10/09/25 22:00 10/09/25 21:16 50 MG Apixaban 5 mg BID PO 10/10/25 10:00 laboratory and microbiology Laboratory Tests 10/07/25 04:50 Test 10/07/25 04:50 Range/Units Serum Glucose 164 H 74-106 mg/dL Microbiology Date/Time Source Procedure Growth Status 10/07/25 09:40 Nose MRSA Screen - Final Methicillin Resistant S.aureus Complete 10/05/25 22:45 Blood Blood Culture - Preliminary NO GROWTH AFTER 72 HOURS OF INCUBATION. Resulted Problem List/Assessment/Plan Problem List/Assessment/Plan Generalized weakness Rash Allergic reactio Persistent atrial fibrillation with rapid ventricular rate, now rate controlled (on Eliquis). 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 Chronic compensated HFpEF. Hypertension. Dyslipidemia. HX of CVA. BLE cellulitis. Nicotine dependence. Alcohol use. Obesity admitted to med/surg consult to cardiology reconcile with home meds continue with current tx pain control Plan discussed with: Patient My Orders My Orders Orders - YUSEF FLOWERS DO Procedure Category Date Status Time Carvedilol Tablet PHA 10/09/25 In Process (Coreg Tablet) 22:00 Lisinopril Tablet PHA 10/10/25 In Process (Zestril Tablet) 10:00 Trazodone Hcl PHA 10/09/25 In Process (Desyrel) 22:00 Apixaban (Eliquis) PHA 10/10/25 In Process 10:00 Tamsulosin PHA 10/10/25 Logged Hydrochloride (Flomax) 18:00 YUSEF FLOWERS DO Oct 10, 2025 11:43
[2025-10-10] MEDS: LISINOPRIL 5 MG TAB PO SCH (11:56)
[2025-10-10] MEDS: APIXABAN 5 MG TAB PO SCH (11:57)
[2025-10-10] MEDS: TAMSULOSIN HYDROCHLORIDE 0.4 MG CAP PO SCH (17:47)
--- NOTE | 2025-10-10 18:22 | DVHPN2 ---
Progress Note - Dictate Date Seen: Oct 10, 2025 Medical Necessity Reason Pt with a Central, PICC or Fol: No Subjective Patient was seen and evaluated in follow up. No overnight events. Patient is on 2 LPM NC. Patient complains of left elbow discomfort. BS are WNL. Telemetry reviewed. vital signs Vital Sign Date Time Temp Pulse Resp B/P (MAP) Pulse Ox O2 Delivery O2 Flow Rate FiO2 10/10/25 11:56 160/114 10/10/25 11:56 97.4 10/10/25 11:55 73 10/10/25 08:57 18 98 10/09/25 20:00 Nasal Cannula* 2 28 Total Intake and Output 10/09/25 10/09/25 10/10/25 15:00 23:00 07:00 Intake Total 680 ml 1040 ml Output Total 200 ml Balance 680 ml 840 ml medications Current Medications Medications Dose Ordered Sig/Audrey Route Start Time Stop Time Status Last Admin Dose Admin Sodium Chloride 10 ml Q8HR IV 10/06/25 06:00 10/10/25 05:49 10 ML Acetaminophen/ Hydrocodone Bitart 1 tab Q4HP PRN PO 10/06/25 01:15 Acetaminophen 650 mg Q6HP PRN PO 10/06/25 01:15 10/10/25 11:56 650 MG Morphine Sulfate 2 mg Q4HPRN PRN IV 10/06/25 01:15 Nitroglycerin 0.4 mg Q5MINP PRN SL 10/06/25 01:15 Morphine Sulfate 2 mg Q30M PRN IV 10/06/25 01:15 Diagnostic Test (Pha) 1 strip ACHS 10/06/25 17:00 10/10/25 06:03 1 STRIP Insulin Human Regular HS SC 10/06/25 22:00 10/07/25 21:28 2 UNITS Insulin Human Regular AC SC 10/06/25 17:00 10/07/25 10:56 3 UNITS Dextrose 50 ml UD PRN IV 10/06/25 13:15 Insulin Glargine 10 units DAILY@1000 SC 10/07/25 10:00 10/10/25 10:00 10 UNITS Diltiazem HCl 60 mg Q8HR PO 10/06/25 22:00 10/10/25 05:49 60 MG Clopidogrel Bisulfate 75 mg DAILY PO 10/07/25 10:00 10/10/25 12:10 75 MG Atorvastatin Calcium 40 mg HS PO 10/06/25 22:00 10/09/25 21:16 40 MG Mupirocin 1 applic BID EACHNOSTRI 10/08/25 22:00 10/13/25 21:59 10/09/25 21:18 1 APPLIC Carvedilol 3.125 mg Q12HR PO 10/09/25 22:00 10/10/25 11:55 3.125 MG Lisinopril 10 mg DAILY PO 10/10/25 10:00 10/10/25 11:56 10 MG Trazodone HCl 50 mg HS PO 10/09/25 22:00 10/09/25 21:16 50 MG Apixaban 5 mg BID PO 10/10/25 10:00 10/10/25 11:57 5 MG Tamsulosin HCl 0.4 mg QPM PO 10/10/25 18:00 objective GENERAL: Alert and oriented x 3. No acute distress. EYES: PERRL, EOMI. Anicteric. HENT: Moist mucous membranes. LUNGS: Clear to auscultation bilaterally. CARDIOVASCULAR: Regular rate and rhythm. ABDOMEN: Soft, nontender and nondistended. EXTREMITIES: No edema. NEUROLOGIC: No focal neurological deficits. SKIN: Warm, dry. laboratory and microbiology Laboratory Tests 10/07/25 04:50 Test 10/07/25 04:50 Range/Units Serum Glucose 164 H 74-106 mg/dL Problem List Persistent atrial fibrillation with rapid ventricular rate, now rate controlled (on Eliquis). 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 Chronic compensated HFpEF. Hypertension. Dyslipidemia. HX of CVA. BLE cellulitis. Nicotine dependence. Alcohol use. Obesity. Assessment/Plan Continued all current supportive medical care. Morphine and [place] for pain management. Plavix. Cardizem. Nitro SL. Coreg, Lisinopril. Eliquis. Additional plan as per the hospital course. Plan discussed with: Patient EJ CARDOSO MD Oct 10, 2025 12:18
[2025-10-11] VITALS (9 sets, daily range): BP systolic 115–160; BP diastolic 79–111; PULSE 57–77; RESP 16–18; TEMP 97.5–98.2; O2SAT 93–100
--- NOTE | 2025-10-11 13:08 | DVHDS2 ---
Discharge Summary Date of Admission Oct 06, 2025 at 01:02 Date of Discharge: Oct 11, 2025 Labs/Diagnostic Data: Laboratory Results Test 10/11/25 10:57 10/07/25 04:50 10/05/25 23:04 10/05/25 22:43 POC Glucose 116 mg/dl (70-106) White Blood Count 11.2 10^3/uL (4.4-10.8) Red Blood Count 3.83 10^6/uL (4.5-5.90) Hemoglobin 11.6 g/dL (13.5-17.5) Hematocrit 35.0 % (41.0-53.0) Mean Corpuscular Volume 91.2 fL (80.0-100.0) Mean Corpuscular Hemoglobin 30.4 pg (28.0-32.0) Mean Corpuscular Hemoglobin Concent 33.3 g/dL (32.0-36.0) Red Cell Distribution Width 17.8 % (11.8-14.3) Platelet Count 178 10^3/uL (140-450) Mean Platelet Volume 8.6 fL (6.9-10.8) Neutrophils (%) (Auto) 85.9 % (37.0-80.0) Lymphocytes (%) (Auto) 5.4 % (10.0-50.0) Monocytes (%) (Auto) 8.5 % (0.0-12.0) Eosinophils (%) (Auto) 0.1 % (0.0-7.0) Basophils (%) (Auto) 0.1 % (0.0-2.0) Neutrophils # (Auto) 9.6 10 ^3/uL (1.6-8.6) Lymphocytes # (Auto) 0.6 10 ^3/uL (0.4-5.4) Monocytes # (Auto) 1.0 10 ^3/uL (0-1.3) Eosinophils # (Auto) 0 10 ^3/uL (0-0.8) Basophils # (Auto) 0 10 ^3/uL (0-0.2) Nucleated Red Blood Cells 0.1 % Sodium Level 139 mmol/L (136-145) Potassium Level 4.1 mmol/L (3.5-5.1) Chloride Level 99 mmol/L (98-107) Carbon Dioxide Level 33 mmol/L (20-31) Anion Gap 7 (5-15) Blood Urea Nitrogen 31 mg/dL (9-23) Creatinine 0.98 mg/dL (0.700-1.30) Glomerular Filtration Rate Calc 85 mL/min (>90) BUN/Creatinine Ratio 31.6 (10.0-20.0) Serum Glucose 164 mg/dL (74-106) Calcium Level 8.6 mg/dL (8.7-10.4) Total Bilirubin 0.8 mg/dL (0.2-1.0) Aspartate Amino Transferase (AST) 16 U/L (13-40) Alanine Aminotransferase (ALT) 13 U/L (7-40) Alkaline Phosphatase 132 U/L (46-116) Total Protein 6.0 g/dL (5.7-8.2) Albumin 3.4 g/dL (3.2-4.8) Urine Color Light-yellow (Yellow) Urine Clarity Clear (Clear) Urine pH 5.0 (5.0-9.0) Urine Specific [place] 1.011 (1.001-1.035) Urine Protein Negative (Negative) Urine Ketones Negative (Negative) Urine Blood Negative /uL (Negative) Urine Nitrite Negative (Negative) Urine Bilirubin Negative (Negative) Urine Urobilinogen Normal mg/dL (Negative) Urine Leukocyte Esterase Negative /uL (Negative) Urine RBC 3 /hpf (0 - 3) Urine Microscopic WBC < 1 /HPF (0-3) Urine Squamous Epithelial Cells Few /hpf (<5) Urine Bacteria None seen /hpf (None Seen) Urine Glucose Normal mg/dL (Normal) Erythrocyte Sedimentation Rate 10 mm/hr (0-20) Lactic Acid Level 1.1 mmol/L (0.4-2.0) B-Type Natriuretic Peptide 419.68 pg/mL (0-100) Other Laboratory Tests 10/07/25 04:50 Brief Hx & Hospital Course: Generalized weakness Rash Allergic reactio Persistent atrial fibrillation with rapid ventricular rate, now rate controlled (on Eliquis). 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 Chronic compensated HFpEF. Hypertension. Dyslipidemia. HX of CVA. BLE cellulitis. Nicotine dependence. Alcohol use. Obesity admitted to med/surg consult to cardiology reconcile with home meds continue with current tx pain control Final Diagnosis/Problems List drug reaction Discharge Disposition: [facility] Facility Discharge Instruct/Medications Diet: Cardiac 2g Na,low cholest Activity: No Restrictions, As Tolerated Scheduled Apixaban Base (Eliquis), 1 TAB PO BID, (Reported) Carvedilol (Carvedilol), 1 TAB PO BID, (Reported) Citalopram Hydrobromide (Citalopram Hydrobromide), 1 TAB PO DAILY, (Reported) Clopidogrel Bisulfate (Clopidogrel), 1 TAB PO DAILY Empagliflozin (Jardiance), 1 TAB PO DAILY, (Reported) Ergocalciferol (Vitamin D 24562 Unit), 50,000 UNIT PO Weekly, (Reported) Qiluuthqawq-Yhtlalwgoipz-Drcaz (Trelegy Ellipta 100-62.5-25 Mcg/INH), 1 PUFF INH DAILY, (Reported) Furosemide (Furosemide), 1 TAB PO DAILY Lisinopril (Lisinopril), 1 TAB PO DAILY, (Reported) Potassium Chloride (Potassium Chloride ER), 10 MEQ PO DAILY Simvastatin (Simvastatin), 1 TAB PO HS, (Reported) Tamsulosin Hcl (Tamsulosin Hcl), 1 CAP PO DAILY, (Reported) Trazodone Hcl (Trazodone Hcl), 50 MG PO HS Umeclidinium-Vilanterol (Anoro Ellipta 62.5-25 Mcg/INH), 1 PUFF IN DAILY, (Reported) Miscellaneous Medications Multiple Vitamins W/ Minerals (Centrum Silver), 1 OR, (Reported) Nicotine Polacrilex (Nicotine Mini Lozenge), 4 MG MT, (Reported) Discharge Statement: "Patient was advised to return to the ER or call 911 if any headaches, dizziness, shortness of breath, chest pain, abdominal pain, bleeding, fevers, or worsening of medical condition. Patient was counseled about treatment plan, medications, possible side effects, patientverbalized understanding. All questions were answered to the best of my ability. This discharge took greater then 30 minutes in planning, reviewing documentation, counseling the patient, and discussing with other team members." ASSESSMENT ASSESSMENT Assessment drug reaction Date of Service: Oct 11, 2025 Billing Provider: YUSEF FLOWERS DO Common Visit Codes: 59570-ZDZ/OBS DISCH DAY >30min YUSEF FLOWERS DO Oct 11, 2025 13:08
--- NOTE | 2025-10-11 20:45 | DVHPN2 ---
Progress Note - Dictate Date Seen: Oct 11, 2025 Medical Necessity Reason Pt with a Central, PICC or Fol: No Subjective Patient was seen and evaluated in follow up.No overnight events. Patient is on 2 LPM NC. Patient denies any new complaints Telemetry reviewed. vital signs Vital Sign Date Time Temp Pulse Resp B/P (MAP) Pulse Ox O2 Delivery O2 Flow Rate FiO2 10/11/25 10:47 68 135/88 10/11/25 08:38 98.2 16 96 98.2 10/10/25 20:00 Nasal Cannula* 2 28 Total Intake and Output 10/10/25 10/10/25 10/11/25 15:00 23:00 07:00 Intake Total 1000 ml 600 ml Output Total 850 ml Balance 1000 ml -250 ml medications Current Medications Medications Dose Ordered Sig/Audrey Route Start Time Stop Time Status Last Admin Dose Admin Sodium Chloride 10 ml Q8HR IV 10/06/25 06:00 10/11/25 05:57 10 ML Acetaminophen/ Hydrocodone Bitart 1 tab Q4HP PRN PO 10/06/25 01:15 Acetaminophen 650 mg Q6HP PRN PO 10/06/25 01:15 10/11/25 10:47 650 MG Morphine Sulfate 2 mg Q4HPRN PRN IV 10/06/25 01:15 Nitroglycerin 0.4 mg Q5MINP PRN SL 10/06/25 01:15 Morphine Sulfate 2 mg Q30M PRN IV 10/06/25 01:15 Diagnostic Test (Pha) 1 strip ACHS 10/06/25 17:00 10/11/25 10:59 1 STRIP Insulin Human Regular HS SC 10/06/25 22:00 10/07/25 21:28 2 UNITS Insulin Human Regular AC SC 10/06/25 17:00 10/07/25 10:56 3 UNITS Dextrose 50 ml UD PRN IV 10/06/25 13:15 Insulin Glargine 10 units DAILY@1000 SC 10/07/25 10:00 10/11/25 10:00 10 UNITS Diltiazem HCl 60 mg Q8HR PO 10/06/25 22:00 10/11/25 05:56 60 MG Clopidogrel Bisulfate 75 mg DAILY PO 10/07/25 10:00 10/11/25 10:47 75 MG Atorvastatin Calcium 40 mg HS PO 10/06/25 22:00 10/10/25 21:37 40 MG Mupirocin 1 applic BID EACHNOSTRI 10/08/25 22:00 10/13/25 21:59 10/11/25 10:00 1 APPLIC Carvedilol 3.125 mg Q12HR PO 10/09/25 22:00 10/11/25 10:47 3.125 MG Lisinopril 10 mg DAILY PO 10/10/25 10:00 10/11/25 10:46 10 MG Trazodone HCl 50 mg HS PO 10/09/25 22:00 10/10/25 21:37 50 MG Apixaban 5 mg BID PO 10/10/25 10:00 10/11/25 10:47 5 MG Tamsulosin HCl 0.4 mg QPM PO 10/10/25 18:00 10/10/25 17:47 0.4 MG objective GENERAL: Alert and oriented x 3. No acute distress. EYES: PERRL, EOMI. Anicteric. HENT: Moist mucous membranes. LUNGS: Clear to auscultation bilaterally. CARDIOVASCULAR: Regular rate and rhythm. ABDOMEN: Soft, nontender and nondistended. EXTREMITIES: No edema. NEUROLOGIC: No focal neurological deficits. SKIN: Warm, dry. laboratory and microbiology Laboratory Tests 10/07/25 04:50 Test 10/07/25 04:50 Range/Units Serum Glucose 164 H 74-106 mg/dL Problem List Persistent atrial fibrillation with rapid ventricular rate, now rate controlled (on Eliquis). 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 Chronic compensated HFpEF. Hypertension. Dyslipidemia. HX of CVA. BLE cellulitis. Nicotine dependence. Alcohol use. Obesity. Assessment/Plan Continued all current supportive medical care. Morphine and [place] for pain management. Plavix. Cardizem. Nitro SL. Coreg, Lisinopril. Eliquis. Additional plan as per the hospital course. Plan discussed with: Patient EJ CARDOSO MD Oct 11, 2025 13:32
[2025-10-12] VITALS (7 sets, daily range): BP systolic 102–157; BP diastolic 75–120; PULSE 60–78; RESP 16–20; TEMP 97.4–98.7; O2SAT 97–99
--- NOTE | 2025-10-12 00:14 | DVHDS2 ---
Discharge Summary Date of Admission Oct 06, 2025 at 01:02 Date of Discharge: Oct 11, 2025 Labs/Diagnostic Data: Laboratory Results Test 10/11/25 21:02 10/07/25 04:50 10/05/25 23:04 10/05/25 22:43 POC Glucose 116 mg/dl (70-106) White Blood Count 11.2 10^3/uL (4.4-10.8) Red Blood Count 3.83 10^6/uL (4.5-5.90) Hemoglobin 11.6 g/dL (13.5-17.5) Hematocrit 35.0 % (41.0-53.0) Mean Corpuscular Volume 91.2 fL (80.0-100.0) Mean Corpuscular Hemoglobin 30.4 pg (28.0-32.0) Mean Corpuscular Hemoglobin Concent 33.3 g/dL (32.0-36.0) Red Cell Distribution Width 17.8 % (11.8-14.3) Platelet Count 178 10^3/uL (140-450) Mean Platelet Volume 8.6 fL (6.9-10.8) Neutrophils (%) (Auto) 85.9 % (37.0-80.0) Lymphocytes (%) (Auto) 5.4 % (10.0-50.0) Monocytes (%) (Auto) 8.5 % (0.0-12.0) Eosinophils (%) (Auto) 0.1 % (0.0-7.0) Basophils (%) (Auto) 0.1 % (0.0-2.0) Neutrophils # (Auto) 9.6 10 ^3/uL (1.6-8.6) Lymphocytes # (Auto) 0.6 10 ^3/uL (0.4-5.4) Monocytes # (Auto) 1.0 10 ^3/uL (0-1.3) Eosinophils # (Auto) 0 10 ^3/uL (0-0.8) Basophils # (Auto) 0 10 ^3/uL (0-0.2) Nucleated Red Blood Cells 0.1 % Sodium Level 139 mmol/L (136-145) Potassium Level 4.1 mmol/L (3.5-5.1) Chloride Level 99 mmol/L (98-107) Carbon Dioxide Level 33 mmol/L (20-31) Anion Gap 7 (5-15) Blood Urea Nitrogen 31 mg/dL (9-23) Creatinine 0.98 mg/dL (0.700-1.30) Glomerular Filtration Rate Calc 85 mL/min (>90) BUN/Creatinine Ratio 31.6 (10.0-20.0) Serum Glucose 164 mg/dL (74-106) Calcium Level 8.6 mg/dL (8.7-10.4) Total Bilirubin 0.8 mg/dL (0.2-1.0) Aspartate Amino Transferase (AST) 16 U/L (13-40) Alanine Aminotransferase (ALT) 13 U/L (7-40) Alkaline Phosphatase 132 U/L (46-116) Total Protein 6.0 g/dL (5.7-8.2) Albumin 3.4 g/dL (3.2-4.8) Urine Color Light-yellow (Yellow) Urine Clarity Clear (Clear) Urine pH 5.0 (5.0-9.0) Urine Specific [place] 1.011 (1.001-1.035) Urine Protein Negative (Negative) Urine Ketones Negative (Negative) Urine Blood Negative /uL (Negative) Urine Nitrite Negative (Negative) Urine Bilirubin Negative (Negative) Urine Urobilinogen Normal mg/dL (Negative) Urine Leukocyte Esterase Negative /uL (Negative) Urine RBC 3 /hpf (0 - 3) Urine Microscopic WBC < 1 /HPF (0-3) Urine Squamous Epithelial Cells Few /hpf (<5) Urine Bacteria None seen /hpf (None Seen) Urine Glucose Normal mg/dL (Normal) Erythrocyte Sedimentation Rate 10 mm/hr (0-20) Lactic Acid Level 1.1 mmol/L (0.4-2.0) B-Type Natriuretic Peptide 419.68 pg/mL (0-100) Other Laboratory Tests 10/07/25 04:50 Brief Hx & Hospital Course: Generalized weakness Rash Allergic reactio Persistent atrial fibrillation with rapid ventricular rate, now rate controlled (on Eliquis). 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 Chronic compensated HFpEF. Hypertension. Dyslipidemia. HX of CVA. BLE cellulitis. Nicotine dependence. Alcohol use. Obesity admitted to med/surg consult to cardiology reconcile with home meds continue with current tx pain control Condition at Discharge: Fair Final Diagnosis/Problems List drug reaction Discharge Disposition: Longterm Facility Discharge Instruct/Medications Diet: Cardiac 2g Na,low cholest Activity: No Restrictions, As Tolerated Scheduled Apixaban Base (Eliquis), 1 TAB PO BID, (Reported) Carvedilol (Carvedilol), 1 TAB PO BID, (Reported) Citalopram Hydrobromide (Citalopram Hydrobromide), 1 TAB PO DAILY, (Reported) Clopidogrel Bisulfate (Clopidogrel), 1 TAB PO DAILY Empagliflozin (Jardiance), 1 TAB PO DAILY, (Reported) Ergocalciferol (Vitamin D 97236 Unit), 50,000 UNIT PO Weekly, (Reported) Wmlvfdrdfnf-Pqghyilioswo-Xomzg (Trelegy Ellipta 100-62.5-25 Mcg/INH), 1 PUFF INH DAILY, (Reported) Furosemide (Furosemide), 1 TAB PO DAILY Lisinopril (Lisinopril), 1 TAB PO DAILY, (Reported) Potassium Chloride (Potassium Chloride ER), 10 MEQ PO DAILY Simvastatin (Simvastatin), 1 TAB PO HS, (Reported) Tamsulosin Hcl (Tamsulosin Hcl), 1 CAP PO DAILY, (Reported) Trazodone Hcl (Trazodone Hcl), 50 MG PO HS Umeclidinium-Vilanterol (Anoro Ellipta 62.5-25 Mcg/INH), 1 PUFF IN DAILY, (Reported) Miscellaneous Medications Multiple Vitamins W/ Minerals (Centrum Silver), 1 OR, (Reported) Nicotine Polacrilex (Nicotine Mini Lozenge), 4 MG MT, (Reported) Discharge Statement: "Patient was advised to return to the ER or call 911 if any headaches, dizziness, shortness of breath, chest pain, abdominal pain, bleeding, fevers, or worsening of medical condition. Patient was counseled about treatment plan, medications, possible side effects, patientverbalized understanding. All questions were answered to the best of my ability. This discharge took greater then 30 minutes in planning, reviewing documentation, counseling the patient, and discussing with other team members." ASSESSMENT ASSESSMENT Assessment drug reaction YUSEF FLOWERS DO Oct 12, 2025 00:14
--- NOTE | 2025-10-12 00:21 | DVHPN2 ---
Progress Note Date Seen: Oct 11, 2025 Medical Necessity Reason Pt with a Central, PICC or Fol: No Objective vital signs Vital Sign Date Time Temp Pulse Resp B/P (MAP) Pulse Ox O2 Delivery O2 Flow Rate FiO2 10/11/25 21:13 63 143/111 10/11/25 21:00 97.6 16 97 97.6 10/11/25 20:01 Nasal Cannula* 3 32 Total Intake and Output 10/11/25 10/11/25 10/12/25 15:00 23:00 07:00 Intake Total 800 ml Balance 800 ml medications Current Medications Medications Dose Ordered Sig/Audrey Route Start Time Stop Time Status Last Admin Dose Admin Sodium Chloride 10 ml Q8HR IV 10/06/25 06:00 10/11/25 21:22 10 ML Acetaminophen/ Hydrocodone Bitart 1 tab Q4HP PRN PO 10/06/25 01:15 Acetaminophen 650 mg Q6HP PRN PO 10/06/25 01:15 10/11/25 20:23 650 MG Morphine Sulfate 2 mg Q4HPRN PRN IV 10/06/25 01:15 Nitroglycerin 0.4 mg Q5MINP PRN SL 10/06/25 01:15 Morphine Sulfate 2 mg Q30M PRN IV 10/06/25 01:15 Diagnostic Test (Pha) 1 strip ACHS 10/06/25 17:00 10/11/25 21:21 1 STRIP Insulin Human Regular HS SC 10/06/25 22:00 10/07/25 21:28 2 UNITS Insulin Human Regular AC SC 10/06/25 17:00 10/07/25 10:56 3 UNITS Dextrose 50 ml UD PRN IV 10/06/25 13:15 Insulin Glargine 10 units DAILY@1000 SC 10/07/25 10:00 10/11/25 10:00 10 UNITS Diltiazem HCl 60 mg Q8HR PO 10/06/25 22:00 10/11/25 21:13 60 MG Clopidogrel Bisulfate 75 mg DAILY PO 10/07/25 10:00 10/11/25 10:47 75 MG Atorvastatin Calcium 40 mg HS PO 10/06/25 22:00 10/11/25 21:11 40 MG Mupirocin 1 applic BID EACHNOSTRI 10/08/25 22:00 10/13/25 21:59 10/11/25 21:22 1 APPLIC Carvedilol 3.125 mg Q12HR PO 10/09/25 22:00 10/11/25 21:12 3.125 MG Lisinopril 10 mg DAILY PO 10/10/25 10:00 10/11/25 10:46 10 MG Trazodone HCl 50 mg HS PO 10/09/25 22:00 10/11/25 21:12 50 MG Apixaban 5 mg BID PO 10/10/25 10:00 10/11/25 21:13 5 MG Tamsulosin HCl 0.4 mg QPM PO 10/10/25 18:00 10/11/25 18:09 0.4 MG laboratory and microbiology Laboratory Tests 10/07/25 04:50 Test 10/07/25 04:50 Range/Units Serum Glucose 164 H 74-106 mg/dL Microbiology Date/Time Source Procedure Growth Status 10/07/25 09:40 Nose MRSA Screen - Final Methicillin Resistant S.aureus Complete 10/05/25 22:45 Blood Blood Culture - Final NO GROWTH AFTER 5 DAYS OF INCUBATION. Complete Labs and/or images reviewed: Labs reviewed by me, Image(s) reviewed by me Problem List/Assessment/Plan Problem List/Assessment/Plan Generalized weakness Rash Allergic reactio Persistent atrial fibrillation with rapid ventricular rate, now rate controlled (on Eliquis). 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 Chronic compensated HFpEF. Hypertension. Dyslipidemia. HX of CVA. BLE cellulitis. Nicotine dependence. Alcohol use. Obesity admitted to med/surg consult to cardiology reconcile with home meds continue with current tx pain control Plan discussed with: Patient My Orders My Orders Orders - YUSEF FLOWERS DO Procedure Category Date Status Time Discharge DISCHARGE 10/11/25 Transmitted 13:04 * Anodic Treater CONS 10/11/25 Transmitted Consult 16:41 YUSEF FLOWERS DO Oct 12, 2025 00:21
--- NOTE | 2025-10-12 22:47 | DVHPN2 ---
Progress Note - Dictate Date Seen: Oct 12, 2025 Medical Necessity Reason Pt with a Central, PICC or Fol: No Subjective Patient was seen and evaluated in follow up. Patient has no new complaints at this time. Patient denies any cardiac symptoms. Patient is cardiac stable for discharge. Telemetry reviewed. vital signs Vital Sign Date Time Temp Pulse Resp B/P (MAP) Pulse Ox O2 Delivery O2 Flow Rate FiO2 10/12/25 17:01 98.0 69 20 102/75 (84) 99 98.0 10/12/25 08:05 Nasal Cannula* 3 32 Total Intake and Output 10/11/25 10/11/25 10/12/25 15:00 23:00 07:00 Intake Total 800 ml 700 ml Balance 800 ml 700 ml objective GENERAL: Alert and oriented x 3. No acute distress. EYES: PERRL, EOMI. Anicteric. HENT: Moist mucous membranes. LUNGS: Clear to auscultation bilaterally. CARDIOVASCULAR: Regular rate and rhythm. ABDOMEN: Soft, nontender and nondistended. EXTREMITIES: No edema. NEUROLOGIC: No focal neurological deficits. SKIN: Warm, dry. laboratory and microbiology Laboratory Tests 10/07/25 04:50 Test 10/07/25 04:50 Range/Units Serum Glucose 164 H 74-106 mg/dL Problem List Persistent atrial fibrillation with rapid ventricular rate, now rate controlled (on Eliquis). 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 Chronic compensated HFpEF. Hypertension. Dyslipidemia. HX of CVA. BLE cellulitis. Nicotine dependence. Alcohol use. Obesity. Assessment/Plan Continued all current supportive medical care. Morphine and [place] for pain management. Plavix. Cardizem. Nitro SL. Coreg, Lisinopril. Eliquis. Additional plan as per the hospital course. Plan discussed with: Patient JE CARDOSO MD Oct 12, 2025 22:47
== END 2025-10-12 18:20 | DRG 603 ==
LOC: ER 22:16 → EDBD 22:16 → OVERFLOW 10-06 01:02 → CENTRAL 10-06 21:20 → EAST 10-09 13:10 → CENTRAL 10-09 20:35 → TELE-CENTR 10-09 23:57
PROVIDERS: ADMIT Internal Medicine; ATTEND Internal Medicine
DX: L03.115 Cellulitis of right lower limb (principal); I50.32 Chronic diastolic (congestive) heart failure; I11.0 Hypertensive heart disease with heart failure; E10.51 Type 1 diabetes mellitus with diabetic peripheral angiopathy without gangrene; L03.116 Cellulitis of left lower limb; Z79.01 Long term (current) use of anticoagulants; E66.9 Obesity, unspecified; J44.9 Chronic obstructive pulmonary disease, unspecified; F32.A Depression, unspecified; I48.19 Other persistent atrial fibrillation; E78.5 Hyperlipidemia, unspecified; I25.10 Atherosclerotic heart disease of native coronary artery without angina pectoris; T50.995A Adverse effect of other drugs, medicaments and biological substances, initial encounter; Z86.73 Personal history of transient ischemic attack (TIA), and cerebral infarction without residual deficits; Z88.1 Allergy status to other antibiotic agents; Z87.891 Personal history of nicotine dependence; Z83.3 Family history of diabetes mellitus; Z82.49 Family history of ischemic heart disease and other diseases of the circulatory system; Z79.4 Long term (current) use of insulin; Z68.26 Body mass index [BMI] 26.0-26.9, adult; Z98.62 Peripheral vascular angioplasty status; Y92.89 Other specified places as the place of occurrence of the external cause
CPT/HCPCS: 36415; 71045; 80048; 80053; 81001; 82962; 83605; 83880; 85025; 85652; 87040; 87081; 93005; 96374; 97110; 97116; 97163; G0378; J1815